=== PATIENT | female | born 1965 | race Caucasian/White ===

== ENCOUNTER → 2021-08-23 | Outpatient (CLI) | payer OTHER, SELFPAY ==
[2021-08-29 15:10] LABS: HPV APTIMA, High Risk Negative (Negative)
== END | disposition home or self-care (01) ==
PROVIDERS: PCP Family Medicine; Referring Provider Obstetrics & Gynecology; Visit Provider Obstetrics & Gynecology
DX: Z12.4 Encounter for screening for malignant neoplasm of cervix (principal)
CPT/HCPCS: 87624; 88175; G0145

== ENCOUNTER 2022-09-15 17:30 | Outpatient (RCR) | payer SELFPAY | END 2022-09-22 23:59 | LOC: NS 17:30 | PROVIDERS: PCP Nurse Practitioner Family | DX: Z71.3 Dietary counseling and surveillance (principal) ==

== ENCOUNTER 2023-09-28 12:08 | Outpatient (RCR) | payer SELFPAY | END 2023-10-24 23:59 | LOC: NS 12:08 | PROVIDERS: PCP Nurse Practitioner Family | DX: Z71.3 Dietary counseling and surveillance (principal) ==

== ENCOUNTER → 2024-09-08 | Outpatient (CLI) | payer SELFPAY ==
--- NOTE | 2024-09-08 | EMB_PTH ---
PATIENT: VANE LEMOS LOC: [facility] U#:[id number] AGE/SX: 59/F ROOM: RE09/08/[address]: Dr. Addis Foss DO : 1965 BED: DIS: 09/08/2024 SPEC #: [id number] RECD: 09/08/24 11:57 STATUS: [facility] JERONIMOSkye #: [id number] APRIL: 09/08/24 00:[address]: Addis Foss DEPT: SURGICAL PATHOLOGY RECD BY: Katie Freitas ENTERED: 09/08/24 13:38 SP TYPE: ENDOM BX/C TODD DR: Bertha Rivas, JOAQUIN Tissues: Endometrium, NOS Procedures: Surgery Specimen Level IV HEADER OPERATION: Endometrial Biopsy PRE-OP DIAGNOSIS: Postmenopausal Bleeding TISSUE SUBMITTED: Endometrial Tissue MICROSCOPIC DIAGNOSIS A. Endometrium, postmenopausal bleeding, biopsy: - Scant inactive endometrium - see note. Note: Scant tissue is present. Clinical correlation is necessary to assess the adequacy of this sampling. MICROSCOPIC DESCRIPTION Slides are reviewed. GROSS DESCRIPTION A. Received in formalin labeled with the patient's name and date of are minute flecks of possible tissue free-floating within the container which are spun down into a cell block and entirely submitted in 1 cassette. [place] 09/08/2024 CPT: [id number]
== END | disposition home or self-care (01) ==
LOC: LABSPEC 11:50
PROVIDERS: PCP Nurse Practitioner Family; Visit Provider Obstetrics & Gynecology
DX: N95.0 Postmenopausal bleeding (principal)
CPT/HCPCS: 88305

== ENCOUNTER 2024-09-30 05:57 | Day surgery (SDC) | payer OTHER, SELFPAY ==
[2024-09-26 10:35] LABS: Hematocrit 39.5 % (37-47); Hemoglobin 13.4 g/dL (12.0-15.0); Mean Corp Hgb Conc 33.9 g/dL (32-36); Mean Corpuscular Volume 90.0 fL (81-99); Mean Platelet Vol. 9.4 fl (6.2-12.0); Platelet Count 315 K/mm3 (150-450); RBC Distribution Width CV 12.5 % (11.6-14.6); RBC Distribution Width SD 41.3 fl (35.1-43.9); Red Blood Count 4.39 M/mm3 (4.2-5.4); White Blood Count 7.1 K/mm3 (4.4-11.0)
[2024-09-30] VITALS (9 sets, daily range): BP systolic 108–123; BP diastolic 57–78; PULSE 66–74; RESP 16–18; TEMP 36.1–36.4; O2SAT 94–99; BMI 33.2
--- OUTSIDE RECORDS SUMMARY | 2024-09-30 06:07 | XMS RPT_ITS | CCD ---
Author Organization 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 Name Role Phone ERICKSONCAROLINE LUE L Unavailable Unavailable SELF, SELF Unavailable Unavailable ALEX COVINGTON Unavailable Unavailable ERICKSON, LIBIA L Unavailable Unavailable SELF, SELF Unavailable Unavailable ALEX COVINGTON Unavailable Unavailable ERICKSON, LIBIA L Unavailable Unavailable SELF, SELF Unavailable Unavailable ALEX COVINGTON Unavailable Unavailable ERICKSON, LIBIA L Unavailable Unavailable SELF, SELF Unavailable Unavailable ALEX COVINGTON Unavailable Unavailable ERICKSON, LIBIA L Unavailable Unavailable SELF, SELF Unavailable Unavailable ALEX COVINGTON Unavailable Unavailable ERICKSON, LIBIA L Unavailable Unavailable SELF, SELF Unavailable Unavailable ALEX COVINGTON Unavailable Unavailable ALEX COVINGTON MD Primary Care Physician Aidan PT, Izabella Unavailable Unavailable Dr. Alex Covington Primary Care Provider Dr. Alex Covington Referring Provider Dr. Addis Foss Attending Provider Dr. Alex Covington Referring Provider [phone] Dr. Addis Foss Attending Provider Evelyn INTEGRATION SOLUTION ARCHITECT, INTEGRATION SOLUTION ARCHITECT-C Bertha Primary Care Provider DR BEV EARL DPM Attending UnavailALEX Ferguson MD Primary Care Unavailable EVELYN HEBERT, BERTHA Attending Unavail ALEX Loyd MD Primary Care Unavailable EVELYN HEBERT, BERTHA Attending Unavail ALEX Loyd MD Primary Care Unavailable BERTHA FAIRCHILD Attending Unavail ALEX Loyd MD Primary Care Unavailable EVELYN HBEERT, BERTHA Attending Unavail ALEX Loyd MD Primary Care Unavailable BERTHA FAIRCHILD Primary Care Physician [place] INTEGRATION SOLUTION ARCHITECT-C, [facility] Primary Care Provider [phone] Evelyn INTEGRATION SOLUTION ARCHITECT-C, [facility] Referring Provider Dr. Addis Foss DO Attending Provider Evelyn INTEGRATION SOLUTION ARCHITECT, [facility] Unavailable Vande Velfritz, Addis Attending Unavailabl e Vande Velde, Addis Referring Unavailabl e [place] INTEGRATION SOLUTION ARCHITECT, [facility] Unavailable Referred, Self Attending Unavailable [place] INTEGRATION SOLUTION ARCHITECT, [facility] Unavailable [place] INTEGRATION SOLUTION ARCHITECT, [facility] Referring Unavailable Vande Velfritz, Addis Attending Unavailabl e [place] INTEGRATION SOLUTION ARCHITECT, [facility] Unavailable [place] INTEGRATION SOLUTION ARCHITECT, [facility] Referring Unavailable Yumikoe Velfritz, Addis Attending Unavailabl e [place] INTEGRATION SOLUTION ARCHITECT, [facility] Referring Unavailable [place] INTEGRATION SOLUTION ARCHITECT, [facility] Unavailable Prince Claudio, Addis Attending Unavailabl e Vande Velfritz, Addis Attending Unavailabl e [place] INTEGRATION SOLUTION ARCHITECT, [facility] Unavailable LORSON FORENSIC INVESTIGATOR-PHARMACY ASSISTANT, [facility] Care Unavail able LORSON FORENSIC INVESTIGATOR-PHARMACY ASSISTANT, BERTHA Attending Unavail able LORSON FORENSIC INVESTIGATOR-PHARMACY ASSISTANT, [facility] Unavail able LORSON FORENSIC INVESTIGATOR-PHARMACY ASSISTANT, BERTHA Attending Unavail able LORSON FORENSIC INVESTIGATOR-PHARMACY ASSISTANT, [facility] Unavail able LORSON FORENSIC INVESTIGATOR-PHARMACY ASSISTANT, [place] Attending Unavail able LORSON FORENSIC INVESTIGATOR-PHARMACY ASSISTANT, [place] Attending Unavail able LORSON FORENSIC INVESTIGATOR-PHARMACY ASSISTANT, [facility] Unavail able LORSON FORENSIC INVESTIGATOR-PHARMACY ASSISTANT, [place] Primary Care Unavail able LORSON FORENSIC INVESTIGATOR-PHARMACY ASSISTANT, [place] Attending Unavail able LORSON FORENSIC INVESTIGATOR-PHARMACY ASSISTANT, [facility] Unavail able LORSON FORENSIC INVESTIGATOR-PHARMACY ASSISTANT, [place] Attending Unavail able LORSON FORENSIC INVESTIGATOR-PHARMACY ASSISTANT, [facility] Unavail able RYANN GONZALEZ DO Attending Unavailable Medications Current Medications Medication Drug Class(es) Dates Sig (Normalized) Sig (Original) 0.5 ML tirzepatide 15 MG/ML Auto-Injector [Mounjaro] (3 sources) Start: 03-14-2024 inject 1 dose by subcutaneous injection every week Mounjaro 7.5 mg/0.5 mL subcutaneous solution Dose : 7.5 mg =, Subcutaneous, qWeek, rotate injection sites, # 12 EA, 3 Refill(s), [id number], cm, 03/14/24 9:31:00 EST, Height, kg, 03/14/24 9:31:00 EST, Dosing Weight Start Date: 03/14/24 Status: Ordered Quantity: 12.0 Unit: EA Repeat number: 4 0.5 ML tirzepatide 5 MG/ML Auto-Injector [Mounjaro] (2 sources) Start: 06-08-2023 inject 1 dose by subcutaneous injection every week Mounjaro 2.5 mg/0.5 mL subcutaneous solution Dose : 2.5 mg =, Subcutaneous, qWeek, rotate injection sites, # 4 EA, 0 Refill(s), [id number] 161, cm, 06/08/23 13:37:00 EDT, Height, kg, 06/08/23 13:37:00 EDT, Dosing Weight Start Date: 06/08/23 Status: Ordered acetaminophen 500 mg oral tablet (7 sources) Start: 12-04-2021 acetaminophen 500 mg oral tablet Dose : 1,000 mg = 2 tab(s), Oral, TID, PRN pain or fever, 0 Refill(s) Start Date: 12/04/21 Status: Ordered amoxicillin 875 mg / clavulanate 125 mg oral tablet (1 source) Penicillin-class Antibacterial Start: 02-04-2022 End: 02-14-2022 take 1 tablet by mouth every twelve hours amoxicillin-clavul anate 875 mg-125 mg oral tablet 1 tab(s), Oral, q12h, X 10 day(s), # 20 tab(s), 0 Refill(s), 02/14/22 13:51:00 EST, [id number] 160, cm, 02/04/22 13:23:00 EST, Height, 98.2 Start Date: 02/04/22 Stop Date: 02/14/22 Status: Ordered atorvastatin 40 mg oral tablet (2 sources) HMG-CoA Reductase Inhibitor Start: 04-09-2022 atorvastatin 40 mg oral tablet Dose : 40 mg = 1 tab(s), Oral, qDay, # 90 tab(s), 3 Refill(s), Pharmacy: [facility], 160, cm, 03/26/22 7:00:00 EST, Height, kg, 03/26/22 7:00:00 EST, Dosing Weight Start Date: 04/09/22 Status: Ordered Start: 02-12-2022 atorvastatin 4 0 mg oral tablet Dose : 40 mg = 1 tab(s), Oral, qDay, # 30 tab(s), 3 Refill(s), [id number] 160, cm, 02/12/22 8:55:00 EST, Height Start Date: 02/12/22 Status: Ordered Blood Glucose Test Machine (12 sources) Start: 02-04-2022 Blood Glucose Test Machine See Instructions, Use as directed Brand type per insurance or patient preference, # 1 EA, 0 Refill(s), [id number] 160, cm, 02/04/22 13:23:00 EST, Height, 98.2 Start Date: 02/04/22 Status: Ordered Quantity: 1.0 Unit: EA Repeat number: 1 Start: 02-04-2022 Blood Glucose Test Machine See Instructions, Use as directed Brand type per insurance or patient preference, # 1 EA, 0 Refill(s), [id number], 160, cm, 02/04/22 13:23:00 EST, Height, 98.2 Start Date: 02/04/22 Status: Ordered calcium carbonate 1500 mg oral tablet (4 sources) Start: 08-31-2024 take 1 tablet by mouth once daily Calcium Carbonate 600 mg calcium (1,500 mg) tablet Active 600 mg PO daily August 31, 2024 12:00am calcium carbonate 600 MG / ergocalciferol 200 UNT Oral Capsule (14 sources) Provitamin D2 Compound Start: 05-16-2019 take 1 capsule by mouth twice daily calcium-vitamin D 600 mg-200 intl units (5 mcg) oral capsule cap(s), Oral, BID, 0 Refill(s) Start Date: 05/16/19 Status: Ordered Repeat number: 1 Start: 05-16-2019 take 1 capsule by mo [facility] twice daily calcium-vitamin D 600 mg-200 intl units (5 mcg) oral capsule cap(s), Oral, BID, 0 Refill(s) Start Date: 05/16/19 Status: Ordered cholecalciferol 0.025 mg oral capsule (16 sources) Vitamin D Start: 06-15-2023 End: 10-27-2024 cholecalciferol 25 mcg (1000 intl units) oral capsule Dose : 25 mcg = 1 cap(s), Oral, Daily, # 100 cap(s), 4 Refill(s), other reason (Rx) Start Date: 06/15/23 Stop Date: 10/27/24 Status: Ordered Quantity: 100.0 Unit: cap(s) Repeat number: 5 Start: 05-11-2023 cholecalcifero l 1250 mcg (50,000 intl units) oral capsule Dose : 1,250 mcg = 1 cap(s), Oral, qWeek, # 12 cap(s), 3 Refill(s), Pharmacy: [facility]/pharmacy #[id number], 160, cm, 03/23/23 7:33:00 EST, Height, kg, 03/23/23 7:33:00 EST, Dosing Weight Start Date: 05/11/23 Status: Ordered Start: 08-28-2022 take 1 capsule by [facility] once daily Cholecalciferol (Vitamin D3) 50 mcg (2,000 unit) capsule Active 50 ug PO DAILY August 28, 2022 12:00am Start: 06-05-2022 cholecalcifero l 1250 mcg (50,000 intl units) oral capsule Dose : 1,250 mcg = 1 cap(s), Oral, qWeek, # 12 cap(s), 3 Refill(s), Pharmacy: [facility]/pharmacy #[id number], 163, cm, 06/05/22 13:52:00 EDT, Height, kg, 06/05/22 13:52:00 EDT, Dosing Weight Start Date: 06/05/22 Status: Ordered Start: 02-12-2022 cholecalcifero l 1250 mcg (50,000 intl units) oral capsule Dose : 1,250 mcg = 1 cap(s), Oral, qWeek, # 12 cap(s), 3 Refill(s), Pharmacy: [facility]/pharmacy #[id number], 160, cm, 02/12/22 8:55:00 EST, Height Start Date: 02/12/22 Status: Ordered Co Q-10 100 mg oral capsule (3 sources) Start: 03-14-2024 End: 03-09-2025 Co Q-10 100 mg oral capsule Dose : 100 mg = 1 cap(s), Oral, Daily, # 90 cap(s), 3 Refill(s), other reason (Rx) Start Date: 03/14/24 Stop Date: 03/09/25 Status: Ordered Quantity: 90.0 Unit: cap(s) Repeat number: 4 ibuprofen 200 mg oral tablet (9 sources) Nonsteroidal Anti-inflammatory Drug Start: 12-04-2021 ibuprofen 200 mg oral tablet Dose : 400 mg = 2 tab(s), Oral, q6hr, PRN pain or fever, 0 Refill(s) Start Date: 12/04/21 Status: Ordered 3 ml insulin degludec 200 unt/ml pen injector (9 sources) Insulin Analog Start: 03-23-2023 End: 07-21-2023 inject 1 dose by subcutaneous injection once daily Tresiba FlexTouch 200 units/mL 3 mL subcutaneous solution Dose : 20 unit(s) =, Subcutaneous, qDay, rotate injection sites, # 9 mL, 3 Refill(s), Pharmacy: [facility], 160, cm, 03/23/23 7:33:00 EST, Height, kg, 03/23/23 7:33:00 EST, Dosing Weight Start Date: 03/23/23 Stop Date: 07/21/23 Status: Ordered Start: 09-05-2022 End: 01-03-2023 inject 1 dose by subcutaneous injection once daily Tresiba FlexTouch 200 units/mL 3 mL subcutaneous solution Dose : 16 unit(s) =, Subcutaneous, qDay, rotate injection sites, # 9 mL, 3 Refill(s), Pharmacy: [facility], 163, cm, 08/18/22 8:52:00 EDT, Height, kg, 08/18/22 8:52:00 EDT, Dosing Weight Start Date: 09/05/22 Stop Date: 01/03/23 Status: Ordered Start: 03-26-2022 End: 07-24-2022 inject 1 dose by subcutaneous injection once daily Tresiba FlexTouch 200 units/mL 3 mL subcutaneous solution Dose : 16 unit(s) =, Subcutaneous, qDay, rotate injection sites, # 9 mL, 3 Refill(s), other reason (Rx) Start Date: 03/26/22 Stop Date: 07/24/22 Status: Ordered Start: 02-04-2022 End: 06-04-2022 inject 1 dose by subcutaneous injection once daily Tresiba FlexTouch 200 units/mL 3 mL subcutaneous solution Dose : 10 unit(s) =, Subcutaneous, qDay, rotate injection sites, # 9 mL, 3 Refill(s), Pharmacy: [facility]/pharmacy #[id number], 160, cm, 02/04/22 13:23:00 EST, Height Start Date: 02/04/22 Stop Date: 06/04/22 Status: Ordered levothyroxine sodium 0.075 mg oral tablet (20 sources) l-Thyroxine Start: 06-13-2024 Synthroid 75 m cg (0.075 mg) oral tablet Dose : 75 mcg = 1 tab(s), Oral, qDay, no dose on Sundays, # 90 tab(s), 3 Refill(s), SUSANNA, Pharmacy: [facility], 161, cm, 06/13/24 9:33:00 EDT, Height, kg, 06/13/24 9:33:00 EDT, Dosing Weight Start Date: 06/13/24 Status: Ordered Quantity: 90.0 Unit: tab(s) Repeat number: 4 Start: 03-23-2023 Synthroid 75 m cg (0.075 mg) oral tablet Dose : 75 mcg = 1 tab(s), Oral, qDay, # 90 tab(s), 3 Refill(s), SUSANNA, Pharmacy: [facility], 160, cm, 03/23/23 7:33:00 EST, Height, kg, 03/23/23 7:33:00 EST, Dosing Weight Start Date: 03/23/23 Status: Ordered Start: 08-28-2022 Levothyroxine (Synthroid) 88 mcg tablet Active 75 ug PO DAILY August 28, 2022 1:13pm Start: 06-05-2022 Synthroid 75 m cg (0.075 mg) oral tablet Dose : 75 mcg = 1 tab(s), Oral, qDay, # 90 tab(s), 3 Refill(s), Pharmacy: [facility], 163, cm, 06/05/22 13:52:00 EDT, Height Start Date: 06/05/22 Status: Ordered Start: 03-26-2022 Synthroid 88 m cg (0.088 mg) oral tablet Dose : 88 mcg = 1 tab(s), Oral, qDay, # 90 tab(s), 3 Refill(s), Pharmacy: [facility], 160, cm, 03/26/22 7:00:00 EST, Height, kg, 03/26/22 7:00:00 EST, Dosing Weight Start Date: 03/26/22 Status: Ordered Start: 12-31-2021 Synthroid 88 m cg (0.088 mg) oral tablet Dose : 88 mcg = 1 tab(s), Oral, qDay, # 90 tab(s), 1 Refill(s), Pharmacy: [facility], 161, cm, 05/03/21 14:39:00 EST, Height, kg, 05/03/21 14:39:00 EST, Dosing Weight Start Date: 12/31/21 Status: Ordered Start: 08-23-2021 End: 08-28-2022 take 1 tablet by mouth once daily Levothyroxine (Synthroid) 88 mcg tablet Discontinued 88 ug PO DAILY August 23, 2021 12:00am August 28, 2022 1:16pm Start: 02-27-2021 Synthroid 88 m cg (0.088 mg) oral tablet Dose : 88 mcg = 1 tab(s), Oral, qDay, # 90 tab(s), 0 Refill(s), Pharmacy: [facility], 160.02, cm, 02/20/21 17:15:00 EST, Height, kg, 02/20/21 17:15:00 EST, Dosing Weight Start Date: 02/27/21 Status: Ordered lisinopril 5 mg oral tablet (20 sources) Angiotensin Converting Enzyme Inhibitor Start: 08-31-2024 take 2.5 mg by mouth once daily Lisinopril 5 mg tablet Active 2.5 mg PO DAILY August 31, 2024 11:10am Start: 06-13-2024 lisinopril 2.5 mg oral tablet Dose : 2.5 mg = 1 tab(s), Oral, Daily, # 100 tab(s), 3 Refill(s), [facility], 161, cm, 06/13/24 9:33:00 EDT, Height, kg, 06/13/24 9:33:00 EDT, Dosing Weight Start Date: 06/13/24 Status: Ordered Quantity: 100.0 Unit: tab(s) Repeat number: 4 Start: 04-09-2022 End: 08-31-2024 take 1 tablet by mouth once daily Lisinopril 5 mg tablet Discontinued 5 mg PO DAILY August 28, 2022 12:00am August 31, 2024 11:11am Start: 02-12-2022 lisinopril 5 m g oral tablet Dose : 5 mg = 1 tab(s), Oral, qDay, # 30 tab(s), 3 Refill(s), Pharmacy: [facility]/pharmacy #[id number], 160, cm, 02/12/22 8:55:00 EST, Height Start Date: 02/12/22 Status: Ordered magnesium oxide 250 mg oral tablet (10 sources) Start: 08-28-2022 take 1 tablet by mouth once daily Magnesium Oxide 250 mg magnesium tablet Active 250 mg PO DAILY August 28, 2022 12:00am Multivitamin preparation (16 sources) Start: 08-23-2021 take 1 tablet by mouth once daily Multivitamin Active 1 TABLET PO DAILY August 23, 2021 12:00am Start: 05-03-2021 take 1 tablet by jose a th once daily Multivitamin Dose = 1 tab(s), Oral, Daily, 0 Refill(s) Start Date: 05/03/21 Status: Ordered Repeat number: 1 Start: 05-03-2021 take 1 tablet by jose a th once daily Multivitamin Dose = 1 tab(s), Oral, Daily, 0 Refill(s) Start Date: 05/03/21 Status: Ordered Multivitamin tablet (4 sources) Start: 08-23-2021 Multivitamin tablet Active 1 {tbl} PO DAILY August 23, 2021 12:00am nystatin 145392 unt/ml oral suspension (1 source) Polyene Antifungal Start: 02-04-2022 End: 02-18-2022 take 1 dose by mouth four times daily nystatin 100,000 units/mL oral suspension Dose : 500,000 unit(s) = 5 mL, Oral, QID, X 7 day(s), # 140 mL, 1 Refill(s), 02/18/22 13:52:00 EST, (swish and swallow), [id number] 160, cm, 02/04/22 13:23:00 EST, Height Start Date: 02/04/22 Stop Date: 02/18/22 Status: Ordered PEG-3350 with Electrolytes (Eqv-GoLYTELY) oral powder for reconstitution (1 source) Start: 08-17-2024 PEG-3350 with Electrolytes (Eqv-GoLYTELY) oral powder for reconstitution See Instructions, Take as directed starting 1 day before colonoscopy. Follow instructions as provided by your GI provider at [place]., # 1 EA, 0 Refill(s), [id number] 161, cm, 08/17/24 13:53:00 EDT, Height, kg, 08/17/24 13:53:00 EDT, Dosing Weight Start Date: 08/17/24 Status: Ordered Quantity: 1.0 Unit: EA Repeat number: 1 Pen needles (9 sources) Start: 09-08-2022 Pen needles See Instructions, qs for 3 month supply. Use once daily. Dx e11.9., # 1 EA, 3 Refill(s), Pharmacy: [facility], 163, cm, 08/18/22 8:52:00 EDT, Height, 101.4, kg, 08/18/22 8:52:00 EDT, Dosing Weight Start Date: 09/08/22 Status: Ordered Start: 02-04-2022 Pen needles Se e Instructions, qs for 1 month supply. Use once daily. Dx e11.9, # 1 EA, 11 Refill(s), [id number] 160, cm, 02/04/22 13:23:00 EST, Height, 98.2 Start Date: 02/04/22 Status: Ordered rosuvastatin calcium 20 mg oral tablet (18 sources) HMG-CoA Reductase Inhibitor Start: 08-31-2024 take 10 mg by mouth once daily Rosuvastatin (Crestor) 20 mg tablet Active 10 mg PO DAILY August 31, 2024 11:10am Start: 03-14-2024 End: 03-09-2025 rosuvastatin 10 mg oral tabl et Dose : 10 mg = 1 tab(s), Oral, Daily, # 90 tab(s), 3 Refill(s), Pharmacy: [facility], 161, cm, 03/14/24 9:31:00 EST, Height, kg, 03/14/24 9:31:00 EST, Dosing Weight Start Date: 03/14/24 Stop Date: 03/09/25 Status: Ordered Quantity: 90.0 Unit: tab(s) Repeat number: 4 Start: 08-20-2022 End: 08-31-2024 take 1 tablet by mouth once daily Rosuvastatin (Crestor) 20 mg tablet Discontinued 20 mg PO DAILY August 28, 2022 12:00am August 31, 2024 11:11am Start: 06-05-2022 rosuvastatin 2 0 mg oral tablet Dose : 20 mg = 1 tab(s), Oral, Daily, # 90 tab(s), 3 Refill(s), Pharmacy: [facility] #[id number], Well adult exam Hypothyroidism, 163, cm, 06/05/22 13:52:00 EDT, Height Start Date: 06/05/22 Status: Ordered sertraline 25 mg oral tablet (20 sources) Serotonin Reuptake Inhibitor Start: 08-31-2024 take 2 tablets by mouth every other day Sertraline (Zoloft) 25 mg tablet Active 50 mg PO .every other day August 31, 2024 11:10am Start: 03-14-2024 sertraline 50 mg oral tablet Dose : 50 mg = 1 tab(s), Oral, qDay, # 90 tab(s), 3 Refill(s), Pharmacy: [facility], 161, cm, 03/14/24 9:31:00 EST, Height, kg, 03/14/24 9:31:00 EST, Dosing Weight Start Date: 03/14/24 Status: Ordered Quantity: 90.0 Unit: tab(s) Repeat number: 4 Start: 06-15-2023 sertraline 50 mg oral tablet Dose : 50 mg = 1 tab(s), Oral, qDay, # 90 tab(s), 3 Refill(s), Pharmacy: [facility], 161, cm, 06/15/23 7:36:00 EDT, Height, kg, 06/15/23 7:36:00 EDT, Dosing Weight Start Date: 06/15/23 Status: Ordered Start: 03-23-2023 sertraline 50 mg oral tablet Dose : 50 mg = 1 tab(s), Oral, qDay, # 90 tab(s), 3 Refill(s), Pharmacy: [facility], 160, cm, 03/23/23 7:33:00 EST, Height, kg, 03/23/23 7:33:00 EST, Dosing Weight Start Date: 03/23/23 Status: Ordered Start: 08-23-2021 End: 08-31-2024 take 1 tablet by mouth every other day Sertraline (Zoloft) 25 mg tablet Discontinued 25 mg PO .every other day August 23, 2021 12:00am August 31, 2024 11:11am Start: 03-26-2021 sertraline 25 mg oral tablet Dose : 25 mg = 1 tab(s), Oral, qDay, # 90 tab(s), 0 Refill(s), Pharmacy: [facility], 160.02, cm, 02/20/21 17:15:00 EST, Height, kg, 02/20/21 17:15:00 EST, Dosing Weight Start Date: 03/26/21 Status: Ordered Tirzepatide (Mounjaro) 7.5 m g/0.5 mL pen injector (4 sources) Start: 08-31-2024 Tirzepatide (M ounjaro) 7.5 mg/0.5 mL pen injector Active 7.5 mg SC EVERY WEEK August 31, 2024 12:00am ubidecarenone 10 mg oral cap blanca (4 sources) Start: 08-31-2024 Coenzyme Q10 ( Co Q-10) 10 mg capsule Active 10 mg PO ONCE August 31, 2024 12:00am Completed/Discontinued Medications Medication Drug Class(es) Dates Sig (Normalized) Sig (Original) 0.25 MG, 0.5 MG Dose 3 ML semaglutide 0.68 MG/ML Pen Injector (2 sources) Start: 08-18-2022 End: 11-10-2022 inject 0.5 mg by subcutaneous injection every week semaglutide 2 mg/3 mL (0.25 mg or 0.5 mg dose) subcutaneous solution Dose : 0.25 mg =, Subcutaneous, qWeek, rotate injection sites, # 4 EA, 2 Refill(s), generic [id number], Pharmacy: [facility]/pharmacy #[id number], 163, cm, 08/18/22 8:52:00 EDT, Height Start Date: 08/18/22 Stop Date: 11/10/22 Status: Ordered calcium ascorbate 500 mg oral tablet (6 sources) Start: 08-23-2021 End: 08-31-2024 take 1 tablet by mouth once daily Ascorbate Calcium (Vitamin C) 500 mg tablet Discontinued 500 mg PO DAILY August 23, 2021 12:00am August 31, 2024 11:09am Insulin Degludec (Tresiba Flextouch U-100) 100 unit/mL (3 mL) insulin pen (9 sources) Start: 08-31-2023 End: 08-31-2024 Insulin Degludec (Tresiba Flextouch U-100) 100 unit/mL (3 mL) insulin pen Discontinued 20 U SC AT BEDTIME August 31, 2023 2:52pm August 31, 2024 11:09am Start: 08-28-2022 End: 08-31-2023 Insulin Degludec (Tresiba Fl extouch U-100) 100 unit/mL (3 mL) insulin pen Discontinued 16 U SC AT BEDTIME August 28, 2022 12:00am August 31, 2023 2:52pm Start: 08-28-2022 Insulin Deglud ec (Tresiba Flextouch U-100) 100 unit/mL (3 mL) insulin pen Active 16 UNIT SC AT BEDTIME August 28, 2022 12:00am ketoconazole 20 mg/ml topical cream (5 sources) Azole Antifungal Start: 08-28-2022 End: 08-31-2024 Ketoconazole 2 % cream Discontinued 1 NMA TOPICAL TWICE A DAY 60 0 August 28, 2022 12:00am August 31, 2024 11:09am apply twice a day for 2 weeks Tirzepatide (Mounjaro) 5 mg/0.5 mL pen injector (4 sources) Start: 08-31-2023 End: 08-31-2024 Tirzepatide (Mounjaro) 5 mg/0.5 mL pen injector Discontinued 5 mg SC EVERY WEEK August 31, 2023 12:00am August 31, 2024 11:11am Problems Active Problems Problem Classification Problem Date Documented Date Episodic/Chronic Administrative/social admission (3 sources) MMR vaccination status 06-13-2024 Episodic Diabetes mellitus with complications (2 sources) Type 2 diabetes mellitus with other specified complication; Translations: [Type 2 diabetes mellitus with other specified complication] Onset: 09-26-2024 Chronic Diabetes mellitus without complication (20 sources) Type 2 diabetes mellitus; Translations: [Insulin treated type 2 diabetes mellitus] Onset: 11-10-2022 02-04-2022 Chronic Disorders of lipid metabolism (20 sources) Mixed hyperlipidemia; Translations: [Mixed hyperlipidemia] Onset: 08-04-2022 12-13-2018 Chronic Genitourinary symptoms and ill-defined conditions (4 sources) Increased frequency of urination 12-14-2023 Episodic Joint disorders and dislocations; trauma-related (15 sources) Derangement of left knee 12-13-2018 Chronic Malaise and fatigue (6 sources) Fatigue 06-08-2023 Episodic Menopausal disorders (12 sources) Postmenopausal bleeding; Translations: [Postmenopausal bleeding] Onset: 09-13-2024 06-13-2024 Chronic Comment on above: emb needed Mood disorders (14 sources) Depressive disorder; Translations: [Depression] Onset: 09-26-2024 08-23-2021 Chronic Nutritional deficiencies (18 sources) Vitamin D deficiency; Translations: [Vitamin D deficiency, unspecified] Onset: 11-10-2022 02-04-2022 Chronic Other connective tissue disease (11 sources) Muscle pain 03-26-2022 Episodic Other connective tissue disease (4 sources) Cramp in lower limb 12-14-2023 Episodic Other inflammatory condition of skin (5 sources) Pruritus of genital organs 02-04-2022 Episodic Other lower respiratory disease (6 sources) Snoring 06-08-2023 Episodic Other nutritional; endocrine; and metabolic disorders (2 sources) Body mass index 40+ - severely obese 06-08-2023 Chronic Other nutritional; endocrine; and metabolic disorders (8 sources) Body mass index 30+ - obesity 09-14-2023 Chronic Other nutritional; endocrine; and metabolic disorders (1 source) Obese class III 09-14-2023 Chronic Other nutritional; endocrine; and metabolic disorders (2 sources) Obesity, unspecified; Translations: [Obesity, unspecified] Onset: 03-14-2024 Chronic Other upper respiratory disease (15 sources) Polyp of nasal cavity 12-13-2018 Episodic Other upper respiratory infections (5 sources) Streptococcal sore throat 02-04-2022 Episodic Residual codes; unclassified (6 sources) Obstructive sleep apnea syndrome 06-08-2023 Chronic Thyroid disorders (20 sources) Hypothyroidism; Translations: [Hypothyroidism, unspecified] Onset: 11-10-2022 12-13-2018 Chronic Unclassified (1 source) Follow-up / 145() Onset: 08-14-2017 Unclassified (1 source) Keratoconus, stable, bilateral / H18.613(ICD-10) Onset: 04-09-2017 Unclassified (20 sources) Patient encounter status 05-14-2022 Past or Other Problems Problem Classification Problem Date Documented Da te Episodic/Chronic Other screening for suspected conditions (not mental disorders or infectious disease) (7 sources) Viral screening status; Translations: [Encounter for screening mammogram for malignant neoplasm of breast] Onset: 06-08-2023 06-08-2023 Episodic Unclassified (1 source) Follow-up; Translations: [Follow-up] Onset: 08-14-2017 Unclassified (1 source) Keratoconus, stable, bilateral; Translations: [Keratoconus, stable, bilateral] Onset: 04-09-2017 Results Test Name Value Interpretation Reference Range Facility CBC-Complete Blood Cnt No Di ffon 09-26-2024 Erythrocyte distribution width (RBC) [Ratio] 12.5 % Normal 11.6-14.6 [facility] Comment on above: Performed By: #### B TSPAT, L100.0500 #### [facility] [address] [place], [address] Hematocrit (Bld) [Volume fraction] 39.5 % Normal 37-47 [facility] Comment on above: Performed By: #### B TSPAT, L100.0500 #### [facility] [address] [place], [address] Hemoglobin (Bld) [Mass/Vol] 13.4 g/dL Normal 12.0-15.0 [facility] Comment on above: Performed By: #### Stacey TSPAT, L100.0500 #### [facility] [address] [place], [address] MCH (RBC) [Entitic mass] 30.5 pg Normal 27.0-32.0 [facility] Comment on above: Performed By: #### Stacey TSPAT, L100.0500 #### [facility] [address] [place], [address] MCHC (RBC) [Mass/Vol] 33.9 g/dL Normal 32-36 [facility] Comment on above: Performed By: #### Stacey TSPAT, L100.0500 #### [facility] [address] [place], [address] MCV (RBC) [Entitic vol] 90.0 fL Normal 81-99 [facility] Comment on above: Performed By: #### Stacey TSPAT, L100.0500 #### [facility] [address] [place], [address] Platelet mean volume (Bld) [Entitic vol] 9.4 fL Normal 6.2-12.0 [facility] Comment on above: Performed By: #### Stacey TSPAT, L100.0500 #### [facility] [address] [place], [address] Platelets (Bld) [#/Vol] 315 10*3/uL Normal 150-450 [facility] Comment on above: Performed By: #### Stacey TSPAT, L100.0500 #### [facility] [address] [place], [address] RBC (Bld) [#/Vol] 4.39 10*6/uL Normal 4.2-5.4 [facility] Comment on above: Performed By: #### Stacey TSPAT, L100.0500 #### [facility] [address] [place], [address] RDW SD 41.3 fl Normal 35.1-43.9 [facility] Comment on above: Performed By: #### B TSPAT, L100.0500 #### [facility] [address] [place], [address] WBC (Bld) [#/Vol] 7.1 10*3/uL Normal 4.4-11.0 [facility] Comment on above: Performed By: #### B TSPAT, L100.0500 #### [facility] [address] [place], [address] MALBRon 09-26-2024 U Creatinine 369.4 mg/dL Normal [facility] Comment on above: Performed By: #### T SHR, GFR, CMP, LIPID, MG #### [address] [address] #### HCV1 #### [address] [address] U Microalb 34.3 mg/L Normal [facility] Comment on above: Performed By: #### T SHR, GFR, CMP, LIPID, MG #### [address] [address] #### HCV1 #### [address] [address] U Ratio Alb/Cre 9 mg/G Normal 0-30 [facility] Comment on above: Performed By: #### T SHR, GFR, CMP, LIPID, MG #### [address] [address] #### HCV1 #### [address] [address] Type AND Screen - PAT ONLYon 09-26-2024 Ab SCREEN GEL Negative Normal [facility] Comment on above: Order Comment: Surge ry Date: 09/30/24 Reason for Laboratory Test PREOP [id number] No N N S HYSTEROSCOPY, D/C Performed By: #### B TSPAT, L100.0500 #### [facility] [address] [place], [address] [employer] Office Visit Reporton 09-14-2024 [employer] Office Visit Report [facility] [place] [address] [facility], [address] [place] [address] OFFICE VISIT Date of Service: 09/14/24 MR#: [id number] Acct: [id number] Name: VANE LEMOS Rep #: [id number] : 1965 Provider: Dr. 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 Is patient in pain?: No Allergies No Known Allergies Allergy (Verified 09/14/24 09:52) Medications ???Medication ???Instructions ???Recorded ???Confirmed ???Type multivitamin 1 tab PO DAILY 08/23/21 09/14/24 H istory cholecalciferol (vitamin D3) 50 50 mcg PO DAILY 08/28/22 09/14/24 History mcg (2,000 unit) capsule levothyroxine 88 mcg tablet 75 mcg PO DAILY 08/28/22 09/14/24 History (Synthroid) magnesium oxide 250 mg PO DAILY 08/28/22 09/14/24 History calcium carbonate 600 mg PO QDAY 08/31/24 09/14/24 H istory coenzyme Q10 10 mg capsule (Co 10 mg PO ONCE 08/31/24 09/14/24 Hi story Q-10) lisinopril 5 mg tablet 2.5 mg PO DAILY 08/31/24 09/14/24 History rosuvastatin 20 mg tablet (Crestor) 10 mg PO DAILY 08/31/24 5 History sertraline 25 mg tablet (Zoloft) 50 mg PO .every other day 08/31/24 09/14/24 History tirzepatide 7.5 mg/0.5 mL 7.5 mg subcut QWEEK 08/31/2409/14 History subcutaneous pen injector (Jono) Post menopausal: No Patient : No : No PFSH Medical History Aburto's cyst Abnormal Pap smear of cervix Surgical History S/P left knee surgery S/P correction of deviated nasal septum S/P adenoidectomy Family History Grandfather Diabetes x2 Father Diabetes Multiple myeloma Bone cancer Mother Elevated WBCs Hypertension Diabetes Brother Elevated WBCs Hypertension Diabetes Other Myocardial infarction Social History number of children: 0 current occupational status: retired Smoking Status: Current every day smoker alcohol intake: never substance use type: does not use caffeine: Yes what type of physical activity do you participate in: walking frequency: 3-4 times per week seatbelt use: always do you feel safe at home: Yes additional social history: Single HPI Discuss D C Details: VANE LEMOS is a 59 year old who presents for discussion about thickened endometrium and scant tissue that was returned with the EMB. THe pathologist reported benign tissue but due to scant amount of tissue we can not 100% rely on these results. The recommendation is for a dilation and curettage procedure. History 0 Elective abortions Hx Para Spontaneous abortions Hx # Term Pregnancies Ectopic pregnancies Hx # Pregnancies Multiple births # of living children ROS Const ROS Unobtainable: All systems reviewed are unremarkable except as noted in H Resp Resp: Reports system reviewed and no additional complaints, except as documented; Denies cough GI GI: Reports as per HPI Psych Psych: Reports system reviewed and no additional complaints, except as documented Exam Const General: cooperative, healthy appearing, comfortable and no acute distress Resp Effort Inspection: normal respiratory effort Skin General: no rashes or lesions noted Psych Appearance: grossly normal Speech and Movement: speech and movement normal Coding Level of Care Code Off vis,est,level 4 Diagnoses Postmenopausal bleeding N95.0 Endometrial thickening on ultrasound R93.89 Assessment and Plan Assessment and Plan (1) Postmenopausal bleeding: Status: Acute Comment: emb needed (2) Endometrial thickening on ultrasound: Status: Acute Plan After discussing the patient's diagnosis and treatment plan options, patient wishes to proceed with surgical management. I have discussed with the patient the risks, benefits, and alternatives of the procedure which include but are not limited to risks of anesthesia, bleeding, infection, possible damage to bowel, bladder, or surrounding vasculature which could lead to additional surgery to evaluate any complications. Patient agrees to procedure and wishes to proceed. ACOG/uptodate references given for additional information regarding procedure. plan for hysteroscopy dilation and curettage. 09/14/24 1421 Date [facility]: Date (more content not included)... Normal [facility] Surgical pathology reportOrd ered By: Michaela Boss on 09-09-2024 Surgical pathology study [facility] [employer] Office Visit Reporton 09-08-2024 [employer] Office Visit Report [facility] [address], [address] [place] [address] OFFICE VISIT Date of Service: 09/08/24 MR#: [id number] Acct: [id number] Name: VANE LEMOS Rep #: [id number] : 1965 Provider: Dr. 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 Is patient in pain?: No Allergies No Known Allergies Allergy (Verified 09/08/24 08:30) Medications ???Medication ???Instructions ???Recorded ???Confirmed ???Type multivitamin 1 tab PO DAILY 08/23/21 09/08/24 H istory cholecalciferol (vitamin D3) 50 50 mcg PO DAILY 08/28/22 09/08/24 History mcg (2,000 unit) capsule levothyroxine 88 mcg tablet 75 mcg PO DAILY 08/28/22 09/08/24 History (Synthroid) magnesium oxide 250 mg PO DAILY 08/28/22 09/08/24 History calcium carbonate 600 mg PO QDAY 08/31/24 09/08/24 H istory coenzyme Q10 10 mg capsule (Co 10 mg PO ONCE 08/31/24 09/08/24 Hi story Q-10) lisinopril 5 mg tablet 2.5 mg PO DAILY 08/31/24 09/08/24 History rosuvastatin 20 mg tablet (Crestor) 10 mg PO DAILY 08/31/24 5 History sertraline 25 mg tablet (Zoloft) 50 mg PO .every other day 08/31/24 09/08/24 History tirzepatide 7.5 mg/0.5 mL 7.5 mg subcut QWEEK 08/31/2409/08 History subcutaneous pen injector (Mounokro) Is last menstrual period known: No Post menopausal: No Patient : No : No PFSH PFSH Medical History Aburto's cyst Abnormal Pap smear of cervix Surgical History S/P left knee surgery S/P correction of deviated nasal septum S/P adenoidectomy Family History Grandfather Diabetes x2 Father Diabetes Multiple myeloma Bone cancer Mother Elevated WBCs Hypertension Diabetes Brother Elevated WBCs Hypertension Diabetes Other Myocardial infarction Social History number of children: 0 current occupational status: retired Smoking Status: Current every day smoker alcohol intake: never substance use type: does not use caffeine: Yes what type of physical activity do you participate in: walking frequency: 3-4 times per week seatbelt use: always do you feel safe at home: Yes additional social history: Single History 0 Elective abortions Hx Para Spontaneous abortions Hx # Term Pregnancies Ectopic pregnancies Hx # Pregnancies Multiple births # of living children HPI EMB *per JV Details: VANE LEMOS is a 59 year old who presents for endometrial biopsy due to postmenopausal bleeding. the endometrium measures 8.5 mm ROS Const ROS Unobtainable: All systems reviewed are unremarkable except as noted in H Resp Resp: Reports system reviewed and no additional complaints, except as documented; Denies cough GI GI: Reports as per HPI Psych Psych: Reports system reviewed and no additional complaints, except as documented Exam Const General: cooperative, healthy appearing, comfortable and no acute distress Resp Effort Inspection: normal respiratory effort General: bimanual renal exam normal bilaterally External Female Exam: normal appearance of the urethra Urethra: normal appearance of the urethra Speculum Exam - Vagina: normal appearance of the vagina Speculum Exam - Cervix: normal appearance of the cervix Bimanual Exam- Adnexa, other: normal adnexae and normal Pelvic Support: normal Skin General: no rashes or lesions noted Psych Appearance: grossly normal Speech and Movement: speech and movement normal Office Procedures Endometrial Biopsy Endometrial Biopsy Test: Yes declined Consent Signed: Yes Time out checklist: patient tenaculum used: No dilator used: No Details: Cervix prepped with betadine and pipelle inserted into uterus without complication. Specimen obtained and sent to lab for analysis. All instruments removed from vagina without complications. Excellent hemostasis noted. Coding Level of Care Code Off vis,est,level 3 Diagnoses Postmenopausal bleeding N95.0 CPT Codes Endometrial Biopsy (04129) Assessment and Plan Assessment and Plan (1) Postmenopausal bleeding: Status: Acute Comment: emb needed Orders: Orders Endometrial Biopsy Today N95.0 - Postmenopausal bleeding Plan EMB performed today. will call with results. 09/08/24 1218 Date (more content not included)... Normal [facility] Surgery Specimen Level Frandy 09-08-2024 Surgery Specimen Level IV Patient Age/Sex Location Account Attending Physician NEELVANE Hernandez 59/F LABSPEC [id number] Dr. Addis Foss, Teri Specimen: [id number] Received: 09/08/24 Status: GUILLERMINA Arvizu Num: [id number] Spec Type: ENDOM BX/C Raymond Dr: Dr. Addis Foss, DO HEADER OPERATION: Endometrial Biopsy PRE-OP DIAGNOSIS: Postmenopausal Bleeding TISSUE SUBMITTED: Endometrial Tissue MICROSCOPIC DIAGNOSIS A. Endometrium, postmenopausal bleeding, biopsy: - Scant inactive endometrium - see note. Note: Scant tissue is present. Clinical correlation is necessary to assess the adequacy of this sampling. MICROSCOPIC DESCRIPTION Slides are reviewed. GROSS DESCRIPTION A. Received in formalin labeled with the patient's name and date of are minute flecks of possible tissue free-floating within the container which are spun down into a cell block and entirely submitted in 1 cassette. [place] 09/08/2024 CPT: 60460 Patient Age/Sex Location Account Attending Physician VANE LEMOS 59/F [facility] [id number] Teri Huang Signed (signatur e on file) Dr. 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 Is patient in pain?: No Allergies No Known Allergies Allergy (Verified 08/31/24 11:09) Medications ???Medication ???Instructions ???Recorded ???Confirmed ???Type multivitamin 1 tab PO DAILY 08/23/21 08/31/24 H istory cholecalciferol (vitamin D3) 50 50 mcg PO DAILY 08/28/22 08/31/24 History mcg (2,000 unit) capsule levothyroxine 88 mcg tablet 75 mcg PO DAILY 08/28/22 08/31/24 History (Synthroid) magnesium oxide 250 mg PO DAILY 08/28/22 08/31/24 History calcium carbonate 600 mg PO QDAY 08/31/24 08/31/24 H istory coenzyme Q10 10 mg capsule (Co 10 mg PO ONCE 08/31/24 08/31/24 Hi story Q-10) lisinopril 5 mg tablet 2.5 mg PO DAILY 08/31/24 08/31/24 History rosuvastatin 20 mg tablet (Crestor) 10 mg PO DAILY 08/31/24 5 History sertraline 25 mg tablet (Zoloft) 50 mg PO .every other day 08/31/24 08/31/24 History tirzepatide 7.5 mg/0.5 mL 7.5 mg subcut QWEEK 08/31/2408/31 History subcutaneous pen injector (Mounjaro) Is last menstrual period known: No Post menopausal: Yes Patient : No : No PFSH Medical History Aburto's cyst Abnormal Pap smear of cervix Surgical History S/P left knee surgery S/P correction of deviated nasal septum S/P adenoidectomy Family History Grandfather Diabetes x2 Father Diabetes Multiple myeloma Bone cancer Mother Elevated WBCs Hypertension Diabetes Brother Elevated WBCs Hypertension Diabetes Other Myocardial infarction Social History (Updated 08/31/24 @ 11:13 by Claudia Turner) number of children: 0 current occupational status: retired Smoking Status: Current every day smoker alcohol intake: never substance use type: does not use caffeine: Yes what type of physical activity do you participate in: walking frequency: 3-4 times per week seatbelt use: always do you feel safe at home: Yes additional social history: Single History 0 Elective abortions Hx Para Spontaneous abortions Hx # Term Pregnancies Ectopic pregnancies Hx # Pregnancies Multiple births # of living children HPI Encounter for routine gynecological examination Details: VANE LEMOS is a 59 year old who presents for annual exam. patient had bleeding last month. ultrasound was performed showing an 8.5mm endometrium. biopsy is needed but not at this visit unfortunately. Last PAP: 08/23/2021 - normal History of abnormal PAP: Last mammogram: 05/2024 - normal History of abnormal mammogram: no Colon cancer screening: colonoscopy 2 weeks ago Other preventative health care screenings: PCP Kush Avalos, orders mammograms and colonoscopies. PCP also orders routine labs. Female Reproductive History Questions: metorrhagia: No, sexually active: Yes, dyspareunia: No and PCB: No Menopausal Symptoms: No hot flashes, No night sweats, No weight change, No mood changes, No difficulty concentrating, No sleep problems and No change in libido ROS Const Constitutional: Reports as per HPI; Denies fatigue, increased appetite, poor appetite, night sweats, weight gain or weight loss Cardio Card: Denies chest pain Resp Resp: Denies cough or dyspnea GI GI: Reports as per HPI; Denies abdominal pain, bloating, constipation, nausea or vomiting : Reports as per HPI and other; Denies difficulty voiding, dysuria, hematuria, hot flashes, nipple discharge, pelvic pain, prolapse symptoms, urinary frequency, urinary incontinence, urinary urgency, vaginal discharge, vaginal dryness, vaginal odor or vaginal pruritus Skin Skin/Breast: Denies changing lesions, breast mass, breast pain, breast skin changes or nipple discharge Psych Psych: Denies anxiety, change in libido, depression or difficulty concentrating Exam Const General: cooperative, healthy appearing, comfortable, no acute distress, well developed and well groomed [facility] Head: normal to inspection and normocephalic Ears: hearing grossly normal bilaterally and external ears normal Nose: external nose normal Face and sinus: normal facial exam Neck Neck: normal visual inspection, full ROM and no lymphadenopathy (more content not included)... Normal [facility] US PELVIS NON-OB LIMITEDon 0 08-02-2024 US PELVIS NON-OB LIMITED ORIGINAL EXAMINATION: Ultrasound pelvis, 08/01/2024 5:27 pm transabdominal and transvaginal COMPARISON: None TECHNIQUE: This report is based on interpretation of permanently recorded ultrasound images. HISTORY: ORDERING SYSTEM PROVIDED HISTORY: Reason for Exam: Postmenopausal bleeding, FINDINGS: The uterus is 6.2 x 2.9 x 4.7 cm. There is heterogeneity of the myometrium. There is an intramural left uterine body area solid lesion of 1.9 cm that is isoechoic. This may be a fibroid. A small cluster of echogenic foci in the lower uterine segment may be another small calcified fibroid of 1.7 cm are simply artifacts related to the endometrial/cervica l canal.. The endometrium is 8.5 mm double wall thickness transvaginally. No focal endometrial lesion is evident on this study. No endometrial fluid.. Right ovary: 2.4 x 1.9 x 2.6 cm. There is a 1.5 cm simple cyst in the ovary. Left ovary: 3.3 x 1.4 x 2.4 cm. No suspicious ovarian lesion. There is blood flow in both ovaries. No pelvic free fluid is seen. IMPRESSION: Abnormal thickening of the endometrium for a patient with postmenopausal bleeding. Small intramural uterine fibroid. 1.5 cm simple appearing cyst in the right ovary. No follow-up is indicated, see reference below. RECOMMENDATIONS: Right ovarian benign simple cyst measuring 1.5 cm. No follow-up imaging is recommended. Reference: Radiology 2019 Nov;293(2):359-371 Interpreted by: Sarbjit Thorpe MD Preliminary Report By: Sarbjit Thorpe MD Electronically signed By Sarbjit Thorpe MD Dictated Date: 08/02/2024 9:54:23 AM Prelim Date: 08/02/2024 9:57:08 AM Sign Date: 08/02/2024 9:57:08 AM Ordering Provider: BERTHA Ding [facility] LABORATORYOrdered By: SYSTEM SYSTEM on 07-22-2024 TSH Qn 0.65 m[IU]/L Normal 0.36 - 3.74 mcIU/mL AO ADM SS TSHRon 07-22-2024 TSH Qn 0.65 m[IU]/L Normal 0.36-3.74 [facility] Comment on above: Performed By: #### T SHR #### [place] [address] [place] MAMMOGRAM SCREENING BILAT ERAL W/TOMOon 06-13-2024 MA MAMMOGRAM SCREENING BILATERAL W/AJITH ORIGINAL FROM: [address] [address] PROCEDURE FOR: VANE LEMOS [address] [place] [id number] Home: PID#: [id number] Exam#: [id number] : 1965 Age: 59 TO: BERTHA LOBATO [facility] [address] [place] [address] Fax: NO FAX EXAMINATION: SCREENING DIGITAL BILATERAL MAMMOGRAM WITH TOMOSYNTHESIS, 06/09/2024 8:55 am TECHNIQUE: Screening mammography of the bilateral breasts was performed with tomosynthesis. 2D standard and 3D tomosynthesis combination imaging performed through both breasts in the MLO and CC projection. Computer aided detection was utilized in the interpretation of this exam. COMPARISON: June 08, 2023, June 05, 2022, May 03, 2021 HISTORY: Breast cancer screening. FINDINGS: BREAST DENSITY: There are scattered areas of fibroglandular density. There is a benign-type left upper outer quadrant intramammary lymph node, unchanged. There is no significant mass, architectural distortion or microcalcification. Fibroglandular pattern is stable. IMPRESSION: No mammographic evidence of malignancy. Continued screening with annual mammograms is recommended. Bhupinder Gonzalez risk calculations, generated with the history provided, report this patient's 10 year risk and lifetime risk for developing breast cancer at 3.9% and 11.3%, respectively. Based on this assessment tool, if the patient's calculated lifetime risk is below 20%, then the patient is considered at average risk for developing breast cancer. If the patient's calculated lifetime risk is at or above 20%, then the patient is considered high risk for developing breast cancer and may be a candidate for supplemental breast MRI screening in addition to annual mammographic screening per the [employer]. BIRADS: MAMMOGRAM BI-RADS: 2: Benign finding RECALL: 1 year screening RECALL TYPE: mammo LETTER SENT: Normal BI-RADS 1 and 2 Interpreted by: Claire Villanueva Preliminary Report By: Claire Villanueva Electronically signed By Claire Villanueva Dictated Date: 06/13/2024 2:05:40 PM Prelim Date: 06/13/2024 2:09:14 PM Sign Date: 06/13/2024 2:09:14 PM Ordering Provider: BERTHA LOBATO Clinical Research Monitor: ORAL PELAYO(David)(M)(CT) letter sent: Normal BI-RADS 1 and 2 Mammogram BI-RADS: 2 Benign Normal [facility] .GFRon 06-09-2024 Estimated Glomerular Filtration Rate 89 ml/min/1.73sqm Normal [facility] Comment on above: Result Comment: Stages of Chronic Kidney Disease (CKD) Stage Description eGFR(ml/min/1.73 sq.m.) CKD 1 Normal kidney function or >=90 normal kindney function with possible kidney damage (ex. Proteinuria) CKD 2 Kidney damage with mild loss 60-89 of kidney function CKD 3a Mild to moderate loss of kidney 45-59 function CKD 3b Moderate to severe loss of 30-44 of kindey function CKD 4 Severe loss of kidney function 15-29 CKD 5 Kidney failure <15 Note: (go live 2024) the eGFR calculation was updated to the 2020 CKD-EPI creatinine equation without a race factor to calculate the eGFR results. Performed By: #### T SHR, GFR, CMP, LIPID, MG #### [place] [address] #### HCV1 #### [place] [id number] A1Con 06-09-2024 Glucose [Mass/Vol] 114 mg/dL Normal [facility] Comment on above: Result Comment: Georgina mated Average Glucose calculated by equation ((28.7xA1C)-46.7) Estimated average glucose (eAG) is a calculated value from Hemoglobin A1C and is customer response representative of the average blood glucose level in the last 2-3 month period. Normal range: less than 114 mg/dL Performed By: #### T SHR, GFR, CMP, LIPID, MG #### [place] [address] #### HCV1 #### [place] [address] HbA1c (Bld) [Mass fraction] 5.6 % Normal 4.3-6.4 [facility] Comment on above: Performed By: #### T SHR, GFR, CMP, LIPID, MG #### [place] [address] #### HCV1 #### [place] [address] CMPon 06-09-2024 Albumin Level 3.9 G/dL Normal 3.5-5.0 [facility] Comment on above: Performed By: #### T SHR, GFR, CMP, LIPID, MG #### [place] [address] #### HCV1 #### [place] [address] Albumin/Globulin [Mass ratio] 1.0 {ratio} Low 1.1-2.5 [facility] Comment on above: Performed By: #### T SHR, GFR, CMP, LIPID, MG #### [place] [address] #### HCV1 #### [facility] [address] [place], [place] [address] ALP [Catalytic activity/Vol] 55 U/L Normal 40-135 [facility] Comment on above: Performed By: #### T SHR, GFR, CMP, LIPID, MG #### [place] [address] #### HCV1 #### [place] [address] ALT [Catalytic activity/Vol] 21 U/L Normal 14-59 [facility] Comment on above: Performed By: #### T SHR, GFR, CMP, LIPID, MG #### [place] [address] #### HCV1 #### [place] [address] AST [Catalytic activity/Vol] 17 U/L Normal 10-40 [facility] Comment on above: Performed By: #### T SHR, GFR, CMP, LIPID, MG #### [place] [address] #### HCV1 #### [place] [address] Bili Total 0.4 mg/dL Normal 0.2-1.0 [facility] Comment on above: Result Comment: Use of this assay is not recommended for patients undergoing treatment with eltrombopag due to the potential for falsely elevated results. Performed By: #### T SHR, GFR, CMP, LIPID, MG #### [place] [address] #### HCV1 #### [place] [address] BUN/Creatinine Ratio 28 ratio High 7-27 [facility] Comment on above: Performed By: #### T SHR, GFR, CMP, LIPID, MG #### [place] [address] #### HCV1 #### [place] [address] Calcium [Mass/Vol] 9.5 mg/dL Normal 8.4-10.2 [facility] Comment on above: Performed By: #### T SHR, GFR, CMP, LIPID, MG #### [place] [address] #### HCV1 #### [address] [address] Chloride [Moles/Vol] 104 mmol/L Normal 98-107 [facility] Comment on above: Performed By: #### T SHR, GFR, CMP, LIPID, MG #### [place] [address] #### HCV1 #### [address] [address] CO2 [Moles/Vol] 30 mmol/L High 22-29 [facility] Comment on above: Performed By: #### T SHR, GFR, CMP, LIPID, MG #### [place] [address] #### HCV1 #### [place] [address] Creatinine [Mass/Vol] 0.78 mg/dL Normal 0.55-1.02 [facility] Comment on above: Result Comment: Test ing performed on Siemens Dimension EXL analyzer using a modified kinetic Jennifer technique. Performed By: #### T SHR, GFR, CMP, LIPID, MG #### [place] [address] #### HCV1 #### [place] [address] Electrolyte Balance 5.0 mEq/L Normal 4.0-15.[address] [facility] Comment on above: Performed By: #### T SHR, GFR, CMP, LIPID, MG #### [place] [address] #### HCV1 #### [place] [address] Globulin 3.8 G/dL Normal 1.5-3.8 [facility] Comment on above: Performed By: #### T SHR, GFR, CMP, LIPID, MG #### [place] [id number] #### HCV1 #### [address] [address] Glucose [Mass/Vol] 101 mg/dL Normal 70-105 [facility] Comment on above: Performed By: #### T SHR, GFR, CMP, LIPID, MG #### [address] [address] #### HCV1 #### [address] [address] Potassium [Moles/Vol] 4.0 mmol/L Normal 3.5-5.1 [facility] Comment on above: Performed By: #### T SHR, GFR, CMP, LIPID, MG #### [address] [address] #### HCV1 #### [address] [address] Sodium [Moles/Vol] 139 mmol/L Normal 136-145 [facility] Comment on above: Performed By: #### T SHR, GFR, CMP, LIPID, MG #### [address] [address] #### HCV1 #### [address] [address] Total Protein 7.7 G/dL Normal 6.4-8.2 [facility] Comment on above: Performed By: #### T SHR, GFR, CMP, LIPID, MG #### [address] [address] #### HCV1 #### [address] [address] Urea nitrogen [Mass/Vol] 22 mg/dL High 7-18 [facility] Comment on above: Performed By: #### T SHR, GFR, CMP, LIPID, MG #### [address] [address] #### HCV1 #### [address] [address] FT4on 06-09-2024 Free T4 [Mass/Vol] 1.08 ng/dL Normal 0.76-1.46 [facility] Comment on above: Performed By: #### T SHR, GFR, CMP, LIPID, MG #### [address] [address] #### HCV1 #### [address] [address] LIPIDon 06-09-2024 Cholesterol [Mass/Vol] 163 mg/dL Normal 0-200 [facility] Comment on above: Result Comment: Chol esterol Reference Interval: Less than 200 Desirable 200-239 Borderline high risk 240 and above High risk Performed By: #### T SHR, GFR, CMP, LIPID, MG #### [address] [address] #### HCV1 #### [address] [address] Cholesterol in HDL [Mass/Vol] 63 mg/dL High 40-60 [facility] Comment on above: Performed By: #### T SHR, GFR, CMP, LIPID, MG #### [address] [address] #### HCV1 #### [address] [address] Cholesterol in LDL [Mass/Vol] 74 mg/dL Normal 0-130 [facility] Comment on above: Performed By: #### T SHR, GFR, CMP, LIPID, MG #### [address] [address] #### HCV1 #### [address] [address] Triglyceride [Mass/Vol] 130 mg/dL Normal 0-150 [facility] Comment on above: Result Comment: Trig lyceride Reference Interval: Less than 150 Normal 150-199 Borderline high risk 200-499 High risk 500 or higher Very high risk Performed By: #### T SHR, GFR, CMP, LIPID, MG #### [address] [address] #### HCV1 #### [address] [address] TSHon 06-09-2024 TSH Qn 0.18 m[IU]/L Low 0.36-3.74 [facility] Comment on above: Performed By: #### T SHR, GFR, CMP, LIPID, MG #### [address] [address] #### HCV1 #### [place] [address] VIDHon 06-09-2024 Vit. D 25-Hydroxy 34.4 ng/mL Normal [facility] Comment on above: Result Comment: Inte rpretive Values Based on Total 25(OH) Vitamin D: Deficient <20 ng/mL Insufficient 20 - <30 ng/mL Sufficient 30-100 ng/mL Performed By: #### T SHR, GFR, CMP, LIPID, MG #### [address] [address] #### HCV1 #### [place] [address] RPCURon 03-14-2024 U Creatinine 112.1 mg/dL Normal [facility] Comment on above: Performed By: #### R PCUR #### [address] [address] U Protein 14 mg/dL Normal [facility] Comment on above: Performed By: #### R PCUR #### [address] [address] U Ratio Prot/Creat 0.1 ratio Normal [facility] Comment on above: Performed By: #### R PCUR #### [address] [address] .GFRon 03-10-2024 GFR 79 ml/min/1.73sqm Normal [facility] Comment on above: Result Comment: GFR Population mean for , Non- Americans Ages 20-29 = 116 mL/min/1.73 sq.m. Ages 30-39 = 107 mL/min/1.73 sq.m. Ages 40-49 = 99 mL/min/1.73 sq.m. Ages 50-59 = 93 mL/min/1.73 sq.m. Ages 60-69 = 85 mL/min/1.73 sq.m. Ages 70+ = 75 mL/min/1.73 sq.m. Chronic Kidney Disease: Less than 60 mL/min/1.73 square meters End Stage Renal Disease: Less than 15 mL/min/1.73 square meters Performed By: #### T SHR, GFR, CMP, LIPID, MG #### [address] [address] #### HCV1 #### [address] [address] GFR Non- 65 ml/min/1.73sqm Normal [facility] Comment on above: Result Comment: GFR Population mean for , Non- Americans Ages 20-29 = 116 mL/min/1.73 sq.m. Ages 30-39 = 107 mL/min/1.73 sq.m. Ages 40-49 = 99 mL/min/1.73 sq.m. Ages 50-59 = 93 mL/min/1.73 sq.m. Ages 60-69 = 85 mL/min/1.73 sq.m. Ages 70+ = 75 mL/min/1.73 sq.m. Chronic Kidney Disease: Less than 60 mL/min/1.73 square meters End Stage Renal Disease: Less than 15 mL/min/1.73 square meters Performed By: #### T SHR, GFR, CMP, LIPID, MG #### [address] [address] #### HCV1 #### [address] [address] CMPon 03-10-2024 Albumin Level 3.7 G/dL Normal 3.5-5.0 [facility] Comment on above: Performed By: #### T SHR, GFR, CMP, LIPID, MG #### [address] [address] #### HCV1 #### [address] [address] Albumin/Globulin [Mass ratio] 0.9 {ratio} Low 1.1-2.5 [facility] Comment on above: Performed By: #### T SHR, GFR, CMP, LIPID, MG #### [place] [address] #### HCV1 #### [address] [address] ALP [Catalytic activity/Vol] 63 U/L Normal 40-135 [facility] Comment on above: Performed By: #### T SHR, GFR, CMP, LIPID, MG #### [place] [address] #### HCV1 #### [place] [address] ALT [Catalytic activity/Vol] 21 U/L Normal 14-59 [facility] Comment on above: Performed By: #### T SHR, GFR, CMP, LIPID, MG #### [place] [address] #### HCV1 #### [place] [address] AST [Catalytic activity/Vol] 13 U/L Normal 10-40 [facility] Comment on above: Performed By: #### T SHR, GFR, CMP, LIPID, MG #### [place] [address] #### HCV1 #### [place] [address] Bili Total 0.4 mg/dL Normal 0.2-1.0 [facility] Comment on above: Result Comment: Use of this assay is not recommended for patients undergoing treatment with eltrombopag due to the potential for falsely elevated results. Performed By: #### T SHR, GFR, CMP, LIPID, MG #### [place] [address] #### HCV1 #### [place] [address] BUN/Creatinine Ratio 20 ratio Normal 7-27 [facility] Comment on above: Performed By: #### T SHR, GFR, CMP, LIPID, MG #### [place] [address] #### HCV1 #### [address] [address] Calcium [Mass/Vol] 9.4 mg/dL Normal 8.4-10.2 [facility] Comment on above: Performed By: #### T SHR, GFR, CMP, LIPID, MG #### [place] [address] #### HCV1 #### [address] [address] Chloride [Moles/Vol] 103 mmol/L Normal 98-107 [facility] Comment on above: Performed By: #### T SHR, GFR, CMP, LIPID, MG #### [place] [address] #### HCV1 #### [address] [address] CO2 [Moles/Vol] 29 mmol/L Normal 22-29 [facility] Comment on above: Performed By: #### T SHR, GFR, CMP, LIPID, MG #### [place] [address] #### HCV1 #### [address] [address] Creatinine [Mass/Vol] 0.89 mg/dL Normal 0.55-1.02 [facility] Comment on above: Result Comment: Test ing performed on Siemens Dimension EXL analyzer using a modified kinetic Jennifer technique. Performed By: #### T SHR, GFR, CMP, LIPID, MG #### [place] [address] #### HCV1 #### [address] [address] Electrolyte Balance 9.0 mEq/L Normal 4.0-15.[address] [facility] Comment on above: Performed By: #### T SHR, GFR, CMP, LIPID, MG #### [place] [address] #### HCV1 #### [address] [address] Globulin 4.0 G/dL Normal [facility] Comment on above: Performed By: #### T SHR, GFR, CMP, LIPID, MG #### [address] [address] #### HCV1 #### [address] [address] Glucose [Mass/Vol] 94 mg/dL Normal 70-105 [facility] Comment on above: Performed By: #### T SHR, GFR, CMP, LIPID, MG #### [address] [address] #### HCV1 #### [address] [address] Potassium [Moles/Vol] 4.0 mmol/L Normal 3.5-5.1 [facility] Comment on above: Performed By: #### T SHR, GFR, CMP, LIPID, MG #### [address] [address] #### HCV1 #### [address] [address] Sodium [Moles/Vol] 141 mmol/L Normal 136-145 [facility] Comment on above: Performed By: #### T SHR, GFR, CMP, LIPID, MG #### [address] [address] #### HCV1 #### [address] [address] Total Protein 7.7 G/dL Normal 6.4-8.2 [facility] Comment on above: Performed By: #### T SHR, GFR, CMP, LIPID, MG #### [address] [address] #### HCV1 #### [address] [address] Urea nitrogen [Mass/Vol] 18 mg/dL Normal 7-18 [facility] Comment on above: Performed By: #### T SHR, GFR, CMP, LIPID, MG #### [address] [address] #### HCV1 #### [place] [address] HCVon 03-10-2024 Hep C Ab Non-Reactive Normal Non-Reactive [facility] Comment on above: Performed By: #### T SHR, GFR, CMP, LIPID, MG #### [address] [address] #### HCV1 #### [place] [address] Hep C Ab Int Normal [facility] Comment on above: Result Comment: Nonr eactive: Samples with a value < 0.80 are considered nonreactive (negative) for antibodies to HCV. A negative test result does not exclude the possibility of exposure to or infection with HCV. HCV antibodies may be undetectable in some stages of the infection and in some clinical conditions. See Interp Performed By: #### T SHR, GFR, CMP, LIPID, MG #### [address] [address] #### HCV1 #### [place] [address] LABORATORYOrdered By: SYSTEM SYSTEM on 03-10-2024 Albumin BCP dye [Mass/Vol] 3.7 G/dL Normal 3.5 - 5.0 G/dL AO ADM SS Albumin/Globulin [Mass ratio] 0.9 {ratio} Low 1.1 - 2.5 ratio AO ADM SS ALP [Catalytic activity/Vol] 63 U/L Normal 40 - 135 U/L AO ADM SS ALT With P-5'-P [Catalytic activity/Vol] 21 U/L Normal 14 - 59 U/L AO ADM SS AST With P-5'-P [Catalytic activity/Vol] 13 U/L Normal 10 - 40 U/L AO ADM SS Bilirubin [Mass/Vol] 0.4 mg/dL Normal 0.2 - 1 .0 mg/dL AO ADM SS Comment on above: Interpretive Data: U se of this assay is not recommended for patients undergoing treatment with eltrombopag due to the potential for falsely elevated results. Calcium [Mass/Vol] 9.4 mg/dL Normal 8.4 - 10. 2 mg/dL AO ADM SS Chloride [Moles/Vol] 103 mmol/L Normal 98 - 10 7 mmol/L AO ADM SS CO2 [Moles/Vol] 29 mmol/L Normal 22 - 29 mmol/L AO ADM SS Creatinine [Mass/Vol] 0.89 mg/dL Normal 0.55 - 1.02 mg/dL AO ADM SS Comment on above: Interpretive Data: T esting performed on Siemens Dimension EXL analyzer using a modified kinetic Jennifer technique. Electrolyte Balance 9.0 mEq/L Normal 4.0 - 15 .0 mEq/L AO ADM SS GFR/1.73 sq M.predicted among blacks MDRD (S/P/Bld) [Vol rate/Area] 79 ml/min/1.73sqm Invalid Interpretation Code AO Chemistry S Comment on above: Interpretive Data: GFR Population mean for , Non- Americans Ages 20-29 = 116 mL/min/1.73 sq.m. Ages 30-39 = 107 mL/min/1.73 sq.m. Ages 40-49 = 99 mL/min/1.73 sq.m. Ages 50-59 = 93 mL/min/1.73 sq.m. Ages 60-69 = 85 mL/min/1.73 sq.m. Ages 70+ = 75 mL/min/1.73 sq.m. Chronic Kidney Disease: Less than 60 mL/min/1.73 square meters End Stage Renal Disease: Less than 15 mL/min/1.73 square meters GFR/1.73 sq M.predicted among non-blacks MDRD (S/P/Bld) [Vol rate/Area] 65 ml/min/1.73sqm Invalid Interpretation Code AO Chemistry S Comment on above: Interpretive Data: GFR Population mean for , Non- Americans Ages 20-29 = 116 mL/min/1.73 sq.m. Ages 30-39 = 107 mL/min/1.73 sq.m. Ages 40-49 = 99 mL/min/1.73 sq.m. Ages 50-59 = 93 mL/min/1.73 sq.m. Ages 60-69 = 85 mL/min/1.73 sq.m. Ages 70+ = 75 mL/min/1.73 sq.m. Chronic Kidney Disease: Less than 60 mL/min/1.73 square meters End Stage Renal Disease: Less than 15 mL/min/1.73 square meters Globulin 4.0 G/dL Invalid Interpretation Code AO ADM SS Glucose [Mass/Vol] 94 mg/dL Normal 70 - 105 mg/dL AO ADM SS Magnesium [Mass/Vol] 2.0 mg/dL Normal 1.8 - 2 .4 mg/dL AO ADM SS Potassium [Moles/Vol] 4.0 mmol/L Normal 3.5 - 5.1 mmol/L AO ADM SS Protein [Mass/Vol] 7.7 G/dL Normal 6.4 - 8.2 G/dL AO ADM SS Sodium [Moles/Vol] 141 mmol/L Normal 136 - 145 mmol/L AO ADM SS TSH Qn 0.37 m[IU]/L Normal 0.36 - 3.74 mcIU/mL AO ADM SS Urea nitrogen [Mass/Vol] 18 mg/dL Normal 7 - 18 mg/dL AO ADM SS Urea nitrogen/Creatinine [Mass ratio] 20 ratio Normal 7 - 27 ratio AO ADM SS LABORATORYOrdered By: Coleen Mtz on 03-10-2024 Cholesterol [Mass/Vol] 263 mg/dL High 0 - 200 mg/dL AO ADM SS Comment on above: Interpretive Data: C holesterol Reference Interval: Less than 200 Desirable 200-239 Borderline high risk 240 and above High risk Cholesterol in HDL [Mass/Vol] 51 mg/dL Normal 40 - 60 mg/dL AO ADM SS Cholesterol in LDL [Mass/Vol] 191 mg/dL High 0 - 130 mg/dL AO ADM SS Triglyceride [Mass/Vol] 105 mg/dL Normal 0 - 150 mg/dL AO ADM SS Comment on above: Interpretive Data: T riglyceride Reference Interval: Less than 150 Normal 150-199 Borderline high risk 200-499 High risk 500 or higher Very high risk LABORATORYOrdered By: Marina Pérez on 03-10-2024 HCV Ab IA Ql Non-Reactive (03/10/24 12:52 PM) Normal Non-Reactive ADM SS HCV Ab IA Ql Nonreactive: Samples with a value < 0.80 are considered nonreactive (negative) for antibodies to HCV.A negative test result does not exclude the possibility of exposure to or infection with HCV. HCV antibodies may be undetectable in some stages of the infection and in some clinical conditions. Invalid Interpretation Code Chemistry S LIPIDon 03-10-2024 Cholesterol [Mass/Vol] 263 mg/dL High 0-200 [facility] Comment on above: Result Comment: Chol esterol Reference Interval: Less than 200 Desirable 200-239 Borderline high risk 240 and above High risk Performed By: #### T SHR, GFR, CMP, LIPID, MG #### [address] [address] #### HCV1 #### [address] [address] Cholesterol in HDL [Mass/Vol] 51 mg/dL Normal 40-60 [facility] Comment on above: Performed By: #### T SHR, GFR, CMP, LIPID, MG #### [address] [address] #### HCV1 #### [address] [address] Cholesterol in LDL [Mass/Vol] 191 mg/dL High 0-130 [facility] Comment on above: Performed By: #### T SHR, GFR, CMP, LIPID, MG #### [address] [address] #### HCV1 #### [address] [address] Triglyceride [Mass/Vol] 105 mg/dL Normal 0-150 [facility] Comment on above: Result Comment: Trig lyceride Reference Interval: Less than 150 Normal 150-199 Borderline high risk 200-499 High risk 500 or higher Very high risk Performed By: #### T SHR, GFR, CMP, LIPID, MG #### [place] [address] #### HCV1 #### [address] [address] MGon 03-10-2024 Magnesium [Mass/Vol] 2.0 mg/dL Normal 1.8-2.4 [facility] Comment on above: Performed By: #### T SHR, GFR, CMP, LIPID, MG #### [place] [address] #### HCV1 #### [address] [address] TSHRon 03-10-2024 TSH Qn 0.37 m[IU]/L Normal 0.36-3.74 [facility] Comment on above: Performed By: #### T SHR, GFR, CMP, LIPID, MG #### [address] [address] #### HCV1 #### [address] [address] LABORATORYOrdered By: Carlin Marques on 06-15-2023 Albumin DL <= 20 mg/L (U) [Mass/Vol] 555 mcg/dL Invalid Interpretation Code AO ADM SS Albumin/Creatinine DL <= 20 mg/L (U) [Mass ratio] 5 mcg/mg Normal 0 - 30 mcg/mg AO ADM SS Creatinine (U) [Mass/Vol] 106.1 mg/dL Normal 28.0 - 117.0 mg/dL AO ADM SS MALBRon 06-15-2023 U Creatinine 106.1 mg/dL Normal 28.0-117.0 [facility] ([place]) Comment on above: Performed By: #### M ALBR ####[place] [address] [place], [place] [address] U Microalb 555 mcg/dL Normal [facility] ([place]) Comment on above: Performed By: #### M ALBR ####[facility] [place], [place] [address] U Ratio Alb/Cre 5 mcg/mg Normal 0-30 [facility] ([place]) Comment on above: Performed By: #### M ALBR ####[facility] [place], [place] [address] MA MAMMOGRAM SCREENING BILAT ERAL W/TOMOon 06-12-2023 MA MAMMOGRAM SCREENING BILATERAL W/AJITH ORIGINAL FROM: [address] [address] PROCEDURE FOR: [place] [address] Home: PID#: [id number] Exam#: [id number] : 1965 Age: 58 TO: BERTHA 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 2D standard and 3D tomosynthesis combination imaging performed through both breasts in the MLO and CC projection. Computer aided detection was utilized in the interpretation of this exam. COMPARISON: June 05, 2022, May 03, 2021, November 25, 2018 HISTORY: Breast cancer screening. FINDINGS: BREAST DENSITY: Scattered fibroglandular tissue There is no significant mass, architectural distortion or microcalcification. Fibroglandular pattern is stable, including a left upper outer quadrant intramammary lymph. Node. IMPRESSION: No mammographic evidence of malignancy. Continued screening with annual mammograms is recommended. Bhupinder Camarenazick risk calculations, generated with the history provided, report this patient's 10 year risk and lifetime risk for developing breast cancer at 1.1% and 12.6%, respectively. Based on this assessment tool, if the patient's calculated lifetime risk is below 20%, then the patient is considered at average risk for developing breast cancer. If the patient's calculated lifetime risk is at or above 20%, then the patient is considered high risk for developing breast cancer and may be a candidate for supplemental breast MRI screening in addition to annual mammographic screening per the [employer]. BIRADS: MAMMOGRAM BI-RADS: 2: Benign finding RECALL: 1 year screening RECALL TYPE: mammo LETTER SENT: Normal BI-RADS 1 and 2 Interpreted by: Claire Villanueva Preliminary Report By: Claire Villanueva Electronically signed By Claire Villanueva Dictated Date: 06/12/2023 8:19:49 AM Prelim Date: 06/12/2023 8:24:03 AM Sign Date: 06/12/2023 8:24:03 AM Ordering Provider: BERTHA LOBATO Clinical Research Monitor: CHINA BEYER RT(R)(M)(CT) G[employer] LINE REPAIRER letter sent: Normal BI-RADS 1 and 2 Mammogram BI-RADS: 2 Benign Normal [facility] ([place]) .GFRon 06-08-2023 GFR 78 ml/min/1.73sqm Normal [facility] ([place]) Comment on above: Result Comment: GFR Population mean for , Non- Americans Ages 20-29 = 116 mL/min/1.73 sq.m. Ages 30-39 = 107 mL/min/1.73 sq.m. Ages 40-49 = 99 mL/min/1.73 sq.m. Ages 50-59 = 93 mL/min/1.73 sq.m. Ages 60-69 = 85 mL/min/1.73 sq.m. Ages 70+ = 75 mL/min/1.73 sq.m. Chronic Kidney Disease: Less than 60 mL/min/1.73 square meters End Stage Renal Disease: Less than 15 mL/min/1.73 square meters Performed By: #### V IDH, TSH, FT4, A1C, LIPID, CMP, GFR ####[facility] [place] [place], [place] [address] GFR Non- 64 ml/min/1.73sqm Normal [facility] ([place]) Comment on above: Result Comment: GFR Population mean for , Non- Americans Ages 20-29 = 116 mL/min/1.73 sq.m. Ages 30-39 = 107 mL/min/1.73 sq.m. Ages 40-49 = 99 mL/min/1.73 sq.m. Ages 50-59 = 93 mL/min/1.73 sq.m. Ages 60-69 = 85 mL/min/1.73 sq.m. Ages 70+ = 75 mL/min/1.73 sq.m. Chronic Kidney Disease: Less than 60 mL/min/1.73 square meters End Stage Renal Disease: Less than 15 mL/min/1.73 square meters Performed By: #### V IDH, TSH, FT4, A1C, LIPID, CMP, GFR ####[facility] [place] [place], [place] [address] A1Con 06-08-2023 HbA1c (Bld) [Mass fraction] 7.3 % High 4.3-6.4 [facility] ([place]) Comment on above: Performed By: #### V IDH, TSH, FT4, A1C, LIPID, CMP, GFR #### [facility] [place] [address] [place], [place] [address] CMPon 06-08-2023 Albumin Level 3.7 G/dL Normal 3.5-5.0 [facility] ([place]) Comment on above: Performed By: #### V IDH, TSH, FT4, A1C, LIPID, CMP, GFR ####[facility] [place] [place], [place] [address] Albumin/Globulin [Mass ratio] 1.1 {ratio} Normal 1.1-2.5 [facility] ([place] Comment on above: Performed By: #### V IDH, TSH, FT4, A1C, LIPID, CMP, GFR ####[address] [place], [place] [address] ALP [Catalytic activity/Vol] 63 U/L Normal 40-135 [facility] ([place] Comment on above: Performed By: #### V IDH, TSH, FT4, A1C, LIPID, CMP, GFR ####[address] [place], [place] [address] ALT [Catalytic activity/Vol] 31 U/L Normal 14-59 [facility] ([place] Comment on above: Performed By: #### V IDH, TSH, FT4, A1C, LIPID, CMP, GFR ####[address] [place], [place] [address] AST [Catalytic activity/Vol] 13 U/L Normal 10-40 [facility] ([place] Comment on above: Performed By: #### V IDH, TSH, FT4, A1C, LIPID, CMP, GFR ####[address] [place], [place] [address] Bili Total 0.3 mg/dL Normal 0.2-1.0 [facility] ([place] Comment on above: Result Comment: Use of this assay is not recommended for patients undergoing treatment with eltrombopag due to the potential for falsely elevated results. Performed By: #### V IDH, TSH, FT4, A1C, LIPID, CMP, GFR ####[address] [place], [place] [address] BUN/Creatinine Ratio 23 ratio Normal 7-27 [facility] [place] Comment on above: Performed By: #### V IDH, TSH, FT4, A1C, LIPID, CMP, GFR ####[address] [place], [place] [address] Calcium [Mass/Vol] 8.9 mg/dL Normal 8.4-10.2 [facility] ([place] Comment on above: Performed By: #### V IDH, TSH, FT4, A1C, LIPID, CMP, GFR ####[address] [place], [place] [address] Chloride [Moles/Vol] 101 mmol/L Normal 98-107 [facility] [place] Comment on above: Performed By: #### V IDH, TSH, FT4, A1C, LIPID, CMP, GFR ####[address] [place], [place] [address] CO2 [Moles/Vol] 30 mmol/L High 22-29 [facility] ([place]) Comment on above: Performed By: #### V IDH, TSH, FT4, A1C, LIPID, CMP, GFR ####[address] [place], [place] [address] Creatinine [Mass/Vol] 0.91 mg/dL Normal 0.55-1.02 [facility] ([place]) Comment on above: Performed By: #### V IDH, TSH, FT4, A1C, LIPID, CMP, GFR ####[address] [place], [place] [address] Electrolyte Balance 7.0 mEq/L Normal 4.0-15.0 [facility] ([place]) Comment on above: Performed By: #### V IDH, TSH, FT4, A1C, LIPID, CMP, GFR ####[address] [place], [place] [address] Globulin 3.5 G/dL Normal [facility] ([place] Comment on above: Performed By: #### V IDH, TSH, FT4, A1C, LIPID, CMP, GFR ####[address] [place], [place] [address] Glucose [Mass/Vol] 143 mg/dL High 70-105 [facility] ([place] Comment on above: Performed By: #### V IDH, TSH, FT4, A1C, LIPID, CMP, GFR ####[address] [place], [place] [address] Potassium [Moles/Vol] 4.4 mmol/L Normal 3.5-5.1 [facility] ([place]) Comment on above: Performed By: #### V IDH, TSH, FT4, A1C, LIPID, CMP, GFR ####[address] [place], [place] [address] Sodium [Moles/Vol] 138 mmol/L Normal 136-145 [facility] ([place] Comment on above: Performed By: #### V IDH, TSH, FT4, A1C, LIPID, CMP, GFR ####[address] [place], [place] [address] Total Protein 7.2 G/dL Normal 6.4-8.2 [facility] ([place]) Comment on above: Performed By: #### V IDH, TSH, FT4, A1C, LIPID, CMP, GFR ####[address] [place], [place] [address] Urea nitrogen [Mass/Vol] 21 mg/dL High 7-18 [facility] ([place] Comment on above: Performed By: #### V IDH, TSH, FT4, A1C, LIPID, CMP, GFR ####[address] [place], [place] [address] FT4on 06-08-2023 Free T4 [Mass/Vol] 1.10 ng/dL Normal 0.76-1.46 [facility] ([place] Comment on above: Performed By: #### V IDH, TSH, FT4, A1C, LIPID, CMP, GFR ####[address] [place], [place] [address] LABORATORYOrdered By: SYSTEM SYSTEM on 06-08-2023 25-hydroxyvitamin D3 [Mass/Vol] 41.8 ng/mL Invalid Interpretation Code AO ADM SS Comment on above: Interpretive Data: I nterpretive Values Based on Total 25(OH) Vitamin D: Deficient <20 ng/mL Insufficient 20 - <30 ng/mL Sufficient 30-100 ng/mL Albumin BCP dye [Mass/Vol] 3.7 G/dL Normal 3.5 - 5.0 G/dL AO ADM SS Albumin/Globulin [Mass ratio] 1.1 {ratio} Normal 1.1 - 2.5 ratio AO ADM SS ALP [Catalytic activity/Vol] 63 U/L Normal 40 - 135 U/L AO ADM SS ALT With P-5'-P [Catalytic activity/Vol] 31 U/L Normal 14 - 59 U/L AO ADM SS AST With P-5'-P [Catalytic activity/Vol] 13 U/L Normal 10 - 40 U/L AO ADM SS Bilirubin [Mass/Vol] 0.3 mg/dL Normal 0.2 - 1 .0 mg/dL AO ADM SS Comment on above: Interpretive Data: U se of this assay is not recommended for patients undergoing treatment with eltrombopag due to the potential for falsely elevated results. Calcium [Mass/Vol] 8.9 mg/dL Normal 8.4 - 10. 2 mg/dL AO ADM SS Chloride [Moles/Vol] 101 mmol/L Normal 98 - 10 7 mmol/L AO ADM SS CO2 [Moles/Vol] 30 mmol/L High 22 - 29 mmol/L AO ADM SS Creatinine [Mass/Vol] 0.91 mg/dL Normal 0.55 - 1.02 mg/dL AO ADM SS Electrolyte Balance 7.0 mEq/L Normal 4.0 - 15 .0 mEq/L AO ADM SS Free T4 [Mass/Vol] 1.10 ng/dL Normal 0.76 - 1. 46 ng/dL AO ADM SS GFR/1.73 sq M.predicted among blacks MDRD (S/P/Bld) [Vol rate/Area] 78 ml/min/1.73sqm Invalid Interpretation Code AO Chemistry S Comment on above: Interpretive Data: GFR Population mean for , Non- Americans Ages 20-29 = 116 mL/min/1.73 sq.m. Ages 30-39 = 107 mL/min/1.73 sq.m. Ages 40-49 = 99 mL/min/1.73 sq.m. Ages 50-59 = 93 mL/min/1.73 sq.m. Ages 60-69 = 85 mL/min/1.73 sq.m. Ages 70+ = 75 mL/min/1.73 sq.m. Chronic Kidney Disease: Less than 60 mL/min/1.73 square meters End Stage Renal Disease: Less than 15 mL/min/1.73 square meters GFR/1.73 sq M.predicted among non-blacks MDRD (S/P/Bld) [Vol rate/Area] 64 ml/min/1.73sqm Invalid Interpretation Code AO Chemistry S Comment on above: Interpretive Data: GFR Population mean for , Non- Americans Ages 20-29 = 116 mL/min/1.73 sq.m. Ages 30-39 = 107 mL/min/1.73 sq.m. Ages 40-49 = 99 mL/min/1.73 sq.m. Ages 50-59 = 93 mL/min/1.73 sq.m. Ages 60-69 = 85 mL/min/1.73 sq.m. Ages 70+ = 75 mL/min/1.73 sq.m. Chronic Kidney Disease: Less than 60 mL/min/1.73 square meters End Stage Renal Disease: Less than 15 mL/min/1.73 square meters Globulin 3.5 G/dL Invalid Interpretation Code AO ADM SS Glucose [Mass/Vol] 143 mg/dL High 70 - 105 mg/dL AO ADM SS HbA1c (Bld) [Mass fraction] 7.3 % High 4.3 - 6.4 % AO ADM SS Potassium [Moles/Vol] 4.4 mmol/L Normal 3.5 - 5.1 mmol/L AO ADM SS Protein [Mass/Vol] 7.2 G/dL Normal 6.4 - 8.2 G/dL AO ADM SS Sodium [Moles/Vol] 138 mmol/L Normal 136 - 145 mmol/L AO ADM SS TSH Qn 0.62 m[IU]/L Normal 0.36 - 3.74 mcIU/mL AO ADM SS Urea nitrogen [Mass/Vol] 21 mg/dL High 7 - 18 mg/dL AO ADM SS Urea nitrogen/Creatinine [Mass ratio] 23 ratio Normal 7 - 27 ratio AO ADM SS LABORATORYOrdered By: Cindy Sawyer on 06-08-2023 Cholesterol [Mass/Vol] 159 mg/dL Normal 0 - 200 mg/dL AO ADM SS Comment on above: Interpretive Data: C holesterol Reference Interval: Less than 200 Desirable 200-239 Borderline high risk 240 and above High risk Cholesterol in HDL [Mass/Vol] 52 mg/dL Normal 40 - 60 mg/dL AO ADM SS Cholesterol in LDL [Mass/Vol] 71 mg/dL Normal 0 - 130 mg/dL AO ADM SS Triglyceride [Mass/Vol] 180 mg/dL High 0 - 150 mg/dL AO ADM SS Comment on above: Interpretive Data: T riglyceride Reference Interval: Less than 150 Normal 150-199 Borderline high risk 200-499 High risk 500 or higher Very high risk LIPIDon 06-08-2023 Cholesterol [Mass/Vol] 159 mg/dL Normal 0-200 [facility] ([place]) Comment on above: Result Comment: Chol esterol Reference Interval: Less than 200 Desirable 200-239 Borderline high risk 240 and above High risk Performed By: #### V IDH, TSH, FT4, A1C, LIPID, CMP, GFR ####[address] [place], [place] [address] Cholesterol in HDL [Mass/Vol] 52 mg/dL Normal 40-60 [facility] ([place] Comment on above: Performed By: #### V IDH, TSH, FT4, A1C, LIPID, CMP, GFR ####[address] [place], [place] [address] Cholesterol in LDL [Mass/Vol] 71 mg/dL Normal 0-130 [facility] ([place] Comment on above: Performed By: #### V IDH, TSH, FT4, A1C, LIPID, CMP, GFR ####[address] [place], [place] [address] Triglyceride [Mass/Vol] 180 mg/dL High 0-150 [facility] ([place]) Comment on above: Result Comment: Trig lyceride Reference Interval: Less than 150 Normal 150-199 Borderline high risk 200-499 High risk 500 or higher Very high risk Performed By: #### V IDH, TSH, FT4, A1C, LIPID, CMP, GFR ####[address] [place], [place] [address] TSHon 06-08-2023 TSH Qn 0.62 m[IU]/L Normal 0.36-3.74 [facility] ([place]) Comment on above: Performed By: #### V IDH, TSH, FT4, A1C, LIPID, CMP, GFR #### [address] [place], [place] [address] VIDHon 06-08-2023 Vit. D 25-Hydroxy 41.8 ng/mL Normal [facility] ([place]) Comment on above: Result Comment: Inte rpretive Values Based on Total 25(OH) Vitamin D: Deficient <20 ng/mL Insufficient 20 - <30 ng/mL Sufficient 30-100 ng/mL Performed By: #### V IDH, TSH, FT4, A1C, LIPID, CMP, GFR ####[address] [place], [place] [address] .GFRon 11-10-2022 GFR 80 ml/min/1.73sqm Normal [facility] ([place] Comment on above: Result Comment: GFR Population mean for , Non- Americans Ages 20-29 = 116 mL/min/1.73 sq.m. Ages 30-39 = 107 mL/min/1.73 sq.m. Ages 40-49 = 99 mL/min/1.73 sq.m. Ages 50-59 = 93 mL/min/1.73 sq.m. Ages 60-69 = 85 mL/min/1.73 sq.m. Ages 70+ = 75 mL/min/1.73 sq.m. Chronic Kidney Disease: Less than 60 mL/min/1.73 square meters End Stage Renal Disease: Less than 15 mL/min/1.73 square meters Performed By: #### V IDH, A1C, CMP, LIPID, GFR, FT4, TSH ####[address] [place], [place] [address] GFR Non- 66 ml/min/1.73sqm Normal [facility] ([place] Comment on above: Result Comment: GFR Population mean for , Non- Americans Ages 20-29 = 116 mL/min/1.73 sq.m. Ages 30-39 = 107 mL/min/1.73 sq.m. Ages 40-49 = 99 mL/min/1.73 sq.m. Ages 50-59 = 93 mL/min/1.73 sq.m. Ages 60-69 = 85 mL/min/1.73 sq.m. Ages 70+ = 75 mL/min/1.73 sq.m. Chronic Kidney Disease: Less than 60 mL/min/1.73 square meters End Stage Renal Disease: Less than 15 mL/min/1.73 square meters Performed By: #### V IDH, A1C, CMP, LIPID, GFR, FT4, TSH ####[address] [place], [place] [address] A1Con 11-10-2022 HbA1c (Bld) [Mass fraction] 7.1 % High 4.3-6.4 [facility] ([place] Comment on above: Performed By: #### V IDH, A1C, CMP, LIPID, GFR, FT4, TSH ####[address] [place], [place] [address] CMPon 11-10-2022 Albumin Level 3.9 G/dL Normal 3.5-5.0 [facility] ([place]) Comment on above: Performed By: #### V IDH, A1C, CMP, LIPID, GFR, FT4, TSH ####[address] [place], [place] [address] Albumin/Globulin [Mass ratio] 1.0 {ratio} Low 1.1-2.5 [facility] ([place] Comment on above: Performed By: #### V IDH, A1C, CMP, LIPID, GFR, FT4, TSH ####[address] [place], [place] [address] ALP [Catalytic activity/Vol] 66 U/L Normal 40-135 [facility] ([place] Comment on above: Performed By: #### V IDH, A1C, CMP, LIPID, GFR, FT4, TSH ####[address] [place], [place] [address] ALT [Catalytic activity/Vol] 29 U/L Normal 14-59 [facility] ([place] Comment on above: Performed By: #### V IDH, A1C, CMP, LIPID, GFR, FT4, TSH ####[address] [place], [place] [address] AST [Catalytic activity/Vol] 15 U/L Normal 10-40 [facility] ([place] Comment on above: Performed By: #### V IDH, A1C, CMP, LIPID, GFR, FT4, TSH ####[address] [place], [place] [address] Bili Total 0.4 mg/dL Normal 0.2-1.0 [facility] ([place] Comment on above: Result Comment: Use of this assay is not recommended for patients undergoing treatment with eltrombopag due to the potential for falsely elevated results. Performed By: #### V IDH, A1C, CMP, LIPID, GFR, FT4, TSH ####[address] [place], [place] [address] BUN/Creatinine Ratio 19 ratio Normal 7-27 [facility] [place] Comment on above: Performed By: #### V IDH, A1C, CMP, LIPID, GFR, FT4, TSH ####[address] [place], [place] [address] Calcium [Mass/Vol] 9.3 mg/dL Normal 8.4-10.2 [facility] ([place] Comment on above: Performed By: #### V IDH, A1C, CMP, LIPID, GFR, FT4, TSH ####[address] [place], [place] [address] Chloride [Moles/Vol] 100 mmol/L Normal 98-107 [facility] [place] Comment on above: Performed By: #### V IDH, A1C, CMP, LIPID, GFR, FT4, TSH ####[address] [place], [place] [address] CO2 [Moles/Vol] 30 mmol/L High 22-29 [facility] ([place]) Comment on above: Performed By: #### V IDH, A1C, CMP, LIPID, GFR, FT4, TSH ####[address] [place], [place] [address] Creatinine [Mass/Vol] 0.89 mg/dL Normal 0.55-1.02 [facility] ([place]) Comment on above: Performed By: #### V IDH, A1C, CMP, LIPID, GFR, FT4, TSH ####[address] [place], [place] [address] Electrolyte Balance 9.0 mEq/L Normal 4.0-15.0 [facility] ([place]) Comment on above: Performed By: #### V IDH, A1C, CMP, LIPID, GFR, FT4, TSH ####[address] [place], [place] [address] Globulin 3.8 G/dL Normal [facility] ([place]) Comment on above: Performed By: #### V IDH, A1C, CMP, LIPID, GFR, FT4, TSH ####[address] [place], [place] [address] Glucose [Mass/Vol] 150 mg/dL High 70-105 [facility] ([place] Comment on above: Performed By: #### V IDH, A1C, CMP, LIPID, GFR, FT4, TSH ####[address] [place], [place] [address] Potassium [Moles/Vol] 4.3 mmol/L Normal 3.5-5.1 [facility] ([place]) Comment on above: Performed By: #### V IDH, A1C, CMP, LIPID, GFR, FT4, TSH ####[address] [place], [place] [address] Sodium [Moles/Vol] 139 mmol/L Normal 136-145 [facility] ([place] Comment on above: Performed By: #### V IDH, A1C, CMP, LIPID, GFR, FT4, TSH ####[address] [place], [place] [address] Total Protein 7.7 G/dL Normal 6.4-8.2 [facility] ([place] Comment on above: Performed By: #### V IDH, A1C, CMP, LIPID, GFR, FT4, TSH ####[address] [place], [place] [address] Urea nitrogen [Mass/Vol] 17 mg/dL Normal 7-18 [facility] ([place] Comment on above: Performed By: #### V IDH, A1C, CMP, LIPID, GFR, FT4, TSH ####[address] [place], [place] [address] FT4on 11-10-2022 Free T4 [Mass/Vol] 1.10 ng/dL Normal 0.76-1.46 [facility] ([place] Comment on above: Performed By: #### V IDH, A1C, CMP, LIPID, GFR, FT4, TSH ####[address] [place], [place] [address] LABORATORYOrdered By: SYSTEM SYSTEM on 11-10-2022 25-hydroxyvitamin D3 [Mass/Vol] 39.4 ng/mL Invalid Interpretation Code AO ADM SS Comment on above: Interpretive Data: I nterpretive Values Based on Total 25(OH) Vitamin D: Deficient <20 ng/mL Insufficient 20 - <30 ng/mL Sufficient 30-100 ng/mL Albumin BCP dye [Mass/Vol] 3.9 G/dL Invalid Interpretation Code 3.5 - 5.0 G/dL AO ADM SS Albumin/Globulin [Mass ratio] 1.0 {ratio} Invalid Interpretation Code 1.1 - 2.5 ratio AO ADM SS ALP [Catalytic activity/Vol] 66 U/L Invalid Interpretation Code 40 - 135 U/L AO ADM SS ALT With P-5'-P [Catalytic activity/Vol] 29 U/L Invalid Interpretation Code 14 - 59 U/L AO ADM SS AST With P-5'-P [Catalytic activity/Vol] 15 U/L Invalid Interpretation Code 10 - 40 U/L AO ADM SS Bilirubin [Mass/Vol] 0.4 mg/dL Invalid Interpretation Code 0.2 - 1.0 mg/dL AO ADM SS Comment on above: Interpretive Data: U se of this assay is not recommended for patients undergoing treatment with eltrombopag due to the potential for falsely elevated results. Calcium [Mass/Vol] 9.3 mg/dL Invalid Interpretation Code 8.4 - 10.2 mg/dL AO ADM SS Chloride [Moles/Vol] 100 mmol/L Invalid Interpretation Code 98 - 107 mmol/L AO ADM SS CO2 [Moles/Vol] 30 mmol/L Invalid Interpretation Code 22 - 29 mmol/L AO ADM SS Creatinine [Mass/Vol] 0.89 mg/dL Invalid Interpretation Code 0.55 - 1.02 mg/dL AO ADM SS Electrolyte Balance 9.0 mEq/L Invalid Interpretation Code 4.0 - 15.0 mEq/L AO ADM SS Free T4 [Mass/Vol] 1.10 ng/dL Invalid Interpretation Code 0.76 - 1.46 ng/dL AO ADM SS GFR/1.73 sq M.predicted among blacks MDRD (S/P/Bld) [Vol rate/Area] 80 ml/min/1.73sqm Invalid Interpretation Code AO Chemistry S Comment on above: Interpretive Data: GFR Population mean for , Non- Americans Ages 20-29 = 116 mL/min/1.73 sq.m. Ages 30-39 = 107 mL/min/1.73 sq.m. Ages 40-49 = 99 mL/min/1.73 sq.m. Ages 50-59 = 93 mL/min/1.73 sq.m. Ages 60-69 = 85 mL/min/1.73 sq.m. Ages 70+ = 75 mL/min/1.73 sq.m. Chronic Kidney Disease: Less than 60 mL/min/1.73 square meters End Stage Renal Disease: Less than 15 mL/min/1.73 square meters GFR/1.73 sq M.predicted among non-blacks MDRD (S/P/Bld) [Vol rate/Area] 66 ml/min/1.73sqm Invalid Interpretation Code AO Chemistry S Comment on above: Interpretive Data: GFR Population mean for , Non- Americans Ages 20-29 = 116 mL/min/1.73 sq.m. Ages 30-39 = 107 mL/min/1.73 sq.m. Ages 40-49 = 99 mL/min/1.73 sq.m. Ages 50-59 = 93 mL/min/1.73 sq.m. Ages 60-69 = 85 mL/min/1.73 sq.m. Ages 70+ = 75 mL/min/1.73 sq.m. Chronic Kidney Disease: Less than 60 mL/min/1.73 square meters End Stage Renal Disease: Less than 15 mL/min/1.73 square meters Globulin 3.8 G/dL Invalid Interpretation Code AO ADM SS Glucose [Mass/Vol] 150 mg/dL Invalid Interpretation Code 70 - 105 mg/dL AO ADM SS HbA1c (Bld) [Mass fraction] 7.1 % Invalid Interpretation Code 4.3 - 6.4 % AO ADM SS Potassium [Moles/Vol] 4.3 mmol/L Invalid Interpretation Code 3.5 - 5.1 mmol/L AO ADM SS Protein [Mass/Vol] 7.7 G/dL Invalid Interpretation Code 6.4 - 8.2 G/dL AO ADM SS Sodium [Moles/Vol] 139 mmol/L Invalid Interpretation Code 136 - 145 mmol/L AO ADM SS TSH Qn 0.71 m[IU]/L Invalid Interpretation Code 0.36 - 3.74 mcIU/mL AO ADM SS Urea nitrogen [Mass/Vol] 17 mg/dL Invalid Interpretation Code 7 - 18 mg/dL AO ADM SS Urea nitrogen/Creatinine [Mass ratio] 19 ratio Invalid Interpretation Code 7 - 27 ratio AO ADM SS LABORATORYOrdered By: Cindy Sawyer on 11-10-2022 Cholesterol [Mass/Vol] 163 mg/dL Invalid Interpretation Code 0 - 200 mg/dL AO ADM SS Comment on above: Interpretive Data: C holesterol Reference Interval: Less than 200 Desirable 200-239 Borderline high risk 240 and above High risk Cholesterol in HDL [Mass/Vol] 57 mg/dL Invalid Interpretation Code 40 - 60 mg/dL AO ADM SS Cholesterol in LDL [Mass/Vol] 71 mg/dL Invalid Interpretation Code 0 - 130 mg/dL AO ADM SS Triglyceride [Mass/Vol] 177 mg/dL Invalid Interpretation Code 0 - 150 mg/dL AO ADM SS Comment on above: Interpretive Data: T riglyceride Reference Interval: Less than 150 Normal 150-199 Borderline high risk 200-499 High risk 500 or higher Very high risk LIPIDon 11-10-2022 Cholesterol [Mass/Vol] 163 mg/dL Normal 0-200 [facility] ([place] Comment on above: Result Comment: Chol esterol Reference Interval: Less than 200 Desirable 200-239 Borderline high risk 240 and above High risk Performed By: #### V IDH, A1C, CMP, LIPID, GFR, FT4, TSH ####[address] [place], [place] [address] Cholesterol in HDL [Mass/Vol] 57 mg/dL Normal 40-60 [facility] ([place] Comment on above: Performed By: #### V IDH, A1C, CMP, LIPID, GFR, FT4, TSH ####[address] [place], [place] [address] Cholesterol in LDL [Mass/Vol] 71 mg/dL Normal 0-130 [facility] ([place] Comment on above: Performed By: #### V IDH, A1C, CMP, LIPID, GFR, FT4, TSH ####[address] [place], [place] [address] Triglyceride [Mass/Vol] 177 mg/dL High 0-150 [facility] ([place] Comment on above: Result Comment: Trig lyceride Reference Interval: Less than 150 Normal 150-199 Borderline high risk 200-499 High risk 500 or higher Very high risk Performed By: #### V IDH, A1C, CMP, LIPID, GFR, FT4, TSH ####[address] [place], [place] [address] TSHon 11-10-2022 TSH Qn 0.71 m[IU]/L Normal 0.36-3.74 [facility] ([place]) Comment on above: Performed By: #### V IDH, A1C, CMP, LIPID, GFR, FT4, TSH ####[address] [place], [place] [address] VIDHon 11-10-2022 Vit. D 25-Hydroxy 39.4 ng/mL Normal [facility] ([place] Comment on above: Result Comment: Inte rpretive Values Based on Total 25(OH) Vitamin D: Deficient <20 ng/mL Insufficient 20 - <30 ng/mL Sufficient 30-100 ng/mL Performed By: #### V IDH, A1C, CMP, LIPID, GFR, FT4, TSH ####[facility] [place], [place] [address] XR FOOT MINIMUM 3 VIEWS LEFT on 11-06-2022 XR FOOT MINIMUM 3 VIEWS LEFT ORIGINAL EXAMINATION: THREE XRAY VIEWS OF THE LEFT FOOT11/03/2022 3:37 pm COMPARISON: None HISTORY: ORDERING SYSTEM PROVIDED HISTORY: Reason for Exam: Metatarsalgia B/L, no known injury, FINDINGS: No acute fracture, dislocation, bony lytic process or periosteal reaction is seen in the visualized bones and joints. No significant degenerative or erosive type of arthritis or soft tissue calcification. Two small well corticated osseous structures seen adjacent to medial end of navicular bone consistent with accessory ossicles. Plantar calcaneal and Achilles tendon insertional calcaneal enthesopathy. Small lateral spurs of the 5th metatarsal and proximal phalangeal heads. Visualized soft tissues show no acute abnormality. IMPRESSION: No acute fracture or dislocation seen. No significant degenerative changes. I have personally reviewed the images of this examination and agree with the resident's findings and interpretation. Interpreted by: Han Burrell DO Preliminary Report By: Esau Davidson Electronically signed By Han Burrell DO Dictated Date: 11/06/2022 8:48:07 AM Prelim Date: 11/06/2022 1:35:33 PM Sign Date: 11/06/2022 1:35:33 PM Ordering Provider: [facility] ([place]) XR FOOT MINIMUM 3 VIEWS KIMANI Castro 11-06-2022 XR FOOT MINIMUM 3 VIEWS RIGHT ORIGINAL EXAMINATION: THREE XRAY VIEWS OF THE RIGHT FOOT11/03/2022 3:39 pm COMPARISON: None HISTORY: ORDERING SYSTEM PROVIDED HISTORY: Reason for Exam: Metatarsalgia B/L ; plantar fasciitis right foot, FINDINGS: No acute fracture, dislocation, bony lytic process or periosteal reaction is seen in the visualized bones and joints. No significant degenerative or erosive type of arthritis or soft tissue calcification. Accessory ossicle seen medial to navicular bone. Plantar calcaneal and Achilles tendon insertional enthesophyte seen. Small osteophytes of the lateral 5th metatarsal and proximal phalangeal heads. Visualized soft tissues show no acute abnormality. IMPRESSION: No acute fracture or dislocation seen. No significant degenerative changes. I have personally reviewed the images of this examination and agree with the resident's findings and interpretation. Interpreted by: Han Burrell DO Preliminary Report By: Esau Davidson Electronically signed By Han Burrell DO Dictated Date: 11/06/2022 9:11:26 AM Prelim Date: 11/06/2022 1:36:42 PM Sign Date: 11/06/2022 1:36:42 PM Ordering Provider: [facility] ([place]) .GFRon 08-04-2022 GFR Non- 69 ml/min/1.73sqm [facility] ([place]) Comment on above: Result Comment: GFR Population mean for , Non- Americans Ages 20-29 = 116 mL/min/1.73 sq.m. Ages 30-39 = 107 mL/min/1.73 sq.m. Ages 40-49 = 99 mL/min/1.73 sq.m. Ages 50-59 = 93 mL/min/1.73 sq.m. Ages 60-69 = 85 mL/min/1.73 sq.m. Ages 70+ = 75 mL/min/1.73 sq.m. Chronic Kidney Disease: Less than 60 mL/min/1.73 square meters End Stage Renal Disease: Less than 15 mL/min/1.73 square meters Performed By: #### A 1C, LIPID, VIDH, CMP, GFR #### [address] [address] GFR 84 ml/min/1.73sqm Normal [facility] ([place] Comment on above: Result Comment: GFR Population mean for , Non- Americans Ages 20-29 = 116 mL/min/1.73 sq.m. Ages 30-39 = 107 mL/min/1.73 sq.m. Ages 40-49 = 99 mL/min/1.73 sq.m. Ages 50-59 = 93 mL/min/1.73 sq.m. Ages 60-69 = 85 mL/min/1.73 sq.m. Ages 70+ = 75 mL/min/1.73 sq.m. Chronic Kidney Disease: Less than 60 mL/min/1.73 square meters End Stage Renal Disease: Less than 15 mL/min/1.73 square meters Performed By: #### A 1C, LIPID, VIDH, CMP, GFR #### [address] [address] A1Con 08-04-2022 HbA1c (Bld) [Mass fraction] 6.8 % High 4.3-6.4 [facility] ([place] Comment on above: Performed By: #### A 1C, LIPID, VIDH, CMP, GFR #### [address] [address] CMPon 08-04-2022 Albumin Level 3.9 G/dL Normal 3.5-5.0 [place] [facility] Comment on above: Performed By: #### A 1C, LIPID, VIDH, CMP, GFR #### [address] [address] Albumin/Globulin [Mass ratio] 1.1 {ratio} Normal 1.1-2.5 [facility] ([place]) Comment on above: Performed By: #### A 1C, LIPID, VIDH, CMP, GFR #### [address] [address] ALP [Catalytic activity/Vol] 62 U/L Normal 40-135 [facility] ([place] Comment on above: Performed By: #### A 1C, LIPID, VIDH, CMP, GFR #### [address] [address] ALT [Catalytic activity/Vol] 24 U/L Normal 14-59 [facility] ([place] Comment on above: Performed By: #### A 1C, LIPID, VIDH, CMP, GFR #### [address] [address] AST [Catalytic activity/Vol] 14 U/L Normal 10-40 [facility] ([place] Comment on above: Performed By: #### A 1C, LIPID, VIDH, CMP, GFR #### [address] [address] Bili Total 0.4 mg/dL Normal 0.2-1.0 [facility] ([place]) Comment on above: Result Comment: Use of this assay is not recommended for patients undergoing treatment with eltrombopag due to the potential for falsely elevated results. Performed By: #### A 1C, LIPID, VIDH, CMP, GFR #### [address] [address] BUN/Creatinine Ratio 22 ratio Normal 7-27 [facility] [place] Comment on above: Performed By: #### A 1C, LIPID, VIDH, CMP, GFR #### [address] [address] Calcium [Mass/Vol] 9.0 mg/dL Normal 8.4-10.2 [facility] ([place] Comment on above: Performed By: #### A 1C, LIPID, VIDH, CMP, GFR #### [address] [address] Chloride [Moles/Vol] 103 mmol/L Normal 98-107 [facility] [place] Comment on above: Performed By: #### A 1C, LIPID, VIDH, CMP, GFR #### [place] [address] CO2 [Moles/Vol] 29 mmol/L Normal 22-29 [facility] ([place]) Comment on above: Performed By: #### A 1C, LIPID, VIDH, CMP, GFR #### [place] [address] Creatinine [Mass/Vol] 0.85 mg/dL Normal 0.55-1.02 [facility] ([place]) Comment on above: Performed By: #### A 1C, LIPID, VIDH, CMP, GFR #### [address] [address] Electrolyte Balance 6.0 mEq/L Normal 4.0-15.0 [facility] ([place]) Comment on above: Performed By: #### A 1C, LIPID, VIDH, CMP, GFR #### [address] [address] Globulin 3.4 G/dL Normal [facility] ([place] Comment on above: Performed By: #### A 1C, LIPID, VIDH, CMP, GFR #### [address] [address] Glucose [Mass/Vol] 148 mg/dL High 70-105 [facility] ([place] Comment on above: Performed By: #### A 1C, LIPID, VIDH, CMP, GFR #### [place] [address] Potassium [Moles/Vol] 4.2 mmol/L Normal 3.5-5.1 [facility] ([place]) Comment on above: Performed By: #### A 1C, LIPID, VIDH, CMP, GFR #### [place] [address] [place], [place] [address] Sodium [Moles/Vol] 138 mmol/L Normal 136-145 [facility] ([place] Comment on above: Performed By: #### A 1C, LIPID, VIDH, CMP, GFR #### [address] [address] Total Protein 7.3 G/dL Normal 6.4-8.2 [facility] ([place]) Comment on above: Performed By: #### A 1C, LIPID, VIDH, CMP, GFR #### [place] [address] [place], [place] [address] Urea nitrogen [Mass/Vol] 19 mg/dL High 7-18 [facility] ([place] Comment on above: Performed By: #### A 1C, LIPID, VIDH, CMP, GFR #### [address] [address] LABORATORYOrdered By: SYSTEM SYSTEM on 08-04-2022 25-hydroxyvitamin D3 [Mass/Vol] 37.8 ng/mL Invalid Interpretation Code AO ADM SS Albumin BCP dye [Mass/Vol] 3.9 G/dL Invalid Interpretation Code 3.5 - 5.0 G/dL AO ADM SS Albumin/Globulin [Mass ratio] 1.1 {ratio} Invalid Interpretation Code 1.1 - 2.5 ratio AO ADM SS ALP [Catalytic activity/Vol] 62 U/L Invalid Interpretation Code 40 - 135 U/L AO ADM SS ALT With P-5'-P [Catalytic activity/Vol] 24 U/L Invalid Interpretation Code 14 - 59 U/L AO ADM SS AST With P-5'-P [Catalytic activity/Vol] 14 U/L Invalid Interpretation Code 10 - 40 U/L AO ADM SS Bilirubin [Mass/Vol] 0.4 mg/dL Invalid Interpretation Code 0.2 - 1.0 mg/dL AO ADM SS Calcium [Mass/Vol] 9.0 mg/dL Invalid Interpretation Code 8.4 - 10.2 mg/dL AO ADM SS Chloride [Moles/Vol] 103 mmol/L Invalid Interpretation Code 98 - 107 mmol/L AO ADM SS CO2 [Moles/Vol] 29 mmol/L Invalid Interpretation Code 22 - 29 mmol/L AO ADM SS Creatinine [Mass/Vol] 0.85 mg/dL Invalid Interpretation Code 0.55 - 1.02 mg/dL AO ADM SS Electrolyte Balance 6.0 mEq/L Invalid Interpretation Code 4.0 - 15.0 mEq/L AO ADM SS GFR/1.73 sq M.predicted among blacks MDRD (S/P/Bld) [Vol rate/Area] 84 ml/min/1.73sqm Invalid Interpretation Code AO Chemistry S GFR/1.73 sq M.predicted among non-blacks MDRD (S/P/Bld) [Vol rate/Area] 69 ml/min/1.73sqm Invalid Interpretation Code AO Chemistry S Globulin 3.4 G/dL Invalid Interpretation Code AO ADM SS Glucose [Mass/Vol] 148 mg/dL Invalid Interpretation Code 70 - 105 mg/dL AO ADM SS HbA1c (Bld) [Mass fraction] 6.8 % Invalid Interpretation Code 4.3 - 6.4 % AO ADM SS Potassium [Moles/Vol] 4.2 mmol/L Invalid Interpretation Code 3.5 - 5.1 mmol/L AO ADM SS Protein [Mass/Vol] 7.3 G/dL Invalid Interpretation Code 6.4 - 8.2 G/dL AO ADM SS Sodium [Moles/Vol] 138 mmol/L Invalid Interpretation Code 136 - 145 mmol/L AO ADM SS Urea nitrogen [Mass/Vol] 19 mg/dL Invalid Interpretation Code 7 - 18 mg/dL AO ADM SS Urea nitrogen/Creatinine [Mass ratio] 22 ratio Invalid Interpretation Code 7 - 27 ratio AO ADM SS LABORATORYOrdered By: Mike Mei on 08-04-2022 Albumin DL <= 20 mg/L (U) [Mass/Vol] 1255 mcg/dL Invalid Interpretation Code AO ADM SS Albumin/Creatinine DL <= 20 mg/L (U) [Mass ratio] 9 mcg/mg Invalid Interpretation Code 0 - 30 mcg/mg AO ADM SS Cholesterol [Mass/Vol] 149 mg/dL Invalid Interpretation Code 0 - 200 mg/dL AO ADM SS Cholesterol in HDL [Mass/Vol] 59 mg/dL Invalid Interpretation Code 40 - 60 mg/dL AO ADM SS Cholesterol in LDL [Mass/Vol] 64 mg/dL Invalid Interpretation Code 0 - 130 mg/dL AO ADM SS Creatinine (U) [Mass/Vol] 146.5 mg/dL Invalid Interpretation Code 28.0 - 117.0 mg/dL AO ADM SS Triglyceride [Mass/Vol] 131 mg/dL Invalid Interpretation Code 0 - 150 mg/dL AO ADM SS LIPIDon 08-04-2022 Cholesterol [Mass/Vol] 149 mg/dL Normal 0-200 [facility] ([place] Comment on above: Result Comment: Chol esterol Reference Interval: Less than 200 Desirable 200-239 Borderline high risk 240 and above High risk Performed By: #### A 1C, LIPID, VIDH, CMP, GFR #### [address] [address] Cholesterol in HDL [Mass/Vol] 59 mg/dL Normal 40-60 [facility] ([place] Comment on above: Performed By: #### A 1C, LIPID, VIDH, CMP, GFR #### [address] [address] Cholesterol in LDL [Mass/Vol] 64 mg/dL Normal 0-130 [facility] ([place] Comment on above: Performed By: #### A 1C, LIPID, VIDH, CMP, GFR #### [address] [address] Triglyceride [Mass/Vol] 131 mg/dL Normal 0-150 [facility] ([place] Comment on above: Result Comment: Trig lyceride Reference Interval: Less than 150 Normal 150-199 Borderline high risk 200-499 High risk 500 or higher Very high risk Performed By: #### A 1C, LIPID, VIDH, CMP, GFR #### [address] [address] MALBRon 08-04-2022 U Creatinine 146.5 mg/dL High 28.0-117.0 [facility] ([place]) Comment on above: Performed By: #### M ALBR ####[address] [place], [place] [address] U Microalb 1255 mcg/dL Normal [facility] ([place]) Comment on above: Performed By: #### M ALBR ####[address] [place], [place] [address] U Ratio Alb/Cre 9 mcg/mg Normal 0-30 [facility] ([place]) Comment on above: Performed By: #### M ALBR ####[address] [place], [place] [address] VIDHon 08-04-2022 Vit. D 25-Hydroxy 37.8 ng/mL Normal [facility] ([place]) Comment on above: Result Comment: Inte rpretive Values Based on Total 25(OH) Vitamin D: Deficient <20 ng/mL Insufficient 20 - <30 ng/mL Sufficient 30-100 ng/mL Performed By: #### A 1C, LIPID, VIDH, CMP, GFR #### [address] [place] [address] [place], [place] [address] LABORATORYOrdered By: SYSTEM SYSTEM on 05-09-2022 Albumin BCP dye [Mass/Vol] 3.4 G/dL Invalid Interpretation Code 3.5 - 5.0 G/dL AO ADM SS Albumin/Globulin [Mass ratio] 0.8 {ratio} Invalid Interpretation Code 1.1 - 2.5 ratio AO ADM SS ALP [Catalytic activity/Vol] 71 U/L Invalid Interpretation Code 40 - 135 U/L AO ADM SS ALT With P-5'-P [Catalytic activity/Vol] 25 U/L Invalid Interpretation Code 14 - 59 U/L AO ADM SS AST With P-5'-P [Catalytic activity/Vol] 15 U/L Invalid Interpretation Code 10 - 40 U/L AO ADM SS Bilirubin [Mass/Vol] 0.3 mg/dL Invalid Interpretation Code 0.2 - 1.0 mg/dL AO ADM SS Calcium [Mass/Vol] 9.2 mg/dL Invalid Interpretation Code 8.4 - 10.2 mg/dL AO ADM SS Chloride [Moles/Vol] 101 mmol/L Invalid Interpretation Code 98 - 107 mmol/L AO ADM SS CO2 [Moles/Vol] 29 mmol/L Invalid Interpretation Code 22 - 29 mmol/L AO ADM SS Creatinine [Mass/Vol] 0.81 mg/dL Invalid Interpretation Code 0.55 - 1.02 mg/dL AO ADM SS Electrolyte Balance 11.0 mEq/L Invalid Interpretation Code 4.0 - 15.0 mEq/L AO ADM SS GFR 89 ml/min/1.73sqm Invalid Interpretation Code AO Chemistry S GFR Non- 73 ml/min/1.73sqm Invalid Interpretation Code AO Chemistry S Globulin 4.1 G/dL Invalid Interpretation Code AO ADM SS Glucose [Mass/Vol] 128 mg/dL Invalid Interpretation Code 70 - 105 mg/dL AO ADM SS HbA1c (Bld) [Mass fraction] 6.9 % Invalid Interpretation Code 4.3 - 6.4 % AO ADM SS Potassium [Moles/Vol] 4.6 mmol/L Invalid Interpretation Code 3.5 - 5.1 mmol/L AO ADM SS Protein [Mass/Vol] 7.5 G/dL Invalid Interpretation Code 6.4 - 8.2 G/dL AO ADM SS Sodium [Moles/Vol] 141 mmol/L Invalid Interpretation Code 136 - 145 mmol/L AO ADM SS Urea nitrogen [Mass/Vol] 22 mg/dL Invalid Interpretation Code 7 - 18 mg/dL AO ADM SS Urea nitrogen/Creatinine [Mass ratio] 27 ratio Invalid Interpretation Code 7 - 27 ratio AO ADM SS Vit. D 25-Hydroxy 34.5 ng/mL Invalid Interpretation Code AO ADM SS LABORATORYOrdered By: Fatimah Pfeiffer on 05-09-2022 Cholesterol [Mass/Vol] 144 mg/dL Invalid Interpretation Code 0 - 200 mg/dL AO ADM SS Cholesterol in HDL [Mass/Vol] 57 mg/dL Invalid Interpretation Code 40 - 60 mg/dL AO ADM SS Cholesterol in LDL [Mass/Vol] 68 mg/dL Invalid Interpretation Code 0 - 130 mg/dL AO ADM SS Triglyceride [Mass/Vol] 94 mg/dL Invalid Interpretation Code 0 - 150 mg/dL AO ADM SS LABORATORYOrdered By: Sesar Carmona on 02-05-2022 Basophil, Absolute 0.0 103/mcL Invalid Interpretation Code 0.0 - 0.2 10^3/mcL AO Workflow SS Basophils/100 WBC (Bld) 0.4 % Invalid Interpretation Code 0.0 - 2.5 % AO Workflow SS Eosinophil, Absolute 0.2 103/mcL Invalid Interpretation Code 0.0 - 0.4 10^3/mcL AO Workflow SS Eosinophils/100 WBC (Bld) 3.0 % Invalid Interpretation Code 0.0 - 7.0 % AO Workflow SS Erythrocyte distribution width (RBC) [Ratio] 12.6 % Invalid Interpretation Code 11.5 - 14.5 % AO Workflow SS Hematocrit (Bld) [Volume fraction] 41.4 % Invalid Interpretation Code 37.0 - 47.0 % AO Workflow SS Hemoglobin (Bld) [Mass/Vol] 14.2 G/dL Invalid Interpretation Code 12.0 - 16.0 G/dL AO Workflow SS Lymphocyte, Absolute 1.7 103/mcL Invalid Interpretation Code 0.8 - 3.9 10^3/mcL AO Workflow SS Lymphocytes/100 WBC (Bld) 22.2 % Invalid Interpretation Code 10.0 - 50.0 % AO Workflow SS MCH (RBC) [Entitic mass] 30.9 pg Invalid Interpretation Code 27.0 - 31.2 pg AO Workflow SS MCHC 34.3 G/dL Invalid Interpretation Code 33.0 - 37.0 G/dL AO Workflow SS MCV (RBC) [Entitic vol] 90.0 fL Invalid Interpretation Code 80.0 - 94.0 fL AO Workflow SS Monocyte, Absolute 0.8 103/mcL Invalid Interpretation Code 0.2 - 1.0 10^3/mcL AO Workflow SS Monocytes/100 WBC (Bld) 10.5 % Invalid Interpretation Code 1.7 - 13.0 % AO Workflow SS Neutrophil, Absolute 4.8 103/mcL Invalid Interpretation Code 2.9 - 6.2 10^3/mcL AO Workflow SS Neutrophils/100 WBC (Bld) 63.9 % Invalid Interpretation Code 37.0 - 80.0 % AO Workflow SS Platelet mean volume (Bld) [Entitic vol] 8.5 fL Invalid Interpretation Code 7.4 - 10.4 fL AO Workflow SS Platelets (Bld) [#/Vol] 333 103/mcL Invalid Interpretation Code 130 - 400 10^3/mcL AO Workflow SS RBC (Bld) [#/Vol] 4.59 106/mcL Invalid Interpretation Code 4.20 - 5.40 10^6/mcL AO Workflow SS WBC (Bld) [#/Vol] 7.5 103/mcL Invalid Interpretation Code 4.6 - 10.8 10^3/mcL AO Workflow SS LABORATORYOrdered By: SYSTEM SYSTEM on 02-05-2022 Iron [Mass/Vol] 76 ug/dL Invalid Interpretation Code 50 - 170 mcg/dL AO ADM SS Albumin BCP dye [Mass/Vol] 3.6 G/dL Invalid Interpretation Code 3.5 - 5.0 G/dL AO ADM SS Albumin/Globulin [Mass ratio] 0.9 {ratio} Invalid Interpretation Code 1.1 - 2.5 ratio AO ADM SS ALP [Catalytic activity/Vol] 84 U/L Invalid Interpretation Code 40 - 135 U/L AO ADM SS ALT With P-5'-P [Catalytic activity/Vol] 43 U/L Invalid Interpretation Code 14 - 59 U/L AO ADM SS AST With P-5'-P [Catalytic activity/Vol] 23 U/L Invalid Interpretation Code 10 - 40 U/L AO ADM SS Bilirubin [Mass/Vol] 0.4 mg/dL Invalid Interpretation Code 0.2 - 1.0 mg/dL AO ADM SS Calcium [Mass/Vol] 9.5 mg/dL Invalid Interpretation Code 8.4 - 10.2 mg/dL AO ADM SS Chloride [Moles/Vol] 96 mmol/L Invalid Interpretation Code 98 - 107 mmol/L AO ADM SS CO2 [Moles/Vol] 30 mmol/L Invalid Interpretation Code 22 - 29 mmol/L AO ADM SS Creatinine [Mass/Vol] 0.93 mg/dL Invalid Interpretation Code 0.55 - 1.02 mg/dL AO ADM SS Electrolyte Balance 9.0 mEq/L Invalid Interpretation Code 4.0 - 15.0 mEq/L AO ADM SS Free T4 [Mass/Vol] 1.41 ng/dL Invalid Interpretation Code 0.76 - 1.46 ng/dL AO ADM SS GFR 76 ml/min/1.73sqm Invalid Interpretation Code AO Chemistry S GFR Non- 63 ml/min/1.73sqm Invalid Interpretation Code AO Chemistry S Globulin 4.2 G/dL Invalid Interpretation Code AO ADM SS Glucose [Mass/Vol] 358 mg/dL Invalid Interpretation Code 70 - 105 mg/dL AO ADM SS Potassium [Moles/Vol] 4.5 mmol/L Invalid Interpretation Code 3.5 - 5.1 mmol/L AO ADM SS Protein [Mass/Vol] 7.8 G/dL Invalid Interpretation Code 6.4 - 8.2 G/dL AO ADM SS Sodium [Moles/Vol] 135 mmol/L Invalid Interpretation Code 136 - 145 mmol/L AO ADM SS TSH Qn 0.53 m[IU]/L Invalid Interpretation Code 0.36 - 3.74 mcIU/mL AO ADM SS Urea nitrogen [Mass/Vol] 17 mg/dL Invalid Interpretation Code 7 - 18 mg/dL AO ADM SS Urea nitrogen/Creatinine [Mass ratio] 18 ratio Invalid Interpretation Code 7 - 27 ratio AO ADM SS Vit. D 25-Hydroxy 18.2 ng/mL Invalid Interpretation Code AO ADM SS LABORATORYOrdered By: Cindy Sawyer on 02-05-2022 Cholesterol [Mass/Vol] 222 mg/dL Invalid Interpretation Code 0 - 200 mg/dL AO ADM SS Cholesterol in HDL [Mass/Vol] 51 mg/dL Invalid Interpretation Code 40 - 60 mg/dL AO ADM SS Cholesterol in LDL [Mass/Vol] 137 mg/dL Invalid Interpretation Code 0 - 130 mg/dL AO ADM SS Triglyceride [Mass/Vol] 170 mg/dL Invalid Interpretation Code 0 - 150 mg/dL AO ADM SS LABORATORYOrdered By: Sesar Carmona on 05-16-2021 Albumin BCP dye [Mass/Vol] 3.7 G/dL Invalid Interpretation Code 3.5 - 5.0 G/dL AO ADM SS Albumin/Globulin [Mass ratio] 1.1 {ratio} Invalid Interpretation Code 1.1 - 2.5 ratio AO ADM SS ALP [Catalytic activity/Vol] 71 U/L Invalid Interpretation Code 40 - 135 U/L AO ADM SS ALT With P-5'-P [Catalytic activity/Vol] 68 U/L Invalid Interpretation Code 14 - 59 U/L AO ADM SS AST With P-5'-P [Catalytic activity/Vol] 31 U/L Invalid Interpretation Code 10 - 40 U/L AO ADM SS Bilirubin [Mass/Vol] 0.4 mg/dL Invalid Interpretation Code 0.2 - 1.0 mg/dL AO ADM SS Calcium [Mass/Vol] 9.3 mg/dL Invalid Interpretation Code 8.4 - 10.2 mg/dL AO ADM SS Chloride [Moles/Vol] 100 mmol/L Invalid Interpretation Code 98 - 107 mmol/L AO ADM SS Cholesterol [Mass/Vol] 237 mg/dL Invalid Interpretation Code 0 - 200 mg/dL AO ADM SS Cholesterol in HDL [Mass/Vol] 51 mg/dL Invalid Interpretation Code 40 - 60 mg/dL AO ADM SS Cholesterol in LDL [Mass/Vol] 142 mg/dL Invalid Interpretation Code 0 - 130 mg/dL AO ADM SS CO2 [Moles/Vol] 28 mmol/L Invalid Interpretation Code 22 - 29 mmol/L AO ADM SS Creatinine [Mass/Vol] 0.92 mg/dL Invalid Interpretation Code 0.55 - 1.02 mg/dL AO ADM SS Electrolyte Balance 10.0 mEq/L Invalid Interpretation Code 4.0 - 15.0 mEq/L AO ADM SS Free T4 [Mass/Vol] 1.25 ng/dL Invalid Interpretation Code 0.76 - 1.46 ng/dL AO ADM SS Globulin 3.5 G/dL Invalid Interpretation Code AO ADM SS Glucose [Mass/Vol] 196 mg/dL Invalid Interpretation Code 70 - 105 mg/dL AO ADM SS Potassium [Moles/Vol] 3.9 mmol/L Invalid Interpretation Code 3.5 - 5.1 mmol/L AO ADM SS Protein [Mass/Vol] 7.2 G/dL Invalid Interpretation Code 6.4 - 8.2 G/dL AO ADM SS Sodium [Moles/Vol] 138 mmol/L Invalid Interpretation Code 136 - 145 mmol/L AO ADM SS Triglyceride [Mass/Vol] 219 mg/dL Invalid Interpretation Code 0 - 150 mg/dL AO ADM SS TSH Qn 0.50 m[IU]/L Invalid Interpretation Code 0.36 - 3.74 mcIU/mL AO ADM SS Urea nitrogen [Mass/Vol] 18 mg/dL Invalid Interpretation Code 7 - 18 mg/dL AO ADM SS Urea nitrogen/Creatinine [Mass ratio] 20 ratio Invalid Interpretation Code 7 - 27 ratio AO ADM SS Vit. D 25-Hydroxy 18.3 ng/mL Invalid Interpretation Code AO ADM SS LABORATORYOrdered By: Chacha Fleming on 05-16-2021 Basophil, Absolute 0.00 103/mcL Invalid Interpretation Code 0.00 - 0.19 10^3/mcL AO Auto Heme SS Basophils/100 WBC (Bld) 0.4 % Invalid Interpretation Code 0.0 - 2.5 % AO Auto Heme SS Eosinophil, Absolute 0.30 103/mcL Invalid Interpretation Code 0.00 - 0.40 10^3/mcL AO Auto Heme SS Eosinophils/100 WBC (Bld) 4.5 % Invalid Interpretation Code 0.0 - 7.0 % AO Auto Heme SS Erythrocyte distribution width (RBC) [Ratio] 12.5 % Invalid Interpretation Code 11.5 - 14.5 % AO Auto Heme SS Hematocrit (Bld) [Volume fraction] 42.8 % Invalid Interpretation Code 37.0 - 47.0 % AO Auto Heme SS Hemoglobin (Bld) [Mass/Vol] 14.7 G/dL Invalid Interpretation Code 12.0 - 16.0 G/dL AO Auto Heme SS Lymphocyte, Absolute 2.50 103/mcL Invalid Interpretation Code 0.77 - 3.85 10^3/mcL AO Auto Heme SS Lymphocytes/100 WBC (Bld) 33.0 % Invalid Interpretation Code 10.0 - 50.0 % AO Auto Heme SS MCH (RBC) [Entitic mass] 30.8 pg Invalid Interpretation Code 27.0 - 31.2 pg AO Auto Heme SS MCHC (RBC) [Mass/Vol] 34.4 G/dL Invalid Interpretation Code 33.0 - 37.0 G/dL AO Auto Heme SS MCV (RBC) [Entitic vol] 89.5 fL Invalid Interpretation Code 80.0 - 94.0 fL AO Auto Heme SS Monocyte, Absolute 0.80 103/mcL Invalid Interpretation Code 0.15 - 1.00 10^3/mcL AO Auto Heme SS Monocytes/100 WBC (Bld) 10.4 % Invalid Interpretation Code 1.7 - 13.0 % AO Auto Heme SS Neutrophil, Absolute 4.00 103/mcL Invalid Interpretation Code 2.85 - 6.16 10^3/mcL AO Auto Heme SS Neutrophils/100 WBC (Bld) 51.7 % Invalid Interpretation Code 37.0 - 80.0 % AO Auto Heme SS Platelet mean volume (Bld) [Entitic vol] 8.6 fL Invalid Interpretation Code 7.4 - 10.4 fL AO Auto Heme SS Platelets (Bld) [#/Vol] 274 103/mcL Invalid Interpretation Code 130 - 400 10^3/mcL AO Auto Heme SS RBC (Bld) [#/Vol] 4.78 106/mcL Invalid Interpretation Code 4.20 - 5.40 10^6/mcL AO Auto Heme SS WBC (Bld) [#/Vol] 7.70 103/mcL Invalid Interpretation Code 4.60 - 10.80 10^3/mcL AO Auto Heme SS LABORATORYOrdered By: SYSTEM SYSTEM on 05-16-2021 GFR 77 ml/min/1.73sqm Invalid Interpretation Code AO Chemistry S GFR Non- 64 ml/min/1.73sqm Invalid Interpretation Code AO Chemistry S Vital Signs Date Time Vital Sign Value Performing Clinician Katherine aguilar 09-14-2024 09:54-0400 Body height 160.02 cm Bertha NUÑEZ Work Phone: [facility] 09-14-2024 09:52-0400 Body mass index (BMI) [Ratio] 33.3 kg/m2 Bertha NUÑEZ Work Phone: [facility] 09-14-2024 09:52-0400 Body weight 85.33 kg Bertha Lobato INTEGRATION SOLUTION ARCHITECT-C Work Phone: [facility] 09-14-2024 09:52-0400 Diastolic blood pressure 66 mm[Hg] Bertha Lobato INTEGRATION SOLUTION ARCHITECT-C Work Phone: [facility] 09-14-2024 09:52-0400 Systolic blood pressure 99 mm[Hg] Bertha Lobato INTEGRATION SOLUTION ARCHITECT-C Work Phone: [facility] 09-08-2024 08:31-0400 Body height 160.02 cm Bertha Lobato INTEGRATION SOLUTION ARCHITECT-C Work Phone: [facility] 09-08-2024 08:31-0400 Body mass index (BMI) [Ratio] 32.8 kg/m2 Bertha Lobato INTEGRATION SOLUTION ARCHITECT-C Work Phone: [facility] 09-08-2024 08:31-0400 Body weight 84.08 kg Bertha Lobato INTEGRATION SOLUTION ARCHITECT-C Work Phone: [facility] 09-08-2024 08:31-0400 Diastolic blood pressure 76 mm[Hg] Bertha Lobato INTEGRATION SOLUTION ARCHITECT-C Work Phone: [facility] 09-08-2024 08:31-0400 Systolic blood pressure 126 mm[Hg] Bertha Lobato INTEGRATION SOLUTION ARCHITECT-C Work Phone: [facility] 08-31-2024 11:07-0400 Body height 160.02 cm Bertha Lobato INTEGRATION SOLUTION ARCHITECT-C Work Phone: [facility] 08-31-2024 11:07-0400 Body mass index (BMI) [Ratio] 32.9 kg/m2 Bertha Lobato INTEGRATION SOLUTION ARCHITECT-C Work Phone: [facility] 08-31-2024 11:07-0400 Body weight 84.42 kg Bertha Lobato INTEGRATION SOLUTION ARCHITECT-C Work Phone: [facility] 08-31-2024 11:07-0400 Diastolic blood pressure 66 mm[Hg] Bertha Lobato INTEGRATION SOLUTION ARCHITECT-C Work Phone: [facility] 08-31-2024 11:07-0400 Systolic blood pressure 99 mm[Hg] Bertha Lobato INTEGRATION SOLUTION ARCHITECT-C Work Phone: [facility] 08-28-2022 13:09-0400 Body height 160.[address] Alex Covington Work Phone: [facility] 08-28-2022 13:09-0400 Body mass index (BMI) [Ratio] 39.9 kg/m2 Dr. Alex Covington Work Phone: [facility] 08-28-2022 13:09-0400 Body weight 102.[address] Alex Covington Work Phone: [facility] 08-28-2022 13:09-0400 Diastolic blood pressure 80 mm[Hg] Dr. Alex Covington Work Phone: [facility] 08-28-2022 13:09-0400 Systolic blood pressure 136 mm[Hg] Dr. Alex Covington Work Phone: [facility] 03-10-2022 14:05-0500 Body height 160.02 cm BERTHA LOBATO FORENSIC INVESTIGATOR-PHARMACY ASSISTANT [facility] 03-10-2022 14:05-0500 Body weight 97.72 kg BERTHA LOBATO FORENSIC INVESTIGATOR-PHARMACY ASSISTANT [facility] 03-10-2022 14:05-0500 Body weight 38.16 kg/m2 BERTHA LOBATO FORENSIC INVESTIGATOR-PHARMACY ASSISTANT [facility] 08-23-2021 10:41-0400 Body height 160.[address] Alex Covington Work Phone: [facility] Work Phone: 08-23-2021 10:41-0400 Body mass index (BMI) [Ratio] 41.8 kg/m2 Dr. Alex Covington Work Phone: [facility] Work Phone: 08-23-2021 10:41-0400 Body weight 107.[address] Alex Covington Work Phone: [facility] Work Phone: 08-23-2021 10:41-0400 Diastolic blood pressure 102 mm[Hg] Dr. Alex Covington Work Phone: [facility] Work Phone: 08-23-2021 10:41-0400 Systolic blood pressure 142 mm[Hg] Dr. Alex Covington Work Phone: [facility] Work Phone: Encounters Encounter Date Encounter Type Care Provider Facility Start: 09-30-2024 ambulatory Bertha Lobato INTEGRATION SOLUTION ARCHITECT Facil ity:[facility] Start: 09-26-2024 ambulatory BERTHA LOBATO FORENSIC INVESTIGATOR-PHARMACY ASSISTANT Facility:[facility] Start: 09-26-2024 Encounter for other preprocedural examination Addis Foss [facility] Start: 09-14-2024 End: 09-14-[address] Addis Foss DO -[facility] Work Phone: Start: 09-14-2024 End: 09-14-2024 ambulatory Bertha Lobato INTEGRATION SOLUTION ARCHITECT-C Work Phone: -[facility] Start: 09-08-2024 End: 09-08-2024 ambulatory Bertha Lobato INTEGRATION SOLUTION ARCHITECT-C Work Phone: -[facility] Start: 09-08-2024 End: 09-08-[address] Addis [facility] Work Phone: Start: 09-08-2024 End: 09-08-[address] Addis Foss DO -[facility] Work Phone: Start: 09-08-2024 End: 09-08-2024 ambulatory Bertha Lobato INTEGRATION SOLUTION ARCHITECT-C Work Phone: -[facility] Start: 09-08-2024 End: 09-08-2024 ambulatory Addis Foss [facility] [place] Start: 08-31-2024 End: 08-31-[address] Addis Foss DO [facility] Work Phone: Start: 08-31-2024 End: 08-31-[address] Addis Foss DO [facility] Start: 08-31-2024 End: 08-31-2024 ambulatory Bertha Lobato INTEGRATION SOLUTION ARCHITECT-C Work Phone: [facility] Start: 08-22-2024 End: 08-22-2024 ambulatory BERTHA LOBATO FORENSIC INVESTIGATOR-PHARMACY ASSISTANT Facility:[facility] Start: 08-22-2024 End: 08-22-2024 Minor Procedure RYANN GONZALEZ DO [facility] Start: 08-01-2024 End: 08-01-2024 ambulatory BERTHA LOBATO FORENSIC INVESTIGATOR-PHARMACY ASSISTANT Facility:[facility] Start: 08-01-2024 End: 08-01-2024 Patient encounter procedure BERTHA LOBATO FORENSIC INVESTIGATOR-PHARMACY ASSISTANT [facility] Start: 07-22-2024 End: 07-22-2024 ambulatory BERTHA LOBATO FORENSIC INVESTIGATOR-PHARMACY ASSISTANT Facility:[facility] Start: 07-22-2024 End: 07-22-2024 Patient encounter procedure BERTHA LOBATO FORENSIC INVESTIGATOR-PHARMACY ASSISTANT [facility] Start: 06-09-2024 End: 06-09-2024 ambulatory BERTHA LOBATO FORENSIC INVESTIGATOR-PHARMACY ASSISTANT Facility:[facility] Start: 03-14-2024 End: 03-18-2024 ambulatory BERTHA LOBATO FORENSIC INVESTIGATOR-PHARMACY ASSISTANT Facility:[facility] Start: 03-10-2024 End: 03-10-2024 ambulatory BERTHA LOBATO FORENSIC INVESTIGATOR-PHARMACY ASSISTANT Facility:[facility] Start: 03-10-2024 End: 03-10-2024 Patient encounter procedure BERTHA LOBATO FORENSIC INVESTIGATOR-PHARMACY ASSISTANT [facility] Start: 11-04-2023 ambulatory Bertha Ronany INTEGRATION SOLUTION ARCHITECT Facil ity:[facility] Start: 06-15-2023 End: 06-20-2023 ambulatory BERTHA LOBATO FORENSIC INVESTIGATOR-PHARMACY ASSISTANT Facility:[facility] Start: 06-15-2023 End: 06-19-2023 Outreach Lab BERTHA LOBATO FORENSIC INVESTIGATOR-PHARMACY ASSISTANT [facility] Start: 06-08-2023 End: 06-09-2023 ambulatory BERTHA LOBATO FORENSIC INVESTIGATOR-PHARMACY ASSISTANT Facility:[facility] Start: 06-08-2023 End: 06-08-2023 Patient encounter procedure BERTHA LOBATO FORENSIC INVESTIGATOR-PHARMACY ASSISTANT [facility] Start: 11-10-2022 End: 11-15-2022 ambulatory BERTHAHEDY LOBATO FORENSIC INVESTIGATOR-PHARMACY ASSISTANT Facility:[facility] Start: 11-10-2022 End: 11-14-2022 Outreach Lab BERTHA LOBATO FORENSIC INVESTIGATOR-PHARMACY ASSISTANT [facility] Start: 11-03-2022 End: 11-04-[address] EBV EARL DPM Facility:[facility] Start: 11-03-2022 End: 11-03-[address] BEV EARL DPM [facility] Start: 09-22-2022 End: 09-22-[address] Alex Covington Work Phone: [facility] Work Phone: Start: 09-22-2022 End: 09-22-[address] Alex Covington Work Phone: [facility]Nutritional Services Work Phone: Start: 08-28-2022 End: 08-28-[address] Alex Covington Work Phone: [facility] Work Phone: Start: 08-04-2022 End: 08-09-2022 ambulatory BERTHA LOBATO FORENSIC INVESTIGATOR-PHARMACY ASSISTANT Facility:[facility] Start: 08-04-2022 End: 08-08-2022 Outreach Lab BERTHA LOBATO FORENSIC INVESTIGATOR-PHARMACY ASSISTANT [facility] Start: 06-05-2022 End: 06-05-2022 Patient encounter procedure BERTHA LOBATO FORENSIC INVESTIGATOR-PHARMACY ASSISTANT [facility] Start: 05-09-2022 End: 05-09-2022 Patient encounter procedure BERTHA LOBATO FORENSIC INVESTIGATOR-PHARMACY ASSISTANT [facility] Start: 03-10-2022 End: 03-10-2022 Patient encounter procedure BERTHA LOBATO FORENSIC INVESTIGATOR-PHARMACY ASSISTANT [facility] Start: 02-05-2022 End: 02-09-2022 Outreach Lab BERTHA LOBATO FORENSIC INVESTIGATOR-PHARMACY ASSISTANT [facility] Start: 08-23-2021 End: 08-23-[address] Alex Covington Work Phone: [facility]-Laboratory, Specimen Start: 08-23-2021 End: 08-23-[address] Alex Covington Work Phone: [facility] Start: 05-16-2021 End: 05-16-2021 Patient encounter procedure ALEX COVINGTON MD [facility] Start: 05-03-2021 End: 05-03-2021 Patient encounter procedure ALEX COVINGTON MD [facility] Start: 08-14-2017 Ambulatory LIBIA Umana [facility] Start: 07-24-2017 Ambulatory LIBIA Umana [facility] Start: 06-30-2017 Ambulatory LIBIA Umana [facility] Start: 06-17-2017 Ambulatory LIBIA Umana [facility] Start: 05-28-2017 Ambulatory LIBIA Umana [facility] Start: 04-09-2017 Ambulatory LIBIA Umana [facility] Procedures Date Procedure Procedure Detail Performing Clinician Start: 12-07-2018 Arthroscopy of knee DUSTIN COVINGTON MD Comment on above: LEFT Adenoid excision ALEX HUBBARD MD Excision of Aburto's cyst of knee ALEX COVINGTON MD Comment on above: Left, x2 Extraction of wisdom tooth S CHUNG COVINGTON MD Nasal septoplasty ALEX JENKINS MD Plan of Treatment Date Care Activity Detail Author Start: 08-23-2021 Liquid based cervica l cytology screening [facility] Work Phone: Path report.final Dx Spec [facility] Work Phone: [facility] Immunizations Immunization Date Immunization Notes Care Provider Fa laura 05-17-2024 pneumococcal 20-rafia nt conjugate vaccine BERTHA LOBATO FORENSIC INVESTIGATOR-PHARMACY ASSISTANT [facility] 12-11-2023 influenza virus vaccine, unspecified formulation BERTHA LOBATO FORENSIC INVESTIGATOR-PHARMACY ASSISTANT [facility] 12-11-2023 SARS-CoV-2 (COVID-19 ) [id number] BERTHA LOBATO FORENSIC INVESTIGATOR-PHARMACY ASSISTANT [facility] 12-06-2022 [id number](tozinam era n 5y-11y)bi vac 1 BERTHA LOBATO FORENSIC INVESTIGATOR-PHARMACY ASSISTANT [facility] Comment on above: Result Comment: COVI D - 19, mRNA, LNP-S. PF 11-21-2022 influenza virus vaccine, unspecified formulation BERTHA EVELYN FORENSIC INVESTIGATOR-PHARMACY ASSISTANT [facility] 02-28-2022 influenza virus vaccine, unspecified formulation BERTHA EVELYN FORENSIC INVESTIGATOR-PHARMACY ASSISTANT [facility] 11-29-2021 SARS-CoV-2 (CV19)mRNA-1273 bivalent vac BERTHA RONANY FORENSIC INVESTIGATOR-PHARMACY ASSISTANT [facility] 07-23-2021 zoster vaccine recombinant BERTHA LOBATO FORENSIC INVESTIGATOR-PHARMACY ASSISTANT [facility] 05-18-2021 zoster vaccine recombinant BERTHA LOBATO FORENSIC INVESTIGATOR-PHARMACY ASSISTANT [facility] Comment on above: Result Comment: [facility] 01-03-2021 SARS-CoV-2 (COVID-19 ) mRNA-1273 vaccine ALEX COVINGTON MD [facility] Comment on above: Result Comment: 2021: [id number] 12-12-2020 influenza virus vaccine, unspecified formulation ALEX COVINGTON MD [facility] 05-11-2020 COVID-19, mRNA, LNP- S, PF, 100 mcg or 50 mcg dose; Translations: [Moderna COVID-19 Vaccine] ALEX COVINGTON MD [facility] 04-13-2020 COVID-19, mRNA, LNP- S, PF, 100 mcg or 50 mcg dose; Translations: [Moderna COVID-19 Vaccine] ALEX COVINGTON MD [facility] 11-08-2019 influenza virus vaccine, unspecified formulation ALEX COVINGTON MD [facility] 10-27-2018 influenza virus vaccine, unspecified formulation ALEX COVINGTON MD [facility] 01-18-2018 tetanus toxoid, redu олег diphtheria toxoid, and acellular pertussis vaccine, adsorbed ALEX COVINGTON MD [facility] 12-12-2017 influenza virus vaccine, unspecified formulation ALEX COVINGTON MD [facility] 05-28-2009 yellow fever vaccine ALEX COVINGTON MD [facility] 08-20-1998 diphtheria and tetan us toxoids, adsorbed for pediatric use ALEX COVINGTON MD [facility] Payers Date Payer Category Payer Private Health Insurance [id number] 2024 Unknown [id number] 2023 Self-pay [id number] 2023 Self-pay [id number] 2017 Unknown [id number] 2005 Unknown [id number] 1967 Unknown [id number] 2.16.8 40.1.219070.3.579.2.62 1967 Unknown [id number] 2.16.8 40.1.610731.3.579.2.627 1967 Unknown [id number] 2.16.8 40.1.945513.3.579.2.62 1967 Unknown [id number] 2.16.8 40.1.430106.3.579.2.627 1967 Unknown [id number] 2.16.8 40.1.036123.3.579.2. 1967 Unknown [id number] 2.16. 840.1.027591.3.579.2. 1967 Unknown [id number] 2. 840.1.052871.3.579.2. 1967 Unknown [id number] 2.. 840.1.169319.3.579.2.62 1967 Unknown [id number] 2.16.8 40.1.649684.3.579.2.62 1967 Unknown [id number] .16.8 40.1.418506.3.579.2.627 1967 Unknown [id number] 2.16.8 40.1.867647.3.579.2.62 1967 Unknown [id number] 2.16.8 40.1.607420.3.579.2.627 Unknown [id number] 2.16.8 40.1.469728.3.579.2.462 Unknown [id number] 2.16.8 40.1.764901.3.579.2.462 Unknown [id number] 2.16.8 40.1.358653.3.579.2.462 Unknown [id number] 2.16.8 40.1.981327.3.579.2.462 Unknown [id number] 2.16.8 40.1.193530.3.579.2.462 Unknown [id number] 2.16.8 40.1.197579.3.579.2.462 Social History Date Type Detail Facility Start: 12-13-2018 Never smoked t obacco (finding) [facility] Start: 1965 Sex Assigned At Female A [facility] Start: 08-23-2021 End: 08-28-2022 Tobacco smoking status COIS Unknown if ever smoked [facility] Sexual Orientation [facility] Start: 08-18-2018 Sex Female (finding) [facility] Start: 08-31-2024 Tobacco smoking stat us NHIS Smokes tobacco daily (finding) [facility] Medical Equipment Procedure Code Equipment Code Equipment Origin al Text Equipment Identifier Dates See Instructions , 1 bottle of 100. Test once daily. Dx E11.9, # 1 EA, 11 Refill(s), Pharmacy: [facility]/pharmacy #[id number], 160, cm, 02/04/22 13:23:00 EST, Height, 98.2 Start: 02-04-2022 See Instructions , qs 1 month supply. Test once daily. Dx e11.9, # 1 EA, 11 Refill(s), Pharmacy: [facility]/pharmacy #[id number], 160, cm, 02/04/22 13:23:00 EST, Height, 98.2 Start: 02-04-2022 See Instructions , 1 bottle of 100. Test once daily. Dx E11.9, # 1 EA, 11 Refill(s), Pharmacy: [facility]/pharmacy #[id number], 160, cm, 02/04/22 13:23:00 EST, Height, 98.2 Start: 02-04-2022 See Instructions , qs 1 month supply. Test once daily. Dx e11.9, # 1 EA, 11 Refill(s), Pharmacy: [facility]/pharmacy #[id number], 160, cm, 02/04/22 13:23:00 EST, Height, 98.2 Start: 02-04-2022 See Instructions , 1 bottle of 100. Test once daily. Dx E11.9, # 1 EA, 3 Refill(s), Pharmacy: [facility], 160, cm, 03/26/22 7:00:00 EST, Height, 97.3, kg, 03/26/22 7:00:00 EST, Dosing Weight Start: 04-09-2022 See Instructions , qs 1 month supply. Test once daily. Dx e11.9, # 1 EA, 11 Refill(s), [id number], cm, 02/04/22 13:23:00 EST, Height, 98.2 Start: 02-04-2022 See Instructions , 1 bottle of 100. Test once daily. Dx E11.9, # 1 EA, 3 Refill(s), Pharmacy: [facility], 160, cm, 03/26/22 7:00:00 EST, Height, 97.3, kg, 03/26/22 7:00:00 EST, Dosing Weight Start: 04-09-2022 See Instructions , qs 1 month supply. Test once daily. Dx e11.9, # 1 EA, 11 Refill(s), [id number] 160, cm, 02/04/22 13:23:00 EST, Height, 98.2 Start: 02-04-2022 See Instructions , 1 bottle of 100. Test once daily. Dx E11.9, # 1 EA, 3 Refill(s), Pharmacy: [facility], 160, cm, 03/26/22 7:00:00 EST, Height, 97.3, kg, 03/26/22 7:00:00 EST, Dosing Weight Start: 04-09-2022 See Instructions , qs 1 month supply. Test once daily. Dx e11.9, # 1 EA, 11 Refill(s), [id number], 160, cm, 02/04/22 13:23:00 EST, Height, 98.2 Start: 02-04-2022 See Instructions , 1 bottle of 100. Test once daily. Dx E11.9, # 1 EA, 3 Refill(s), Pharmacy: [facility], 160, cm, 03/26/22 7:00:00 EST, Height, 97.3, kg, 03/26/22 7:00:00 EST, Dosing Weight Start: 04-09-2022 See Instructions , qs 1 month supply. Test once daily. Dx e11.9, # 1 EA, 11 Refill(s), [id number] 160, cm, 02/04/22 13:23:00 EST, Height, 98.2 Start: 02-04-2022 See Instructions , 1 bottle of 100. Test once daily. Dx E11.9, # 1 EA, 3 Refill(s), Pharmacy: [facility], 160, cm, 03/26/22 7:00:00 EST, Height, 97.3, kg, 03/26/22 7:00:00 EST, Dosing Weight Start: 04-09-2022 See Instructions , qs 1 month supply. Test once daily. Dx e11.9, # 1 EA, 11 Refill(s), [id number] 160, cm, 02/04/22 13:23:00 EST, Height, 98.2 Start: 02-04-2022 See Instructions , 1 bottle of 100. Test once daily. Dx E11.9, # 1 EA, 3 Refill(s), [id number] 160, cm, 03/23/23 7:33:00 EST, Height, 103.7, kg, 03/23/23 7:33:00 EST, Dosing Weight Start: 03-23-2023 See Instructions , qs 1 month supply. Test once daily. Dx e11.9, # 1 EA, 11 Refill(s), [id number] 160, cm, 02/04/22 13:23:00 EST, Height, 98.2 Start: 02-04-2022 ONETOUCH ULTRA T EST STRIP, TEST ONCE DAILY. DX E11.9 Start: 05-18-2023 See Instructions , 1 bottle of 100. Test once daily. Dx E11.9, # 1 EA, 3 Refill(s), [id number], 160, cm, 03/23/23 7:33:00 EST, Height, 103.7, kg, 03/23/23 7:33:00 EST, Dosing Weight Start: 03-23-2023 See Instructions , qs 1 month supply. Test once daily. Dx e11.9, # 1 EA, 11 Refill(s), [id number], 160, cm, 02/04/22 13:23:00 EST, Height, 98.2 Start: 02-04-2022 ONETOUCH ULTRA T EST STRIP, TEST ONCE DAILY. DX E11.9 Start: 05-18-2023 See Instructions , 1 bottle of 100, # 1 EA, 11 Refill(s), [id number], 161, cm, 06/13/24 9:33:00 EDT, Height, 83.9, kg, 06/13/24 9:33:00 EDT, Dosing Weight Start: 06-13-2024 See Instructions , 1 bottle of 100. Test once daily. Dx E11.9, # 1 EA, 0 Refill(s), Pharmacy: [facility]/pharmacy #[id number], 161, cm, 03/14/24 9:31:00 EST, Height, 86, kg, 03/14/24 9:31:00 EST, Dosing Weight Start: 03-14-2024 See Instructions , qs 1 month supply. Test once daily. Dx e11.9, # 1 EA, 11 Refill(s), Pharmacy: [facility]/pharmacy #[id number], 160, cm, 02/04/22 13:23:00 EST, Height, 98.2 Start: 02-04-2022 See Instructions , 1 bottle of 100, # 1 EA, 11 Refill(s), [id number], 161, cm, 06/13/24 9:33:00 EDT, Height, 83.9, kg, 06/13/24 9:33:00 EDT, Dosing Weight Start: 06-13-2024 See Instructions , 1 bottle of 100. Test once daily. Dx E11.9, # 1 EA, 0 Refill(s), Pharmacy: [facility]/pharmacy #[id number], 161, cm, 03/14/24 9:31:00 EST, Height, 86, kg, 03/14/24 9:31:00 EST, Dosing Weight Start: 03-14-2024 See Instructions , qs 1 month supply. Test once daily. Dx e11.9, # 1 EA, 11 Refill(s), Pharmacy: [facility]/pharmacy #4605, 160, cm, 02/04/22 13:23:00 EST, Height, 98.2 Start: 02-04-2022 See Instructions , 1 bottle of 100, # 1 EA, 11 Refill(s), Pharmacy: [facility]/pharmacy #4605, 161, cm, 06/13/24 9:33:00 EDT, Height, 83.9, kg, 06/13/24 9:33:00 EDT, Dosing Weight Start: 06-13-2024 See Instructions , 1 bottle of 100. Test once daily. Dx E11.9, # 1 EA, 0 Refill(s), Pharmacy: [facility]/pharmacy #4605, 161, cm, 03/14/24 9:31:00 EST, Height, 86, kg, 03/14/24 9:31:00 EST, Dosing Weight Start: 03-14-2024 See Instructions , qs 1 month supply. Test once daily. Dx e11.9, # 1 EA, 11 Refill(s), [id number] 160, cm, 02/04/22 13:23:00 EST, Height, 98.2 Start: 02-04-2022 Clinical Notes 05-03-2021 to 08-31-2024 Note Date & Type Note Facility 08-31-2024 Evaluation note Diagnosis Onset Date Resolution Postmenopausal bleeding acute J joan 2024 10:57am Encounter for routine gynecological examination noneactive August 31, 2024 10:57am [facility] Work Phone: 1(714) 922-304207-09-2025 Evaluation note* Diagnosis Onset Date Resolution Status Admit Date Postmenopausal bleeding acute J joan 2024 10:57am Encounter for routine gynecological examination noneactive August 312024 10:57am Postmenopausal bleeding acute J joan 2024 8:29am [facility] Work Phone: 1(348) 181-533806-30-2025 Hospital Discharge instructions Patient Education 08/22/2024 13:17:12 Monitored Anesthesia Care, Care After Monitored Anesthesia Care, Care After These instructions provide you with information about caring for yourself after your procedure. Your health care provider may also give you more specific instructions. Your treatment has been plannedaccording to current medical practices, but problems sometimes occur. Call your health care provider if you have any problems or questions after your procedure. What can I expect after the procedure? After your procedure, you may: Feel sleepy for several hours. Feel clumsy and have poor balance for several hours. Feel forgetful about what happened after the procedure. Have poor judgment for several hours. Feel nauseous or vomit. Have a sore throat if you had a breathing tube during the procedure. Follow these instructions at home: For at least 24 hours after the procedure: Have a responsible adult stay with you. It is important to have someone help care for you until youare awake and alert. Rest as needed. Do not: ?Participate in activities in which you could fall or become injured. ?Drive. ?Use heavy machinery. ?Drink alcohol. ?Take sleeping pills or medicines that cause drowsiness. ?Make important decisions or sign legal documents. ?Take care of children on your own. Eating and drinking Follow the diet that is recommended by your health care provider. If you vomit, drink water, juice, or soup when you can drink without vomiting. Make sure you have little or no nausea before eating solid foods. General instructions Take udcd-cuy-cffzbyz and prescription medicines only as told by your health care provider. If you have sleep apnea, surgery and certain medicines can increase your risk for breathing problems. Follow instructions from your health care provider about wearing your sleep device: ?Anytime you are sleeping, including during daytime naps. ?While taking prescription pain medicines, sleeping medicines, or medicines that make you drowsy. If you smoke, do not smoke without supervision. Keep all follow-up visits as told by your health care provider. This is important. Contact a health care provider if: You keep feeling nauseous or you keep vomiting. You feel light-headed. You develop a rash. You have a fever. Get help right away if: You have trouble breathing. Summary For several hours after your procedure, you may feel sleepy and have poor judgment. Have a responsible adult stay with you for at least 24 hours or until you are awake and alert. This information is not intended to replace advice given to you by your health care provider. Make sure you discuss any questions you have with your health care provider. Document Released: 06/01/2016 Document Revised: 05/10/2018 Document Reviewed: 06/01/2016 [employer] Patient Education 2020 [employer]. 08/22/2024 13:17:09 Colonoscopy, Adult, Care After, Zylm-pz-Srmr Colonoscopy, Adult, Care After This sheet gives you information about how to care for yourself after your procedure. Your doctor may also give you more specific instructions. If you have problems or questions, call your doctor. What can I expect after the procedure? After the procedure, it is common to have: A small amount of blood in your poop for 24 hours. Some gas. Mild cramping or bloating in your belly. Follow these instructions at home: General instructions For the first 24 hours after the procedure: ?Do not drive or use machinery. ?Do not sign important documents. ?Do not drink alcohol. ?Do your daily activities more slowly than normal. ?Eat foods that are soft and easy to digest. Take hcsu-brv-xsbdnxz or prescription medicines only as told by your doctor. To help cramping and bloating: Try walking around. Put heat on your belly (abdomen) as told by your doctor. Use a heat source that your doctor recommends, such as a moist heat pack or a heating pad. ?Put a towel between your skin and the heat source. ?Leave the heat on for 20 30 minutes. ?Remove the heat if your skin turns bright red. This is especially important if you cannot feel pain, heat, or cold. You can get burned. Eating and drinking Drink enough fluid to keep your pee (urine) clear or pale yellow. Return to your normal diet as told by your doctor. Avoid heavy or fried foods that are hard to digest. Avoid drinking alcohol for as long as told by your doctor. Contact a doctor if: You have blood in your poop (stool) 2 3 days after the procedure. Get help right away if: You have more than a small amount of blood in your poop. You see large clumps of tissue (blood clots) in your poop. Your belly is swollen. You feel sick to your stomach (nauseous). You throw up (vomit). You have a fever. You have belly pain that gets worse, and medicine does not help your pain. Summary After the procedure, it is common to have a small amount of blood in your poop. You may also have mild cramping and bloating in your belly. For the first 24 hours after the procedure, do not drive or use machinery, do not sign important documents, and do not drink alcohol. Get help right away if you have a lot of blood in your poop, feel sick to your stomach, have a fever, or have more belly pain. This information is not intended to replace advice given to you by your health care provider. Make sure you discuss any questions you have with your health care provider. Document Released: 03/14/2011 Document Revised: 12/10/2017 Document Reviewed: 11/03/2016 [employer] Patient Education 2020 [employer]. Follow Up Care 08/18/2024 10:52:26 With:RYANN GONZALEZ DO Clinical Gastroenterology Address: [address] [place] [address] [place], [place] [phone] When:Within 8 Year(s) With:BERTHA LOBATO Address: [address] [place] [address]- [phone] When: Unknown [facility] 06-30-2025 Note Discharge Instructions Thank you for allowing [facility] to assist you with your healthcare needs. The following is importantdischarge information regarding your hospital visit. Your Care Team BERTHA LOBATO Dr. What to do next Instructions From Your Doctor Screening colonoscopy 8 to 10 years Scheduled Follow-Up Appointments Appointment Type When With Where Contact Information StatusPC Nurse Lab 09/12/2024 08:15 AM EDT [facility] Confirmed PC OV 09/19/2024 09:30 AM EDT BERTHA LOBATO [facility] Confirmed Follow Up Appointments Follow Up with RYANN GONZALEZ DO Clinical Gastroenterology When:In 8 years Where:[address] [place] [phone] Follow Up with BERTHA LOBATO Where:[address] [place] [address]- [phone] The Following Activity and Diet Have Been Ordered for You Discharge Activity - Ordered -- Driving Restricted, No driving until tomorrow, 08/22/24 13:14:00 EDT Discharge Return to Work, School, or Sports (Discharge Return to status) - Ordered -- May return to: work, 08/22/24 13:14:00 EDT Discharge Diet - Ordered -- Type of Diet: Regular Diet, 08/22/24 13:14:00 EDT Allergies NKA Medications Please ask your primary doctor or pharmacist before taking any other medication not listed, including over the counter drugs, herbal medications, vitamins and or supplements as they may interact withyour home medications. What How Much When Instructions Last Dose Unchanged calcium-vitamin D (calcium- vitamin D 600 mg-200intl units (5 mcg) oral capsule) by mouth Two (2) times a day Unchanged cholecalciferol (cholecalciferol 25 mcg (1000 intl units) oral capsule) 1 cap by mouth Every day Duration: 100 Days Unchanged DME (Blood Glucose Test Machine) See instructions Use as directed Brand type per insurance or patient preference Unchanged DME (Blood Glucose Test Strips) See instructions 1 bottle of 100. Test once daily. Dx E11.9 Unchanged DME (Blood Glucose Test Strips) See instructions 1 bottle of 100 Unchanged DME (Lancets) See instructions qs 1 month supply. Test once daily. Dx e11.9 Unchanged levothyroxine (Synthroid 75 mcg (0.075 mg) oral tablet) 1 tab(s) by mouth Once a day no dose on Sundays Unchanged lisinopril (lisinopril 2.5 mg oral tablet) 1 tab(s) by mouth Every day Unchanged magnesium oxide (Magnesium 250 mg tablet) by mouth Once a day Unchanged multivitamin (Multivitamin) 1 tab(s) by mouth Every day Unchanged polyethylene glycol 3350 with electrolytes (PEG-3350 with Electrolytes (Eqv-GoLYTELY) oral powder for reconstitution) See instructions Take as directed starting 1 day before colonoscopy. Follow instructions as provided by your GI provider at [place]. Unchanged rosuvastatin (rosuvastatin 10 mg oral tablet) 1 tab(s) by mouth Every day Duration: 90 Days Unchanged sertraline (sertraline 50 mg oral tablet) 1 tab(s) by mouth Once a day Unchanged tirzepatide (Mounjaro 7.5 mg/ 0.5 mL subcutaneous solution) 7.5 Milligram Subcutaneous Every week rotate injection sites Unchanged ubiquinone (Co Q-10 100 mg oral capsule) 1 cap by mouth Every day Duration: 90 Days Please take this list to your next doctor s visit. Bring all medications you take, including over the counter medications, herbals and other supplements with you to your doctor s visit. Patients and families are reminded to discard old lists and to update any records with all medication providers or retail pharmacies. Education Materials Monitored Anesthesia Care, Care After These instructions provide you with information about caring for yourself after your procedure. Your health care provider may also give you more specific instructions. Your treatment has been plannedaccording to current medical practices, but problems sometimes occur. Call your health care provider if you have any problems or questions after your procedure. What can I expect after the procedure? After your procedure, you may: Feel sleepy for several hours. Feel clumsy and have poor balance for several hours. Feel forgetful about what happened after the procedure. Have poor judgment for several hours. Feel nauseous or vomit. Have a sore throat if you had a breathing tube during the procedure. Follow these instructions at home: For at least 24 hours after the procedure: Have a responsible adult stay with you. It is important to have someone help care for you until youare awake and alert. Rest as needed. Do not: ? Participate in activities in which you could fall or become injured. ? Drive. ? Use heavy machinery. ? Drink alcohol. ? Take sleeping pills or medicines that cause drowsiness. ? Make important decisions or sign legal documents. ? Take care of children on your own. Eating and drinking Follow the diet that is recommended by your health care provider. If you vomit, drink water, juice, or soup when you can drink without vomiting. Make sure you have little or no nausea before eating solid foods. General instructions Take zaae-fxo-yjicldz and prescription medicines only as told by your health care provider. If you have sleep apnea, surgery and certain medicines can increase your risk for breathing problems. Follow instructions from your health care provider about wearing your sleep device: ? Anytime you are sleeping, including during daytime naps. ? While taking prescription pain medicines, sleeping medicines, or medicines that make you drowsy. If you smoke, do not smoke without supervision. Keep all follow-up visits as told by your health care provider. This is important. Contact a health care provider if: You keep feeling nauseous or you keep vomiting. You feel light-headed. You develop a rash. You have a fever. Get help right away if: You have trouble breathing. Summary For several hours after your procedure, you may feel sleepy and have poor judgment. Have a responsible adult stay with you for at least 24 hours or until you are awake and alert. This information is not intended to replace advice given to you by your health care provider. Make sure you discuss any questions you have with your health care provider. Document Released: 06/01/2016 Document Revised: 05/10/2018 Document Reviewed: 06/01/2016 [employer] Patient Education 2020 [employer]. Colonoscopy, Adult, Care After This sheet gives you information about how to care for yourself after your procedure. Your doctor may also give you more specific instructions. If you have problems or questions, call your doctor. What can I expect after the procedure? After the procedure, it is common to have: A small amount of blood in your poop for 24 hours. Some gas. Mild cramping or bloating in your belly. Follow these instructions at home: General instructions For the first 24 hours after the procedure: ? Do not drive or use machinery. ? Do not sign important documents. ? Do not drink alcohol. ? Do your daily activities more slowly than normal. ? Eat foods that are soft and easy to digest. Take uldr-day-lnrfuxy or prescription medicines only as told by your doctor. To help cramping and bloating: Try walking around. Put heat on your belly (abdomen) as told by your doctor. Use a heat source that your doctor recommends, such as a moist heat pack or a heating pad. ? Put a towel between your skin and the heat source. ? Leave the heat on for 20 30 minutes. ? Remove the heat if your skin turns bright red. This is especially important if you cannot feel pain, heat, or cold. You can get burned. Eating and drinking Drink enough fluid to keep your pee (urine) clear or pale yellow. Return to your normal diet as told by your doctor. Avoid heavy or fried foods that are hard to digest. Avoid drinking alcohol for as long as told by your doctor. Contact a doctor if: You have blood in your poop (stool) 2 3 days after the procedure. Get help right away if: You have more than a small amount of blood in your poop. You see large clumps of tissue (blood clots) in your poop. Your belly is swollen. You feel sick to your stomach (nauseous). You throw up (vomit). You have a fever. You have belly pain that gets worse, and medicine does not help your pain. Summary After the procedure, it is common to have a small amount of blood in your poop. You may also have mild cramping and bloating in your belly. For the first 24 hours after the procedure, do not drive or use machinery, do not sign important documents, and do not drink alcohol. Get help right away if you have a lot of blood in your poop, feel sick to your stomach, have a fever, or have more belly pain. This information is not intended to replace advice given to you by your health care provider. Make sure you discuss any questions you have with your health care provider. Document Released: 03/14/2011 Document Revised: 12/10/2017 Document Reviewed: 11/03/2016 [employer] Patient Education 2020 [employer]. Additional Information VACCINATE! IT SAVES LIVES! Members of the community who have not yet received the COVID-19 vaccine and would like to receive it can visit one of [facility] vaccine clinics. There are many vaccine clinic locations within the [facility]. For locations and available times, please visit https://gettheshot.coronavirus.[place].gov/. It is important to note that some COVID mobile vaccine clinics are held outdoors and may be canceled in rainy or stormy conditions. To learn more about pediatric vaccinations (ages 5-11), we invite you to visit the [facility] webpage. https://www.[facility].org/pages/5340-Wsugj-Ogfhjbxgkmi-Quplpufvuf-Cgazj-Rfg stions.htmlTo learn more about the COVID-19 vaccine, we invite you to visit the CDC website for a list of frequently asked questions.https://www.cdc.gov/coronavirus/2019-ncov/vaccines/faq.html [facility] Patient Portal Access Instructions: Stay connected with your healthcare team and access your personal medical information anytime with the [facility] Patient Portal. Please follow the directions below to create your [facility] account: 1.Access the email account you provided upon registration to the hospital/physician office.2.Look for an invitation email from [facility].3.Open the email and access the invitation link: AcceptInvitation to [facility].4.Fill in the required gould to create your account. To access your account, visit [email or web address]. Click the blue button labeled Access Patient Portal and then log in with the username and password that you created in the steps above. You will be able to view your test results, lab results, a summary of your visits, upcoming appointments and more. There is also a convenient messaging option where you can send secure messages to your p [employer]. In addition, you will have the ability to download any documents or summaries to your computer and/or send the information securely to a physician. Remember that your healthcare information is confidential, so carefully consider who you will allowto register on the [facility] Patient Portal for access to your information. You can also access the [facility] Patient Portal on the [facility] kady. Simply click on Patient Portal and then log into your account. If you would like to receive a full copy of your medical records, please contact the [facility] Medical Records Department by calling [phone], Thursday through Thursday between 8 a.m. and 4:30 p.m. HOW TO SAFELY DISPOSE OF PRESCRIPTION MEDICATIONS Please use one of the following methods to safely dispose of your unused medications. 1.Use a drug disposal kit: the drug disposal pouch allows you to safely discard your old and unuseddrugs. Ask your nurse to give you one when you are discharged.2.Visit a local take-back location: Many local pharmacies and police departments have programs that collect old and unwanted prescriptiondrugs. Call your local pharmacy or go to http://bit.ly/4V5Dl8d to find one close to you.3.Make use of household items: Use cat litter or old coffee grounds to dispose medications if other options arenot available. Mix your drugs with these household products, seal them in an airtight container andthrow it into the garbage. Call [facility]: [phone] to be sure your drugs can be disposed of in this way. Some medicines may require a different approach.4.Never flush your medications down the toilet. IF YOU HAVE BEEN PRESCRIBED AN OPIOID FOR PAIN If you have been prescribed an opioid (such as hydrocodone, oxycodone or morphine), it is critical to understand the possible side effects and risks of opioid pain medications. Even when taken as directed, opioids can have several side effects including: Tolerance, meaning you might need to take more of a medication for the same pain relief. Nausea, vomiting and/or constipation. Sleepiness, dizziness, dry mouth, confusion, depression or itching. Physical dependence, meaning you have withdrawal symptoms when a medication is stopped, can develop within a few days. KNOW YOUR RESPONSIBILITIES It is important to know exactly how much and how often to take the opioid pain medications you are prescribed. Never take opioids in higher amounts or more often than prescribed. Do not combine opioids with alcohol or other drugs that cause drowsiness, such as benzodiazepines, also known as benzos, including diazepam and alprazolam, muscle relaxants or sleep aids. Never sell or share prescription opioids. This is illegal. Store opioids in a secure place and out of reach of others (including children, family, friends and visitors). The last page of this document has been signed and retained as a CHART COPY. Signatures Patient Education Materials Monitored Anesthesia Care, Care After Colonoscopy, Adult, Care After, Jxlb-ly-Qczf Medication Leaflets My discharge plan and instructions have been reviewed and explained to me and ICANELO RACHEL L understand my current condition and have read and understand these discharge instructions. I have received a written copy of the plan/instructions. If I have questions, I am aware that I should contact my doctor. Patient/Pharmacy Grad Intern Signature: Date/Time: Relationship to Patient: Witness Name[facility]Signature: [facility] Indication for Surgery Colorectal cancer screening Preoperative Diagnosis Colorectal cancer screening Postoperative Diagnosis Left colonic diverticulosis Operation Colonoscopy Surgeon(s) Ryann Gonzalez D.O. Anesthesia MAC Estimated Blood Loss None Specimen(s) None Complications None Technique The patient was evaluated in the preoperative area and surgical consent was obtained. She was then brought to endoscopy and monitored on pulse oximetry, cardiac monitoring and placed on supplemental oxygen. She was placed in left lateral decubitus position and a surgical timeout was obtained. Sedation was provided by anesthesia. A digital exam was unremarkable. The colonoscope inserted into the rectum advanced towards the cecum. Left colonic diverticulosis was noted. Cecum was identified and found to be normal. Photographs were obtained. The scope then carefully checked under 6-minute withdrawal to good prep. Retroflexed view of the rectum was normal. The scope was removed. Patient was thentransferred to the recovery area in stable condition vital signs. Discharge summary: 1. Final Diagnosis: Left colonic diverticulosis 2. Outcome: Patient tolerated procedure well without complication 3. Disposition: Patient was discharged home to follow previous diet and medications 4. Follow-up care: Follow-up with primary care physician as scheduled. Repeat exam in 8 to 10 years Digitally Signed by RYANN GONZALEZ DO on 08/22/2024 02:12 PM [facility]06-30-2025 Anesthesiology Consult note Patient: VANE LEMOS Age: 59 years Sex: Female : 1965 Associated Diagnoses: None Author: JAYLA MCGEE APRN-CHIP TUNER Assessment Postanesthesia assessment Vitals: Vital signs from flowsheet : Vital Signs 08/22/2024 14:10 EDT Heart Rate Monitored 79 bpm bpm Respiratory Rate - Anes 14 br/min br/min 08/22/2024 14:05 EDT Heart Rate Monitored 76 bpm bpm Respiratory Rate - Anes 13 br/min br/min Systolic Blood Pressure Non-Invasive 110 mmHg mmHg Diastolic Blood Pressure Non-Invasive 78 mmHg mmHg 08/22/2024 14:00 EDT Heart Rate Monitored 81 bpm bpm Respiratory Rate - Anes 17 br/min br/min Systolic Blood Pressure Non-Invasive 108 mmHg mmHg Diastolic Blood Pressure Non-Invasive 69 mmHg mmHg 08/22/2024 13:56 EDT Systolic Blood Pressure Non-Invasive 105 mmHg mmHg Diastolic Blood Pressure Non-Invasive 77 mmHg mmHg 08/22/2024 13:55 EDT Heart Rate Monitored 73 bpm bpm Respiratory Rate - Anes 17 br/min br/min 08/22/2024 13:02 EDT Temperature Temporal Artery 36.6 DegC Apical Heart Rate 83 bpm Respiratory Rate 16 br/min Systolic Blood Pressure Non-Invasive 122 mmHg Diastolic Blood Pressure Non-Invasive 74 mmHg 08/22/2024 12:56 EDT Temperature Tympanic 36.6 DegC Apical Heart Rate 83 bpm Respiratory Rate 16 br/min Systolic Blood Pressure Non-Invasive 122 mmHg Diastolic Blood Pressure Non-Invasive 74 mmHg , Measurements from flowsheet . Mental status: alert & oriented x 4. Respiratory function: respirations are non-labored. Respiratory support: none. CV function: Normal rate. Cardiovascular support: none. Pain. Nausea status: see nursing documentation of medications. Postoperative hydration status: within normal limits. Digitally Signed by JAYLA MCGEE on 08/22/2024 02:11 PM [facility]06-30-2025 Anesthesiology Consult note Patient: VANE LEMOS Age: 59 years Sex: Female : 1965 Associated Diagnoses: None Author: JAYLA MCGEE Preoperative Information Time of last solid food intake: 08/22/2024 00:00:00 Time of last clear liquid intake: 08/22/2024 09:00:00 Anesthesia history Patient's history: negative. Family's history: negative. Health Status Allergies: Allergic Reactions (Selected) NKA, Allergies (1) ActiveSeverityReaction NKANone Documented Current medications: (Selected) Inpatient Medications Ordered Lactated Ringers Infusion 1000 mL: 20 mL/hr, Intravenous NS 1,000 mL: 20 mL/hr, Intravenous Prescriptions Prescribed Blood Glucose Test Machine: See Instructions, Use as directed Brand type per insurance or patient preference, 1 EA, 0 Refill(s) Blood Glucose Test Strips: See Instructions, 1 bottle of 100, 1 EA, 11 Refill(s) Blood Glucose Test Strips: See Instructions, 1 bottle of 100. Test once daily. Dx E11.9, 1 EA, 0 Refill(s) Co Q-10 100 mg oral capsule: 100 mg, 1 cap(s), Oral, Daily, for 90 day(s), 90 cap(s), 3 Refill(s) Lancets: See Instructions, qs 1 month supply. Test once daily. Dx e11.9, 1 EA, 11 Refill(s) Mounjaro 7.5 mg/0.5 mL subcutaneous solution: 7.5 mg, Subcutaneous, qWeek, rotate injection sites, 12 EA, 3 Refill(s) PEG-3350 with Electrolytes (Eqv-GoLYTELY) oral powder for reconstitution: See Instructions, Take asdirected starting 1 day before colonoscopy. Follow instructions as provided by your GI provider at [place]., 1 EA, 0 Refill(s) Synthroid 75 mcg (0.075 mg) oral tablet: 75 mcg, 1 tab(s), Oral, qDay, no dose on Sundays, 90 tab(s), 3 Refill(s) cholecalciferol 25 mcg (1000 intl units) oral capsule: 25 mcg, 1 cap(s), Oral, Daily, for 100 day(s), 100 cap(s), 4 Refill(s) lisinopril 2.5 mg oral tablet: 2.5 mg, 1 tab(s), Oral, Daily, 100 tab(s), 3 Refill(s) rosuvastatin 10 mg oral tablet: 10 mg, 1 tab(s), Oral, Daily, for 90 day(s), 90 tab(s), 3 Refill(s) sertraline 50 mg oral tablet: 50 mg, 1 tab(s), Oral, qDay, 90 tab(s), 3 Refill(s) Documented Medications Documented Magnesium 250 mg tablet: mg, tab(s), Oral, qDay, 0 Refill(s) Multivitamin: 1 tab(s), Oral, Daily, 0 Refill(s) calcium-vitamin D 600 mg-200 intl units (5 mcg) oral capsule: cap(s), Oral, BID, 0 Refill(s), Medications (2) Active Scheduled: (0) Continuous: (2) Lactated Ringers Infusion 1000 mL 1,000 mL, Intravenous, 20 mL/hr NS (0.9% nacl) 1,000 mL 1,000 mL, Intravenous, 20 mL/hr PRN: (0) Problem list: Medical Obesity (BMI 30-39.9) / SNOMED CT 223371069 / Confirmed BMI 37.0-37.9, adult / SNOMED CT 110298155 / Confirmed Leg cramps / SNOMED CT 0700842997 / Confirmed Internal derangement of left knee / SNOMED CT 0500883119 / Confirmed Fatigue / SNOMED CT 453969448 / Confirmed Hypothyroidism / SNOMED CT 60418894 / Confirmed Urine frequency / SNOMED CT 893152815 / Confirmed Type 2 diabetes mellitus, with long-term current use of insulin / SNOMED CT 1798750626 / Confirmed Major depressive disorder / SNOMED CT 6032841936 / Confirmed Mixed hyperlipidemia / SNOMED CT 784401934 / Confirmed Measles, mumps, rubella (MMR) vaccination status unknown / SNOMED CT 388425397 / Confirmed Myalgia / SNOMED CT 458678129 / Confirmed Obstructive sleep apnea / SNOMED CT 824623882 / Confirmed Screening for breast cancer / SNOMED CT 736186655 / Confirmed Well adult exam / SNOMED CT 806070292 / Confirmed Screen for colon cancer / SNOMED CT 674465591 / Confirmed Nasal cavity polyp / SNOMED CT 3895589782 / Confirmed Postmenopausal bleeding / SNOMED CT 505896937 / Confirmed Snoring / SNOMED CT 537657914 / Confirmed Type 2 diabetes mellitus, without long-term current use of insulin / SNOMED CT 409350976 / Confirmed Vitamin D deficiency / SNOMED CT 07283346 / Confirmed, Active Problems (23) Arthritis of knee, left BMI 37.0-37.9, adult Depression Fatigue Hypothyroidism Internal derangement of left knee Leg cramps Major depressive disorder Measles, mumps, rubella (MMR) vaccination status unknown Mixed hyperlipidemia Myalgia Nasal cavity polyp Obesity (BMI 30-39.9) Obstructive sleep apnea Postmenopausal bleeding Screen for colon cancer Screening for breast cancer Snoring Type 2 diabetes mellitus, with long-term current use of insulin Type 2 diabetes mellitus, without long-term current use of insulin Urine frequency Vitamin D deficiency Well adult exam Histories Past Medical History: Resolved Type 2 diabetes mellitus (413697239): Resolved. Strep pharyngitis (25529155): Resolved. Vulvovaginal itching (427409788): Resolved. Need for hepatitis C screening test (231691527): Resolved. Morbid obesity with BMI of 40.0-44.9, adult (5709248892): Resolved. Family History: Diabetes mellitus Father Brother Mother Grandparent Multiple myeloma Father Myocardial infarction Grandparent Glaucoma Grandparent HTN - Hypertension Mother Brother Procedure history: Arthroscopy of knee ([id number]) on 12/07/2018 at 53 Years. Comments: 12/07/2018 15:34 EDT - Laverne Yoo RN LEFT Excision of Aburto's cyst of knee ([id number]). Comments: 11/25/2018 15:38 EDT - Yadira Kwong RN Left, x2 Adenoidectomy ([id number]). Nasal septoplasty (76135743). Extraction of wisdom tooth (975073608). Social History: Social & Psychosocial Habits Alcohol 08/22/2024 Use: Current Frequency: 1-2 times per year Substance Abuse 08/22/2024 Use: Never Tobacco 08/22/2024 Tobacco Use: Never (less than 100 in l, no tobacco/smoke exposure Home/Environment 08/22/2024 Primary Library Sales Consultant: Self Nutrition/Health 08/22/2024 Caffeine intake amount: 3 servings/week Physical Examination Vital Signs 08/22/2024 13:02 EDT Temperature Temporal Artery 36.6 DegC Apical Heart Rate 83 bpm Respiratory Rate 16 br/min Systolic Blood Pressure Non-Invasive 122 mmHg Diastolic Blood Pressure Non-Invasive 74 mmHg 08/22/2024 12:56 EDT Temperature Tympanic 36.6 DegC Apical Heart Rate 83 bpm Respiratory Rate 16 br/min Systolic Blood Pressure Non-Invasive 122 mmHg Diastolic Blood Pressure Non-Invasive 74 mmHg Vital Signs (last 24 hrs) Last Charted Temp Hyznaekw35.6 DegC (AUG 22 13:02) Heart Rate Gycwzq26 bpm (AUG 22 13:02) UZP208 mmHg (AUG 22 13:02) DBP74 mmHg (AUG 22 13:02) Measurements from flowsheet : Measurements 08/22/2024 13:02 EDT Height 160.02 cm Admission Weight 84.09 kg [place] Body Weight 52.40 kg Admission Body Mass Index 32.84 m2 08/22/2024 12:56 EDT Height 161 cm [place] Body Weight 53.29 kg Pain assessment: Pain Assessment 08/22/2024 13:02 EDT Primary Pain Intensity 0 Pain Scale Type 0-10 Pain scale . General: Alert and oriented. Airway: Normal temporomandibular joint mobility, Normal mouth, Normal neck range of motion. Mallampati classification: III (soft palate, base of uvula visible). Dentition Evaluation: Denies loose/chipped teeth. Respiratory: Respirations are non-labored. Cardiovascular: Normal rate. Neurologic: Alert, Oriented. Review / Management Results review: No qualifying data available , Lab results 08/22/2024 13:52 EDT SN - Proc - Anesthesia Type MAC SN - Proc - EBL 0 mL SN - Proc - Actual Procedure COLONOSCOPY 08/22/2024 13:52 EDT SN - PP - Body Position Lateral Right Side-up Standard Intra-op 08/22/2024 13:51 EDT SN - GCD - Post-operative Diagnosis SCREENING SN - GCD - Case Level OPD Level 3 08/22/2024 13:51 EDT SN - CAt - Case Attendee SN - CAt - Case Attendee SN - CAt - Case Attendee SN - CAt - Case Attendee SN - CAt - Case Attendee SN - CAt - Case Attendee SN - CAt - Case Attendee SN - CAt - Case Attendee SN - CAt - Role Performed Primary Surgeon SN - CAt - Role Performed Practical Nursing Instructor 1 SN - CAt - Role Performed Mat Cutter SN - CAt - Role Performed CHIP TUNER 08/22/2024 13:15 EDT Lactated Ringers Injection Begin Bag 1,000 mL mL 08/22/2024 13:13 EDT Antecubital Right 08/22/2024 22 gauge Peripheral IV Activity: Insert new site Peripheral IV Dressing Condition: Clean, Dry, Intact Peripheral IV Dressing Activity: Applied, Transparent dressing Peripheral IV Line Status/Patency: Flushes easily, Continuous infusion Peripheral IV Site Condition: No complications Peripheral IV Site Care: Direct pressure applied Peripheral IV Number of Attempts: 2 08/22/2024 13:02 EDT Height 160.02 cm Admission Weight 84.09 kg [place] Body Weight 52.40 kg Admission Body Mass Index 32.84 m2 Temperature Temporal Artery 36.6 DegC Apical Heart Rate 83 bpm Respiratory Rate 16 br/min Systolic Blood Pressure Non-Invasive 122 mmHg Diastolic Blood Pressure Non-Invasive 74 mmHg Primary Pain Intensity 0 Pain Scale Type 0-10 Pain scale Heart Rhythm Regular Respirations Unlabored Respiratory Pattern Regular Oxygen Therapy Room air Oxygen Saturation 96 % Abdomen Description Non-distended, Symmetric, Soft Bowel Sounds All Quadrants Present Skin Description Tebbetts, Normal for ethnicity, Dry Skin Temperature Warm Extremity Movement Equal Characteristics of Speech Clear Level of Consciousness Alert Affect/Behavior Appropriate, Calm, Cooperative Orientation Oriented x 4 Amelia Motor (2) Moves 4 extremities voluntarily or on command Amelia Respirations (2) Spontaneous respiration without support, RR > 10 Amelia Blood Pressure (2) BP 20% above or below preanesthetic level Amelia Pulse (2) Pulse 20% above or below preanesthetic level Amelia Oxygen Saturation (2) 94% or more Amelia Level of Consciousness (2) Fully awake Amelia III Score 12 Positioning Repositions self Activity Status ADL Awake Standard Safety ID band on, Call device within reach, Bed in low position, Wheels locked, Safety level maintained 08/22/2024 12:56 EDT Designated Person #1 We May Share PHI J Augspurger Designated Person #1 Relationship Father Privacy Restrictions Requested None Height 161 cm [place] Body Weight 53.29 kg Temperature Tympanic 36.6 DegC Apical Heart Rate 83 bpm Respiratory Rate 16 br/min Systolic Blood Pressure Non-Invasive 122 mmHg Diastolic Blood Pressure Non-Invasive 74 mmHg Oxygen Saturation 96 % Status No, per patient Sensory Deficits None Infectious Disease Symptoms Patient states no symptoms Infectious Disease Recent Exposure No Alcohol and Drug Use No Employee of Institutional Living No Health Care Employee No History of Exposure to TB No History of Positive Chest X-Ray for TB No History of Positive TB Skin Test No Homeless No Known Immunosuppression No Recent Immigrant No Resident of Institutional Living No Bloody Sputum No Fatigue No Fever No Loss of Appetite No Night Sweats No Persistent Cough > 3 Weeks No Weight Loss No Barriers to Learning None evident Teaching Method Explanation Preferred Spoken Language Angolan Preferred Written Language Angolan Patient's Current Physicians Patient's Current Physicians Discharge To, Anticipated Home independently Prev Test Positive/Diagnosis w/COVID-19 No Current Quarantine/Isolated any Illness No Any Contact with Sick Animals/Birds No Traveled Anywhere in Last 30 Days No No Personal Devices, Patient Valuables None Admission Note-Nursing Procedure/Therapy Intake 08/22/2024 12:52 EDT IV Present Present Allergies Yes Anesthesia Extension Set Applied Yes Partnership Development Manager On Yes Colon Prep Results Good Consent Form Signed Yes Patient Dressed In Hospital gown, No undergarments Pre-op Preparation Glasses removed, Undergarments removed History & Physical Update On Chart Yes History & Physical On Chart Yes Bowel Prep Completed Yes Belongings At Bedside Cell phone, Pants, Shirt, Shoes, Socks, Undergarments NPO Status Maintained Patient ID Band on and Verified Yes Implants Verified Yes Pacemaker/AICD Verified Yes Site Verified by Patient/Family Yes Anesthesia Consent Signed Yes Last Fluid Intake 08/22/2024 8:00 Last Food Intake 08/20/2024 2:00 08/22/2024 12:01 [facility] History and Physical . Assessment and Plan [place] [employer] (ASA) physical status classification: Class II. Anesthetic Preoperative Plan Informed consent: signed by patient. Digitally Signed by JAYLA MCGEE on 08/22/2024 02:00 PM [facility]06-30-2025 Evaluation + Plan noteExtracted from: Title:Clinical Document Author:RYANN GONZALEZ ate:08/22/24 [place] ADMISSION HISTORY AN D PHYSICIAL CHIEF COMPLAINT: Colorectal cancer screening HISTORY OF PRESENT ILLNESS: Colorectal cancer screening REVIEW OF SYSTEMS: Constitutional: denies weight loss Cardiovascular:denies chest pain, palpitations Respiratory:denies shortness of breath Gastrointestinal:no abd pain Musculoskeletal: no arthralgias Skin: no rashes ACTIVE PROBLEMS: (23) Arthritis of knee, left (0403570985) BMI 37.0-37.9, adult (982341113) Depression (91702931) Fatigue (351744156) Hypothyroidism (06533791) Internal derangement of left knee (0244996421) Leg cramps (6352676953) Major depressive disorder (4290478531) Measles, mumps, rubella (MMR) vaccination status unknown (365088847) Mixed hyperlipidemia (250912037) Myalgia (744262264) Nasal cavity polyp (8527917584) Obesity (BMI 30-39.9) (577952294) Obstructive sleep apnea (402278361) Postmenopausal bleeding (720694457) Screen for colon cancer (514780295) Screening for breast cancer (979667219) Snoring (466666244) Type 2 diabetes mellitus, with long-term current use of insulin (7247689534) Type 2 diabetes mellitus, without long-term current use of insulin (249818185) Urine frequency (962788225) Vitamin D deficiency (43886544) Well adult exam (998087789) MEDICATIONS: Active Inpt Meds: None Active PRN Meds: None One Time Meds: None Active IV Meds: None ALLERGIES: (1) NKA FAMILY HISTORY: SOCIAL HISTORY: PHYSICAL EXAM: VITALS: No Data Available 24 Hr Tmax: No Data Available 36 Hr Tmax: No Data Available Vital Signs are the last 5 in the past 48 hours. Weights display the last 5 within 7 days. Initial Wt: No Data Available Current Wt: No Data Available physical exam alert and oriented cardio; regular without murmur pulm; clear abd; soft, nontender LABS: No 36hr Lab Data DIAGNOSTICS: IMPRESSION: Colorectal cancer screening PLAN: Colonoscopy as discussed in the office Future Appointments Appointment Date:09/12/2024 08:15:00 AM Scheduled Provider: Location:[facility] Appointment Type:PC Nurse Lab Appointment Date:09/19/2024 09:30:00 AM Scheduled Provider:BERTHA LOBATO Location:[facility] Appointment Type:PC OV Future Scheduled Tests Laboratory* Urinalysis w/ C&S if Indicated 12/14/23 [facility] 06-30-2025 Note [place] ADMISSION HISTORY AND PHYSICIAL CHIEF COMPLAINT: Colorectal cancer screening HISTORY OF PRESENT ILLNESS: Colorectal cancer screening REVIEW OF SYSTEMS: Constitutional: denies weight loss Cardiovascular:denies chest pain, palpitations Respiratory:denies shortness of breath Gastrointestinal:no abd pain Musculoskeletal: no arthralgias Skin: no rashes ACTIVE PROBLEMS: (23) Arthritis of knee, left (7118398869) BMI 37.0-37.9, adult (946655460) Depression (73700184) Fatigue (338761430) Hypothyroidism (48265163) Internal derangement of left knee (3040079527) Leg cramps (4992962325) Major depressive disorder (0025338886) Measles, mumps, rubella (MMR) vaccination status unknown (317951007) Mixed hyperlipidemia (265729649) Myalgia (622912802) Nasal cavity polyp (4768005114) Obesity (BMI 30-39.9) (111111173) Obstructive sleep apnea (725920543) Postmenopausal bleeding (791732600) Screen for colon cancer (816365857) Screening for breast cancer (974163054) Snoring (249761827) Type 2 diabetes mellitus, with long-term current use of insulin (6253106493) Type 2 diabetes mellitus, without long-term current use of insulin (813451011) Urine frequency (423382520) Vitamin D deficiency (01147266) Well adult exam (308619346) MEDICATIONS: Active Inpt Meds: None Active PRN Meds: None One Time Meds: None Active IV Meds: None ALLERGIES: (1) NKA FAMILY HISTORY: SOCIAL HISTORY: PHYSICAL EXAM: VITALS: No Data Available 24 Hr Tmax: No Data Available 36 Hr Tmax: No Data Available Vital Signs are the last 5 in the past 48 hours. Weights display the last 5 within 7 days. Initial Wt: No Data Available Current Wt: No Data Available physical exam alert and oriented cardio; regular without murmur pulm; clear abd; soft, nontender LABS: No 36hr Lab Data DIAGNOSTICS: IMPRESSION: Colorectal cancer screening PLAN: Colonoscopy as discussed in the office Digitally Signed by RYANN GONZALEZ DO on 08/22/2024 12:01 PM [facility]03-11-2022 Evaluation + Plan note Future Scheduled Tests Laboratory* Thyroid Stimulating Hormone 05/03/21 * Free T4 05/03/21 * Complete Blood Count 05/03/21 * Lipid Profile 05/03/21 * Vitamin D Level 05/03/21 * Complete Metabolic Panel 05/03/21 [facility] Evaluation + Plan note Future Appointments Appointment Date:02/12/2022 09:00:00 AM Scheduled Provider:BERTHA LOBATO Location:[facility] Appointment Type: OV [facility] Evaluation + Plan note Future Appointments Appointment Date:03/26/2022 07:00:00 AM Scheduled Provider:BERTHA LOBATO Location:[facility] Appointment Type: OV Appointment Date:05/14/2022 07:00:00 AM Scheduled Provider:BERTHA LOBATO Location:[facility] Appointment Type:PC OV Appointment Date:06/05/2022 08:30:00 AM Scheduled Provider:ALEX COVINGTON MD Location:[facility] Appointment Type: Wellness Annual Future Scheduled Tests Laboratory* A1C Hemoglobin 05/13/22 * Lipid Profile 05/13/22 * Vitamin D Level 05/13/22 * Complete Metabolic Panel 05/13/22 [facility] Evaluation + Plan note Future Appointments Appointment Date:05/14/2022 07:00:00 AM Scheduled Provider:BERTHA LOBATO Location:[facility] Appointment Type:PC OV Appointment Date:06/05/2022 08:30:00 AM Scheduled Provider:ALEX COVINGTON MD Location:[facility] Appointment Type: Wellness Annual Future Scheduled Tests Laboratory* A1C Hemoglobin 05/24/22 * Lipid Profile 05/24/22 * Vitamin D Level 05/24/22 * Complete Metabolic Panel 05/24/22 [facility] Evaluation + Plan note Future Appointments Appointment Date:08/18/2022 09:00:00 AM Scheduled Provider:BERTHA LOBATO Location:[facility] Appointment Type: OV Future Scheduled Tests Laboratory* Thyroid Stimulating Hormone 05/14/22 * Free T4 05/14/22 * A1C Hemoglobin 08/14/22 * A1C Hemoglobin 05/24/22 * Lipid Profile 08/14/22 * Lipid Profile 05/24/22 * Albumin/Creatinine Ratio, Random Urine 08/14/22 * Vitamin D Level 08/14/22 * Vitamin D Level 05/24/22 * Complete Metabolic Panel 08/14/22 * Complete Metabolic Panel 05/24/22 [facility] Evaluation + Plan note Future Appointments Appointment Date:08/18/2022 09:00:00 AM Scheduled Provider:BERTHA LOBATO Location:[facility] Appointment Type: OV Future Scheduled Tests Laboratory* Thyroid Stimulating Hormone 05/14/22 * Free T4 05/14/22 * A1C Hemoglobin 05/24/22 * Lipid Profile 05/24/22 * Vitamin D Level 05/24/22 * Complete Metabolic Panel 05/24/22 [facility] evaluation + Plan note Future Appointments Appointment Date:11/10/2022 08:00:00 AM Scheduled Provider: Location:[facility] Appointment Type:PC Nurse Lab Appointment Date:11/17/2022 07:00:00 AM Scheduled Provider:BERTHA LOBATO Location:[facility] Appointment Type:PC OV Future Scheduled Tests Laboratory* Thyroid Stimulating Hormone 11/18/22 * Thyroid Stimulating Hormone 05/14/22 * Free T4 11/18/22 * Free T4 05/14/22 * A1C Hemoglobin 11/18/22 * A1C Hemoglobin 05/24/22 * Lipid Profile 11/18/22 * Lipid Profile 05/24/22 * Vitamin D Level 11/18/22 * Vitamin D Level 05/24/22 * Complete Metabolic Panel 11/18/22 * Complete Metabolic Panel 05/24/22 [facility] Evaluation + Plan note Future Appointments Appointment Date:11/17/2022 07:00:00 AM Scheduled Provider:BERTHA LOBATO Location:[facility] Appointment Type:PC OV [facility] Olocodealuation + Plan note Future Appointments Appointment Date:06/15/2023 07:30:00 AM Scheduled Provider:BERTHA LOBATO Location:[facility] Appointment Type:PC OV Future Scheduled Tests Laboratory* Hepatitis C Antibody IgG 06/08/23 * Albumin/Creatinine Ratio, Random Urine 06/22/23 [facility] Evaluation + Plan note Future Appointments Appointment Date:09/14/2023 11:00:00 AM Scheduled Provider:BERTHA LOBATO Location:[facility] Appointment Type:PC OV Lab Check Future Scheduled Tests Laboratory* Hepatitis C Antibody IgG 06/08/23 [facility] Evaluation + Plan note Future Appointments Appointment Date:03/14/2024 09:30:00 AM Scheduled Provider:BERTHA LOBATO Location:[facility] Appointment Type:PC OV Future Scheduled Tests Laboratory* Urinalysis w/ C&S if Indicated 12/14/23 [facility] Evaluation + Plan note Future Appointments Appointment Date:08/01/2024 04:30:00 PM Scheduled Provider: Location:[facility] Appointment Type:US Pelvis Non-OB Limited Appointment Date:08/03/2024 09:00:00 AM Scheduled Provider: Location:[facility] Appointment Type:Telehealth Appointment Date:09/12/2024 08:15:00 AM Scheduled Provider: Location:[facility] Appointment Type:PC Nurse Lab Appointment Date:09/19/2024 09:30:00 AM Scheduled Provider:BERTHA LOBATO Location:[facility] Appointment Type:PC OV Future Scheduled Tests Laboratory* Urinalysis w/ C&S if Indicated 12/14/23 Radiology* US Pelvis Non-OB Limited 08/01/24 [facility] Evaluation + Plan note Future Appointments Appointment Date:08/03/2024 09:00:00 AM Scheduled Provider: Location:[facility] Appointment Type:Telehealth Appointment Date:09/12/2024 08:15:00 AM Scheduled Provider: Location:[facility] Appointment Type:PC Nurse Lab Appointment Date:09/19/2024 09:30:00 AM Scheduled Provider:BERTHA LOBATO Location:[facility] Appointment Type:PC OV Future Scheduled Tests Laboratory* Urinalysis w/ C&S if Indicated 12/14/23 [facility] Evaluation note* Diagnosis Onset Date Resolution Status Encounter for routine gynecological examination noneactive [facility] Work Phone: Evaluation note* Diagnosis Onset Date Resolution Status Admit Date Encounter for routine gynecological examination noneactive August 312024 10:57am [facility] Work Phone: Hospital course Narrative No data available for this section [facility] Hospital Discharge instructions No data available for this section [facility] Progress note No data available for this section [facility] Reason for referral (narrative)No reason for referral information [facility] Summary Purpose Family History No Family History Records Found Relationship Condition Age at Onset Recorded Date/T alysa grandfather Diabetes mellitus Unknown father Diabetes mellitus Unknown Multiple myeloma Unknown Malignant neoplasm of bone Unknown mother Leukocytosis Unknown Hypertension Unknown brother Leukocytosis Unknown Relationship Condition Age at Onset Recorded Date/T alysa Not Specified Myocardial infarction Unknown grandfather Diabetes mellitus Unknown father Diabetes mellitus Unknown Multiple myeloma Unknown Malignant neoplasm of bone Unknown mother Leukocytosis Unknown Hypertension Unknown Diabetes mellitus Unknown brother Leukocytosis Unknown Advance Directives No Advanced Directives Records FoundNo Advanced Directives Records FoundNo Advanced Directives Records FoundNo Advanced Directives Records Found Chief Complaint and Reason for Visit 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 Encounter for routin e gynecological examination Chief 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) DINING WITH DIABETES Reason for Visit Encounter for routin e gynecological examination Chief Complaint Admit Date 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) August 31, 2024 10:57 am Reason for Visit Admit Date Encounter for routine gynecological exam ination August 31, 2024 10:57am Chief Complaint Admit Date 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) August 31, 2024 10:57 am EMB *per JV September 08, 2024 8:29 am Reason for Visit Admit Date Postmenopausal bleeding August 31, 2024 1 0:57am Encounter for routine gynecological exam ination August 31, 2024 10:57am Reason for Visit Admit Date Postmenopausal bleeding August 31, 2024 1 0:57am Encounter for routine gynecological exam ination August 31, 2024 10:57am Postmenopausal bleeding September 08, 2024 8:29am Chief Complaint Admit Date 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) August 31, 2024 10:57 am EMB *per JV September 08, 2024 8:29 am Discuss D&C September 14, 2024 9:39 am Additional Source Comments INFORMATION SOURCE (unrecogn ized section and content) DATE CREATED AUTHOR 08/14/2017 [facility] DATE CREATED AUTHOR AUTHOR'S ORGANIZ ATION 06/22/2023 [facility] ([place] DATE CREATED AUTHOR AUTHOR'S ORGANIZ ATION 09/27/2024 [facility] DATE CREATED AUTHOR AUTHOR'S ORGANIZ ATION 09/29/2024 [facility] Goals (unrecognized section and content) Goals may be documented in a n alternate section Care Team (unrecognized sect ion and content) Care Team Personnel Name: Amarjit Bermudez Cleranival Parekh PT Position: P3 Scheduling - Shank [facility] Advanced Member Role: Other Name: ALEX COVINGTON MD Position: P4 Physician - Primary Care Member Role: Primary Care Physician Address: Address: [address] [place] [address] Care Team Related Persons Name: Migel LEMOS Care Team Personnel Name: Amarjit Bermudez Cleranival Parekh PT Position: P3 Scheduling - Shank Carrier Advanced Member Role: Other Name: ALEX COVINGTON MD Position: P4 Physician - Primary Care Member Role: Primary Care Physician Address: Address: [address] [place] [address] Care Team Related Persons Name: Migel LEMOS Patient Care team informatio n (unrecognized section and content) Team Status: Active Member Role Status Dates Bertha Lobato NP, INTEGRATION SOLUTION ARCHITECT-C Primary Care Provider Active Team Status: Inactive Member Role Status Dates Dr. Alex Covington MD Referring Provider Active Dr. Addis Foss DO Attending Provider Activ e Bertha Lob[facility] NP, INTEGRATION SOLUTION ARCHITECT-C Primary Care Provider Active Team Status: Inactive Member Role Status Dates Self Referred Attending Provider Active Bertha L[facility] NP, INTEGRATION SOLUTION ARCHITECT-C Primary Care Provider Active Team Status: Active Member Role/Relationship Status Dates Bertha Lobato NP, INTEGRATION SOLUTION ARCHITECT-C Primary Care Provider Active Team Status: Inactive Member Role/Relationship Status Dates Bertha Lobato NP, INTEGRATION SOLUTION ARCHITECT-C Primary Care Provider Active Start: August 31, 2024 End: August 31, 2024 Bertha Lobato NP, INTEGRATION SOLUTION ARCHITECT-C Referring Provider Active Start: August 31, 2024 End: August 31, 2024 Dr. Addis Foss DO Attending Provider Activ e Start: August 31, 2024 End: August 31, 2024 Team Status: Inactive Member Role/Relationship Status Dates Bertha Lobato INTEGRATION SOLUTION ARCHITECT, INTEGRATION SOLUTION ARCHITECT-C Primary Care Provider Active Start: September 08, 2024 End: September 08, 2024 Bertha Lobato INTEGRATION SOLUTION ARCHITECT, INTEGRATION SOLUTION ARCHITECT-C Referring Provider Active Start: September 08, 2024 End: September 08, 2024 Dr. Addis Foss , Attending Provider Activ e Start: September 08, 2024 End: September 08, 2024 Team Status: Inactive Member Role/Relationship Status Dates Bertha Lobato INTEGRATION SOLUTION ARCHITECT, INTEGRATION SOLUTION ARCHITECT-C Primary Care Provider Active Start: September 08, 2024 End: September 08, 2024 Dr. Addis Foss , Attending Provider Activ e Start: September 08, 2024 End: September 08, 2024 Team Status: Inactive Member Role/Relationship Status Dates Bertha Lobato INTEGRATION SOLUTION ARCHITECT, INTEGRATION SOLUTION ARCHITECT-C Primary Care Provider Active Start: September 14, 2024 End: September 14, 2024 Bertha Lobato NP, INTEGRATION SOLUTION ARCHITECT-C Referring Provider Active Start: September 14, 2024 End: September 14, 2024 Dr. Addis Foss , Attending Provider Activ e Start: September 14, 2024 End: September 14, 2024 FOR RECORDS PERTAINING TO PATIENTS WHO ARE OR HAVE BEEN ENROLLED IN A CHEMICAL DEPENDENCY/SUBSTANCEABUSE PROGRAM, SOME INFORMATION MAY BE OMITTED. This clinical summary was aggregated from multiple sources. Caution should be exercised in using it in the provision of clinical care. This summary normalizes information from multiple sources, and as a consequence, information in this document may materially change the coding, format and clinical context of patient data. In addition, data may be omitted in some cases. CLINICAL DECISIONS SHOULD BE BASED ON THE PRIMARY CLINICAL RECORDS. [facility] [employer], [facility]. provides no warranty or guarantee of the accuracy or completeness of information in this document.
[2024-09-30 06:42] LABS: Internal QC Validated? YES +Cl - CLEAR BKGD; Pregnancy, Urine Negative Negative; Record Kit Lot#,Urine Preg 0000962302
[2024-09-30] MEDS: Lactated Ringers 1,000 ML 15 ML IV (06:42)
--- NOTE | 2024-09-30 07:04 | PCM.PRE.AN2 ---
ASA Classification* ASA Classification ASA Classification: 2 Assessment & Plan Anesthesia* Anesthesia Assessment Anesthesia Assessment: Discussed sedation and/or anesthesia options, risks, benefits, and alternatives with patient/parents/legal guardian/POA. Questions invited. The patient/parents/legal guardian/POA seems to understand and agrees to proceed with anesthesia plan. Reviewed the physical assessment, medical history, allergy history and patient home medications list prior to surgery/procedure/anesthetic and documented any changes. Performed airway and anesthesia risk assessments. Anesthesia Type Anesthesia Type: MAC History Source History Obtained from:: Patient and Chart Anesthesia Focused Assessment* Temperature: 97.6 F Pulse Rate: 66 Blood Pressure: 117/67 Respiratory Rate: 18 Pulse Ox: 97 Oxygen Delivery Method: Room Air Airway Assessment Mouth opens: >3 cm Mallampati Score: IV Teeth Condition: Missing (Missing tooth #11. Rest are tight.) Neck Range of motion (ROM): Full ROM Labs Anesthesia Preop lab: CBC WBC 7.1 K/mm3 (4.4-11.0) 09/26/24 10:12 09/26/24 RBC 4.39 M/mm3 (4.2-5.4) 09/26/24 10:12 09/26/24 Hgb 13.4 g/dL (12.0-15.0) 09/26/24 10:12 09/26/24 Hct 39.5 % (37-47) 09/26/24 10:12 09/26/24 Plt Count 315 K/mm3 (150-450) 09/26/24 10:12 09/26/24 CHEMISTRY COAG Urine Test Negative Negative 09/30/24 06:10 09/30/24 Pre-Assessment Diagnosis/Proposed Procedure Planned Operative Procedure(s): Hysteroscopy,Dilation and Curettage Anesthesia History Anesthesia History - hedis analyst: Anesthesia History - hedis analyst Hx Hospitalization No 09/26/24 08:28 Any Problems With Anesthesia No 09/26/24 08:28 Cholinesterase deficiency No 09/26/24 08:28 You/Your Family Experience No 09/26/24 08:28 fever (hyperthermia) with Relationship Recent Exposure to Contagious No 09/30/24 06:29 Disease Does patient have nerve No 09/26/24 08:28 stimulator Patient instructed to have device shut off --Does patient have Pacemaker No 09/30/24 06:29 or ICD? When Was Last Pacemaker Check QUESTION #4 FULL TEXT: You/Your Family Experience fever (hyperthermia) with Anesthesia Last Oral Intake Last Oral intake: Last Oral Intake NPO since 21:30 09/30/24 06:29 Meds taken in AM with sips of No 09/30/24 06:29 water? Meds patient instructed to take am of surgery PONV PONV - hedis analyst: PONV - hedis analyst Female Yes 09/26/24 08:28 HX of Motion Sickness No 09/26/24 08:28 HX of N/V After Surgery No 09/26/24 08:28 Non-Smoker Yes 09/26/24 08:28 Duration of Surgery greater No 09/26/24 08:28 than 60 minutes Number of Risk Factors 2 09/26/24 08:28 PONV Score Moderate Risk 09/26/24 08:28 Height & Weight Height & Weight: Anesthesia: Height & Weight Height 5 ft 3 in 09/30/24 06:29 Weight: 85 kg 09/30/24 06:29 Body Mass Index (BMI) 33.2 09/30/24 06:29 Respiratory Assessment Respiratory Assessment - hedis analyst: Respiratory Tract Infection Hx - hedis analyst Hx Respiratory Tract Infection No 09/26/24 08:28 STOP Sleep Apnea STOP Sleep Apnea - hedis analyst: STOP Sleep Apnea - hedis analyst Hx Hypertension Yes: PER PT, CONTROLLED ON 09/26/24 08:28 MEDS Hx Sleep Apnea Yes 09/26/24 08:28 CPAP No 09/26/24 08:28 BIPAP No 09/26/24 08:28 Do you snore loudly (louder than talking or can be heard Do you often feel tired/ fatigued/ sleepy during daytime? Has anyone observed you stop breathing during sleep? STOP Results Positive 09/26/24 08:28 QUESTION #5 FULL TEXT : Do you snore loudly (louder than talking or can be heard through closed doors)? Tobacco Use History Tobacco Use History - hedis analyst: Tobacco Use History - hedis analyst Tobacco Use Smoking Status Never smoker 09/26/24 08:28 Hx Tobacco Use No 09/26/24 08:28 Years Smoking Packs Smoked per Day Smoking Cessation Date was within the last 15 years Hx Smoking Cessation Date Hx Smoking Cessation Counseling Hematologic Medial History Hematologic Hx - hedis analyst: Hematologic Medical Hx - operations processor Hx of Blood Transfusion No 09/26/24 08:28 Hx of Transfusion in last 3 No 09/26/24 08:28 Months Date of Last Transfusion (if within last 3 months) Ever experience any problems No 09/26/24 08:28 with transfusion(s)? Specify any problems Hx of Preganancy in last 3 No 09/26/24 08:28 Months Nurse Filling Out Transfusion MGRIFFITH 09/26/24 08:28 & Questions: Date: 09/26/24 09/26/24 08:28 Time: 08:31 09/26/24 08:28 Patient unable to answer at this time (ie. confused, unrespo /Reproduction History /Reproductive History - hedis analyst: /Reproductive Hx- hedis analyst Hx Now No 09/26/24 08:28 Gestational Age (in weeks): EDC: Hx Hx Para Hx Section SAB No 09/26/24 08:28 Active Medications Active Medications: Current Medications Generic Name Dose Route Start Last Admin Trade Name Freq PRN Reason Stop Dose Admin Lactated Ringer's 1,000 mls @ 15 mls/hr 09/30/24 06:15 09/30/24 06:42 IV 15 mls/hr .Q48H ADELFO Administration PFSH Medical History Wears glasses Depression Diabetes Thyroid disease High cholesterol Sleep apnea Non-smoker Leg cramps Hypertension Aburto's cyst Abnormal Pap smear of cervix Home Medications ?Medication ?Instructions ?Recorded ?Last Taken ?Type multivitamin 1 tab PO DAILY 08/23/21 09/29/24 History cholecalciferol (vitamin D3) 50 50 mcg PO DAILY 08/28/22 09/28/24 History mcg (2,000 unit) capsule levothyroxine 88 mcg tablet 75 mcg PO DAILY 08/28/22 09/29/24 History (Synthroid) magnesium oxide 250 mg PO DAILY 08/28/22 09/28/24 History calcium carbonate 600 mg PO QDAY 08/31/24 09/28/24 History coenzyme Q10 10 mg capsule (Co 10 mg PO DAILY 08/31/24 09/29/24 History Q-10) lisinopril 5 mg tablet 2.5 mg PO DAILY 08/31/24 09/28/24 History rosuvastatin 20 mg tablet (Crestor) 10 mg PO DAILY 08/31/24 09/28/24 History sertraline 25 mg tablet (Zoloft) 50 mg PO DAILY 08/31/24 09/29/24 History tirzepatide 7.5 mg/0.5 mL 7.5 mg subcut REEDER 08/31/24 09/22/24 History subcutaneous pen injector (Mounjaro) Allergy/AdvReac Type Severity Reaction Status Date / Time No Known Allergies Allergy Verified 09/30/24 06:26 Family History Grandfather Diabetes x2 Father Diabetes Multiple myeloma Bone cancer Mother Elevated WBCs Hypertension Diabetes Brother Elevated WBCs Hypertension Diabetes Other Myocardial infarction Surgical History History of colonoscopy S/P left knee surgery S/P correction of deviated nasal septum S/P adenoidectomy Social History number of children: 0 current occupational status: retired Smoking Status: Current every day smoker alcohol intake: never substance use type: does not use caffeine: Yes what type of physical activity do you participate in: walking frequency: 3-4 times per week seatbelt use: always do you feel safe at home: Yes additional social history: Single Review of Systems (Anesthesia) ROS Narrative System reviewed and no additional complaints, except as documented.
--- NOTE | 2024-09-30 07:23 | PCM.HP.BLA ---
History and Physical Date of Admission: 09/30/24 H&P Intake Vital Signs 09/09/2507:31 09/14/2508:52 09/14/2508:54 Height 5 ft 3 in 5 ft 3 in 5 ft 3 in Weight: 188 lb 2 oz BMI 33.3 BP 99/66 Intake Visit Reasons: Discuss D&C Transcription Typist Required: No Is patient in pain?: No Allergies No Known Allergies Allergy (Verified 09/14/24 09:52) Medications ?Medication ?Instructions ?Recorded ?Confirmed ?Type multivitamin 1 tab PO DAILY 08/23/21 09/14/24 History cholecalciferol (vitamin D3) 50 50 mcg PO DAILY 08/28/22 09/14/24 History mcg (2,000 unit) capsule levothyroxine 88 mcg tablet 75 mcg PO DAILY 08/28/22 09/14/24 History (Synthroid) magnesium oxide 250 mg PO DAILY 08/28/22 09/14/24 History calcium carbonate 600 mg PO QDAY 08/31/24 09/14/24 History coenzyme Q10 10 mg capsule (Co 10 mg PO ONCE 08/31/24 09/14/24 History Q-10) lisinopril 5 mg tablet 2.5 mg PO DAILY 08/31/24 09/14/24 History rosuvastatin 20 mg tablet (Crestor) 10 mg PO DAILY 08/31/24 09/14/24 History sertraline 25 mg tablet (Zoloft) 50 mg PO .every other day 08/31/24 09/14/24 History tirzepatide 7.5 mg/0.5 mL 7.5 mg subcut QWEEK 08/31/24 09/14/24 History subcutaneous pen injector (Mounjaro) Post menopausal: No Patient : No : No PFSH Medical History Aburto's cyst Abnormal Pap smear of cervix Surgical History S/P left knee surgery S/P correction of deviated nasal septum S/P adenoidectomy Family History Grandfather Diabetes e0Owmnav Diabetes Multiple myeloma Bone cancerMother Elevated WBCs Hypertension DiabetesBrother Elevated WBCs Hypertension DiabetesOther Myocardial infarction Social History number of children: 0 current occupational status: retired Smoking Status: Current every day smoker alcohol intake: never substance use type: does not use caffeine: Yes what type of physical activity do you participate in: walking frequency: 3-4 times per week seatbelt use: always do you feel safe at home: Yes additional social history: Single HPI Discuss D&C Details: VANE RAMONURGEDavid is a 59 year old who presents for discussion about thickened endometrium and scant tissue that was returned with the EMB. THe pathologist reported benign tissue but due to scant amount of tissue we can not 100% rely on these results. The recommendation is for a dilation and curettage procedure. History 0 Elective abortions Hx Para Spontaneous abortions Hx # Term Pregnancies Ectopic pregnancies Hx # Pregnancies Multiple births # of living children ROS Const ROS Unobtainable: All systems reviewed & are unremarkable except as noted in H Resp Resp: Reports system reviewed and no additional complaints, except as documented; Denies cough GI GI: Reports as per HPI Psych Psych: Reports system reviewed and no additional complaints, except as documented Exam Const General: cooperative, healthy appearing, comfortable and no acute distress Resp Effort & Inspection: normal respiratory effort Skin General: no rashes or lesions noted Psych Appearance: grossly normal Speech and Movement: speech and movement normal Coding Level of Care Code Off vis,est,level 4 Diagnoses Postmenopausal bleeding N95.0 Endometrial thickening on ultrasound R93.89 Assessment and Plan Assessment and Plan (1) Postmenopausal bleeding: Status: Acute Comment: emb needed (2) Endometrial thickening on ultrasound: Status: Acute Plan After discussing the patient's diagnosis and treatment plan options, patient wishes to proceed with surgical management. I have discussed with the patient the risks, benefits, and alternatives of the procedure which include but are not limited to risks of anesthesia, bleeding, infection, possible damage to bowel, bladder, or surrounding vasculature which could lead to additional surgery to evaluate any complications. Patient agrees to procedure and wishes to proceed. ACOG/uptodate references given for additional information regarding procedure. plan for hysteroscopy dilation and curettage.
--- NOTE | 2024-09-30 07:24 | DCINST_ITS ---
Discharge Instructions DC O2, CPAP, BIPAP needs Home O2 Discharge instructions: No Dressing / Incision Discharge Activity: Return to Normal Activity, May Shower and May Take a Tub Bath (after 1 week) May resume sexual activity in: 1-2 weeks Weight Bearing Status: Weight bearing as tolerated Lifting Restrictions: none Dressing / Incision Call your doctor if you observe: Fever of 101 or Higher, Using more than 1 pad per hour, Shortness of breath, Uncontrolled pain and - (take 800mg of over the counter ibuprofen every 8 hours with food as needed for pain) Follow Up Care Please Follow Up With: Addis Foss DO When: Call [phone] to schedule appointment. Test Results: Test results from this visit will be discussed in further detail at your follow- up appointment, if applicable. Discharge Plan Admission Primary Reason for Your Visit: dilation and curettage Attending Provider: Addis Foss Primary Care Provider: Bertha Rivas NP Instructions Print Language: Romanian Discharge Orders/Prescriptions Prescriptions: No Action multivitamin Tablet 1 tab PO DAILY levothyroxine [Synthroid] 88 mcg tablet 75 mcg PO DAILY sertraline [Zoloft] 25 mg tablet 50 mg PO DAILY magnesium oxide 250 mg magnesium tablet 250 mg PO DAILY cholecalciferol (vitamin D3) 50 mcg (2,000 unit) capsule 50 mcg PO DAILY lisinopril 5 mg tablet 2.5 mg PO DAILY rosuvastatin [Crestor] 20 mg tablet 10 mg PO DAILY Mounjaro 7.5 mg/0.5 mL pen injector 7.5 mg subcut REEDER Patient Comments: LAST DOSE 09/18/24 FOR SURGERY ON 09/30/24 coenzyme Q10 [Co Q-10] 10 mg capsule 10 mg PO DAILY calcium carbonate 600 mg calcium (1,500 mg) tablet 600 mg PO QDAY Referrals / Follow Up: Bertha Rivas NP, MEDICAL RECORD LIBR[employer] TEACHER-C [Primary Care Provider] - Disposition Disposition (needs filled in before D/C Order can be placed): Home, Self Care
[2024-09-30] MEDS: Midazolam 2 MG/2 ML Syringe IV (07:29)
--- NOTE | 2024-09-30 07:30 | EMB_PTH ---
PATIENT: VANE LEMOS LOC: [facility] [place] U[place][id number] AGE/SX: 59/F ROOM: RE09/30/[address]: Dr. Addis Foss DO : 1965 BED: DIS: 09/30/2024 SPEC #: [id number] RECD: 09/30/24 10:05 STATUS: GUILLERMINA ALY #: [id number] APRIL: 09/30/24 07:[address]: Addis Foss DEPT: SURGICAL PATHOLOGY RECD BY: Stephen Pino ENTERED: 09/30/24 11:17 SP TYPE: ENDOM BX/C TODD DR: Bertha Rivas, RECTIFIER OPERATOR-Benjamín Tissues: A - Endometrium, NOS Procedures: Surgery Specimen Level IV HEADER OPERATION: Hysteroscopy, D&C PRE-OP DIAGNOSIS: Post menopausal bleeding, endometrial thickening on ultrasound TISSUE SUBMITTED: A- Endometrial curettings MICROSCOPIC DIAGNOSIS A. Endometrium, curettage: * Proliferative endometrium suggestive of polyp. MICROSCOPIC DESCRIPTION Slides are reviewed. GROSS DESCRIPTION A. Received in formalin labeled with the patient's name and date of . Designated as endometrial curettings is a 2.4 x 1.3 x 0.3 cm aggregate of pink-red, soft to rubbery tissue fragments. Entirely submitted in 1 cassette. AL 09/30/2024 CPT:43111
[2024-09-30] MEDS: Lidocaine 1% (5 ml sdv) 5 ML Vial IV (07:35)
[2024-09-30] MEDS: fentaNYL 100 MCG/2 ML Ampul IV (07:46)
[2024-09-30] MEDS: Lidocaine 1% (20 ml mdv) 20 ML Vial (07:50)
--- NOTE | 2024-09-30 08:02 | PCM.OPRPT ---
Problems Associated Problem List Diagnoses (1) Endometrial thickening on ultrasound: (2) Postmenopausal bleeding: Multi Select Codes Urinary/Genital Urinary/Genital CPT Codes: 66242 Hysteroscopy,EMC, Polypectomy Operative Report (Standard) Operative Information Date of Procedure: 09/30/24 Pre-Operative Diagnosis: thickened endometrium, postmenopausal bleeding Post-Operative Diagnosis: thickened endometrium, postmenopausal bleeding, anterior uterine wall polyp Surgery/Procedure Performed: hysteroscopy dilation and curettage flooring helper: No Type of Anesthesia: MAC and Topical Anesth RN Documented Start/Stop Times: Operation Date: 09/30/24 07:30 Case Time Into Pre-Op 09/30/24 06:08 Out of Pre-Op 09/30/24 07:27 Anesthesia Start 09/30/24 07:29 Into Room 09/30/24 07:29 Procedure Start 09/30/24 07:47 Procedure End 09/30/24 08:00 Procedure Start Time: 07:47 Procedure Stop Time: 08:00 Select all DRAINS/GRAFTS/IMPLANTS that apply: None Estimated Blood Loss: 5cc Specimen collected: Yes Description of specimen(s) removed: endometrial curetting's Description of surgery: Patient was prepped and draped in a normal sterile fashion under MAC anesthesia. A weighted speculum was placed in the vagina and the anterior lip of the cervix was grasped with a single-tooth tenaculum. A paracervical block was placed with 1% lidocaine. Cervix was progressively dilated to allow passage of a 5 mm hysteroscope. The lining was fully visualized and noted to have polyp like structures present . Uterine sounded to 8 cm. Curettage was performed and the specimen was sent to pathology. A second look with the scope showed that the polyp was still present. A hysteroscopic forceps device was then inserted and the polyp was removed without difficulty. All instruments were removed from the vagina and excellent hemostasis was noted. Patient was awoken and taken to recovery in stable condition. Surgical Findings: thickened polypoid appearing endometrium Complications Complications: No Admit VTE Documentation VTE Present on Admission: No VTE Mechan Device Prophylaxis: SCD's VTE Pharm Prophylaxis ordered?: No
--- NOTE | 2024-09-30 08:13 | PCM.POST.ANE ---
Anesthesia: Postop Eval I Current Vital Signs Temperature: 97.5 F Pulse Rate: 74 Blood Pressure: 108/57 Respiratory Rate: 16 Pulse Ox: 97 Oxygen Delivery Method: Room Air Assessment Airway patent: Yes Spontaneous unlabored respirations: Yes Mental status: Awake and Calm nausea: No Vomiting: No Anesthesia Complication: No Fluid Hydration Crystalloid volume administer (ml): 800 Total IV fluid infused: 800 Progress Note Anesthesia document: Postop Eval 1 completed: Yes
--- NOTE | 2024-09-30 10:31 | POSTOPAN2_ITS ---
Anesthesia Postop Eval I Sum Postop Eval Completion status Anesthesia document: Postop Eval 1 completed: Yes Anesthesia Postop Eval I Summary Anesthesia Postop Eval I Summary: Anesthesia Postop Eval I: Assessment Summary Airway patent Yes 09/30/24 08:14 SENIOR TECHNICAL SUPPORT ENGINEER.JDEF Spontaneous unlabored Yes 09/30/24 08:14 SENIOR TECHNICAL SUPPORT ENGINEER.JDEF respirations Mental status Awake,Calm 09/30/24 08:14 SENIOR TECHNICAL SUPPORT ENGINEER.JDEF nausea No 09/30/24 08:14 SENIOR TECHNICAL SUPPORT ENGINEER.JDEF Vomiting No 09/30/24 08:14 SENIOR TECHNICAL SUPPORT ENGINEER.JDEF Anesthesia Postop Eval I: Fluid Summary Crystalloid volume administer 800 09/30/24 08:14 SENIOR TECHNICAL SUPPORT ENGINEER.JDEF (ml) Colloids volume administered ( ml) Blood Product volume administered (ml) Total IV fluid infused 800 09/30/24 08:14 SENIOR TECHNICAL SUPPORT ENGINEER.JDEF Anesthesia Postop Eval I: Summary Notes Anesthesia Complication No 09/30/24 08:14 SENIOR TECHNICAL SUPPORT ENGINEER.JDEF Anesthesia Complication Comment: Post-operative progress note Anesthesia: Postop Eval II Evaluation Mental status: Awake Pain Level: 1 nausea: No Vomiting: No
--- NOTE | 2024-09-30 10:31 | PCM.POSTANE2 ---
Anesthesia Postop Eval I Sum Postop Eval Completion status Anesthesia document: Postop Eval 1 completed: Yes Anesthesia Postop Eval I Summary Anesthesia Postop Eval I Summary: Anesthesia Postop Eval I: Assessment Summary Airway patent Yes 09/30/24 08:14 UNIT SECRETARY.[email or web address] Spontaneous unlabored Yes 09/30/24 08:14 UNIT SECRETARY.JDEF respirations Mental status Awake,Calm 09/30/24 08:14 UNIT SECRETARY.JDEF nausea No 09/30/24 08:14 UNIT SECRETARY.JDEF Vomiting No 09/30/24 08:14 UNIT SECRETARY.JDEF Anesthesia Postop Eval I: Fluid Summary Crystalloid volume administer 800 09/30/24 08:14 UNIT SECRETARY.JDEF (ml) Colloids volume administered ( ml) Blood Product volume administered (ml) Total IV fluid infused 800 09/30/24 08:14 UNIT SECRETARY.JDEF Anesthesia Postop Eval I: Summary Notes Anesthesia Complication No 09/30/24 08:14 UNIT SECRETARY.JDEF Anesthesia Complication Comment: Post-operative progress note Anesthesia: Postop Eval II Evaluation Mental status: Awake Pain Level: 1 nausea: No Vomiting: No
== END 2024-09-30 08:59 | disposition home or self-care (01) ==
LOC: SDC 06:03 → AC 06:03
PROVIDERS: PCP Nurse Practitioner Family; Referring Provider Obstetrics & Gynecology; Visit Provider Obstetrics & Gynecology
PROC: 0UDB8ZZ Extraction of Endometrium, Via Natural or Artificial Opening Endoscopic (ICD-10-PCS; CPT 58558; principal; 2024-09-30 07:20)
DX: N84.0 Polyp of corpus uteri (principal); E11.9 Type 2 diabetes mellitus without complications; N95.0 Postmenopausal bleeding; E07.9 Disorder of thyroid, unspecified; E78.00 Pure hypercholesterolemia, unspecified; I10 Essential (primary) hypertension; F17.200 Nicotine dependence, unspecified, uncomplicated; Z79.85 Long-term (current) use of injectable non-insulin antidiabetic drugs; Z79.890 Hormone replacement therapy; Z79.899 Other long term (current) drug therapy
CPT/HCPCS: 58558; 00952; 36415; 81025; 85027; 86850; 86900; 86901; 88305; J2405

== ENCOUNTER → 2024-10-17 | Outpatient (CLI) | payer OTHER, SELFPAY ==
[2024-10-17 13:12] LABS: Follicle Stimulating Hormone 52.6 mIU/mL
[2024-10-19 23:07] LABS: Anti-Mullerian Hormone,Serum < 0.015 ng/mL (.)
== END | disposition home or self-care (01) ==
LOC: BWCLAB 11:20
PROVIDERS: PCP Nurse Practitioner Family; Referring Provider Obstetrics & Gynecology; Visit Provider Obstetrics & Gynecology
DX: N95.0 Postmenopausal bleeding (principal)
CPT/HCPCS: 36415; 82670; 83001; 83002; 83516

== ENCOUNTER → 2025-02-02 | Outpatient (CLI) | payer OTHER, SELFPAY ==
--- NOTE | 2025-02-02 10:27 | BD_ITS ---
PROCEDURE: DEXA BONE DENSITY STUDY 02/02/2025 REASON FOR EXAM: F, age 60 y/o . Postmenopausal. TECHNIQUE: Procedure Code: BDDBD Modality: DX Procedure: DEXA BONE DENSITY STUDY COMPARISON: None FINDINGS: BMD and T-SCORES Lumbar spine: 1.164 g/cm2, T-score 1.1 Levels: L1 through L4 Left femoral neck: 0.703 g/cm2, T-score -1.3 Femoral neck comparison data not recommended for monitoring change. Left total hip: 0.942 g/cm2, T-score 0.0 Right femoral neck: 0.694 g/cm2, T-score -1.4 Femoral neck comparison data not recommended for monitoring change. Right total hip: 0.929 g/cm2, T-score -0.1 The World Health Organization has defined the following categories based on bone density: Normal bone density: T-score equal to or greater than -1.0 Osteopenia: T-score between -1.0 and -2.5 Osteoporosis: T-score equal to or less than -2.5 FRAX (or Comparable) Fracture Risk Assessment: 10 Year Probability of Fracture: Major Osteoporotic Fracture: 6.9% Hip Fracture: 0.5% (Note: FRAX is not to be reported in setting of normal range bone density, osteoporosis on DEXA, known history of osteoporosis, prior osteoporotic hip or vertebral fracture, or for any patient undergoing pharmacological treatment for bone loss.) The National Osteoporosis Foundation (NOF) recommends pharmacological treatment for patients with a FRAX 10-year risk of 3% or higher for a hip fracture, or 20% or higher for a major osteoporotic fracture, to prevent osteoporosis and reduce fracture risk. The patient does meet the pharmacological treatment recommendations for prevention of osteoporosis. BD/Dexa Bone Density Study IMPRESSION: OSTEOPENIA. Recommend follow-up as clinically warranted. Reading Location: [place] [id number]
--- OUTSIDE RECORDS SUMMARY | 2025-02-02 12:49 | XMS RPT_ITS | CCD ---
Author Organization [facility] [place] [facility] Care Team Providers Care Speech Pathologist Assistant Name Role Phone LIBIA ALMENDAREZ L Unavailable Unavailable SELF, SELF Unavailable Unavailable ALEX BULL Unavailable Unavailable ERICKSON, LIBIA L Unavailable Unavailable SELF, SELF Unavailable Unavailable ALEX BULL Unavailable Unavailable ERICKSON, LIBIA L Unavailable Unavailable SELF, SELF Unavailable Unavailable ALEX BULL Unavailable Unavailable ERICKSON, LIBIA L Unavailable Unavailable SELF, SELF Unavailable Unavailable ALEX BULL Unavailable Unavailable ERICKSON, LIBIA L Unavailable Unavailable SELF, SELF Unavailable Unavailable ALEX BULL Unavailable Unavailable ERICKSON, LIBIA L Unavailable Unavailable SELF, SELF Unavailable Unavailable ALEX BULL Unavailable Unavailable ALEX BULL MD Primary Care Physician Aidan PT, Izabella Unavailable Unavailable Dr. Alex Bull Primary Care Provider Dr. Alex Bull Referring Provider Dr. Addis Foss Attending Provider Dr. Alex Bull Referring Provider Dr. Addis Foss Attending Provider Evelyn DIAMOND DIE MAKER, DI[employer] D[employer]KER-C Bertha Primary Care Provider DR BEV EARL DPM Attending UnavailALEX Ferguson MD Primary Care Unavailable BERTHA FAIRCHILD Attending Unavail ALEX Loyd MD Primary Care Unavailable BERTHA FAIRCHILD Attending Unavail ALEX Loyd MD Primary Care Unavailable BERTHA FAIRCHILD Attending Unavail ALEX Loyd MD Primary Care Unavailable EVELYN HEBERT, BERTHA Attending Unavail ALEX Loyd MD Primary Care Unavailable BERTHA FAIRCHILD Primary Care Physician Lorson DIAMOND DIE MAKER-C, [place] Primary Care Provider [phone] Lorson [employer]-C, [place] Referring Provider [phone] Addis Foss DO Attending Provider Dr. Addis Foss DO Referring Provider Prince Claudio DO, Dr. Mancini Other Provider [phone] LORSON, BEE BRANCH Primary Care Unavailable LORSON, BERTHA Attending Unavailable LORSON, BEE BRANCH Primary Care Unavailable LORSON, BEE BRANCH Attending Unavailable LORSON, BEE BRANCH Primary Care Unavailable LORSON, BEE BRANCH Attending Unavailable LORSON, BEE BRANCH Attending Unavailable LORSON, BEE BRANCH Primary Care Unavailable LORSON, BEE BRANCH Primary Care Unavailable LORSON, BEE BRANCH Attending Unavailable LORSON, BEE BRANCH Primary Care Unavailable LORSON, BEE BRANCH Attending Unavailable LORSON, BEE BRANCH Primary Care Unavailable RYANN TRAN DO Attending Unavailable Referred, Self Attending Unavailable Lorson DIAMOND DIE MAKER, [facility] Care Unavailable Lorson DIAMOND DIE MAKER, [place] Primary Care Unavailable Lorson DIAMOND DIE MAKER, [place] Referring Unavailable [place] Addis Claudio Attending Unavailabl e [place]orson DIAMOND DIE MAKER, [facility] Care Unavailable Lorson DIAMOND DIE MAKER, [place] Referring Unavailable Addis Foss Attending Unavailabl e [place] VeldeAddis Referring Unavailabl e Vande VelAddis hu Consulting Unavailabl e Lorson DIAMOND DIE MAKER, [facility] Care Unavailable [place] Addis Claudio Attending Unavailabl e Lorson DIAMOND DIE MAKER, [facility] Care Unavailable Addis Foss Attending Unavailabl e Lorson DIAMOND DIE MAKER, [place] Referring Unavailable Lorson DIAMOND DIE MAKER, [place] Primary Care Unavailable Lorson DIAMOND DIE MAKER, [place] Referring Unavailable Addis Foss Attending Unavailabl e Vande VeldeAddis Referring Unavailabl e Lorson DIAMOND DIE MAKER, [facility] Care Unavailable Addis Foss Attending Unavailabl e Lorson DIAMOND DIE MAKER, [facility] Care Unavailable Addis Foss Attending Unavailabl e Vande VeldeAddis Attending Unavailabl e Lorson DIAM[employer] DIE MAKER, [facility] Care Unavailable [place] Addis Claudio Referring Unavailabl e Medications Current Medications Medication Drug Class(es) Dates Sig (Normalized) Sig (Original) 0.5 ML tirzepatide 15 MG/ML Auto-Injector [Mounjaro] (4 sources) Start: 03-14-2024 inject 1 dose by subcutaneous injection every week Mounjaro 7.5 mg/0.5 mL subcutaneous solution Dose : 7.5 mg =, Subcutaneous, qWeek, rotate injection sites, # 12 EA, 3 Refill(s), [id number] 161, cm, 03/14/24 9:31:00 EST, Height, kg, 03/14/24 9:31:00 EST, Dosing Weight Start Date: 03/14/24 Status: Ordered Medication Dispense Status: Completed Quantity: 12.0 Unit: EA Total Allowed Fills: 4 Fills Dispensed: 0 Start: 03-14-2024 inject 1 dose by sub cutaneous injection every week Mounjaro 7.5 mg/0.5 mL subcutaneous solution Dose : 7.5 mg =, Subcutaneous, qWeek, rotate injection sites, # 12 EA, 3 Refill(s), [id number] 161, cm, 03/14/24 9:31:00 EST, Height, [...] sites, # 4 EA, 0 Refill(s), [id number], 161, cm, 06/08/23 13:37:00 EDT, Height, [...] 1 tablet by mouth every twelve hours amoxicillin-clavu lanate 875 mg-125 mg oral tablet 1 tab(s), Oral, q12h, X 10 day(s), # 20 tab(s), 0 Refill(s), 02/14/22 13:51:00 EST, [id number], 160, cm, 02/04/22 13:23:00 EST, Height, 98.2 Start Date: 02/04/22 Stop Date: 02/14/22 Status: Ordered atorvastatin 40 mg oral tablet (2 sources) HMG-CoA Reductase Inhibitor Start: 04-09-2022 atorvastatin 40 mg oral tablet Dose : 40 mg = 1 tab(s), Oral, qDay, # 90 tab(s), 3 Refill(s), Pharmacy: [facility], 160, cm, 03/26/22 7:00:00 EST, Height, kg, 03/26/22 7:00:00 EST, Dosing Weight Start Date: 04/09/22 Status: Ordered Start: 02-12-2022 atorvastatin 4 0 mg oral tablet Dose : 40 mg = 1 tab(s), Oral, qDay, # 30 tab(s), 3 Refill(s), Pharmacy: [id number], 160, cm, 02/12/22 8:55:00 EST, Height Start Date: 02/12/22 Status: Ordered Blood Glucose Test Machine (13 sources) Start: 02-04-2022 Blood Glucose Test Machine See Instructions, Use as directed Brand type per insurance or patient preference, # 1 EA, 0 Refill(s), [id number], 160, cm, 02/04/22 13:23:00 EST, Height, 98.2 Start Date: 02/04/22 Status: Ordered Medication Dispense Status: Completed Quantity: 1.0 Unit: EA Total Allowed Fills: 1 Fills Dispensed: 0 Start: 02-04-2022 Blood Glucose Test Machine See Instructions, Use as directed Brand type per insurance or patient preference, # 1 EA, 0 Refill(s), Pharmacy: [id number], 160, cm, 02/04/22 13:23:00 EST, Height, 98.2 Start Date: 02/04/22 Status: Ordered Quantity: 1.0 Unit: EA Repeat number: 1 Start: 02-04-2022 Blood Glucose Test Machine See Instructions, Use as directed Brand type per insurance or patient preference, # 1 EA, 0 Refill(s), [id number], 160, cm, 02/04/22 13:23:00 EST, Height, 98.2 Start Date: 02/04/22 Status: Ordered calcium carbonate 1500 mg oral tablet (7 sources) Start: 08-31-2024 take 1 tablet by mouth once daily Calcium Carbonate 600 mg calcium (1,500 mg) tablet Active 600 mg PO daily August 31, 2024 12:00am calcium carbonate 600 MG / ergocalciferol 200 UNT Oral Capsule (15 sources) Provitamin D2 Compound Start: 05-16-2019 take 1 capsule by mouth twice daily calcium-vitamin D 600 mg-200 intl units (5 mcg) oral capsule cap(s), Oral, BID, 0 Refill(s) Start Date: 05/16/19 Status: Ordered Medication Dispense Status: Completed Total Allowed Fills: 1 Fills Dispensed: 0 Start: 05-16-2019 take 1 capsule by mo [facility] twice daily calcium-vitamin D 600 mg-200 intl units (5 mcg) oral capsule cap(s), Oral, BID, 0 Refill(s) Start Date: 05/16/19 Status: Ordered Repeat number: 1 Start: 05-16-2019 take 1 capsule by mo [facility] twice daily calcium-vitamin D 600 mg-200 intl units (5 mcg) oral capsule cap(s), Oral, BID, 0 Refill(s) Start Date: 05/16/19 Status: Ordered cholecalciferol 0.025 mg oral capsule (20 sources) Vitamin D Start: 06-15-2023 End: 10-27-2024 cholecalciferol 25 mcg (1000 intl units) oral capsule Dose : 25 mcg = 1 cap(s), Oral, Daily, # 100 cap(s), 4 Refill(s), other reason (Rx) Start Date: 06/15/23 Stop Date: 10/27/24 Status: Ordered Medication Dispense Status: Completed Quantity: 100.0 Unit: cap(s) Total Allowed Fills: 5 Fills Dispensed: 0 Start: 05-11-2023 cholecalcifero l 1250 mcg (50,000 intl units) oral capsule Dose : 1,250 mcg = 1 cap(s), Oral, qWeek, # 12 cap(s), 3 Refill(s), [id number], 160, cm, 03/23/23 7:33:00 EST, Height, kg, 03/23/23 7:33:00 EST, Dosing Weight Start Date: 05/11/23 Status: Ordered Start: 08-28-2022 take 1 capsule by [facility] once daily Cholecalciferol (Vitamin D3) 50 mcg (2,000 unit) capsule Active 50 ug PO DAILY August 28, 2022 12:00am Start: 06-05-2022 cholecalcifero l 1250 mcg (50,000 intl units) oral capsule Dose : 1,250 mcg = 1 cap(s), Oral, qWeek, # 12 cap(s), 3 Refill(s), [id number], 163, cm, 06/05/22 13:52:00 EDT, Height, kg, 06/05/22 13:52:00 EDT, Dosing Weight Start Date: 06/05/22 Status: Ordered Start: 02-12-2022 cholecalcifero l 1250 mcg (50,000 intl units) oral capsule Dose : 1,250 mcg = 1 cap(s), Oral, qWeek, # 12 cap(s), 3 Refill(s), [id number], 160, cm, 02/12/22 8:55:00 EST, Height Start Date: 02/12/22 Status: Ordered Co Q-10 100 mg oral capsule (4 sources) Start: 03-14-2024 End: 03-09-2025 Co Q-10 100 mg oral capsule Dose : 100 mg = 1 cap(s), Oral, Daily, # 90 cap(s), 3 Refill(s), other reason (Rx) Start Date: 03/14/24 Stop Date: 03/09/25 Status: Ordered Medication Dispense Status: Completed Quantity: 90.0 Unit: cap(s) Total Allowed Fills: 4 Fills Dispensed: 0 Start: 03-14-2024 End: 03-09-2025 Co Q-10 100 [...] sites, # 9 mL, 3 Refill(s), Pharmacy: [facility], 160, cm, 03/23/23 7:33:00 EST, Height, kg, 03/23/23 7:33:00 EST, Dosing Weight Start Date: 03/23/23 Stop Date: 07/21/23 Status: Ordered Start: 09-05-2022 End: 01-03-2023 inject 1 dose by subcutaneous injection once daily Tresiba FlexTouch 200 units/mL 3 mL subcutaneous solution Dose : 16 unit(s) =, Subcutaneous, qDay, rotate injection sites, # 9 mL, 3 Refill(s), Pharmacy: [facility], 163, cm, 08/18/22 8:52:00 [...] sites, # 9 mL, 3 Refill(s), [facility]: [id number], 160, cm, 02/04/22 13:23:00 EST, Height Start Date: 02/04/22 Stop Date: 06/04/22 Status: Ordered levothyroxine sodium 0.075 mg oral tablet (20 sources) l-Thyroxine Start: 06-13-2024 Synthroid 75 m cg (0.075 mg) oral tablet Dose : 75 mcg = 1 tab(s), Oral, qDay, no dose on Sundays, # 90 tab(s), 3 Refill(s), SUSANNA, Pharmacy: [facility], 161, cm, 06/13/24 9:33:00 EDT, Height, kg, 06/13/24 9:33:00 EDT, Dosing Weight Start Date: 06/13/24 Status: Ordered Medication Dispense Status: Completed Quantity: 90.0 Unit: tab(s) Total Allowed Fills: 4 Fills Dispensed: 0 Start: 03-23-2023 Synthroid 75 m cg (0.075 mg) oral tablet Dose : 75 mcg = 1 tab(s), Oral, qDay, # 90 tab(s), 3 Refill(s), SUSANNA, Pharmacy: [facility], 160, cm, 03/23/23 7:33:00 EST, Height, kg, 03/23/23 7:33:00 EST, Dosing Weight Start Date: 03/23/23 Status: Ordered Start: 08-28-2022 Levothyroxine (Synthroid) 88 mcg tablet Active 75 ug PO DAILY August 28, 2022 1:13pm Start: 06-05-2022 Synthroid 75 m cg (0.075 mg) oral tablet Dose : 75 mcg = 1 tab(s), Oral, qDay, # 90 tab(s), 3 Refill(s), Pharmacy: [facility], 163, cm, 06/05/22 13:52:00 EDT, Height Start Date: 06/05/22 Status: Ordered Start: 03-26-2022 Synthroid 88 m cg (0.088 mg) oral tablet Dose : 88 mcg = 1 tab(s), Oral, qDay, # 90 tab(s), 3 Refill(s), Pharmacy: [facility], 160, cm, 03/26/22 7:00:00 EST, Height, kg, 03/26/22 7:00:00 EST, Dosing Weight Start Date: 03/26/22 Status: Ordered Start: 12-31-2021 Synthroid 88 m cg (0.088 mg) oral tablet Dose : 88 mcg = 1 tab(s), Oral, qDay, # 90 tab(s), 1 Refill(s), Pharmacy: [facility], 161, cm, 05/03/21 14:39:00 [...] qDay, # 90 tab(s), 0 Refill(s), Pharmacy: [facility], 160.02, cm, 02/20/21 17:15:00 [...] Daily, # 100 tab(s), 3 Refill(s), Pharmacy: [facility], 161, cm, 06/13/24 9:33:00 EDT, Height, kg, 06/13/24 9:33:00 EDT, Dosing Weight Start Date: 06/13/24 Status: Ordered Medication Dispense Status: Completed Quantity: 100.0 Unit: tab(s) Total Allowed Fills: 4 Fills Dispensed: 0 Start: 04-09-2022 End: 08-31-2024 take 1 tablet by mouth once daily Lisinopril 5 mg tablet Discontinued 5 mg PO DAILY August 28, 2022 12:00am August 31, 2024 11:11am Start: 02-12-2022 lisinopril 5 m g oral tablet Dose : 5 mg = 1 tab(s), Oral, qDay, # 30 tab(s), 3 Refill(s), [facility]: [id number], 160, cm, 02/12/22 8:55:00 EST, Height Start Date: 02/12/22 Status: Ordered magnesium oxide 250 mg oral tablet (14 sources) Start: 08-28-2022 take 1 tablet by mouth once daily Magnesium Oxide 250 mg magnesium tablet Active 250 mg PO DAILY August 28, 2022 12:00am Multivitamin preparation (17 sources) Start: 08-23-2021 take 1 tablet by mouth once daily Multivitamin Active 1 TABLET PO DAILY August 23, 2021 12:00am Start: 05-03-2021 take 1 tablet by jose a th once daily Multivitamin Dose = 1 tab(s), Oral, Daily, 0 Refill(s) Start Date: 05/03/21 Status: Ordered Medication Dispense Status: Completed Total Allowed Fills: 1 Fills Dispensed: 0 Start: 05-03-2021 take 1 tablet by jose a th once daily Multivitamin Dose = 1 tab(s), Oral, Daily, 0 Refill(s) Start Date: 05/03/21 Status: Ordered Repeat number: 1 Start: 05-03-2021 take 1 tablet by jose a th once daily Multivitamin Dose = 1 tab(s), Oral, Daily, 0 Refill(s) Start Date: 05/03/21 Status: Ordered Multivitamin tablet (7 sources) Start: 08-23-2021 Multivitamin tablet Active 1 {tbl} PO DAILY August 23, 2021 12:00am nystatin [id number] unt/ml oral suspension (1 source) Polyene Antifungal Start: 02-04-2022 End: 02-18-2022 take 1 dose by mouth four times daily nystatin 100,000 units/mL oral suspension Dose : 500,000 unit(s) = 5 mL, Oral, QID, X 7 day(s), # 140 mL, 1 Refill(s), 02/18/22 13:52:00 EST, (swish and swallow), [id number], 160, cm, 02/04/22 13:23:00 EST, Height Start Date: 02/04/22 Stop Date: 02/18/22 Status: Ordered PEG-3350 with Electrolytes (Eqv-GoLYTELY) oral powder for reconstitution (2 sources) Start: 08-17-2024 PEG-3350 with Electrolytes (Eqv-GoLYTELY) oral powder for reconstitution See Instructions, Take as directed starting 1 day before colonoscopy. Follow instructions as provided by your GI provider at [place]., # 1 EA, 0 Refill(s), [id number], 161, cm, 08/17/24 13:53:00 EDT, Height, kg, 08/17/24 13:53:00 EDT, Dosing Weight Start Date: 08/17/24 Status: Ordered Medication Dispense Status: Completed Quantity: 1.0 Unit: EA Total Allowed Fills: 1 Fills Dispensed: 0 Start: 08-17-2024 PEG-3350 with Electrolytes (Eqv-GoLYTELY) oral powder for reconstitution See Instructions, Take as directed starting 1 day before colonoscopy. Follow instructions as provided by your GI provider at [place]., # 1 EA, 0 Refill(s), Pharmacy: [id number], 161, cm, 08/17/24 13:53:00 EDT, Height, kg, 08/17/24 13:53:00 EDT, Dosing Weight Start Date: 08/17/24 Status: Ordered Quantity: 1.0 Unit: EA Repeat number: 1 Pen needles (9 sources) Start: 09-08-2022 Pen needles Se e Instructions, qs for 3 month supply. Use once daily. Dx e11.9., # 1 EA, 3 Refill(s), Pharmacy: [facility], 163, cm, 08/18/22 8:52:00 EDT, Height, 101.4, kg, 08/18/22 8:52:00 EDT, Dosing Weight Start Date: 09/08/22 Status: Ordered Start: 02-04-2022 Pen needles Se e Instructions, qs for 1 month supply. Use once daily. Dx e11.9, # 1 EA, 11 Refill(s), [id number], 160, cm, 02/04/22 13:23:00 EST, Height, 98.2 Start Date: 02/04/22 Status: Ordered rosuvastatin calcium 20 mg oral tablet (20 sources) HMG-CoA Reductase Inhibitor Start: 08-31-2024 take 10 mg by mouth once daily Rosuvastatin (Crestor) 20 mg tablet Active 10 mg PO DAILY August 31, 2024 11:10am Start: 03-14-2024 End: 03-09-2025 rosuvastatin 10 mg oral tabl et Dose : 10 mg = 1 tab(s), Oral, Daily, # 90 tab(s), 3 Refill(s), Pharmacy: [facility], 161, cm, 03/14/24 9:31:00 EST, Height, kg, 03/14/24 9:31:00 EST, Dosing Weight Start Date: 03/14/24 Stop Date: 03/09/25 Status: Ordered Medication Dispense Status: Completed Quantity: 90.0 Unit: tab(s) Total Allowed Fills: 4 Fills Dispensed: 0 Start: 08-20-2022 End: 08-31-2024 take 1 tablet by mouth once daily Rosuvastatin (Crestor) 20 mg tablet Discontinued 20 mg PO DAILY August 28, 2022 12:00am August 31, 2024 11:11am Start: 06-05-2022 rosuvastatin 2 0 mg oral tablet Dose : 20 mg = 1 tab(s), Oral, Daily, # 90 tab(s), 3 Refill(s), [id number], Well adult exam Hypothyroidism, 163, cm, 06/05/22 13:52:00 EDT, Height Start Date: 06/05/22 Status: Ordered sertraline 25 mg oral tablet (20 sources) Serotonin Reuptake Inhibitor Start: 08-31-2024 take 2 tablets by mouth once daily Sertraline (Zoloft) 25 mg tablet Active 50 mg PO DAILY August 31, 2024 11:10am Start: 08-31-2024 take 2 tablets by mo uth every other day Sertraline (Zoloft) 25 mg tablet Active 50 mg PO .every other day August 31, 2024 11:10am Start: 03-14-2024 sertraline 50 mg oral tablet Dose : 50 mg = 1 tab(s), Oral, qDay, # 90 tab(s), 3 Refill(s), Pharmacy: [facility], 161, cm, 03/14/24 9:31:00 EST, Height, kg, 03/14/24 9:31:00 EST, Dosing Weight Start Date: 03/14/24 Status: Ordered Medication Dispense Status: Completed Quantity: 90.0 Unit: tab(s) Total Allowed Fills: 4 Fills Dispensed: 0 Start: 06-15-2023 sertraline 50 mg oral tablet Dose : 50 mg = 1 tab(s), Oral, qDay, # 90 tab(s), 3 Refill(s), Pharmacy: [facility], 161, cm, 06/15/23 7:36:00 EDT, Height, kg, 06/15/23 7:36:00 EDT, Dosing Weight Start Date: 06/15/23 Status: Ordered Start: 03-23-2023 sertraline 50 mg oral tablet Dose : 50 mg = 1 tab(s), Oral, qDay, # 90 tab(s), 3 Refill(s), Pharmacy: [facility], 160, cm, 03/23/23 7:33:00 [...] qDay, # 90 tab(s), 0 Refill(s), Pharmacy: [facility], 160.02, cm, 02/20/21 17:15:00 EST, Height, kg, 02/20/21 17:15:00 EST, Dosing Weight Start Date: 03/26/21 Status: Ordered Tirzepatide (Mounjaro) 7.5 mg/0.5 mL pen injector (7 sources) Start: 08-31-2024 Tirzepatide (M ounjaro) 7.5 mg/0.5 mL pen injector Active 7.5 mg SC REEDER August 31, 2024 12:00am Start: 08-31-2024 Tirzepatide (M ounjaro) 7.5 mg/0.5 mL pen injector Active 7.5 mg SC EVERY WEEK August 31, 2024 12:00am ubidecarenone 10 mg oral cap blanca (7 sources) Start: 08-31-2024 Coenzyme Q10 ( Co Q-10) 10 mg capsule Active 10 mg PO DAILY August 31, 2024 12:00am Completed/Discontinued Medications Medication [...] 4 EA, 2 Refill(s), generic OZEMPIC, Pharmacy: [id number], 163, cm, 08/18/22 8:52:00 EDT, Height Start Date: 08/18/22 Stop Date: 11/10/22 Status: Ordered calcium ascorbate 500 mg oral tablet (9 sources) Start: 08-23-2021 End: 08-31-2024 take 1 tablet by mouth once daily Ascorbate Calcium (Vitamin C) 500 mg tablet Discontinued 500 mg PO DAILY August 23, 2021 12:00am August 31, 2024 11:09am Insulin Degludec (Tresiba Flextouch U-100) 100 unit/mL (3 mL) insulin pen (15 sources) Start: 08-31-2023 End: 08-31-2024 Insulin Degludec [...] 2022 12:00am ketoconazole 20 mg/ml topical cream (8 sources) Azole Antifungal Start: 08-28-2022 End: 08-31-2024 Ketoconazole 2 % cream Discontinued 1 NMA TOPICAL TWICE A DAY 60 0 August 28, 2022 12:00am August 31, 2024 11:09am apply twice a day for 2 weeks Tirzepatide (Mounjaro) 5 mg/0.5 mL pen injector (7 sources) Start: 08-31-2023 End: 08-31-2024 Tirzepatide (Mounjaro) [...] 12-13-2018 Chronic Genitourinary symptoms and ill-defined conditions (5 sources) Increased frequency of urination 12-14-2023 Episodic Joint disorders and dislocations; trauma-related (16 sources) Derangement of left knee 12-13-2018 Chronic Malaise and fatigue (7 sources) Fatigue 06-08-2023 Episodic Menopausal disorders (20 sources) Postmenopausal bleeding; Translations: [Postmenopausal bleeding] Onset: 10-31-2024 06-13-2024 Chronic Comment on above: emb needed Mood disorders (18 sources) Depressive disorder; Translations: [Depression] Onset: 09-26-2024 08-23-2021 Chronic Nutritional deficiencies (19 sources) Vitamin D deficiency; Translations: [Vitamin D deficiency, unspecified] Onset: 11-10-2022 02-04-2022 Chronic Other connective tissue disease (12 sources) Muscle pain 03-26-2022 Episodic Other connective tissue disease (5 sources) Cramp in lower limb 12-14-2023 Episodic Other inflammatory condition of skin (5 sources) Pruritus of genital organs 02-04-2022 Episodic Other lower respiratory disease (7 sources) Snoring 06-08-2023 Episodic Other nutritional; endocrine; and metabolic disorders (2 sources) Body mass index 40+ - severely obese 06-08-2023 Chronic Other nutritional; endocrine; and metabolic disorders (10 sources) Body mass index 30+ - obesity 09-14-2023 Chronic Other nutritional; endocrine; and metabolic disorders (1 source) Obese class III 09-14-2023 Chronic Other nutritional; endocrine; and metabolic disorders (2 sources) Obesity, unspecified; Translations: [Obesity, unspecified] Onset: 03-14-2024 Chronic Other screening for suspected conditions (not mental disorders or infectious disease) (12 sources) Endometrium thickened; Translations: [Abnormal findings on diagnostic imaging of other specified body structures] Onset: 10-17-2024 09-14-2024 Chronic Other upper respiratory disease (16 sources) Polyp of nasal cavity 12-13-2018 Episodic Other upper respiratory infections (5 sources) Streptococcal sore throat 02-04-2022 Episodic Residual codes; unclassified (7 sources) Obstructive sleep apnea syndrome 06-08-2023 Chronic [...] Test Name Value Interpretation Reference Range Facility Antimullerian Hormone, Serum on 10-19-2024 AMH, SERUM < 0.015 Normal . [facility] Comment on above: Result Comment: For assays employing antibodies, the possibility exists for interference by heterophile antibodies in the samples.1 1.Eliza Hammer Interferences in Immunoassays - still a threat. Clin. Chem. 2000; 46: 9352-3582. This test was developed and its performance characteristics determined by [employer]. It has not been cleared or approved by the Food and Drug Administration. Reference Range: Females 55 - 97y: <= 0.18 Median <0.03 Females at risk of ovarian hyperstimulation syndrome or polycystic ovarian syndrome (PCOS) may exhibit elevated serum AMH concentrations. AMH levels from PCOS patients may be 2 to 5 fold higher than age-appropriate reference interval values. Granulosa cell tumors of the ovary may secrete AMH along with other tumor markers. Elevated AMH is not specific for malignancy, and the assay should not be used exclusively to diagnose or exclude an AMH-secreting ovarian tumor. Performed at: [facility] [address] [place] [address] [id number] [employer] Repairer: Joshua Alfaro MD, Phone: [phone] Performed By: #### L 3300.1750, L3100.5055, L803.3000 #### [facility] [address] [place], [place], [id number] Estradiolon 10-17-2024 ESTRADIOL 6.7 pg/mL Normal [facility] Comment on above: Result Comment: FEMA LES ADULT FEMALE: Premenopausal: 15-350 pg/mL(E2 levels vary widely through the menstrual cycle) Postmenopausal: <10 pg/mL WILL STAGES MEAN AGE REFERENCE RANGES Stage I(>14 days and prepubertal) 7.1 years Undetectable-20 pg/mLL Stage II 10.5 years Undetectable-24 pg/mL Stage III 11.6 years Undetectable-60 pg/mL Stage IV 12.3 years 15-85 pg/mL Stage V 14.5 years 15-350 pg/mL Puberty onset (transition from Will stage I to Will stage II) occurs for girls at a median age of 10.5 (/- 2) years. There is evidence that it may occur up to 1 year earlier in obese girls and in girls. Progression through Will stages is variable. Will stage V (adult) should be reached by age 18. Performed By: #### L 3300.1750, L3100.5055, L803.3000 #### [facility] [address] [place], [place], [id number] FSH and LHon 10-17-2024 FSH 52.6 mIU/mL Normal [facility] Comment on above: Result Comment: FEMA LE: Follicular: 1.4 - 18.1 mIU/mL Midcycle: 3.4 - 33.4 mIU/mL Luteal: 1.5 - 9.1 mIU/mL Post Menopause: 23.0 - 116.3 mIU/mL MALE: 1.4 - 18.1 mIU/mL Performed By: #### L 3300.1750, L3100.5055, L803.3000 #### [facility] [address] [place], [place], [id number] LH 30.9 mIU/mL Normal [facility] Comment on above: Result Comment: FEMA LE: Follicular: 1.9-12.5 mIU/mL Midcycle: 8.7-76.3 mIU/mL Luteal: 0.5-16.9 mIU/mL Post Menopause: 15.9-54.0 mIU/mL MALE: 20-70 Years: 1.5-9.3 mIU/mL >70 Years: 3.1-34.6 mIU/mL Performed By: #### L 3300.1750, L3100.5055, L803.3000 #### [facility] [address] [place], [place], [address] LH ser/plasOrdered By: Gerri Claudio on 10-17-2024 Lutropin Qn 30.9 m[IU]/mL [facility] Comment on above: FEMALE:Follicular: 1 .9-12.5 mIU/mLMidcycle: 8.7-76.3 mIU/mLLuteal: 0.5-16.9 mIU/mLPost Menopause: 15.9-54.0 mIU/mLMALE:20-70 Years: 1.5-9.3 mIU/mL>70 Years: 3.1-34.6 mIU/mL Campaign Management Specialist Office Visit Reporton 10-17-2024 Campaign Management Specialist Office Visit Report [facility]'s [address], [address] [place] [address] OFFICE VISIT Date of Service: 10/17/24 MR#: [id number] Acct: [id number] Name: VANE LEMOS Rep #: [id number] : 1965 Provider: Dr. Addis Ruiz DO Age/Sex: 59/F Location: [facility] Status: Signed Intake Vital Signs 09/14/24 09:54 09/30/24 06:29 10/17/24 11:00 10/17/24 11:02 Height 5 ft 3 in 5 ft 3 in 5 ft 3 in 5 ft 3 in Weight: 184 lb 7 oz BMI 32.6 BP 118/76 Intake Visit Reasons: 2 wk D C Doubler Operator Required: No Is patient in pain?: No Allergies No Known Allergies Allergy (Verified 10/17/24 10:59) Medications ???Medication ???Instructions ???Recorded ???Confirmed ???Type multivitamin 1 tab PO DAILY 08/23/21 10/17/24 H istory cholecalciferol (vitamin D3) 50 50 mcg PO DAILY 08/28/22 10/17/24 History mcg (2,000 unit) capsule levothyroxine 88 mcg tablet 75 mcg PO DAILY 08/28/22 10/17/24 History (Synthroid) magnesium oxide 250 mg PO DAILY 08/28/22 10/17/24 History calcium carbonate 600 mg PO QDAY 08/31/24 10/17/24 H istory coenzyme Q10 10 mg capsule (Co 10 mg PO DAILY 08/31/24 10/17/24 H istory Q-10) lisinopril 5 mg tablet 2.5 mg PO DAILY 08/31/24 10/17/24 History rosuvastatin 20 mg tablet (Crestor) 10 mg PO DAILY 08/31/24 5 History sertraline 25 mg tablet (Zoloft) 50 mg PO DAILY 08/31/24 10/17/24 H istory tirzepatide 7.5 mg/0.5 mL 7.5 mg subcut REEDER 08/31/24 10/17/24 History subcutaneous pen injector (Mounjaro) Post menopausal: No Patient : No : No PFSH Medical History Wears glasses Depression Diabetes Thyroid disease High cholesterol Sleep apnea Non-smoker Leg cramps Hypertension Aburto's cyst Abnormal Pap smear of cervix Surgical History S/P dilatation and curettage History of colonoscopy S/P left knee surgery S/P correction of [...] home: Yes additional social history: Single HPI 2 wk D C Details: VANE LEMOS is a 59 year old who presents for 2 weeks post op D C. The pathology showed endometrial poly. She had gone almost 2 years without a period until she bled this episode. History 0 Elective abortions Hx Para Spontaneous abortions Hx # Term Pregnancies Ectopic pregnancies Hx # Pregnancies Multiple births # of living children ROS ENT ENT: Reports system reviewed and no additional complaints, except as documented Cardio Card: Reports system reviewed and no additional complaints, except as documented Resp Resp: Denies cough, dyspnea or dyspnea on exertion GI GI: Denies abdominal pain, bloating or change in bowel habits : Denies vaginal odor or vaginal pruritus Musc Musc: Reports system reviewed and no additional complaints, except as documented Exam Const General: cooperative, healthy appearing and comfortable Resp Effort Inspection: normal respiratory effort GI Palpation: soft and nontender Rectal Exam: other Extrem General: no edema Coding Level of Care Code Off vis,est,level 3 Diagnoses Endometrial thickening on ultrasound R93.89 Postmenopausal bleeding N95.0 Assessment and Plan Assessment and Plan (1) Endometrial thickening on ultrasound: Status: Acute (2) Postmenopausal bleeding: Status: Acute Comment: emb needed Orders: Orders Estradiol Today N95.0 - Postmenopausal bleeding FSH and LH Today N95.0 - Postmenopausal bleeding Antimullerian Hormone, Serum Today N95.0 - Postmenopausal bleeding Plan plan to check hormone levels. if consistent with menopause, due to the proliferative tissue on D C, will recommend 2.5 mg medroxyprogesterone daily for suppression of endometrium due to risk of hyperplasia and ca in the future based on newer research. 10/17/24 1118 Date Addis Dimas Signature: Date (more content not included)... Normal [facility] Serum or plasma estradiol me asurement after follitropin dose (mass/volume)Ordered By: Addis Claudio on 10-17-2024 E2 post dose follitropin [Mass/Vol] 6.7 pg/mL [facility] Comment on above: FEMALES ADULT FEMALE : Premenopausal: 15-350 pg/mL(E2 levels vary widely through the menstrual cycle) Postmenopausal: <10 pg/mL WILL STAGES MEAN AGE REFERENCE RANGES Stage I(>14 days and prepubertal) 7.1 years Undetectable-20 pg/mLL Stage II 10.5 years Undetectable-24 pg/mL Stage III 11.6 years Undetectable-60 pg/mL Stage IV 12.3 years 15-85 pg/mL Stage V 14.5 years 15-350 pg/mL Puberty onset (transition from Will stage I to Will stage II) occurs for girls at a median age of 10.5 (/- 2) years. There is evidence that it may occur up to 1 year earlier in obese girls and in girls.Progression through Will stages is variable. Will stage V (adult) should be reached by age 18. Serum or plasma flecainide m easurement (mass/volume)Ordered By: Addis Claudio on 10-17-2024 Flecainide [Mass/Vol] < 0.015 ng/mL . [facility] Comment on above: For assays employing antibodies, the possibility exists forinterference by heterophile antibodies in the samples.11.Eliza Hammer Interferences in Immunoassays - still a threat. Clin. Chem. 2000; 46: 9605-3437.This test was developed and its performance characteristicsdetermined by [employer]. It has not been cleared or approvedby the Food and Drug Administration.Reference Range:Females 55 - 97y: <= 0.18Median <0.03Females at risk of ovarian hyperstimulation syndrome orpolycystic ovarian syndrome (PCOS) may exhibit elevatedserum AMH concentrations. AMH levels from PCOS patientsmay be 2 to 5 fold higher than age-appropriate referenceinterval values.Granulosa cell tumors of the ovary may secrete AMH alongwith other tumor markers. Elevated AMH is not specific formalignancy, and the assay should not be used exclusively todiagnose or exclude an AMH-secreting ovarian tumor.Performed at: [facility] [id number] [place], [place] [id number] Director: Joshua Alfaro MD, Phone: [phone] Discharge Instructionon Discharge Instruction [facility] Medical Records Department [address] [place] [address] Instructions for Home/Discharge Instructions 09/30/24 0724 MR#: [id number] Acct: [id number] Name: VANE LEMOS Rep #: [id number] : 1965 59 From: Addis Foss DO PCP: ALLI SolorzanoC Status:REG SDC Discharge Instructions DC O2, CPAP, BIPAP needs Home O2 Discharge instructions: No Dressing / Incision Discharge Activity: Return to Normal Activity, May Shower and May Take a Tub Bath (after 1 week) May resume sexual activity in: 1-2 weeks Weight Bearing Status: Weight bearing as tolerated Lifting Restrictions: none Dressing / Incision Call your doctor if you observe: Fever of 101 or Higher, Using more than 1 pad per hour, Shortness of breath, Uncontrolled pain and - (take 800mg of over the counter ibuprofen every 8 hours with food as needed for pain) Follow Up Care Please Follow Up With: Addis Foss DO When: Call [phone] to schedule appointment. Test Results: Test results from this visit will be discussed in further detail at your follow-up appointment, if applicable. Discharge Plan Admission Primary Reason for Your Visit: dilation and curettage Attending Provider: Addis Foss Primary Care Provider: Bertha Rivas NP Instructions Print Language: Korean Discharge Orders/Prescriptions Prescriptions: No Action multivitamin Tablet 1 tab PO DAILY levothyroxine [Synthroid] 88 mcg tablet 75 mcg PO DAILY sertraline [Zoloft] 25 mg tablet 50 mg PO DAILY magnesium oxide 250 mg magnesium tablet 250 mg PO DAILY cholecalciferol (vitamin D3) 50 mcg (2,000 unit) capsule 50 mcg PO DAILY lisinopril 5 mg tablet 2.5 mg PO DAILY rosuvastatin [Crestor] 20 mg tablet 10 mg PO DAILY Mounjaro 7.5 mg/0.5 mL pen injector 7.5 mg subcut REEDER Patient Comments: LAST DOSE 09/18/24 FOR SURGERY ON 09/30/24 coenzyme Q10 [Co Q-10] 10 mg capsule 10 mg PO DAILY calcium carbonate 600 mg calcium (1,500 mg) tablet 600 mg PO QDAY Referrals / Follow Up: Bertha Rivas NP, [employer] [Primary Care Provider] - Disposition Disposition (needs filled in before D/C Order can be placed): Home, Self Care 09/30/24724 Addis Foss DO CC: [employer] Bertha Rivas Signed [facility] MR/POSTOP.ANEon 09-30-2024 MR/POSTOP.[facility] Medical Records Department [address] [place] [address] Anesthesia Postop Eval I 09/30/24812 MR#: [id number] Acct: [id number] Name: VANE LEMOS Rep #: [id number] : 1965 59 From: Naty Rabago CRNA PCP: Bertha Rivas NP-C Status:REG [facility] Y Race: C Location: [place] [address] Anesthesia: Postop Eval I Current Vital Signs Temperature: 97.5 F Pulse Rate: 74 Blood Pressure: 108/57 Respiratory Rate: 16 Pulse Ox: 97 Oxygen Delivery Method: Room Air Assessment Airway patent: Yes Spontaneous unlabored respirations: Yes Mental status: Awake and Calm nausea: No Vomiting: No Anesthesia Complication: No Fluid Hydration Crystalloid volume administer (ml): 800 Total IV fluid infused: 800 Progress Note Anesthesia document: Postop Eval 1 completed: Yes 09/30/24813 Date Naty Bhandariignlashae Signature: Date CC: Signed [facility] MR/[id number] 09-30-2024 MR/POSTOPAN2 [facility] Medical Records Department [address] [place] [address] Anesthesia Postop Eval II 09/30/24 1031 MR#: [id number] Acct: [id number] Name: VANE LEMOS Rep #: [id number] : 1965 59 From: Jonna Pozo CRNA PCP: Bertha Rivas [employer] Status:DEP [facility] Y Race: C Location: [facility] Anesthesia Postop Eval I Sum Postop Eval Completion status Anesthesia document: Postop Eval 1 completed: Yes Anesthesia Postop Eval I Summary Anesthesia Postop Eval I Summary: Anesthesia Postop Eval I: Assessment Summary Airway patent Yes 09/30/24 08:14 TAR [email or web address].JDEF Spontaneous unlabored Yes 09/30/24 08:14 TAR HEATER.JDEF respirations Mental status Awake,Calm 09/30/24 08:14 TAR HEATER.JDEF nausea No 09/30/24 08:14 TAR HEATER.JDEF Vomiting No 09/30/24 08:14 TAR HEATER.JDEF Anesthesia Postop Eval I: Fluid Summary Crystalloid volume administer 800 09/30/24 08:14 TAR HEATER.JDEF (ml) Colloids volume administered ( ml) Blood Product volume administered (ml) Total IV fluid infused 800 09/30/24 08:14 TAR HEATER.JDEF Anesthesia Postop Eval I: Summary Notes Anesthesia Complication No 09/30/24 08:14 TAR HEATER.JDEF Anesthesia Complication Comment: Post-operative progress note Anesthesia: Postop Eval II Evaluation Mental status: Awake Pain Level: 1 nausea: No Vomiting: No 09/30/24 1031 Date Jonna Pozo TAR HEATER Cosigner Signature: Date CC: Signed Normal [facility] Operative Reporton Operative Report [facility] Medical Records Department [address] [address] Operative Report 09/30/24 0802 MR#: [id number] Acct: [id number] Name: VANE LEMOS Rep #: [id number] : 1965 59 From: Addis Prince Claudio DO PCP: JOAQUIN Solorzano Status:[facility] Location: [place] [address] Problems Associated Problem List Diagnoses (1) Endometrial thickening on ultrasound: (2) Postmenopausal bleeding: Multi Select Codes Urinary/Genital Urinary/Genital CPT Codes: 92106 Hysteroscopy,EMC, Polypectomy Operative Report (Standard) Operative Information Date of Procedure: 09/30/24 Pre-Operative Diagnosis: thickened endometrium, postmenopausal bleeding Post-Operative Diagnosis: thickened endometrium, postmenopausal bleeding, anterior uterine wall polyp Surgery/Procedure Performed: hysteroscopy dilation and curettage automation engineer: No Type of Anesthesia: MAC and Topical Anesth RN Documented Start/Stop Times: Operation Date: 09/30/24 07:30 Case Time Into Pre-Op 09/30/24 06:08 Out of Pre-Op 09/30/24 07:27 Anesthesia Start 09/30/24 07:29 Into Room 09/30/24 07:29 Procedure Start 09/30/24 07:47 Procedure End 09/30/24 08:00 Procedure Start Time: 07:47 Procedure Stop Time: 08:00 Select all DRAINS/GRAFTS/IMPLANTS that apply: None Estimated Blood Loss: 5cc Specimen collected: Yes Description of specimen(s) removed: endometrial curetting's Description of surgery: Patient was prepped and draped in a normal sterile fashion under MAC anesthesia. A weighted speculum was placed in the vagina and the anterior lip of the cervix was grasped with a single-tooth tenaculum. A paracervical block was placed with 1% lidocaine. Cervix was progressively dilated to allow passage of a 5 mm hysteroscope. The lining was fully visualized and noted to have polyp like structures present . Uterine sounded to 8 cm. Curettage was performed and the specimen was sent to pathology. A second look with the scope showed that the polyp was still present. A hysteroscopic forceps device was then inserted and the polyp was removed without difficulty. All instruments were removed from the vagina and excellent hemostasis was noted. Patient was awoken and taken to recovery in stable condition. Surgical Findings: thickened polypoid appearing endometrium Complications Complications: No Admit VTE Documentation VTE Present on Admission: No VTE Mechan Device Prophylaxis: SCD's VTE Pharm Prophylaxis ordered?: No 09/30/24803 Cosigner Signature (if applicable): CC: JOAQUIN Rivas; Dr. Addis Foss, Signed Normal [facility] ,Urineon 09-30-2024 Beta HCG ( test) Ql (U) Negative Normal [facility] Comment on above: Result Comment: Very dilute urine specimens, as indicated by a low specific gravity, may not contain account retention representative levels of hCG. If is still suspected, a first morning urine specimen should be collected 48 hours later and tested. Performed By: #### L 400.7600 #### [facility] [address] [place], [address] Surgery Specimen Level Frandy 09-30-2024 Surgery Specimen Level IV Patient Age/Sex Location Account Attending Physician VANE LEMOS 59/F [facility] [id number] Teri Huang Specimen: [id number] Received: 09/30/24 Status: GUILLERMINA Arvizu Num: [id number] Spec Type: ENDOM BX/C Subm Dr: Dr. Addis Foss HEADER OPERATION: Hysteroscopy, D C PRE-OP DIAGNOSIS: Post menopausal bleeding, endometrial thickening on ultrasound TISSUE SUBMITTED: A- Endometrial curettings MICROSCOPIC DIAGNOSIS A. Endometrium, curettage: * Proliferative endometrium suggestive of polyp. MICROSCOPIC DESCRIPTION Slides are reviewed. GROSS DESCRIPTION A. Received in formalin labeled with the patient's name and date of . Designated as endometrial curettings is a 2.4 x 1.3 x 0.3 cm aggregate of pink-red, soft to rubbery tissue fragments. Entirely submitted in 1 cassette. RI 09/30/2024 CPT:95685 Patient Age/Sex Location Account Attending Physician VANE LEMOS 59/F [facility] [id number] Teri Huang Signed (signature on file) Dr. Michaela Boss MD 10/04/24 1450 Normal [facility] Comment on above: Performed By: #### P SUIV #### [facility] [address] [place], [address] Urine testOrdered By: Addis Claudio on 09-30-2024 HCG ( test) Ql (U) Negative [facility] Comment on above: Very dilute urine sp ecimens, as indicated by a low specificgravity, may not contain account retention representative levels of hCG. If is still suspected, a first morning urinespecimen should be collected 48 hours later and tested. CBC-Complete Blood Cnt No Di ffon 09-26-2024 Erythrocyte distribution width (RBC) [Ratio] 12.5 % Normal 11.6-14.6 [facility] Comment on above: Performed By: #### L 100.0500, BTSPAT #### [facility] [address] [place], [address] Hematocrit (Bld) [Volume fraction] 39.5 % Normal 37-47 [facility] Comment on above: Performed By: #### L 100.0500, BTSPAT #### [facility] [address] [place], [address] Hemoglobin (Bld) [Mass/Vol] 13.4 g/dL Normal 12.0-15.0 [facility] Comment on above: Performed By: #### L 100.0500, BTSPAT #### [facility] [address] [place], [address] MCH (RBC) [Entitic mass] 30.5 pg Normal 27.0-32.0 [facility] Comment on above: Performed By: #### L 100.0500, BTSPAT #### [facility] [address] [place], [address] MCHC (RBC) [Mass/Vol] 33.9 g/dL Normal 32-36 [facility] Comment on above: Performed By: #### L 100.0500, BTSPAT #### [facility] [address] [place], [address] MCV (RBC) [Entitic vol] 90.0 fL Normal 81-99 [facility] Comment on above: Performed By: #### L 100.0500, BTSPAT #### [facility] [address] [place], [address] Platelet mean volume (Bld) [Entitic vol] 9.4 fL Normal 6.2-12.0 [facility] Comment on above: Performed By: #### L 100.0500, BTSPAT #### [facility] [address] [place], [address] Platelets (Bld) [#/Vol] 315 10*3/uL Normal 150-450 [facility] Comment on above: Performed By: #### L 100.0500, BTSPAT #### [facility] [address] [place], [address] RBC (Bld) [#/Vol] 4.39 10*6/uL Normal 4.2-5.4 [facility] Comment on above: Performed By: #### L 100.0500, BTSPAT #### [facility] [address] [place], [address] RDW SD 41.3 fl Normal 35.1-43.9 [facility] Comment on above: Performed By: #### L 100.0500, BTSPAT #### [facility] [address] [place], [address] WBC (Bld) [#/Vol] 7.1 10*3/uL Normal 4.4-11.0 [facility] Comment on above: Performed By: #### L 100.0500, BTSPAT #### [facility] [address] [place], [address] Erythrocyte distribution wid th ratioOrdered By: Addis Claudio on 09-26-2024 Erythrocyte distribution width (RBC) [Ratio] 12.5 % 11.6-14.6 [facility] Erythrocyte distribution wid th standard deviationOrdered By: Addis Claudio on 09-26-2024 Erythrocyte distribution width (RBC) [Ratio] 41.3 fl 35.1-43.9 [facility] Hematocrit Auto (Bld) [Volum e fraction]Ordered By: Addis Claudio on 09-26-2024 Hematocrit (Bld) [Volume fraction] 39.5 % 37-47 [facility] Hemoglobin measurementOrdere d By: Addis Claudio on 09-26-2024 Hemoglobin (Bld) [Mass/Vol] 13.4 g/dL 12.0-15.0 [facility] LABORATORYOrdered By: Marina Childress on 09-26-2024 Albumin DL <= 20 mg/L (U) [Mass/Vol] 34.3 mg/L Invalid Interpretation Code AO ADM SS Albumin/Creatinine DL <= 20 mg/L (U) [Mass ratio] 9 mg/G Normal 0 - 30 mg/G AO Chemistry S Creatinine (U) [Mass/Vol] 369.4 mg/dL Invalid Interpretation Code AO ADM SS Willam 09-26-2024 U Creatinine 369.4 mg/dL Normal [facility] Comment on above: Performed By: #### T SHR, GFR, CMP, LIPID, MG #### [place] [address] [place], [place] [address] #### HCV1 #### [facility] [address] [place] [address] U Microalb 34.3 mg/L Normal [facility] Comment on above: Performed By: #### T SHR, GFR, CMP, LIPID, MG #### [address] [address] #### HCV1 #### [facility] [address] [place] [address] U Ratio Alb/Cre 9 mg/G Normal 0-30 [facility] Comment on above: Performed By: #### T SHR, GFR, CMP, LIPID, MG #### [address] [address] #### HCV1 #### [facility] [address] [place] [address] MCV (mean corpuscular volume ) determinationOrdered By: Addis Claudio on 09-26-2024 MCV (RBC) [Entitic vol] 90.0 fL 81-99 [facility] Mean corpuscular hemoglobin (MCH) determinationOrdered By: Addis Claudio on 09-26-2024 MCH (RBC) [Entitic mass] 30.5 pg 27.0-32.0 [facility] Mean corpuscular hemoglobin concentration (MCHC) determinationOrdered By: Addis Claudio on 09-26-2024 MCHC (RBC) [Mass/Vol] 33.9 g/dL 32-36 [facility] Mean platelet volume determi nationOrdered By: Addis Claudio on 09-26-2024 Platelet mean volume (Bld) [Entitic vol] 9.4 fL 6.2-12.0 [facility] Platelet countOrdered By: Daniel Claudio on 09-26-2024 Platelets (Bld) [#/Vol] 315 10*3/uL 150-450 [facility] RBC Auto (Bld) [#/Vol]Ordere d By: Addis Claudio on 09-26-2024 RBC (Bld) [#/Vol] 4.39 10*6/uL 4.2-5.4 [facility] Type AND Screen - PAT ONLYon 09-26-2024 Ab SCREEN GEL Negative Normal [facility] Comment on above: Order Comment: Surge ry Date: 09/30/24 Reason for Laboratory Test PREOP [id number] No N N S HYSTEROSCOPY, D/C Performed By: #### L 100.0500, BTSPAT #### [facility] [address] [place], [place], [id number] White blood cell (WBC) count Ordered By: Addis Claudio on 09-26-2024 WBC (Bld) [#/Vol] 7.1 10*3/uL 4.4-11.0 [facility] Campaign Management Specialist Office Visit Reporton 09-14-2024 Campaign Management Specialist Office Visit Report [facility]'s [address], [address] [place] [address] OFFICE VISIT Date of Service: 09/14/24 MR#: [id number] Acct: [id number] Name: VANE LEMOS Rep #: [id number] : 1965 Provider: Dr. Addis Ruiz DO Age/Sex: 59/F Location: [facility] Status: Signed Intake Vital Signs 09/08/24 08:31 09/14/24 09:52 09/14/24 09:54 Height 5 ft 3 in 5 ft 3 in 5 ft 3 in Weight: 188 lb 2 oz BMI 33.3 BP 99/66 Intake Visit Reasons: Discuss D C Doubler Operator Required: No Is patient in pain?: No [...] subcut QWEEK 08/31/2409/14 History subcutaneous pen injector (Mounjaro) Post menopausal: No Patient : No : [...] dilation and curettage. 09/14/24 1421 Date Addis Dimas Signature: Date (more content not included)... Normal [facility] Surgical pathology reportOrd ered By: Michaela Boss on 09-09-2024 [facility] study [facility] [facility] Campaign Management Specialist Office Visit Reporton 09-08-2024 Campaign Management Specialist Office Visit Report [address], [address] [place] [address] OFFICE VISIT Date of Service: 09/08/24 MR#: [id number] Acct: [id number] Name: VANE LEMOS Rep #: [id number] : 1965 Provider: Dr. Addis Ruiz DO Age/Sex: 59/F Location: [facility] Status: Signed Intake Vital Signs 08/31/24 11:07 09/08/24 08:31 09/08/24 08:31 Height 5 ft 3 in 5 ft 3 in 5 ft 3 in Weight: 186 lb 2 oz 185 lb 6 oz BMI 32.9 32.8 BP 99/66 126/76 H Intake Visit Reasons: EMB *per JV Chief Complaint: EMB Doubler Operator Required: No Is patient in pain?: No [...] subcut QWEEK 08/31/2409/08 History subcutaneous pen injector (Mounjaro) Is last [...] Postmenopausal bleeding N95.0 CPT Codes Endometrial Biopsy (63403) Assessment and Plan Assessment and Plan (1) Postmenopausal bleeding: Status: Acute Comment: emb needed Orders: Orders Endometrial Biopsy Today N95.0 - Postmenopausal bleeding Plan EMB performed today. will call with results. 09/08/24 1218 Date (more content not included)... Normal [facility] Surgery Specimen Level Frandy 09-08-2024 Surgery Specimen Level IV Patient Age/Sex Location Account Attending Physician VANE LEMOS 59/F [facility] [id number] Teri Huang Specimen: [id number] Received: 09/08/24115 Status: GUILLERMINA Arvizu Num: [id number] Spec Type: SVETLANA BX/C Raymond Dr: Dr. Addis Foss DO HEADER OPERATION: Endometrial Biopsy PRE-OP DIAGNOSIS: [...] block and entirely submitted in 1 cassette. RI 09/08/2024 CPT: 13233 Patient Age/Sex Location Account Attending Physician [facility]EMOS 59[facility] [id number] Teri Huang Signed (signature on file) Dr. Michaela Boss MD 09/09/24 1612 Normal [facility] Comment on above: Performed By: #### P SUIV #### [facility] [address] [place], [place], [id number] Campaign Management Specialist Office Visit Reporton 08-31-2024 Campaign Management Specialist Office Visit Report [facility]'s [address], [address] [place] [address] OFFICE VISIT Date of Service: 08/31/24 MR#: [id number] Acct: [id number] Name: VANE LEMOS Rep #: [id number] : 1965 Provider: Dr. 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 Normal [facility] US PELVIS NON-OB LIMITEDon 0 08-02-2024 US [...] cm are simply artifacts related to the endometrial/cervical canal.. The endometrium is 8.5 mm double [...] 08/02/2024 9:57:08 AM Ordering Provider: BERTHA Ding [facility] LABORATORYOrdered By: SYSTEM SYSTEM on 07-22-2024 TSH Qn 0.65 m[IU]/L Normal 0.36 - 3.74 mcIU/mL AO ADM SS TSHRon 07-22-2024 TSH Qn 0.65 m[IU]/L Normal 0.36-3.74 [facility] Comment on above: Performed By: #### T SHR, GFR, CMP, LIPID, MG #### [address] [address] #### HCV1 #### [facility] [address] [place] [address] MA MAMMOGRAM SCREENING BILAT ERAL W/TOMOon 06-13-2024 MA MAMMOGRAM SCREENING BILATERAL W/AJITH ORIGINAL FROM: [address] [address] PROCEDURE FOR: [place] [address] Home: PID#: [id number] Exam#: [id number] : 1965 Age: 59 TO: BERTHA RIVAS [employer] [address] [place] [address] Fax: NO FAX EXAMINATION: SCREENING DIGITAL BILATERAL [...] Continued screening with annual mammograms is recommended. Tyrlashae Cuzick risk calculations, generated with the history provided, [...] addition to annual mammographic screening per the [employer]. BIRADS: MAMMOGRAM BI-RADS: 2: Benign finding RECALL: 1 year screening RECALL TYPE: mammo LETTER SENT: Normal BI-RADS 1 and 2 Interpreted by: Claire Villanueva Preliminary Report By: Claire Villanueva Electronically signed By Claire Villanueva Dictated Date: 06/13/2024 2:05:40 PM Prelim Date: 06/13/2024 2:09:14 PM Sign Date: 06/13/2024 2:09:14 PM Ordering Provider: BERTHA RIVAS Court Registry Officer: ORAL RHODES RT(R)(M)(CT) letter sent: Normal BI-RADS 1 and 2 Mammogram BI-RADS: 2 Benign Normal [facility] .GFRon 06-09-2024 Estimated Glomerular Filtration Rate 89 ml/min/1.73sqm Normal [facility] Comment on above: Result Comment: Stages of [...] T SHR, GFR, CMP, LIPID, MG #### [address] [address] #### HCV1 #### [address] [address] A1Con 06-09-2024 Glucose [Mass/Vol] 114 mg/dL Normal [facility] Comment on above: Result Comment: Georgina mated Average Glucose calculated by equation ((28.7xA1C)-46.7) Estimated average glucose (eAG) is a calculated value from Hemoglobin A1C and is account retention representative of the average blood glucose level in the last 2-3 month period. Normal range: less than 114 mg/dL Performed By: #### T SHR, GFR, CMP, LIPID, MG #### [address] [address] #### HCV1 #### [address] [address] HbA1c (Bld) [Mass fraction] 5.6 % Normal 4.3-6.4 [facility] Comment on above: Performed By: #### T SHR, GFR, CMP, LIPID, MG #### [address] [address] #### HCV1 #### [address] [address] CMPon 06-09-2024 Albumin Level 3.9 G/dL Normal 3.5-5.0 [facility] Comment on above: Performed By: #### L IPID, FT4, CMP, VIDH, A1C, GFR, TSH #### [address] [address] Albumin/Globulin [Mass ratio] 1.0 {ratio} Low 1.1-2.5 [facility] Comment on above: Performed By: #### L IPID, FT4, CMP, VIDH, A1C, GFR, TSH #### [address] [address] ALP [Catalytic activity/Vol] 55 U/L Normal 40-135 [facility] Comment on above: Performed By: #### L IPID, FT4, CMP, VIDH, A1C, GFR, TSH #### [address] [address] ALT [Catalytic activity/Vol] 21 U/L Normal 14-59 [facility] Comment on above: Performed By: #### L IPID, FT4, CMP, VIDH, A1C, GFR, TSH #### [address] [address] AST [Catalytic activity/Vol] 17 U/L Normal 10-40 [facility] Comment on above: Performed By: #### L IPID, FT4, CMP, VIDH, A1C, GFR, TSH #### [address] [address] Bili Total 0.4 mg/dL Normal 0.2-1.0 [facility] Comment on above: Result Comment: Use of this assay is not recommended for patients undergoing treatment with eltrombopag due to the potential for falsely elevated results. Performed By: #### L IPID, FT4, CMP, VIDH, A1C, GFR, TSH #### [address] [address] BUN/Creatinine Ratio 28 ratio High 7-27 [facility] Comment on above: Performed By: #### L IPID, FT4, CMP, VIDH, A1C, GFR, TSH #### [address] [address] Calcium [Mass/Vol] 9.5 mg/dL Normal 8.4-10.2 [facility] Comment on above: Performed By: #### L IPID, FT4, CMP, VIDH, A1C, GFR, TSH #### [place] [address] Chloride [Moles/Vol] 104 mmol/L Normal 98-107 [facility] Comment on above: Performed By: #### L IPID, FT4, CMP, VIDH, A1C, GFR, TSH #### [place] [address] CO2 [Moles/Vol] 30 mmol/L High 22-29 [facility] Comment on above: Performed By: #### L IPID, FT4, CMP, VIDH, A1C, GFR, TSH #### [place] [address] Creatinine [Mass/Vol] 0.78 mg/dL Normal 0.55-1.02 [facility] Comment on above: Result Comment: Test ing performed on Siemens Dimension EXL analyzer using a modified kinetic Jennifer technique. Performed By: #### L IPID, FT4, CMP, VIDH, A1C, GFR, TSH #### [place] [address] Electrolyte Balance 5.0 mEq/L Normal 4.0-15.0 [facility] Comment on above: Performed By: #### L IPID, FT4, CMP, VIDH, A1C, GFR, TSH #### [place] [id number] Globulin 3.8 G/dL Normal 1.5-3.8 [facility] Comment on above: Performed By: #### L IPID, FT4, CMP, VIDH, A1C, GFR, TSH #### [place] [address] Glucose [Mass/Vol] 101 mg/dL Normal 70-105 [facility] Comment on above: Performed By: #### L IPID, FT4, CMP, VIDH, A1C, GFR, TSH #### [address] [address] Potassium [Moles/Vol] 4.0 mmol/L Normal 3.5-5.1 [facility] Comment on above: Performed By: #### L IPID, FT4, CMP, VIDH, A1C, GFR, TSH #### [address] [address] Sodium [Moles/Vol] 139 mmol/L Normal 136-145 [facility] Comment on above: Performed By: #### L IPID, FT4, CMP, VIDH, A1C, GFR, TSH #### [address] [address] Total Protein 7.7 G/dL Normal 6.4-8.2 [facility] Comment on above: Performed By: #### L IPID, FT4, CMP, VIDH, A1C, GFR, TSH #### [address] [address] Urea nitrogen [Mass/Vol] 22 mg/dL High 7-18 [facility] Comment on above: Performed By: #### L IPID, FT4, CMP, VIDH, A1C, GFR, TSH #### [address] [address] FT4on 06-09-2024 Free T4 [Mass/Vol] 1.08 ng/dL Normal 0.76-1.46 [facility] Comment on above: Performed By: #### L IPID, FT4, CMP, VIDH, A1C, GFR, TSH #### [address] [address] LIPIDon 06-09-2024 Cholesterol [Mass/Vol] 163 mg/dL Normal 0-200 [facility] Comment on above: Result Comment: Chol esterol Reference Interval: Less than 200 Desirable 200-239 Borderline high risk 240 and above High risk Performed By: #### T SHR, GFR, CMP, LIPID, MG #### [address] [address] #### HCV1 #### [address] [address] Cholesterol in HDL [Mass/Vol] 63 mg/dL High 40-60 [facility] Comment on above: Performed By: #### T SHR, GFR, CMP, LIPID, MG #### [place] [address] #### HCV1 #### [address] [address] Cholesterol in LDL [Mass/Vol] 74 mg/dL Normal 0-130 [facility] Comment on above: Performed By: #### T SHR, GFR, CMP, LIPID, MG #### [place] [address] #### HCV1 #### [address] [address] Triglyceride [Mass/Vol] 130 mg/dL Normal 0-150 [facility] Comment on above: Result Comment: Trig lyceride Reference Interval: Less than 150 Normal 150-199 Borderline high risk 200-499 High risk 500 or higher Very high risk Performed By: #### T SHR, GFR, CMP, LIPID, MG #### [place] [address] #### HCV1 #### [address] [address] TSHon 06-09-2024 TSH Qn 0.18 m[IU]/L Low 0.36-3.74 [facility] Comment on above: Performed By: #### L IPID, FT4, CMP, VIDH, A1C, GFR, TSH #### [place] [address] VIDHon 06-09-2024 Vit. D 25-Hydroxy 34.4 ng/mL Normal [facility] Comment on above: Result Comment: Inte rpretive Values Based on Total 25(OH) Vitamin D: Deficient <20 ng/mL Insufficient 20 - <30 ng/mL Sufficient 30-100 ng/mL Performed By: #### T SHR, GFR, CMP, LIPID, MG #### [address] [address] #### HCV1 #### [address] [address] RPCURon 03-14-2024 U Creatinine 112.1 mg/dL Normal [facility] Comment on above: Performed By: #### R PCUR #### [address] [address] U Protein 14 mg/dL Normal [facility] Comment on above: Performed By: #### R PCUR #### [address] [address] U Ratio Prot/Creat 0.1 ratio [facility] Comment on above: Performed By: #### R PCUR #### [address] [address] .GFRon 03-10-2024 GFR 79 ml/min/1.73sqm [facility] Comment on above: Result Comment: GFR Population [...] T SHR, GFR, CMP, LIPID, MG #### [address] [address] #### HCV1 #### [address] [address] GFR Non- 65 ml/min/1.73sqm [facility] Comment on above: Result Comment: GFR Population [...] T SHR, GFR, CMP, LIPID, MG #### [place] [address] #### HCV1 #### [address] [address] CMPon 03-10-2024 Albumin Level 3.7 G/dL Normal 3.5-5.0 [facility] Comment on above: Performed By: #### T SHR, GFR, CMP, LIPID, MG #### [place] [address] #### HCV1 #### [address] [address] Albumin/Globulin [Mass ratio] 0.9 {ratio} Low 1.1-2.5 [facility] Comment on above: Performed By: #### T SHR, GFR, CMP, LIPID, MG #### [place] [address] #### HCV1 #### [address] [address] ALP [Catalytic activity/Vol] 63 U/L Normal 40-135 [facility] Comment on above: Performed By: #### T SHR, GFR, CMP, LIPID, MG #### [place] [address] #### HCV1 #### [address] [address] ALT [Catalytic activity/Vol] 21 U/L Normal 14-59 [facility] Comment on above: Performed By: #### T SHR, GFR, CMP, LIPID, MG #### [place] [address] #### HCV1 #### [address] [address] AST [Catalytic activity/Vol] 13 U/L Normal 10-40 [facility] Comment on above: Performed By: #### T SHR, GFR, CMP, LIPID, MG #### [place] [address] #### HCV1 #### [place] [address] Bili Total 0.4 mg/dL Normal 0.2-1.0 [facility] Comment on above: Result Comment: Use of this assay is not recommended for patients undergoing treatment with eltrombopag due to the potential for falsely elevated results. Performed By: #### T SHR, GFR, CMP, LIPID, MG #### [place] [address] #### HCV1 #### [place] [address] BUN/Creatinine Ratio 20 ratio Normal 7-27 [facility] Comment on above: Performed By: #### T SHR, GFR, CMP, LIPID, MG #### [place] [address] #### HCV1 #### [address] [address] Calcium [Mass/Vol] 9.4 mg/dL Normal 8.4-10.2 [facility] Comment on above: Performed By: #### T SHR, GFR, CMP, LIPID, MG #### [place] [address] #### HCV1 #### [address] [address] Chloride [Moles/Vol] 103 mmol/L Normal 98-107 [facility] Comment on above: Performed By: #### T SHR, GFR, CMP, LIPID, MG #### [address] [address] #### HCV1 #### [address] [address] CO2 [Moles/Vol] 29 mmol/L Normal 22-29 [facility] Comment on above: Performed By: #### T SHR, GFR, CMP, LIPID, MG #### [address] [address] #### HCV1 #### [address] [address] Creatinine [Mass/Vol] 0.89 mg/dL Normal 0.55-1.02 [facility] Comment on above: Result Comment: Test ing performed on Kriyari Dimension EXL analyzer using a modified kinetic Jennifer technique. Performed By: #### T SHR, GFR, CMP, LIPID, MG #### [address] [address] #### HCV1 #### [address] [address] Electrolyte Balance 9.0 mEq/L Normal 4.0-15.0 [facility] Comment on above: Performed By: #### T SHR, GFR, CMP, LIPID, MG #### [address] [address] #### HCV1 #### [address] [address] Globulin 4.0 G/dL Normal [facility] Comment on above: Performed By: #### T SHR, GFR, CMP, LIPID, MG #### [address] [address] #### HCV1 #### [address] [address] Glucose [Mass/Vol] 94 mg/dL Normal 70-105 [facility] Comment on above: Performed By: #### T SHR, GFR, CMP, LIPID, MG #### [address] [address] #### HCV1 #### [address] [address] Potassium [Moles/Vol] 4.0 mmol/L Normal 3.5-5.1 [facility] Comment on above: Performed By: #### T SHR, GFR, CMP, LIPID, MG #### [address] [address] #### HCV1 #### [place] [id number] Sodium [Moles/Vol] 141 mmol/L Normal 136-145 [facility] Comment on above: Performed By: #### T SHR, GFR, CMP, LIPID, MG #### [place] [address] #### HCV1 #### [place] [address] Total Protein 7.7 G/dL Normal 6.4-8.2 [facility] Comment on above: Performed By: #### T SHR, GFR, CMP, LIPID, MG #### [place] [address] #### HCV1 #### [place] [address] Urea nitrogen [Mass/Vol] 18 mg/dL Normal 7-18 [facility] Comment on above: Performed By: #### T SHR, GFR, CMP, LIPID, MG #### [address] [address] #### HCV1 #### [place] [address] HCVon 03-10-2024 Hep C Ab Non-Reactive Normal Non-Reacti ve [facility] Comment on above: Performed By: #### T SHR, GFR, CMP, LIPID, MG #### [place] [address] #### HCV1 #### [place] [address] Hep C Ab Int Normal [facility] Comment on above: Result Comment: Nonr eactive: [...] T SHR, GFR, CMP, LIPID, MG #### [address] [place] [address] [place], [place] [address] #### HCV1 #### [address] [address] LABORATORYOrdered By: SYSTEM SYSTEM on 03-10-2024 Albumin [...] Cholesterol [Mass/Vol] 263 mg/dL High 0 - 2 00 mg/dL AO ADM SS Comment on above: [...] IA Ql Non-Reactive (03/10/24 12:52 PM) Normal Non-Reacti ve AH ADM SS HCV Ab IA Ql Nonreactive: [...] 03-10-2024 Cholesterol [Mass/Vol] 263 mg/dL High 0-200 [facility] Comment on above: Result Comment: Chol esterol Reference Interval: Less than 200 Desirable 200-239 Borderline high risk 240 and above High risk Performed By: #### T SHR, GFR, CMP, LIPID, MG #### [address] [address] #### HCV1 #### [facility] [address] [place] [address] Cholesterol in HDL [Mass/Vol] 51 mg/dL Normal 40-60 [facility] Comment on above: Performed By: #### T SHR, GFR, CMP, LIPID, MG #### [address] [address] #### HCV1 #### [place] [address] Cholesterol in LDL [Mass/Vol] 191 mg/dL High 0-130 [facility] Comment on above: Performed By: #### T SHR, GFR, CMP, LIPID, MG #### [address] [address] #### HCV1 #### [place] [address] Triglyceride [Mass/Vol] 105 mg/dL Normal 0-150 [facility] Comment on above: Result Comment: Trig lyceride Reference Interval: Less than 150 Normal 150-199 Borderline high risk 200-499 High risk 500 or higher Very high risk Performed By: #### T SHR, GFR, CMP, LIPID, MG #### [place] [address] #### HCV1 #### [place] [address] MGon 03-10-2024 Magnesium [Mass/Vol] 2.0 mg/dL Normal 1.8-2.4 [facility] Comment on above: Performed By: #### T SHR, GFR, CMP, LIPID, MG #### [address] [address] #### HCV1 #### [place] [address] TSHRon 03-10-2024 TSH Qn 0.37 m[IU]/L Normal 0.36-3.74 [facility] Comment on above: Performed By: #### T SHR, GFR, CMP, LIPID, MG #### [place] [address] #### HCV1 #### [place] [address] LABORATORYOrdered By: Carlin Marques on 06-15-2023 Albumin DL <= 20 mg/L (U) [Mass/Vol] 555 mcg/dL Invalid Interpretation Code AO ADM SS Albumin/Creatinine DL <= 20 mg/L (U) [Mass ratio] 5 mcg/mg Normal 0 - 30 mcg/mg AO ADM SS Creatinine (U) [Mass/Vol] 106.1 mg/dL Normal 28.0 - 117.0 mg/dL AO ADM SS MALBRon 06-15-2023 U Creatinine 106.1 mg/dL Normal 28.0-117.0 [facility] ([place]) Comment on above: Performed By: #### M ALBR ####[facility] [place], [place] [address] U Microalb 555 mcg/dL Normal [facility] ([place]) Comment on above: Performed By: #### M ALBR ####[facility] [place], [place] [address] U Ratio Alb/Cre 5 mcg/mg Normal 0-30 [facility] ([place]) Comment on above: Performed By: #### M ALBR ####[place] [address] [place], [place] [address] MA MAMMOGRAM SCREENING BILAT ERAL W/TOMOon 06-12-2023 MA MAMMOGRAM SCREENING BILATERAL W/AJITH ORIGINAL FROM: [address] [address] PROCEDURE FOR: VANE LEMOS [address] [place] [phone] Home: PID#: [id number] Exam#: [id number] : 1965 Age: 58 TO: BERTHA RIVAS [facility] [address] [place] [address] Fax: NO FAX EXAMINATION: SCREENING DIGITAL BILATERAL [...] addition to annual mammographic screening per the [employer]. BIRADS: MAMMOGRAM BI-RADS: 2: Benign finding RECALL: 1 year screening RECALL TYPE: mammo LETTER SENT: Normal BI-RADS 1 and 2 Interpreted by: Claire Villanueva Preliminary Report By: Claire Villanueva Electronically signed By Claire Villanueva Dictated Date: 06/12/2023 8:19:49 AM Prelim Date: 06/12/2023 8:24:03 AM Sign Date: 06/12/2023 8:24:03 AM Ordering Provider: BERTHA RIVAS Court Registry Officer: CHINA BEYER RT(R)(M)(CT) DATA ANALYSIS INTERN letter sent: Normal BI-RADS 1 and 2 Mammogram BI-RADS: 2 Benign Normal [facility] ([place]) .GFRon 06-08-2023 GFR 78 ml/min/1.73sqm Normal [facility] ([place]) Comment on above: Result Comment: GFR Population [...] FT4, A1C, LIPID, CMP, GFR ####[address] [place] [place], [place] [address] GFR Non- 64 ml/min/1.73sqm Normal [facility] ([place]) Comment on above: Result Comment: GFR Population [...] FT4, A1C, LIPID, CMP, GFR ####[address] [place], [place] [address] A1Con 06-08-2023 HbA1c (Bld) [Mass fraction] 7.3 % High 4.3-6.4 [facility] ([place]) Comment on above: Performed By: #### V IDH, TSH, FT4, A1C, LIPID, CMP, GFR #### [address] [place], [place] [address] CMPon 06-08-2023 Albumin Level 3.7 G/dL Normal 3.5-5.0 [facility] ([place]) Comment on above: Performed By: #### V IDH, TSH, FT4, A1C, LIPID, CMP, GFR ####[address] [place], [place] [address] Albumin/Globulin [Mass ratio] 1.1 {ratio} Normal 1.1-2.5 [facility] ([place]) Comment on above: Performed By: #### V IDH, TSH, FT4, A1C, LIPID, CMP, GFR ####[address] [place], [place] [address] ALP [Catalytic activity/Vol] 63 U/L Normal 40-135 [facility] ([place]) Comment on above: Performed By: #### V IDH, TSH, FT4, A1C, LIPID, CMP, GFR ####[address] [place], [place] [address] ALT [Catalytic activity/Vol] 31 U/L Normal 14-59 [facility] ([place]) Comment on above: Performed By: #### V IDH, TSH, FT4, A1C, LIPID, CMP, GFR ####[address] [place], [place] [address] AST [Catalytic activity/Vol] 13 U/L Normal 10-40 [facility] ([place]) Comment on above: Performed By: #### V IDH, TSH, FT4, A1C, LIPID, CMP, GFR ####[address] [place], [place] [address] Bili Total 0.3 mg/dL Normal 0.2-1.0 [facility] ([place]) Comment on above: Result Comment: Use of this assay is not recommended for patients undergoing treatment with eltrombopag due to the potential for falsely elevated results. Performed By: #### V IDH, TSH, FT4, A1C, LIPID, CMP, GFR ####[address] [place], [place] [address] BUN/Creatinine Ratio 23 ratio Normal 7-27 [facility] ([place]) Comment on above: Performed By: #### V IDH, TSH, FT4, A1C, LIPID, CMP, GFR ####[address] [place], [place] [address] Calcium [Mass/Vol] 8.9 mg/dL Normal 8.4-10.2 [facility] ([place]) Comment on above: Performed By: #### V IDH, TSH, FT4, A1C, LIPID, CMP, GFR ####[address] [place], [place] [address] Chloride [Moles/Vol] 101 mmol/L Normal 98-107 [facility] ([place]) Comment on above: Performed By: #### V IDH, TSH, FT4, A1C, LIPID, CMP, GFR ####[address] [place], [place] [address] CO2 [Moles/Vol] 30 mmol/L High 22-29 [facility] ([place]) Comment on above: Performed By: #### V IDH, TSH, FT4, A1C, LIPID, CMP, GFR ####[address] [place], [place] [address] Creatinine [Mass/Vol] 0.91 mg/dL Normal 0.55-1.02 [facility] ([place]) Comment on above: Performed By: #### V IDH, TSH, FT4, A1C, LIPID, CMP, GFR ####[address] [place], [place] [address] Electrolyte Balance 7.0 mEq/L Normal 4.0-15.0 [facility] ([place]) Comment on above: Performed By: #### V IDH, TSH, FT4, A1C, LIPID, CMP, GFR ####[address] [place], [place] [address] Globulin 3.5 G/dL Normal [facility] ([place]) Comment on above: Performed By: #### V IDH, TSH, FT4, A1C, LIPID, CMP, GFR ####[address] [place], [place] [address] Glucose [Mass/Vol] 143 mg/dL High 70-105 [facility] [facility] ([place]) Comment on above: Performed By: #### V IDH, TSH, FT4, A1C, LIPID, CMP, GFR ####[address] [place], [place] [address] Potassium [Moles/Vol] 4.4 mmol/L Normal 3.5-5.1 [facility] ([place]) Comment on above: Performed By: #### V IDH, TSH, FT4, A1C, LIPID, CMP, GFR ####[address] [place], [place] [address] Sodium [Moles/Vol] 138 mmol/L Normal 136-145 [facility] ([place]) Comment on above: Performed By: #### V IDH, TSH, FT4, A1C, LIPID, CMP, GFR ####Elvie [address] [place], [place] [address] Total Protein 7.2 G/dL Normal 6.4-8.2 [facility] ([place]) Comment on above: Performed By: #### V IDH, TSH, FT4, A1C, LIPID, CMP, GFR ####[address] [place], [place] [address] Urea nitrogen [Mass/Vol] 21 mg/dL High 7-18 [facility] ([place]) Comment on above: Performed By: #### V IDH, TSH, FT4, A1C, LIPID, CMP, GFR ####[address] [place], [place] [address] FT4on 06-08-2023 Free T4 [Mass/Vol] 1.10 ng/dL Normal 0.76-1.46 [facility] ([place] Comment on above: Performed By: #### V IDH, TSH, FT4, A1C, LIPID, CMP, GFR ####Elvie [address] [place], [place] [address] LABORATORYOrdered By: SYSTEM SYSTEM on 06-08-2023 25-hydroxyvitamin [...] T4 [Mass/Vol] 1.10 ng/dL Normal 0.76 - 1.46 ng/dL AO ADM SS [...] Cholesterol [Mass/Vol] 159 mg/dL Normal 0 - 2 00 mg/dL AO ADM SS Comment on above: [...] 06-08-2023 Cholesterol [Mass/Vol] 159 mg/dL Normal 0-200 [facility] ([place]) Comment on above: Result Comment: Chol esterol Reference Interval: Less than 200 Desirable 200-239 Borderline high risk 240 and above High risk Performed By: #### V IDH, TSH, FT4, A1C, LIPID, CMP, GFR ####[address]vie [address] [place], [place] [address] Cholesterol in HDL [Mass/Vol] 52 mg/dL Normal 40-60 [facility] ([place]) Comment on above: Performed By: #### V IDH, TSH, FT4, A1C, LIPID, CMP, GFR ####[address] [place], [place] [address] Cholesterol in LDL [Mass/Vol] 71 mg/dL Normal 0-130 [facility] ([place]) Comment on above: Performed By: #### V IDH, TSH, FT4, A1C, LIPID, CMP, GFR ####Elvie [address] [place], [place] [address] Triglyceride [Mass/Vol] 180 mg/dL High 0-150 [facility] ([place]) Comment on above: Result Comment: Trig lyceride Reference Interval: Less than 150 Normal 150-199 Borderline high risk 200-499 High risk 500 or higher Very high risk Performed By: #### V IDH, TSH, FT4, A1C, LIPID, CMP, GFR ####[address] [place], [place] [address] TSHon 06-08-2023 TSH Qn 0.62 m[IU]/L Normal 0.36-3.74 [facility] ([place]) Comment on above: Performed By: #### V IDH, TSH, FT4, A1C, LIPID, CMP, GFR #### Elvie [address] [place], [place] [address] VIDHon 06-08-2023 Vit. D 25-Hydroxy 41.8 ng/mL Normal [facility] ([place]) Comment on above: Result Comment: Inte rpretive Values Based on Total 25(OH) Vitamin D: Deficient <20 ng/mL Insufficient 20 - <30 ng/mL Sufficient 30-100 ng/mL Performed By: #### V IDH, TSH, FT4, A1C, LIPID, CMP, GFR ####[address] [place], [place] [address] .GFRon 11-10-2022 GFR 80 ml/min/1.73sqm Normal [facility] ([place]) Comment on above: Result Comment: GFR Population [...] CMP, LIPID, GFR, FT4, TSH ####[address] [place], [place] [address] GFR Non- 66 ml/min/1.73sqm Normal [facility] ([place]) Comment on above: Result Comment: GFR Population [...] IDH, A1C, CMP, LIPID, GFR, FT4, TSH ###Armen [address] [place], [place] [address] A1Con 11-10-2022 HbA1c (Bld) [Mass fraction] 7.1 % High 4.3-6.4 [facility] ([place]) Comment on above: Performed By: #### V IDH, A1C, CMP, LIPID, GFR, FT4, TSH ###DavidElvie [address] [place], [place] [address] CMPon 11-10-2022 Albumin Level 3.9 G/dL Normal 3.5-5.0 [facility] ([place]) Comment on above: Performed By: #### V IDH, A1C, CMP, LIPID, GFR, FT4, TSH ####[address] [place], [place] [address] Albumin/Globulin [Mass ratio] 1.0 {ratio} Low 1.1-2.5 [facility] ([place]) Comment on above: Performed By: #### V IDH, A1C, CMP, LIPID, GFR, FT4, TSH ####[address] [place], [place] [address] ALP [Catalytic activity/Vol] 66 U/L Normal 40-135 [facility] ([place]) Comment on above: Performed By: #### V IDH, A1C, CMP, LIPID, GFR, FT4, TSH ####[address] [place], [place] [address] ALT [Catalytic activity/Vol] 29 U/L Normal 14-59 [facility] ([place]) Comment on above: Performed By: #### V IDH, A1C, CMP, LIPID, GFR, FT4, TSH ####[address] [place], [place] [address] AST [Catalytic activity/Vol] 15 U/L Normal 10-40 [facility] ([place]) Comment on above: Performed By: #### V IDH, A1C, CMP, LIPID, GFR, FT4, TSH ####Elvie [address] [place], [place] [address] Bili Total 0.4 mg/dL Normal 0.2-1.0 [facility] ([place]) Comment on above: Result Comment: Use of this assay is not recommended for patients undergoing treatment with eltrombopag due to the potential for falsely elevated results. Performed By: #### V IDH, A1C, CMP, LIPID, GFR, FT4, TSH ####[address] [place], [place] [address] BUN/Creatinine Ratio 19 ratio Normal 7-27 [facility] ([place] Comment on above: Performed By: #### V IDH, A1C, CMP, LIPID, GFR, FT4, TSH ####Elvie [address] [place], [place] [address] Calcium [Mass/Vol] 9.3 mg/dL Normal 8.4-10.2 [facility] ([place] Comment on above: Performed By: #### V IDH, A1C, CMP, LIPID, GFR, FT4, TSH ####Elvie [address] [place], [place] [address] Chloride [Moles/Vol] 100 mmol/L Normal 98-107 [facility] ([place] Comment on above: Performed By: #### V IDH, A1C, CMP, LIPID, GFR, FT4, TSH ####[address] [place], [place] [address] CO2 [Moles/Vol] 30 mmol/L High 22-29 [facility] ([place]) Comment on above: Performed By: #### V IDH, A1C, CMP, LIPID, GFR, FT4, TSH ####Elvie [address] [place], [place] [address] Creatinine [Mass/Vol] 0.89 mg/dL Normal 0.55-1.02 [facility] ([place]) Comment on above: Performed By: #### V IDH, A1C, CMP, LIPID, GFR, FT4, TSH ####[address] [place], [place] [address] Electrolyte Balance 9.0 mEq/L Normal 4.0-15.0 [facility] ([place] Comment on above: Performed By: #### V IDH, A1C, CMP, LIPID, GFR, FT4, TSH ####[address] [place], [place] [address] Globulin 3.8 G/dL Normal [facility] ([place]) Comment on above: Performed By: #### V IDH, A1C, CMP, LIPID, GFR, FT4, TSH ####[address] [place], [place] [address] Glucose [Mass/Vol] 150 mg/dL High 70-105 [facility] ([place]) Comment on above: Performed By: #### V IDH, A1C, CMP, LIPID, GFR, FT4, TSH ####[address] [place], [place] [address] Potassium [Moles/Vol] 4.3 mmol/L Normal 3.5-5.1 [facility] ([place]) Comment on above: Performed By: #### V IDH, A1C, CMP, LIPID, GFR, FT4, TSH ####[address] [place], [place] [address] Sodium [Moles/Vol] 139 mmol/L Normal 136-145 [facility] ([place] Comment on above: Performed By: #### V IDH, A1C, CMP, LIPID, GFR, FT4, TSH ####[address] [place], [place] [address] Total Protein 7.7 G/dL Normal 6.4-8.2 [facility] ([place]) Comment on above: Performed By: #### V IDH, A1C, CMP, LIPID, GFR, FT4, TSH ####[address] [place], [place] [address] Urea nitrogen [Mass/Vol] 17 mg/dL Normal 7-18 [facility] ([place]) Comment on above: Performed By: #### V IDH, A1C, CMP, LIPID, GFR, FT4, TSH ####[address] [place], [place] [address] FT4on 11-10-2022 Free T4 [Mass/Vol] 1.10 ng/dL Normal 0.76-1.46 [facility] ([place]) Comment on above: Performed By: #### V IDH, A1C, CMP, LIPID, GFR, FT4, TSH ####[address] [place], [place] [address] LABORATORYOrdered By: SYSTEM SYSTEM on 11-10-2022 25-hydroxyvitamin [...] 11-10-2022 Cholesterol [Mass/Vol] 163 mg/dL Normal 0-200 [facility] ([place]) Comment on above: Result Comment: Chol esterol Reference Interval: Less than 200 Desirable 200-239 Borderline high risk 240 and above High risk Performed By: #### V IDH, A1C, CMP, LIPID, GFR, FT4, TSH ####Elvie [address] [place], [place] [address] Cholesterol in HDL [Mass/Vol] 57 mg/dL Normal 40-60 [facility] ([place]) Comment on above: Performed By: #### V IDH, A1C, CMP, LIPID, GFR, FT4, TSH ####[address] [place], [place] [address] Cholesterol in LDL [Mass/Vol] 71 mg/dL Normal 0-130 [facility] ([place]) Comment on above: Performed By: #### V IDH, A1C, CMP, LIPID, GFR, FT4, TSH ####[address] [place], [place] [address] Triglyceride [Mass/Vol] 177 mg/dL High 0-150 [facility] ([place]) Comment on above: Result Comment: Trig lyceride Reference Interval: Less than 150 Normal 150-199 Borderline high risk 200-499 High risk 500 or higher Very high risk Performed By: #### V IDH, A1C, CMP, LIPID, GFR, FT4, TSH ####[address] [place], [place] [address] TSHon 11-10-2022 TSH Qn 0.71 m[IU]/L Normal 0.36-3.74 [facility] ([place]) Comment on above: Performed By: #### V IDH, A1C, CMP, LIPID, GFR, FT4, TSH ####Elvie [address] [place], [place] [address] VIDHon 11-10-2022 Vit. D 25-Hydroxy 39.4 ng/mL Normal [facility] ([place]) Comment on above: Result Comment: Inte rpretive Values Based on Total 25(OH) Vitamin D: Deficient <20 ng/mL Insufficient 20 - <30 ng/mL Sufficient 30-100 ng/mL Performed By: #### V IDH, A1C, CMP, LIPID, GFR, FT4, TSH ####Elvie [address] [place], [place] [address] XR FOOT MINIMUM 3 VIEWS LEFT on [...] resident's findings and interpretation. Interpreted by: Han uBrrell DO Preliminary Report By: Esau Davidson Electronically signed By Han Burrell DO Dictated Date: 11/06/2022 8:48:07 AM Prelim Date: 11/06/2022 1:35:33 PM Sign Date: 11/06/2022 1:35:33 PM Ordering Provider: BEV EARL Normal [facility] ([place]) XR FOOT MINIMUM 3 VIEWS KIMANI Castro [...] Sign Date: 11/06/2022 1:36:42 PM Ordering Provider: BEV EARL [facility] ([place]) .GFRon 08-04-2022 GFR Non- 69 ml/min/1.73sqm Normal [facility] ([place]) Comment on above: Result Comment: GFR Population [...] A 1C, LIPID, VIDH, CMP, GFR #### [address] [address] GFR 84 ml/min/1.73sqm Normal [facility] ([place]) Comment on above: Result Comment: GFR Population [...] A 1C, LIPID, VIDH, CMP, GFR #### [address] [address] A1Con 08-04-2022 HbA1c (Bld) [Mass fraction] 6.8 % High 4.3-6.4 [facility] ([place]) Comment on above: Performed By: #### A 1C, LIPID, VIDH, CMP, GFR #### [address] [address] CMPon 08-04-2022 Albumin Level 3.9 G/dL Normal 3.5-5.0 [facility] ([place]) Comment on above: Performed By: #### A 1C, LIPID, VIDH, CMP, GFR #### [address] [address] Albumin/Globulin [Mass ratio] 1.1 {ratio} Normal 1.1-2.5 [facility] ([place]) Comment on above: Performed By: #### A 1C, LIPID, VIDH, CMP, GFR #### [address] [address] ALP [Catalytic activity/Vol] 62 U/L Normal 40-135 [facility] ([place]) Comment on above: Performed By: #### A 1C, LIPID, VIDH, CMP, GFR #### [address] [address] ALT [Catalytic activity/Vol] 24 U/L Normal 14-59 [facility] ([place]) Comment on above: Performed By: #### A 1C, LIPID, VIDH, CMP, GFR #### [address] [address] AST [Catalytic activity/Vol] 14 U/L Normal 10-40 [facility] ([place]) Comment on above: Performed By: #### A 1C, LIPID, VIDH, CMP, GFR #### [address] [address] Bili Total 0.4 mg/dL Normal 0.2-1.0 [facility] ([place]) Comment on above: Result Comment: Use of this assay is not recommended for patients undergoing treatment with eltrombopag due to the potential for falsely elevated results. Performed By: #### A 1C, LIPID, VIDH, CMP, GFR #### [address] [address] BUN/Creatinine Ratio 22 ratio Normal 7-27 [facility] ([place] Comment on above: Performed By: #### A 1C, LIPID, VIDH, CMP, GFR #### [address] [address] Calcium [Mass/Vol] 9.0 mg/dL Normal 8.4-10.2 [facility] ([place] Comment on above: Performed By: #### A 1C, LIPID, VIDH, CMP, GFR #### [address] [address] Chloride [Moles/Vol] 103 mmol/L Normal 98-107 [facility] ([place] Comment on above: Performed By: #### A 1C, LIPID, VIDH, CMP, GFR #### [address] [address] CO2 [Moles/Vol] 29 mmol/L Normal 22-29 [facility] ([place]) Comment on above: Performed By: #### A 1C, LIPID, VIDH, CMP, GFR #### [address] [address] Creatinine [Mass/Vol] 0.85 mg/dL Normal 0.55-1.02 [facility] ([place]) Comment on above: Performed By: #### A 1C, LIPID, VIDH, CMP, GFR #### [address] [address] Electrolyte Balance 6.0 mEq/L Normal 4.0-15.0 [facility] ([place] Comment on above: Performed By: #### A 1C, LIPID, VIDH, CMP, GFR #### [address] [address] Globulin 3.4 G/dL Normal [facility] ([place] Comment on above: Performed By: #### A 1C, LIPID, VIDH, CMP, GFR #### [address] [address] Glucose [Mass/Vol] 148 mg/dL High 70-105 [facility] ([place] Comment on above: Performed By: #### A 1C, LIPID, VIDH, CMP, GFR #### [address] [address] Potassium [Moles/Vol] 4.2 mmol/L Normal 3.5-5.1 [facility] ([place] Comment on above: Performed By: #### A 1C, LIPID, VIDH, CMP, GFR #### [address] [address] Sodium [Moles/Vol] 138 mmol/L Normal 136-145 [facility] ([place] Comment on above: Performed By: #### A 1C, LIPID, VIDH, CMP, GFR #### [address] [address] Total Protein 7.3 G/dL Normal 6.4-8.2 [facility] ([place] Comment on above: Performed By: #### A 1C, LIPID, VIDH, CMP, GFR #### [address] [address] Urea nitrogen [Mass/Vol] 19 mg/dL High 7-18 [facility] ([place] Comment on above: Performed By: #### A 1C, LIPID, VIDH, CMP, GFR #### [address] [place], [place] [address] LABORATORYOrdered By: SYSTEM SYSTEM on 08-04-2022 25-hydroxyvitamin [...] 08-04-2022 Cholesterol [Mass/Vol] 149 mg/dL Normal 0-200 [facility] ([place] Comment on above: Result Comment: Chol esterol Reference Interval: Less than 200 Desirable 200-239 Borderline high risk 240 and above High risk Performed By: #### A 1C, LIPID, VIDH, CMP, GFR #### [address] [address] Cholesterol in HDL [Mass/Vol] 59 mg/dL Normal 40-60 [facility] ([place] Comment on above: Performed By: #### A 1C, LIPID, VIDH, CMP, GFR #### [address] [place], [place] [address] Cholesterol in LDL [Mass/Vol] 64 mg/dL Normal 0-130 [facility] ([place]) Comment on above: Performed By: #### A 1C, LIPID, VIDH, CMP, GFR #### [address] [place], [place] [address] Triglyceride [Mass/Vol] 131 mg/dL Normal 0-150 [facility] ([place]) Comment on above: Result Comment: Trig lyceride Reference Interval: Less than 150 Normal 150-199 Borderline high risk 200-499 High risk 500 or higher Very high risk Performed By: #### A 1C, LIPID, VIDH, CMP, GFR #### Elvie [address] [place], [place] [address] MALBRon 08-04-2022 U Creatinine 146.5 mg/dL High 28.0-117.0 [facility] ([place]) Comment on above: Performed By: #### M ALBR ####[address] [place], [place] [address] U Microalb 1255 mcg/dL Normal [facility] ([place]) Comment on above: Performed By: #### M ALBR ####[address] [place], [place] [address] U Ratio Alb/Cre 9 mcg/mg Normal 0-30 [facility] ([place] Comment on above: Performed By: #### M ALBR ####[address] [place], [place] [address] VIDHon 08-04-2022 Vit. D 25-Hydroxy 37.8 ng/mL Normal [facility] ([place] Comment on above: Result Comment: Inte rpretive Values Based on Total 25(OH) Vitamin D: Deficient <20 ng/mL Insufficient 20 - <30 ng/mL Sufficient 30-100 ng/mL Performed By: #### A 1C, LIPID, VIDH, CMP, GFR #### Elvie [address] [address] LABORATORYOrdered By: SYSTEM SYSTEM on 05-09-2022 Albumin [...] Date Time Vital Sign Value Performing Clinician Faci nataliy 10-17-2024 11:02-0400 Body height 160.02 cm Bertha Rivas NP-C Work Phone: [facility] 10-17-2024 11:00-0400 Body mass index (BMI) [Ratio] 32.6 kg/m2 Bertha Rivas NP-C Work Phone: [facility] 10-17-2024 11:00-0400 Body weight 83.65 kg Bertha Rivas NP-C Work Phone: [facility] 10-17-2024 11:00-0400 Diastolic blood pressure 76 mm[Hg] Bertha Rivas NP-C Work Phone: [facility] 10-17-2024 11:00-0400 Systolic blood pressure 118 mm[Hg] Bertha Rivas NP-C Work Phone: [facility] 09-30-2024 08:33-0400 Body temperature 97 [degF] Bertha Rivas DI[employer]OND D[employer] MAKER-C Work Phone: [facility] 09-30-2024 08:33-0400 Diastolic blood pressure 78 mm[Hg] Bertha Rivas [employer]-C Work Phone: [facility] 09-30-2024 08:33-0400 Heart rate 69 /min Bertha Rivas [employer]-C Work Phone: [facility] 09-30-2024 08:33-0400 Respiratory rate 16 /min Bertha Rivas [employer]-C Work Phone: [facility] 09-30-2024 08:33-0400 SaO2% (BldA) [Mass fraction] 99 % Bertha Rivas [employer]-C Work Phone: [facility] 09-30-2024 08:33-0400 Systolic blood pressure 119 mm[Hg] Bertha Rivas [employer] D[employer] MAKER-C Work Phone: [facility] 09-30-2024 06:29-0400 Body height 160.02 cm Bertha Rivas [employer]KER-C Work Phone: [facility] 09-30-2024 06:29-0400 Body mass index (BMI) [Ratio] 33.2 kg/m2 Bertha Rivas [employer]KER-C Work Phone: [facility] 09-30-2024 06:29-0400 Body weight 85 kg Bertha Rivas [employer]KER-C Work Phone: [facility] 09-14-2024 09:54-0400 Body height 160.02 cm Bertha Rivas [employer] MAKER-C Work Phone: [facility] 09-14-2024 09:52-0400 Body mass index (BMI) [Ratio] 33.3 kg/m2 Bertha Rivas [employer]KER-C Work Phone: [facility] 09-14-2024 09:52-0400 Body weight 85.33 kg Bertha Rivas [employer]KER-C Work Phone: [facility] 09-14-2024 09:52-0400 Diastolic blood pressure 66 mm[Hg] Bertha Rivas [employer]KER-C Work Phone: [facility] 09-14-2024 09:52-0400 Systolic blood pressure 99 mm[Hg] Bertha Rivas [employer]KER-C Work Phone: [facility] 09-08-2024 08:31-0400 Body height 160.02 cm Bertha Rivas [employer]KER-C Work Phone: [facility] 09-08-2024 08:31-0400 Body mass index (BMI) [Ratio] 32.8 kg/m2 Bertha Rivas [employer]-C Work Phone: [facility] 09-08-2024 08:31-0400 Body weight 84.08 kg Bertha Rivas [employer]KER-C Work Phone: [facility] 09-08-2024 08:31-0400 Diastolic blood pressure 76 mm[Hg] Bertha Rivas [employer] MAKER-C Work Phone: [facility] 09-08-2024 08:31-0400 Systolic blood pressure 126 mm[Hg] Bertha Rivas [employer] MAKER-C Work Phone: [facility] 08-31-2024 11:07-0400 Body height 160.02 cm Bertha Rivas [employer]KER-C Work Phone: [facility] 08-31-2024 11:07-0400 Body mass index (BMI) [Ratio] 32.9 kg/m2 Bertha Rivas [employer]KER-C Work Phone: [facility] 08-31-2024 11:07-0400 Body weight 84.42 kg Bertha iRvas [employer]ER-C Work Phone: [facility] 08-31-2024 11:07-0400 Diastolic blood pressure 66 mm[Hg] Bertha Rivas [employer]KER-C Work Phone: [facility] 08-31-2024 11:07-0400 Systolic blood pressure 99 mm[Hg] Bertha Rivas [employer]KER-C Work Phone: [facility] 08-28-2022 13:09-0400 Body height 160.[address] Alex Bull Work Phone: [facility] 08-28-2022 13:09-0400 Body mass index (BMI) [Ratio] 39.9 kg/m2 Dr. Alex Bull Work Phone: [facility] 08-28-2022 13:09-0400 Body weight 102.[address] Alex Bull Work Phone: [facility] 08-28-2022 13:09-0400 Diastolic blood pressure 80 mm[Hg] Dr. Alex Bull Work Phone: [facility] 08-28-2022 13:09-0400 Systolic blood pressure 136 mm[Hg] Dr. Alex Bull Work Phone: [facility] 03-10-2022 14:05-0500 Body height 160.02 cm BERTHA RIVAS TAPE FASTENER MACHINE OPERATOR-IT CONSULTANT [facility] 03-10-2022 14:05-0500 Body weight 97.72 kg BERTHA RIVAS TAPE FASTENER MACHINE OPERATOR-IT CONSULTANT [facility] 03-10-2022 14:05-0500 Body weight 38.16 kg/m2 BERTHA RIVAS TAPE FASTENER MACHINE OPERATOR-IT CONSULTANT [facility] 08-23-2021 10:41-0400 Body height 160.[address] Alex Bull Work Phone: [facility] Work Phone: 08-23-2021 10:41-0400 Body mass index (BMI) [Ratio] 41.8 kg/m2 Dr. Alex Bull Work Phone: [facility] Work Phone: 08-23-2021 10:41-0400 Body weight 107.[address] Alex Bull Work Phone: [facility] Work Phone: 08-23-2021 10:41-0400 Diastolic blood pressure 102 mm[Hg] Dr. Alex Bull Work Phone: [facility] Work Phone: 08-23-2021 10:41-0400 Systolic blood pressure 142 mm[Hg] Dr. Alex Bull Work Phone: [facility] Work Phone: Encounters Encounter Date Encounter Type Care Provider Facility Start: 10-31-2024 Encounter for other preprocedural examination Addis Foss [facility] Start: 10-17-2024 End: 10-17-[address] Addis Foss DO [facility] Work Phone: Start: 10-17-2024 End: 10-17-2024 ambulatory Bertha Rivas [employer]-C Work Phone: [facility] Start: 10-17-2024 End: 10-17-2024 ambulatory Addis Foss Facility:[facility] Start: 09-30-2024 ambulatory Addis Foss Fa cility:[facility] Start: 09-30-2024 Non-patient / Non-visit Dr. Daniel Foss DO [facility] Start: 09-30-2024 End: 09-30-2024 Admission to same day surgery center Dr. Addis Foss DO [facility] Start: 09-30-2024 End: 09-30-2024 ambulatory Bertha Rivas [employer]-C Work Phone: [facility] Start: 09-26-2024 End: 09-30-2024 ambulatory BERTHA RIVAS Facility:[facility] Start: 09-26-2024 End: 09-30-2024 Outreach Lab BERTHA RIVAS TAPE FASTENER MACHINE OPERATOR-IT CONSULTANT [facility] Start: 09-14-2024 End: 09-14-[address] Addis Foss DO [facility] Work Phone: Start: 09-14-2024 End: 09-14-2024 ambulatory Bertha Rivas [employer]-C Work Phone: [facility] Start: 09-08-2024 End: 09-08-2024 ambulatory Bertha Rivas [employer]-C Work Phone: -Laboratory Specimen Start: 09-08-2024 End: 09-08-[address] Addis Foss DO -Laboratory Specimen Work Phone: Start: 09-08-2024 End: 09-08-[address] Addis Foss DO -[facility] Work Phone: Start: 09-08-2024 End: 09-08-2024 ambulatory Bertha Rivas [employer]-C Work Phone: -[facility] Start: 09-08-2024 End: 09-08-2024 ambulatory Bertha Rivas DIAMOND DIE MAKER Facility:[facility] Start: 08-31-2024 End: 08-31-[address] Addis Foss DO -[facility] Work Phone: Start: 08-31-2024 End: 08-31-[address] Addis Foss DO [facility] Start: 08-31-2024 End: 08-31-2024 ambulatory Bertha Rivas [employer]-C Work Phone: -[facility] Start: 08-22-2024 End: 08-22-2024 ambulatory BERTHA RIVAS [facility] Start: 08-22-2024 End: 08-22-2024 Minor Procedure RYANN TRAN DO [facility] Start: 08-01-2024 End: 08-01-2024 ambulatory BERTHA RIVAS [facility] Start: 08-01-2024 End: 08-01-2024 Patient encounter procedure BERTHA RIVAS TAPE FASTENER MACHINE OPERATOR-IT CONSULTANT [facility] Start: 07-22-2024 End: 07-22-2024 ambulatory BERTHA RIVAS Facility:[facility] [place] Start: 07-22-2024 End: 07-22-2024 Patient encounter procedure BERTHA RIVAS TAPE FASTENER MACHINE OPERATOR-IT CONSULTANT [facility] Start: 06-09-2024 End: 06-09-2024 ambulatory BERTHA JAYJAYNANY Facility:[facility] [place] Start: 03-14-2024 End: 03-18-2024 ambulatory BERTHA EVELYN Facility:[facility] [place] Start: 03-10-2024 End: 03-10-2024 ambulatory BERTHA RIVAS Facility:[facility] [place] Start: 03-10-2024 End: 03-10-2024 Patient encounter procedure BERTHA RIVAS TAPE FASTENER MACHINE OPERATOR-IT CONSULTANT [facility] Start: 11-04-2023 ambulatory Self Referred Facility: [facility] Start: 06-15-2023 End: 06-20-2023 ambulatory BERTHA RIVAS TAPE FASTENER MACHINE OPERATOR-IT CONSULTANT Facility:B Start: 06-15-2023 End: 06-19-2023 Outreach Lab BERTHA RIVAS TAPE FASTENER MACHINE OPERATOR-IT CONSULTANT [facility] Start: 06-08-2023 End: 06-09-2023 ambulatory BERTHA RIVAS TAPE FASTENER MACHINE OPERATOR-IT CONSULTANT Facility:B Start: 06-08-2023 End: 06-08-2023 Patient encounter procedure BERTHA RIVAS TAPE FASTENER MACHINE OPERATOR-IT CONSULTANT [facility] Start: 11-10-2022 End: 11-15-2022 ambulatory BERTHA RIVAS TAPE FASTENER MACHINE OPERATOR-IT CONSULTANT Facility:B Start: 11-10-2022 End: 11-14-2022 Outreach Lab BERTHA RIVAS TAPE FASTENER MACHINE OPERATOR-IT CONSULTANT [facility] Start: 11-03-2022 End: 11-04-[address] BEV EARL DPM Facility:B Start: 11-03-2022 End: 11-03-[address] BEV EARL DPM [facility] Start: 09-22-2022 End: 09-22-[address] Alex Bull Work Phone: [facility] Work Phone: Start: 09-22-2022 End: 09-22-[address] Alex Bull Work Phone: [facility]-Nutritional Services Work Phone: Start: 08-28-2022 End: 08-28-[address] Alex Bull Work Phone: [facility] Work Phone: Start: 08-04-2022 End: 08-09-2022 ambulatory BERTHA RIVAS TAPE FASTENER MACHINE OPERATOR-IT CONSULTANT Facility:B Start: 08-04-2022 End: 08-08-2022 Outreach Lab BERTHA RIVAS TAPE FASTENER MACHINE OPERATOR-IT CONSULTANT [facility] Start: 06-05-2022 End: 06-05-2022 Patient encounter procedure BERTHA RIVAS TAPE FASTENER MACHINE OPERATOR-IT CONSULTANT [facility] Start: 05-09-2022 End: 05-09-2022 Patient encounter procedure BERTHA RIVAS TAPE FASTENER MACHINE OPERATOR-IT CONSULTANT [facility] Start: 03-10-2022 End: 03-10-2022 Patient encounter procedure BERTHA RIVAS TAPE FASTENER MACHINE OPERATOR-IT CONSULTANT [facility] Start: 02-05-2022 End: 02-09-2022 Outreach Lab BERTHA RIVAS TAPE FASTENER MACHINE OPERATOR-IT CONSULTANT [facility] Start: 08-23-2021 End: 08-23-[address] Alex Bull Work Phone: [facility]-Laboratory, Specimen Start: 08-23-2021 End: 08-23-[address] Alex Bull Work Phone: [facility] Start: 05-16-2021 End: 05-16-2021 Patient encounter procedure ALEX BULL MD [facility] Start: 05-03-2021 End: 05-03-2021 Patient encounter procedure ALEX BULL MD [facility] Start: 08-14-2017 Ambulatory LIBIA L [facility] Start: 07-24-2017 Ambulatory [facility] Start: 06-30-2017 Ambulatory [facility] Start: 06-17-2017 Ambulatory [facility] Start: 05-28-2017 Ambulatory LIBIA L [facility] Start: 04-09-2017 Ambulatory [facility] Procedures Date Procedure Procedure Detail Performing Clinician Start: 10-17-2024 Follicle stimulating hormone measurement Bertha Rivas NP-C Work Phone: Comment on above: FEMALE:Follicular: 1 .4 - 18.1 mIU/mLMidcycle: 3.4 - 33.4 mIU/mLLuteal: 1.5 - 9.1 mIU/mLPost Menopause: 23.0 - 116.3 mIU/mLMALE: 1.4 - 18.1 mIU/mL Start: 09-30-2024 Hysteroscopy Bertha mills [employer]-C Work Phone: Start: 12-07-2018 Arthroscopy of knee DUSTIN BULL MD Comment on above: LEFT Adenoid excision ALEX HUBBARD MD Excision of Aburto's cyst of knee ALEX BULL MD Comment on above: Left, x2 Extraction of wisdom tooth S CHUNG BULL MD Nasal septoplasty ALEX JENKINS MD Plan of Treatment Date Care Activity Detail Author Start: 10-17-2024 Estradiol (E2) [Mass/volume] in Serum or Plasma [facility] Start: 10-17-2024 Follitropin and Lutropin panel [Units/volume] - Serum or Plasma [facility] Start: 10-17-2024 [facility] Start: 09-30-2024 Anes hysteroscopy&/hysterosal pingography w/bx ANESTH HYSTEROSCOPE/GRAPH [facility] Start: 09-30-2024 Hysteroscopy bx endometrium&/polypc w/wo d&c HYSTEROSCOPY BIOPSY [facility] Start: 09-30-2024 Patient discharge [facility] Start: 09-30-2024 Procedure discontinued [facility] Start: 09-30-2024 Ambulation without limitation [facility] Start: 09-30-2024 Medical regimen orders management [facility] Start: 09-30-2024 Medication education [facility] Start: 09-30-2024 Taking patient vital signs [facility] Start: 09-30-2024 Vital signs measurements [facility] Start: 09-30-2024 [facility] Start: 08-23-2021 Liquid based cervical cytology screening [facility] Work Phone: Follicle stimulating hormone measurement [facility] Lutropin [Units/volu me] in Serum or Plasma [facility] Mullerian inhibiting substance [Mass/volume] in Serum or Plasma [facility] Path report.final Dx Spec [facility] Work Phone: [facility] Immunizations Immunization Date Immunization Notes Care Provider Efraín sanchez 05-17-2024 pneumococcal 20-rafia nt conjugate vaccine BERTHA RIVAS TAPE FASTENER MACHINE OPERATOR-IT CONSULTANT [facility] Carlo 12-11-2023 influenza virus vaccine, unspecified formulation BERTHA RIVAS TAPE FASTENER MACHINE OPERATOR-IT CONSULTANT [facility] Carlo 12-11-2023 SARS-CoV-2 (COVID-19 ) [id number] BERTHA RONANY TAPE FASTENER MACHINE OPERATOR-IT CONSULTANT [facility] 12-06-2022 [id number](tozishannan era n 5y-11y)bi vac 1 BERTHA RONANY TAPE FASTENER MACHINE OPERATOR-IT CONSULTANT [facility] Comment on above: Result Comment: COVI D - 19, mRNA, LNP-S. PF 11-21-2022 influenza virus vaccine, unspecified formulation BERTHA EVELYN TAPE FASTENER MACHINE OPERATOR-IT CONSULTANT [facility] 02-28-2022 influenza virus vaccine, unspecified formulation BERTHA EVELYN TAPE FASTENER MACHINE OPERATOR-IT CONSULTANT [facility] 11-29-2021 SARS-CoV-2 (CV19)mRNA-1273 bivalent vac BERTHA RONANY TAPE FASTENER MACHINE OPERATOR-IT CONSULTANT [facility] 07-23-2021 zoster vaccine recombinant BERTHA RIVAS TAPE FASTENER MACHINE OPERATOR-IT CONSULTANT [facility] 05-18-2021 zoster vaccine recombinant BERTHA ROANNY TAPE FASTENER MACHINE OPERATOR-IT CONSULTANT [facility] Comment on above: Result Comment: [facility] 01-03-2021 SARS-CoV-2 (COVID-19 ) mRNA-1273 vaccine ALEX BULL MD [facility] Comment on above: Result Comment: 2021: [id number] 12-12-2020 influenza virus vaccine, unspecified formulation ALEX BULL MD [facility] 05-11-2020 COVID-19, mRNA, LNP- S, PF, 100 mcg or 50 mcg dose; Translations: [Moderna COVID-19 Vaccine] ALEX BULL MD [facility] 04-13-2020 COVID-19, mRNA, LNP- S, PF, 100 mcg or 50 mcg dose; Translations: [Moderna COVID-19 Vaccine] ALEX BULL MD [facility] 11-08-2019 influenza virus vaccine, unspecified formulation ALEX BULL MD [facility] 10-27-2018 influenza virus vaccine, unspecified formulation ALEX BULL MD [facility] 01-18-2018 tetanus toxoid, redu олег diphtheria toxoid, and acellular pertussis vaccine, adsorbed ALEX BULL MD [facility] 12-12-2017 influenza virus vaccine, unspecified formulation ALEX BULL MD [facility] 05-28-2009 yellow fever vaccine ALEX BULL MD [facility] 08-20-1998 diphtheria and tetan us toxoids, adsorbed for pediatric use ALEX BULL MD [facility] Payers Date Payer Category Payer Private Health Insurance [id number] 2024 Unknown [id number] 2023 Self-pay [id number] 2023 Self-pay [id number] 2017 Unknown [id number] 2005 Unknown [id number] 1967 Unknown [id number] 2.16.8 40.1.334734.3.579.2.627 1967 Unknown [id number] 2.16.8 40.1.631061.3.579.2.627 1967 Unknown [id number] 2.16.8 40.1.533926.3.579.2.627 1967 Unknown [id number] 2.16.8 40.1.075517.3.579.2.627 1967 Unknown [id number] 2.16.8 40.1.965074.3.579.2.627 1967 Unknown [id number] 2.16. 840.1.984157.3.579.2.627 1967 Unknown [id number] 2.16. 840.1.592164.3.579.2.627 1967 Unknown [id number] 2.16. 840.1.637270.3.579.2.627 1967 Unknown [id number] 2.16.8 40.1.976484.3.579.2.627 1967 Unknown [id number] 2.16.8 40.1.925290.3.579.2.627 1967 Unknown [id number] 2.16.8 40.1.061834.3.579.2.627 1967 Unknown [id number] 2.16.8 40.1.933238.3.579.2.627 Unknown [id number] 2.16.8 40.1.786508.3.579.2.462 Unknown [id number] 2.16.8 40.1.278956.3.579.2.462 Unknown [id number] 2.16.8 40.1.091580.3.579.2.462 Unknown [id number] 2.16.8 40.1.456800.3.579.2.462 Unknown [id number] 2.16.8 40.1.628427.3.579.2.462 Unknown [id number] 2.16.8 40.1.067699.3.579.2.462 Unknown [id number] 2.16.8 40.1.787132.3.579.2.462 Unknown [id number] 2.16.8 40.1.488044.3.579.2.462 Unknown [id number] 2.16.8 40.1.273908.3.579.2.462 Social History Date Type Detail Facility Start: 12-13-2018 End: 09-26-2024 Never smoked tobacco (finding) [facility] Start: 1965 Sex Assigned At Female A [facility] Start: 08-23-2021 End: 08-28-2022 Tobacco smoking status TNIS Unknown if ever smoked [facility] Sexual Orientation [facility] Start: 08-18-2018 Sex Female (finding) [facility] Start: 08-31-2024 Tobacco smoking stat us NHIS Smokes tobacco daily (finding) [facility] Not [facility] Medical Equipment Procedure Code Equipment Code Equipment Origin al Text Equipment Identifier Dates See Instructions , 1 bottle of 100. Test once daily. Dx E11.9, # 1 EA, 11 Refill(s), Pharmacy: [facility]/pharmacy #[id number], 160, cm, 02/04/22 13:23:00 EST, Height, 98.2 Start: 02-04-2022 See Instructions , qs 1 month supply. Test once daily. Dx e11.9, # 1 EA, 11 Refill(s), Pharmacy: [id number], 160, cm, 02/04/22 13:23:00 EST, Height, 98.2 Start: 02-04-2022 See Instructions , 1 bottle of 100. Test once daily. Dx E11.9, # 1 EA, 11 Refill(s), [id number], cm, 02/04/22 13:23:00 EST, Height, 98.2 Start: 02-04-2022 See Instructions , qs 1 month supply. Test once daily. Dx e11.9, # 1 EA, 11 Refill(s), [id number] 160, cm, 02/04/22 13:23:00 EST, Height, 98.2 Start: 02-04-2022 See Instructions , 1 bottle of 100. Test once daily. Dx E11.9, # 1 EA, 3 Refill(s), Pharmacy: [facility], 160, cm, 03/26/22 7:00:00 EST, Height, 97.3, kg, 03/26/22 7:00:00 EST, Dosing Weight Start: 04-09-2022 See Instructions , qs 1 month supply. Test once daily. Dx e11.9, # 1 EA, 11 Refill(s), [id number] 160, cm, 02/04/22 13:23:00 EST, Height, 98.2 Start: 02-04-2022 See Instructions , 1 bottle of 100. Test once daily. Dx E11.9, # 1 EA, 3 Refill(s), Pharmacy: [facility], 160, cm, 03/26/22 7:00:00 EST, Height, 97.3, kg, 03/26/22 7:00:00 EST, Dosing Weight Start: 04-09-2022 See Instructions , qs 1 month supply. Test once daily. Dx e11.9, # 1 EA, 11 Refill(s), [id number] 160, cm, 02/04/22 13:23:00 EST, Height, 98.2 Start: 02-04-2022 See Instructions , 1 bottle of 100. Test once daily. Dx E11.9, # 1 EA, 3 Refill(s), Pharmacy: [facility], 160, cm, 03/26/22 7:00:00 EST, Height, 97.3, kg, 03/26/22 7:00:00 EST, Dosing Weight Start: 04-09-2022 See Instructions , qs 1 month supply. Test once daily. Dx e11.9, # 1 EA, 11 Refill(s), [id number] 160, cm, 02/04/22 13:23:00 EST, Height, 98.2 Start: 02-04-2022 See Instructions , 1 bottle of 100. Test once daily. Dx E11.9, # 1 EA, 3 Refill(s), Pharmacy: [facility], 160, cm, 03/26/22 7:00:00 EST, Height, 97.3, kg, 03/26/22 7:00:00 EST, Dosing Weight Start: 04-09-2022 See Instructions , qs 1 month supply. Test once daily. Dx e11.9, # 1 EA, 11 Refill(s), [id number] 160, cm, 02/04/22 13:23:00 EST, Height, 98.2 Start: 02-04-2022 See Instructions , 1 bottle of 100. Test once daily. Dx E11.9, # 1 EA, 3 Refill(s), Pharmacy: [facility], 160, cm, 03/26/22 7:00:00 EST, Height, 97.3, kg, 03/26/22 7:00:00 EST, Dosing Weight Start: 04-09-2022 See Instructions , qs 1 month supply. Test once daily. Dx e11.9, # 1 EA, 11 Refill(s), [id number] 160, cm, 02/04/22 13:23:00 EST, Height, 98.2 Start: 02-04-2022 See Instructions , 1 bottle of 100. Test once daily. Dx E11.9, # 1 EA, 3 Refill(s), [id number] 160, cm, 03/23/23 7:33:00 EST, Height, 103.7, kg, 03/23/23 7:33:00 EST, Dosing Weight Start: 03-23-2023 See Instructions , qs 1 month supply. Test once daily. Dx e11.9, # 1 EA, 11 Refill(s), Pharmacy: [facility]/pharmacy #[id number], 160, cm, 02/04/22 13:23:00 EST, Height, 98.2 Start: 02-04-2022 ONETOUCH ULTRA T EST STRIP, TEST ONCE DAILY. DX E11.9 Start: 05-18-2023 See Instructions , 1 bottle of 100. Test once daily. Dx E11.9, # 1 EA, 3 Refill(s), Pharmacy: [facility]/pharmacy #[id number], 160, cm, 03/23/23 7:33:00 EST, Height, 103.7, kg, 03/23/23 7:33:00 EST, Dosing Weight Start: 03-23-2023 See Instructions , qs 1 month supply. Test once daily. Dx e11.9, # 1 EA, 11 Refill(s), Pharmacy: [facility]/pharmacy #[id number], 160, cm, 02/04/22 13:23:00 EST, Height, 98.2 Start: 02-04-2022 ONETOUCH ULTRA T EST STRIP, TEST ONCE DAILY. DX E11.9 Start: 05-18-2023 See Instructions , 1 bottle of 100, # 1 EA, 11 Refill(s), Pharmacy: [facility]/pharmacy #[id number], 161, cm, 06/13/24 9:33:00 EDT, Height, 83.9, kg, 06/13/24 9:33:00 EDT, Dosing Weight Start: 06-13-2024 See Instructions , 1 bottle of 100. Test once daily. Dx E11.9, # 1 EA, 0 Refill(s), Pharmacy: [facility]/pharmacy #[id number], 161, cm, 03/14/24 9:31:00 EST, Height, 86, kg, 03/14/24 9:31:00 EST, Dosing Weight Start: 03-14-2024 See Instructions , qs 1 month supply. Test once daily. Dx e11.9, # 1 EA, 11 Refill(s), Pharmacy: [facility]/pharmacy #[id number], 160, cm, 02/04/22 13:23:00 EST, Height, 98.2 Start: 02-04-2022 See Instructions , 1 bottle of 100, # 1 EA, 11 Refill(s), Pharmacy: [facility]/pharmacy #[id number], 161, cm, 06/13/24 9:33:00 EDT, Height, 83.9, kg, 06/13/24 9:33:00 EDT, Dosing Weight Start: 06-13-2024 See Instructions , 1 bottle of 100. Test once daily. Dx E11.9, # 1 EA, 0 Refill(s), Pharmacy: [facility]/pharmacy #[id number], 161, cm, 03/14/24 9:31:00 EST, Height, 86, kg, 03/14/24 9:31:00 EST, Dosing Weight Start: 03-14-2024 See Instructions , qs 1 month supply. Test once daily. Dx e11.9, # 1 EA, 11 Refill(s), Pharmacy: [facility]/pharmacy #[id number], 160, cm, 02/04/22 13:23:00 EST, Height, 98.2 Start: 02-04-2022 See Instructions , 1 bottle of 100, # 1 EA, 11 Refill(s), [id number] 161, cm, 06/13/24 9:33:00 EDT, Height, 83.9, kg, 06/13/24 9:33:00 EDT, Dosing Weight Start: 06-13-2024 See Instructions , 1 bottle of 100. Test once daily. Dx E11.9, # 1 EA, 0 Refill(s), Pharmacy: [facility]/pharmacy #4605, 161, cm, 03/14/24 9:31:00 EST, Height, 86, kg, 03/14/24 9:31:00 EST, Dosing Weight Start: 03-14-2024 See Instructions , qs 1 month supply. Test once daily. Dx e11.9, # 1 EA, 11 Refill(s), Pharmacy: [facility]/pharmacy #4605, 160, cm, 02/04/22 13:23:00 EST, Height, 98.2 Start: 02-04-2022 See Instructions , 1 bottle of 100, # 1 EA, 11 Refill(s), Pharmacy: [facility]/pharmacy #4605, 161, cm, 06/13/24 9:33:00 EDT, Height, 83.9, kg, 06/13/24 9:33:00 EDT, Dosing Weight Start: 06-13-2024 See Instructions , 1 bottle of 100. Test once daily. Dx E11.9, # 1 EA, 0 Refill(s), Pharmacy: [id number], 161, cm, 03/14/24 9:31:00 EST, Height, 86, kg, 03/14/24 9:31:00 EST, Dosing Weight Start: 03-14-2024 See Instructions , qs 1 month supply. Test once daily. Dx e11.9, # 1 EA, 11 Refill(s), Pharmacy: [id number], 160, cm, 02/04/22 13:23:00 EST, Height, 98.2 Start: 02-04-2022 Goals Date Patient Goal Desired Activity /State Mental Status Date Assessment Result Facility 09-30-2024 Cognitive function Level Of Cons ciousness Follows Commands;Drowsy [facility] Work Phone: Clinical Notes 05-03-2021 to 10-17-2024 Note Date & Type Note Facility 10-17-2024 Progress note [facility] 09-30-2024 Consult note [facility] 09-30-2024 Procedure note [facility] 09-30-2024 Discharge summary [facility] 09-30-2024 History and physi shashi note [facility] 09-30-2024 Note [facility] Medical Records Department [address] [place] [address] History Physical Exam 09/30/24 0723 MR#: [id number] Acct: [id number] Name: YENNYVANE BOATENG Rep #: [id number] : 1965 59 From: Addis Foss DO PCP: JOAQUIN Solorzano Status: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 Is patient in pain?: No Allergies No Known Allergies Allergy (Verified 09/14/24 09:52) Medications ???Medication ???Instructions ???Recorded ???Confirmed ???Type multivitamin 1 tab PO DAILY 08/23/21 09/14/24 History cholecalciferol (vitamin D3) 50 50 mcg PO DAILY 08/28/22 09/14/24 History mcg (2,000 unit) capsule levothyroxine 88 mcg tablet 75 mcg PO DAILY 08/28/22 09/14/24 History (Synthroid) magnesium oxide 250 mg PO DAILY 08/28/22 09/14/24 History calcium carbonate 600 mg PO QDAY 08/31/24 09/14/24 History coenzyme Q10 10 mg capsule (Co 10 mg PO ONCE 08/31/24 09/14/24 History Q-10) lisinopril 5 mg tablet 2.5 mg PO DAILY 08/31/24 09/14/24 History rosuvastatin 20 mg tablet (Crestor) 10 mg PO DAILY 08/31/24 09/14/24 History sertraline 25 mg tablet (Zoloft) 50 mg PO .every other day 08/31/24 09/14/24 Histor y tirzepatide 7.5 mg/0.5 mL 7.5 mg subcut QWEEK 08/31/24 09/14/24 History subcutaneous pen injector (Mounjaro) Post menopausal: No Patient : No : No PFSH Medical History Aburto's cyst Abnormal Pap smear of cervix Surgical History S/P left knee surgery S/P correction of deviated nasal septum S/P adenoidectomy Family History Grandfather Diabetes c0[place] Diabetes Multiple myeloma Bone cancerMother Elevated WBCs Hypertension DiabetesBrother Elevated WBCs Hypertension DiabetesOther Myocardial infarction Social History number of children: [...] Single HPI Discuss D C Details: VANE RAMONURGER is a 59 year old who presents [...] procedure. plan for hysteroscopy dilation and curettage. 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 Addis Foss, Signed [facility] 09-30-2024 Consult note [facility] 08-31-2024 Evaluation note Diagnosis Onset Date Resolution Postmenopausal bleeding acute J joan 2024 10:57am Encounter for routine gynecological examination noneactive August 31, 2024 10:57am [facility] Work Phone: 1(725) 518-187607-09-2025 Evaluation note* Diagnosis Onset Date Resolution Status Admit Date Postmenopausal bleeding acute J joan 2024 10:57am Encounter for routine gynecological examination noneactive August 312024 10:57am Postmenopausal bleeding acute J joan 2024 8:29am [facility] Work Phone: 1(376) 475-909207-09-2025 Evaluation note* Diagnosis Onset Date Resolution Status Admit Date Postmenopausal bleeding acute J joan 2024 10:57am Encounter for routine gynecological examination noneactive August 312024 10:57am Postmenopausal bleeding acute J joan 2024 8:29am Endometrial thickening on ultrasound acute September 14, 2024 9:39am Postmenopausal bleeding acute J joan 2024 9:39am Endometrial thickening on ultrasound acute September 30, 2024 5:57am Postmenopausal bleeding acute A ugust 2024 5:57am [facility] Work Phone: 1(675) 505-228107-09-2025 Evaluation note* Diagnosis Onset Date Resolution Status Admit Date Postmenopausal bleeding acute J joan 2024 10:57am Encounter for routine gynecological examination noneactive August 312024 10:57am Postmenopausal bleeding acute J joan 2024 8:29am Endometrial thickening on ultrasound acute September 14, 2024 9:39am Postmenopausal bleeding acute J joan 2024 9:39am Endometrial thickening on ultrasound acute September 30, 2024 5:57am Postmenopausal bleeding acute A ugust 2024 5:57am Endometrial thickening on ultrasound acute October 17 10:47am Postmenopausal bleeding acute A ugust 2024 10:47am [facility] Work Phone: 1(603) 843-915806-30-2025 Hospital Discharge instructions Patient Education 08/22/2024 13:17:12 [...] before eating solid foods. General instructions Take pxea-gmd-djwamiq and prescription medicines only as told by [...] 06/01/2016 Document Revised: 05/10/2018 Document Reviewed: 06/01/2016 [employer] Patient Education 2020 [employer] App. 08/22/2024 13:17:09 Colonoscopy, Adult, Care After, Bsbk-uk-Glgg Colonoscopy, Adult, Care After This sheet gives [...] are soft and easy to digest. Take mllr-fsl-vnrjvjt or prescription medicines only as told by [...] 03/14/2011 Document Revised: 12/10/2017 Document Reviewed: 11/03/2016 [employer] Patient Education 2020 [employer] App. Follow Up Care 08/18/2024 10:52:26 With:RYANN TRAN DO, Clinical Gastroenterology Address: [address] [facility] [place] [address] [phone] When:Within 8 Year(s) With:BERTHA RIVAS Address: [address] [place] [address] [phone] When: [facility] 06-30-2025 Note Discharge Instructions Thank you for allowing [place] to assist you with your healthcare needs. The following is importantdischarge information regarding your hospital visit. Your Care Team BERTHA RIVAS Dr. What to do next Instructions From Your Doctor Screening colonoscopy 8 to 10 years Scheduled Follow-Up Appointments Appointment Type When With Where Contact Information StatusPC Nurse Lab 09/12/2024 08:15 AM EDT [facility] Confirmed PC OV 09/19/2024 09:30 AM EDT BERTHA RIVAS [place] [facility] Confirmed Follow Up Appointments Follow Up with RYANN TRAN DO, Clinical Gastroenterology When:In 8 years Where:[address] [facility] [place] [address]- [phone] Follow Up with BERTHA RIVAS Where:[address] [place] [address]- [phone] The Following Activity and Diet Have Been [...] as provided by your GI provider at [place]. Unchanged rosuvastatin (rosuvastatin 10 mg oral tablet) [...] before eating solid foods. General instructions Take fjlw-guh-kqajoph and prescription medicines only as told by [...] 06/01/2016 Document Revised: 05/10/2018 Document Reviewed: 06/01/2016 [employer] Patient Education 2020 Pictrition App. Colonoscopy, Adult, Care After This sheet gives [...] are soft and easy to digest. Take smlg-uip-hnkovxf or prescription medicines only as told by [...] 03/14/2011 Document Revised: 12/10/2017 Document Reviewed: 11/03/2016 [employer] Patient Education 2020 Pictrition App. Additional Information VACCINATE! IT SAVES LIVES! Members of the community who have not yet received the COVID-19 vaccine and would like to receive it can visit one of [facility] vaccine clinics. There are many vaccine clinic locations within the [facility]. For locations and available times, please visit [email or web address] It is important to note that some COVID mobile vaccine clinics are held outdoors and may be canceled in rainy or stormy conditions. To learn more about pediatric vaccinations (ages 5-11), we invite you to visit the [facility] webpage. [email or web address] learn more about the COVID-19 vaccine, we invite you to visit the CDC website for a list of frequently asked questions.https://www.cdc.gov/coronavirus/2019-ncov/vaccines/faq.html [facility] Patient Portal Access Instructions: Stay connected with your healthcare team and access your personal medical information anytime with the [facility] Patient Portal. Please follow the directions below to create your [facility] account: 1.Access the email account you provided upon registration to the hospital/physician office.2.Look for an invitation email from [facility].3.Open the email and access the invitation link: AcceptInvitation to City [facility].4.Fill in the required gould to create your account. To access your account, visit [email or web address]. Click the blue button labeled Access Patient Portal and then log in with the username and password that you created in the steps above. You will be able to view your test results, lab results, a summary of your visits, upcoming appointments and more. There is also a convenient messaging option where you can send secure messages to your p rovider. In addition, you will have the ability to download any documents or summaries to your computer and/or send the information securely to a physician. Remember that your healthcare information is confidential, so carefully consider who you will allowto register on the [place] [employer] Patient Portal for access to your information. You can also access the [place] [facility]ie[facility] Patient Portal on the [place] [employer] kady. Simply click on Patient Portal and then log into your account. If you would like to receive a full copy of your medical records, please contact the [facility] Medical Records Department by calling [phone], Thursday through Thursday between 8 a.m. and [...] Call your local pharmacy or go to [email or web address] to find one close to you.3.Make use of household items: Use cat litter or old coffee grounds to dispose medications if other options arenot available. Mix your drugs with these household products, seal them in an airtight container andthrow it into the garbage. Call [facility]: [phone] to be sure your drugs can be [...] Care, Care After Colonoscopy, Adult, Care After, Nsnw-cn-Bgid Medication Leaflets My discharge plan and instructions have been reviewed and explained to me and ICANELO RACHEL L understand my current condition and have read and understand these discharge instructions. I have received a written copy of the plan/instructions. If I have questions, I am aware that I should contact my doctor. 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06-30-2025 Note Indication for Surgery Colorectal cancer screening Preoperative Diagnosis Colorectal cancer screening Postoperative Diagnosis Left colonic diverticulosis Operation Colonoscopy Surgeon(s) Ryann Tran D.O. Anesthesia MAC Estimated Blood Loss None [...] to 10 years Digitally Signed by RYANN TRAN DO on 08/22/2024 02:[address] [facility]06-30-2025 Anesthesiology Consult note Patient: VANE LEMOS Age: 59 years Sex: Female : 1965 Associated Diagnoses: None Author: JAYLA MCGEE APRN-TAR HEATER Assessment Postanesthesia assessment Vitals: Vital signs from [...] by JAYLA MCGEE on 08/22/2024 02:[address] [facility]06-30-2025 Anesthesiology Consult note Patient: VANE LEMOS Age: [...] as provided by your GI provider at [place]., 1 EA, 0 Refill(s) Synthroid 75 mcg [...] Medical Obesity (BMI 30-39.9) / SNOMED CT 194380599 / Confirmed BMI 37.0-37.9, adult / SNOMED CT 409996352 / Confirmed Leg cramps / SNOMED CT 6422356783 / Confirmed Internal derangement of left knee / SNOMED CT 4349181715 / Confirmed Fatigue / SNOMED CT 329939204 / Confirmed Hypothyroidism / SNOMED CT 69370054 / Confirmed Urine frequency / SNOMED CT 397102578 / Confirmed Type 2 diabetes mellitus, with long-term current use of insulin / SNOMED CT 8889836771 / Confirmed Major depressive disorder / SNOMED CT 7269827225 / Confirmed Mixed hyperlipidemia / SNOMED CT 881157023 / Confirmed Measles, mumps, rubella (MMR) vaccination status unknown / SNOMED CT 079058853 / Confirmed Myalgia / SNOMED CT 276520802 / Confirmed Obstructive sleep apnea / SNOMED CT 285901047 / Confirmed Screening for breast cancer / SNOMED CT 606216833 / Confirmed Well adult exam / SNOMED CT 375905031 / Confirmed Screen for colon cancer / SNOMED CT 258033885 / Confirmed Nasal cavity polyp / SNOMED CT 2396640845 / Confirmed Postmenopausal bleeding / SNOMED CT 687078771 / Confirmed Snoring / SNOMED CT 092216338 / Confirmed Type 2 diabetes mellitus, without long-term current use of insulin / SNOMED CT 045130591 / Confirmed Vitamin D deficiency / SNOMED CT 49799447 / Confirmed, Active Problems (23) Arthritis of [...] Medical History: Resolved Type 2 diabetes mellitus (372388890): Resolved. Strep pharyngitis (32321086): Resolved. Vulvovaginal itching (409560702): Resolved. Need for hepatitis C screening test (506053879): Resolved. Morbid obesity with BMI of 40.0-44.9, adult (5420159502): Resolved. Family History: Diabetes mellitus Father Brother Mother Grandparent Multiple myeloma Father Myocardial infarction Grandparent Glaucoma Grandparent HTN - Hypertension Mother Brother Procedure history: Arthroscopy of knee (725860394) on 12/07/2018 at 53 Years. Comments: 12/07/2018 15:34 EDT - Laverne Yoo RN LEFT Excision of Aburto's cyst of knee (821319231). Comments: 11/25/2018 15:38 EDT - Yadira Kwong RN Left, x2 Adenoidectomy (652453375). Nasal septoplasty (63432688). Extraction of wisdom tooth (005571096). 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 Nutrition/Health 08/22/2024 Caffeine intake amount: 3 [...] Signs (last 24 hrs) Last Charted Temp Qrjrsihv62.6 DegC (AUG 22 13:02) Heart Rate Sanvyc23 bpm (AUG 22 13:02) MWM238 mmHg (AUG 22 13:02) DBP74 mmHg (AUG 22 13:02) Measurements from flowsheet : Measurements 08/22/2024 13:02 EDT Height 160.02 cm Admission Weight 84.09 kg [place] Body Weight 52.40 kg Admission Body Mass Index 32.84 m2 08/22/2024 12:56 EDT Height 161 cm [place] Body Weight 53.29 kg Pain assessment: Pain [...] Surgeon SN - CAt - Role Performed Crm Campaign Manager 1 SN - CAt - Role Performed Med Spec SN - CAt - Role Performed TAR HEATER 08/22/2024 13:15 EDT Lactated Ringers Injection Begin [...] Height 160.02 cm Admission Weight 84.09 kg [place] Body Weight 52.40 kg Admission Body Mass [...] Bowel Sounds All Quadrants Present Skin Description [place], Normal for ethnicity, Dry Skin Temperature Warm [...] Privacy Restrictions Requested None Height 161 cm [place] Body Weight 53.29 kg Temperature Tympanic 36.6 [...] evident Teaching Method Explanation Preferred Spoken Language Korean Preferred Written Language Korean Patient's Current Physicians Patient's Current Physicians Discharge To, Anticipated Home independently Prev Test Positive/Diagnosis w/COVID-19 No Current Quarantine/Isolated any Illness No Any Contact with Sick Animals/Birds No Traveled Anywhere in Last 30 Days No No Personal Devices, Patient Valuables None Admission Note-Nursing Procedure/Therapy Intake 08/22/2024 12:52 EDT IV Present Present Allergies Yes Anesthesia Extension Set Applied Yes Manager Of Pmo On Yes Colon Prep Results Good Consent [...] Last Food Intake 08/20/2024 2:00 08/22/2024 12:01 [facility] History and Physical . Assessment and Plan [place] [employer] Anesthesiologists (ASA) physical status classification: Class II. Anesthetic Preoperative Plan Informed consent: signed by patient. Digitally Signed by JAYLA MCGEE on 08/22/2024 02:[address] [facility]06-30-2025 Evaluation + Plan noteExtracted from: Title:Clinical Document Author:RYANN TRAN ate:08/22/24 [place] ADMISSION HISTORY AN D PHYSICIAL CHIEF COMPLAINT: Colorectal cancer screening HISTORY OF PRESENT ILLNESS: Colorectal cancer screening REVIEW OF SYSTEMS: Constitutional: denies weight loss Cardiovascular:denies chest pain, palpitations Respiratory:denies shortness of breath Gastrointestinal:no abd pain Musculoskeletal: no arthralgias Skin: no rashes ACTIVE PROBLEMS: (23) Arthritis of knee, left (7047377170) BMI 37.0-37.9, adult (255220783) Depression (63840349) Fatigue (144170113) Hypothyroidism (47122314) Internal derangement of left knee (4822916833) Leg cramps (0390483624) Major depressive disorder (7063406206) Measles, mumps, rubella (MMR) vaccination status unknown (596823251) Mixed hyperlipidemia (462966724) Myalgia (572113181) Nasal cavity polyp (7906396924) Obesity (BMI 30-39.9) (810577074) Obstructive sleep apnea (026103236) Postmenopausal bleeding (544169939) Screen for colon cancer (941104320) Screening for breast cancer (946179333) Snoring (680664428) Type 2 diabetes mellitus, with long-term current use of insulin (9448010286) Type 2 diabetes mellitus, without long-term current use of insulin (488492812) Urine frequency (527321399) Vitamin D deficiency (58410140) Well adult exam (556876813) MEDICATIONS: Active Inpt Meds: None Active PRN [...] Appointments Appointment Date:09/12/2024 08:15:00 AM Scheduled Provider: Location:[facility] Appointment Type:PC Nurse Lab Appointment Date:09/19/2024 09:30:00 AM Scheduled Provider:BERTHA RIVAS Location:[facility] Appointment Type:PC OV Future Scheduled Tests Laboratory* Urinalysis w/ C&S if Indicated 12/14/[address] [facility] 06-30-2025 Note [place] ADMISSION HISTORY AND PHYSICIAL CHIEF COMPLAINT: Colorectal cancer screening HISTORY OF PRESENT ILLNESS: Colorectal cancer screening REVIEW OF SYSTEMS: Constitutional: denies weight loss Cardiovascular:denies chest pain, palpitations Respiratory:denies shortness of breath Gastrointestinal:no abd pain Musculoskeletal: no arthralgias Skin: no rashes ACTIVE PROBLEMS: (23) Arthritis of knee, left (9449453965) BMI 37.0-37.9, adult (737376286) Depression (68702612) Fatigue (381315884) Hypothyroidism (46048081) Internal derangement of left knee (5014150644) Leg cramps (6726863960) Major depressive disorder (0404167342) Measles, mumps, rubella (MMR) vaccination status unknown (490388414) Mixed hyperlipidemia (179088732) Myalgia (393532113) Nasal cavity polyp (2872606925) Obesity (BMI 30-39.9) (309971109) Obstructive sleep apnea (514390368) Postmenopausal bleeding (843159767) Screen for colon cancer (780311177) Screening for breast cancer (076737658) Snoring (279320229) Type 2 diabetes mellitus, with long-term current use of insulin (9300863179) Type 2 diabetes mellitus, without long-term current use of insulin (203956027) Urine frequency (419790171) Vitamin D deficiency (72692765) Well adult exam (015803432) MEDICATIONS: Active Inpt Meds: None Active PRN [...] in the office Digitally Signed by RYANN TRAN DO on 08/22/2024 12:[address] [facility]03-11-2022 Evaluation + Plan note Future Scheduled Tests Laboratory* Thyroid Stimulating Hormone 05/03/21 * Free T4 05/03/21 * Complete Blood Count 05/03/21 * Lipid Profile 05/03/21 * Vitamin D Level 05/03/21 * Complete Metabolic Panel 05/03/[address] [facility] Consult note Author Tejas Hayden [facility] Note Date/Time September 30, 2024 7:[address] [place] [address] Medical Records Department [address] [place] [address] Pre-Anesthesia Evaluation 09/30/24 0704 MR#: [id number] Acct: [id number] Name: YENNYVANE BOATENG Rep #:[id number] : 1965 59 From: Tejas Hayden MD PCP: JOAQUIN Solorzano Status:REG S DC Y Race: C Location: [place] [address] ASA Classification* ASA Classification ASA Classification: 2 Assessment & Plan Anesthesia* Anesthesia Assessment Anesthesia Assessment: Discussed sedation and/or anesthesia options, risks, benefits, and alternatives with patient/parents/legal guardian/POA. Questions invited. The patient/parents/legal guardian/POA seems to understand and agrees to proceedwith anesthesia plan. Reviewed the physical assessment, medical history, allergy history and patient home medications list prior to surgery/procedure/anesthetic and documented any changes. Performed airway and anesthesia risk assessments. Anesthesia Type Anesthesia Type: MAC History Source History Obtained from:: Patient and Chart Anesthesia Focused Assessment* Temperature: 97.6 F Pulse Rate: 66 Blood Pressure: 117/67 Respiratory Rate: 18 Pulse Ox: 97 Oxygen Delivery Method: Room Air Airway Assessment Mouth opens: >3 cm Mallampati Score: IV Teeth Condition: Missing (Missing tooth #11. Rest are tight.) Neck Range of motion (ROM): Full ROM Labs Anesthesia Preop lab: CBC WBC 7.1 K/mm3 (4.4-11.0) 09/26/24 10:12 09/26/24 RBC 4.39 M/mm3 (4.2-5.4) 09/26/24 10:12 09/26/24 Hgb 13.4 g/dL (12.0-15.0) 09/26/24 10:12 09/26/24 Hct 39.5 % (37-47) 09/26/24 10:12 09/26/24 Plt Count 315 K/mm3 (150-450) 09/26/24 10:12 09/26/24 CHEMISTRY COAG Urine Test Negative Negative 09/30/24 06:10 09/30/24 Pre-Assessment Diagnosis/Proposed Procedure Planned Operative Procedure(s): Hysteroscopy,Dilation and Curettage Anesthesia History Anesthesia History - student financial services counselor: Anesthesia History - student financial services counselor Hx Hospitalization No 09/26/24 08:28 Any Problems With Anesthesia No 09/26/24 08:28 Cholinesterase deficiency No 09/26/24 08:28 You/Your Family Experience No 09/26/24 08:28 fever (hyperthermia) with Relationship Recent Exposure to Contagious No 09/30/24 06:29 Disease Does patient have nerve No 09/26/24 08:28 stimulator Patient instructed to have device shut off --Does patient have Pacemaker No 09/30/24 06:29 or ICD? When Was Last Pacemaker Check QUESTION #4 FULL TEXT: You/Your Family Experience fever (hyperthermia) with Anesthesia Last Oral Intake Last Oral intake: Last Oral Intake NPO since 21:30 09/30/24 06:29 Meds taken in AM with sips of No 09/30/24 06:29 water? Meds patient instructed to take am of surgery PONV PONV - student financial services counselor: PONV - student financial services counselor Female Yes 09/26/24 08:28 HX of Motion Sickness No 09/26/24 08:28 HX of N/V After Surgery No 09/26/24 08:28 Non-Smoker Yes 09/26/24 08:28 Duration of Surgery greater No 09/26/24 08:28 than 60 minutes Number of Risk Factors 2 09/26/24 08:28 PONV Score Moderate Risk 09/26/24 08:28 Height & Weight Height & Weight: Anesthesia: Height & Weight Height 5 ft 3 in 09/30/24 06:29 Weight: 85 kg 09/30/24 06:29 Body Mass Index (BMI) 33.2 09/30/24 06:29 Respiratory Assessment Respiratory Assessment - student financial services counselor: Respiratory Tract Infection Hx - student financial services counselor Hx Respiratory Tract Infection No 09/26/24 08:28 STOP Sleep Apnea STOP Sleep Apnea - student financial services counselor: STOP Sleep Apnea - student financial services counselor Hx Hypertension Yes: PER PT, CONTROLLED ON 09/26/24 08:28 MEDS Hx Sleep Apnea Yes 09/26/24 08:28 CPAP No 09/26/24 08:28 BIPAP No 09/26/24 08:28 Do you snore loudly (louder than talking or can be heard Do you often feel tired/ fatigued/ sleepy during daytime? Has anyone observed you stop breathing during sleep? STOP Results Positive 09/26/24 08:28 QUESTION #5 FULL TEXT : Do you snore loudly (louder than talking or can be heard through closed doors)? 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 Specify any problems Hx of Preganancy in last 3 No 09/26/24 08:28 Months Nurse Filling Out Transfusion MGRIGREG 09/26/24 08:28 & Questions: Date: 09/26/24 09/26/24 08:28 Time: 08:31 09/26/24 08:28 Patient unable to answer at this time (ie. confused, unrespo /Reproduction History /Reproductive History - student financial services counselor: /Reproductive Hx- student financial services counselor Hx Now No 09/26/24 08:28 Gestational Age (in weeks): EDC: Hx Hx Para Hx Section SAB No 09/26/24 08:28 Active Medications Active Medications: Current Medications Generic Name Dose Route Start Last Admin Trade Name Freq PRN Reason Stop Dose Admin Lactated Ringer's 1,000 mls @ 15 mls/hr 09/30/24 06:15 09/30/24 06:42 IV 15 mls/hr .Q48H ADELFO Administration PFSH Medical History Wears glasses Depression Diabetes Thyroid disease High cholesterol Sleep apnea Non-smoker Leg cramps Hypertension Aburto's cyst Abnormal Pap smear of cervix Home Medications ?Medication ?Instructions ?Recorded ?Last Taken ?Type multivitamin 1 tab PO DAILY 08/23/2109/16 History cholecalciferol (vitamin D3) 50 50 mcg PO DAILY 09/28/24 History mcg (2,000 unit) capsule levothyroxine 88 mcg tablet 75 mcg PO DAILY 08/28/22 0 09/29/24 History (Synthroid) magnesium oxide 250 mg PO DAILY 08/28/2208/17 History calcium carbonate 600 mg PO QDAY 08/31/2408/17 History coenzyme Q10 10 mg capsule (Co 10 mg PO DAILY 08/31/24 09/29/24 History Q-10) lisinopril 5 mg tablet 2.5 mg PO DAILY 08/31/2408/17 History rosuvastatin 20 mg tablet (Crestor) 10 mg PO DAILY 11/1709/28/24 History sertraline 25 mg tablet (Zoloft) 50 mg PO DAILY 09/29/24 History tirzepatide 7.5 mg/0.5 mL 7.5 mg subcut REEDER 08/31/24 History subcutaneous pen injector (Mounjaro) Allergy/AdvReac Type Severity Reaction Status Date / Time No Known Allergies Allergy Verified 09/30/24 06:26 Family History Grandfather Diabetes x2 Father Diabetes Multiple myeloma Bone cancer Mother Elevated WBCs Hypertension Diabetes Brother Elevated WBCs Hypertension Diabetes Other Myocardial infarction Surgical History History of colonoscopy S/P left knee surgery S/P correction of deviated nasal septum S/P adenoidectomy Social History number of children: 0 current occupational status: retired Smoking Status: Current every day smoker alcohol intake: never substance use type: does not use caffeine: Yes what type of physical activity do you participate in: walking frequency: 3-4 times per week seatbelt use: always do you feel safe at home: Yes additional social history: Single Review of Systems (Anesthesia) ROS Narrative System reviewed and no additional complaints, except as documented. 09/30/24 0710 <Electronically signed by Tejas delgado MD> Date _ Tejas Hayden MD Cosigner Signature: Date CC: ~ Signed [facility] Work Phone: Consult note Author Naty Rabago [facility] Note Date/Time September 30, 2024 8:1 4am [facility] Medical Records Department [address] [place] [address] Anesthesia Postop Eval I 09/30/24 0813 MR#: [id number] Acct: [id number] Name: VANE LEMOS Rep #:[id number] : 1965 59 From: Naty Rabago CRNA PCP: JOAQUIN Solorzano Status:REG S DC Y Race: C Location: [place] [address] Anesthesia: Postop Eval I Current Vital Signs Temperature: 97.5 F Pulse Rate: 74 Blood Pressure: 108/57 Respiratory Rate: 16 Pulse Ox: 97 Oxygen Delivery Method: Room Air Assessment Airway patent: Yes Spontaneous unlabored respirations: Yes Mental status: Awake and Calm nausea: No Vomiting: No Anesthesia Complication: No Fluid Hydration Crystalloid volume administer (ml): 800 Total IV fluid infused: 800 Progress Note Anesthesia document: Postop Eval 1 completed: Yes 09/30/24813 <Electronically signed by Naty lombardo CRNA> Date _ Naty Rabago TAR HEATER Cosigner Signature: Date CC: ~ Signed [facility] Work Phone: Discharge summary Author Addis Claudio [facility] Note Date/Time September 30, 2024 7:2 5am [facility] Medical Records Department [address] [place] [address] Instructions for Home/Discharge Instructions 09/30/24 0724 MR#: [id number] Acct: [id number] Name: VANE LEMOSA Rep #:[id number] : 1965 59 From: Addis Foss DO PCP: JOAQUIN Solorzano Status:REG S DC Discharge Instructions DC O2, CPAP, BIPAP needs Home O2 Discharge instructions: No Dressing / Incision Discharge Activity: Return to Normal Activity, May Shower and May Take a Tub Bath (after 1 week) May resume sexual activity in: 1-2 weeks Weight Bearing Status: Weight bearing as tolerated Lifting Restrictions: none Dressing / Incision Call your doctor if you observe: Fever of 101 or Higher, Using more than 1 pad per hour, Shortness of breath, Uncontrolled pain and - (take 800mg of over the counter ibuprofen every 8 hours with food as needed for pain) Follow Up Care Please Follow Up With: Addis Foss DO When: Call [phone] to schedule appointment. Test Results: Test results from this visit will be discussed in further detail at your follow- up appointment, if applicable. Discharge Plan Admission Primary Reason for Your Visit: dilation and curettage Attending Provider: Addis Foss Primary Care Provider: Bertha Rivas NP Instructions Print Language: Korean Discharge Orders/Prescriptions Prescriptions: No Action multivitamin Tablet 1 tab PO DAILY levothyroxine [Synthroid] 88 mcg tablet 75 mcg PO DAILY sertraline [Zoloft] 25 mg tablet 50 mg PO DAILY magnesium oxide 250 mg magnesium tablet 250 mg PO DAILY cholecalciferol (vitamin D3) 50 mcg (2,000 unit) capsule 50 mcg PO DAILY lisinopril 5 mg tablet 2.5 mg PO DAILY rosuvastatin [Crestor] 20 mg tablet 10 mg PO DAILY Mounjaro 7.5 mg/0.5 mL pen injector 7.5 mg subcut REEDER Patient Comments: LAST DOSE 09/18/24 FOR SURGERY ON 09/30/24 coenzyme Q10 [Co Q-10] 10 mg capsule 10 mg PO DAILY calcium carbonate 600 mg calcium (1,500 mg) tablet 600 mg PO QDAY Referrals / Follow Up: Bertha Rivas NP, [facility] [Primary Care Provider] - Disposition Disposition (needs filled in before D/C Order can be placed): Home, Self Care 09/30/24 0725<Electronically signed by Addis Foss DO>Addis Foss DO CC: JOAQUIN Rivas ~ Signed [facility] Work Phone: Evaluation + Plan note Future Appointments Appointment Date:02/12/2022 09:00:00 AM Scheduled Provider:BERTHA RIVAS APRN-IT CONSULTANT Location:[facility] Appointment Type:PC OV [facility] Evaluation + Plan note Future Appointments Appointment Date:03/26/2022 07:00:00 AM Scheduled Provider:BERTHA RIVAS Location:[facility] Appointment Type:PC OV Appointment Date:05/14/2022 07:00:00 AM Scheduled Provider:BERTHA RIVAS Location:[facility] Appointment Type:PC OV Appointment Date:06/05/2022 08:30:00 AM Scheduled Provider:ALEX BULL MD Location:[facility] Appointment Type:PC Wellness Annual Future Scheduled Tests Laboratory* A1C Hemoglobin 05/13/22 * Lipid Profile 05/13/22 * Vitamin D Level 05/13/22 * Complete Metabolic Panel 05/13/22 [facility] Evaluation + Plan note Future Appointments Appointment Date:05/14/2022 07:00:00 AM Scheduled Provider:BERTHA RIVAS Location:[facility] Appointment Type:PC OV Appointment Date:06/05/2022 08:30:00 AM Scheduled Provider:ALEX BULL MD Location:[facility] Appointment Type: Wellness Annual Future Scheduled Tests Laboratory* A1C Hemoglobin 05/24/22 * Lipid Profile 05/24/22 * Vitamin D Level 05/24/22 * Complete Metabolic Panel 05/24/[address] [facility] Evaluation + Plan note Future Appointments Appointment Date:08/18/2022 09:00:00 AM Scheduled Provider:BERTHA RIVAS Location:[facility] Appointment Type:PC OV Future Scheduled Tests Laboratory* Thyroid Stimulating Hormone 05/14/22 * Free T4 05/14/22 * A1C Hemoglobin 08/14/22 * A1C Hemoglobin 05/24/22 * Lipid Profile 08/14/22 * Lipid Profile 05/24/22 * Albumin/Creatinine Ratio, Random Urine 08/14/22 * Vitamin D Level 08/14/22 * Vitamin D Level 05/24/22 * Complete Metabolic Panel 08/14/22 * Complete Metabolic Panel 05/24/[address] [facility] Evaluation + Plan note Future Appointments Appointment Date:08/18/2022 09:00:00 AM Scheduled Provider:BERTHA RIVAS Location:[facility] Appointment Type:PC OV Future Scheduled Tests Laboratory* Thyroid Stimulating Hormone 05/14/22 * Free T4 05/14/22 * A1C Hemoglobin 05/24/22 * Lipid Profile 05/24/22 * Vitamin D Level 05/24/22 * Complete Metabolic Panel 05/24/[address] [facility] Evaluation + Plan note Future Appointments Appointment Date:11/10/2022 08:00:00 AM Scheduled Provider: Location:[facility] Appointment Type:PC Nurse Lab Appointment Date:11/17/2022 07:00:00 AM Scheduled Provider:BERTHA RIVAS Location:[facility] Appointment Type: OV Future Scheduled Tests Laboratory* Thyroid Stimulating Hormone 11/18/22 * Thyroid Stimulating Hormone 05/14/22 * Free T4 11/18/22 * Free T4 05/14/22 * A1C Hemoglobin 11/18/22 * A1C Hemoglobin 05/24/22 * Lipid Profile 11/18/22 * Lipid Profile 05/24/22 * Vitamin D Level 11/18/22 * Vitamin D Level 05/24/22 * Complete Metabolic Panel 11/18/22 * Complete Metabolic Panel 05/24/[address] [facility] Evaluation + Plan note Future Appointments Appointment Date:11/17/2022 07:00:00 AM Scheduled Provider:BERTHA RIVAS Location:[facility] Appointment Type:PC OV [facility] Evaluation + Plan note Future Appointments Appointment Date:06/15/2023 07:30:00 AM Scheduled Provider:BERTHA RIVAS Location:[facility] Appointment Type: OV Future Scheduled Tests Laboratory* Hepatitis C Antibody IgG 06/08/23 * Albumin/Creatinine Ratio, Random Urine 06/22/[address] [facility] Evaluation + Plan note Future Appointments Appointment Date:09/14/2023 11:00:00 AM Scheduled Provider:BERTHA RIVAS Location:[facility] Appointment Type:PC OV Lab Check Future Scheduled Tests Laboratory* Hepatitis C Antibody IgG 06/08/[address] [facility] Evaluation + Plan note Future Appointments Appointment Date:03/14/2024 09:30:00 AM Scheduled Provider:BERTHA RIVAS Location:[facility] Appointment Type:PC OV Future Scheduled Tests Laboratory* Urinalysis w/ C&S if Indicated 12/14/[address] [facility] Evshiraation + Plan note Future Appointments Appointment Date:08/01/2024 04:30:00 PM Scheduled Provider: Location:[facility] Appointment Type:US Pelvis Non-OB Limited Appointment Date:08/03/2024 09:00:00 AM Scheduled Provider: Location:[facility] Appointment Type:Telehealth Appointment Date:09/12/2024 08:15:00 AM Scheduled Provider: Location:[facility] Appointment Type:PC Nurse Lab Appointment Date:09/19/2024 09:30:00 AM Scheduled Provider:BERTHA RIVAS Location:[facility] Appointment Type:PC OV Future Scheduled Tests Laboratory* Urinalysis w/ C&S if Indicated 12/14/23 Radiology* US Pelvis Non-OB Limited 08/01/[address] [facility] Evshiraation + Plan note Future Appointments Appointment Date:08/03/2024 09:00:00 AM Scheduled Provider: Location:[facility] Appointment Type:Telehealth Appointment Date:09/12/2024 08:15:00 AM Scheduled Provider: Location:[facility] Appointment Type:PC Nurse Lab Appointment Date:09/19/2024 09:30:00 AM Scheduled Provider:BERTHA RIVAS Location:[facility] Appointment Type:PC OV Future Scheduled Tests Laboratory* Urinalysis w/ C&S if Indicated 12/14/[address] [facility] Evaluation + Plan note Future Appointments Appointment Date:03/06/2025 08:00:00 AM Scheduled Provider: Location:[facility] Appointment Type:PC Nurse Lab Appointment Date:03/13/2025 11:00:00 AM Scheduled Provider:BERTHA RIVAS Location:[facility] Appointment Type: OV Lab Check Future Scheduled Tests Laboratory* Urinalysis w/ C&S if Indicated 12/14/23 * Thyroid Stimulating Hormone 03/23/25 * Free T4 03/23/25 * A1C Hemoglobin 03/23/25 * Lipid Profile 03/23/25 * Vitamin D Level 03/23/25 * Complete Metabolic Panel 03/23/[address] [facility] Evaluation note* Diagnosis Onset Date Resolution Status Encounter for routine gynecological examination noneactive [facility] Work Phone: Evaluation note* Diagnosis Onset Date Resolution Status Admit Date Encounter for routine gynecological examination noneactive August 312024 10:57am [facility] Work Phone: History and physical note Author Addis Claudio [facility] Note Date/Time September 30, 2024 7:2 4am [facility] Medical Records Department [address] [place] [address] History & Physical Exam 09/30/24 0723 MR#: [id number] Acct: [id number] Name: VANE LEMOS Rep #:[id number] : 1965 59 From: Addis Foss DO PCP: JOAQUIN Solorzano Status:REG S CO Location: [place] [address] History and Physical Date of Admission: 09/30/24 H&P Intake Vital Signs 09/09/2507:31 09/14/2508:52 09/14/2508:54 Height 5 ft 3 in 5 ft 3 in 5 ft 3 in Weight: 188 lb 2 oz BMI 33.3 BP 99/66 Intake Visit Reasons: Discuss D&C Doubler Operator Required: No Is patient in pain?: No Allergies No Known Allergies Allergy (Verified 09/14/24 09:52) Medications ?Medication ?Instructions ?Recorded ?Confirmed ?Type multivitamin 1 tab PO DAILY 08/23/21 09/14/24 History cholecalciferol (vitamin D3) 50 50 mcg PO DAILY 08/28/22 09/14/24 Histor y mcg (2,000 unit) capsule levothyroxine 88 mcg tablet 75 mcg PO DAILY 08/28/22 09/14/24 Histor y (Synthroid) magnesium oxide 250 mg PO DAILY 08/28/22 09/14/24 Histor y calcium carbonate 600 mg PO QDAY 08/31/24 09/14/24 History coenzyme Q10 10 mg capsule (Co 10 mg PO ONCE 08/31/24 09/14/24 History Q-10) lisinopril 5 mg tablet 2.5 mg PO DAILY 08/31/24 09/14/24 Histor y rosuvastatin 20 mg tablet (Crestor) 10 mg PO DAILY 08/31/24 09/14/24 History sertraline 25 mg tablet (Zoloft) 50 mg PO .every other day 08/31/2409/14 History tirzepatide 7.5 mg/0.5 mL 7.5 mg subcut QWEEK 08/31/24 09/14/24 [employer] subcutaneous pen injector (Jono) Post menopausal: No Patient : No : No PFSH Medical History Aburto's cyst Abnormal Pap smear of cervix Surgical History S/P left knee surgery S/P correction of deviated nasal septum S/P adenoidectomy Family History Grandfather Diabetes l1Ybslof Diabetes Multiple myeloma Bone cancerMother Elevated WBCs Hypertension DiabetesBrother Elevated WBCs Hypertension DiabetesOther Myocardial infarction Social History number of children: 0 current occupational status: retired Smoking Status: Current every day smoker alcohol intake: never substance use type: does not use caffeine: Yes what type of physical activity do you participate in: walking frequency: 3-4 times per week seatbelt use: always do you feel safe at home: Yes additional social history: Single HPI Discuss D&C Details: VANE LEMOS is a 59 year old who presents for discussion about thickened endometrium and scant tissue that was returned with the EMB. THe pathologist reported benign tissue but due to scant amount of tissue we can not 100% rely onthese results. The recommendation is for a dilation and curettage procedure. History 0 Elective abortions Hx Para Spontaneous abortions Hx # Term Pregnancies Ectopic pregnancies Hx # Pregnancies Multiple births # of living children ROS Const ROS Unobtainable: All systems reviewed & are unremarkable except as noted in H Resp Resp: Reports system reviewed and no additional complaints, except as documented; Denies cough GI GI: Reports as per HPI Psych Psych: Reports system reviewed and no additional complaints, except as documented Exam Const General: cooperative, healthy appearing, comfortable and no acute distress Resp Effort & Inspection: normal respiratory effort Skin General: no [...] of the procedure which include but are notlimited to risks of anesthesia, bleeding, infection, possible damage to bowel, bladder, or surrounding vasculature which could lead to additional surgery to evaluate any complications. Patient agrees to procedure and wishes to proceed. ACOG/uptodate references given for additional information regarding procedure. plan for hysteroscopy dilation and curettage. 09/30/24 0724 <Electronically signed by Addis Foss DO> Cosigner Signature (if applicable): CC: JOAQUIN Rivas; Dr. Addis Foss DO~ Signed [facility] Work Phone: Hospital course Narrative No data available for this section [facility] Hospital Discharge instructions No data available for this section [facility] Progress note No data available for this section [facility] Progress note Author Addis Claudio [facility] Note Date/Time October 17, 2024 11 :18am [facility] [address], [address] [place] [address] OFFICE VISIT Date of Service: 10/17/24 MR#: [id number] Acct: [id number] Name: VANE LEMOS Rep #: [id number] : 1965 Provider: Dr. Johanne Foss DO Age/Sex: 59/F Location: [facility] Status: Signed Intake Vital Signs 09/14/24 09:54 09/30/24 06:29 10/17/24 11:00 10/17/24 11:02 Height 5 ft 3 in 5 ft 3 in 5 ft 3 in 5 ft 3 in Weight: 184 lb 7 oz BMI 32.6 BP 118/76 Intake Visit Reasons: 2 wk D&C Doubler Operator Required: No Is patient in pain?: No Allergies No Known Allergies Allergy (Verified 10/17/24 10:59) Medications ?Medication ?Instructions ?Recorded ?Confirmed ?Type multivitamin 1 tab PO DAILY 08/23/2109/24 History cholecalciferol (vitamin D3) 50 50 mcg PO DAILY 10/17/24 History mcg (2,000 unit) capsule levothyroxine 88 mcg tablet 75 mcg PO DAILY 08/28/22 0 10/17/24 History (Synthroid) magnesium oxide 250 mg PO DAILY 08/28/22 History calcium carbonate 600 mg PO QDAY 08/31/2409/24 History coenzyme Q10 10 mg capsule (Co 10 mg PO DAILY 08/31/24 10/17/24 History Q-10) lisinopril 5 mg tablet 2.5 mg PO DAILY 08/31/24 History rosuvastatin 20 mg tablet (Crestor) 10 mg PO DAILY 11/1710/17/24 History sertraline 25 mg tablet (Zoloft) 50 mg PO DAILY 10/17/24 History tirzepatide 7.5 mg/0.5 mL 7.5 mg subcut REEDER 08/31/24 History subcutaneous pen injector (Mounjaro) Post menopausal: No Patient : No : No [facility] Medical History Wears glasses Depression Diabetes Thyroid disease High cholesterol Sleep apnea Non-smoker Leg cramps Hypertension Aburto's cyst Abnormal Pap smear of cervix Surgical History S/P dilatation and curettage History of colonoscopy S/P left knee surgery S/P correction of [...] home: Yes additional social history: Single HPI 2 wk D&C Details: VANE LEMOS is a 59 year old who presents for 2 weeks post op D&C. The pathology showed endometrial poly. She had gone almost 2 years without a period until she bled this episode. History 0 Elective abortions Hx Para Spontaneous abortions Hx # Term Pregnancies Ectopic pregnancies Hx # Pregnancies Multiple births # of living children ROS ENT ENT: Reports system reviewed and no additional complaints, except as documented Cardio Card: Reports system reviewed and no additional complaints, except as documented Resp Resp: Denies cough, dyspnea or dyspnea on exertion GI GI: Denies abdominal pain, bloating or change in bowel habits : Denies vaginal odor or vaginal pruritus Musc Musc: Reports system reviewed and no additional complaints, except as documented Exam Const General: cooperative, healthy appearing and comfortable Resp Effort & Inspection: normal respiratory effort GI Palpation: soft and nontender Rectal Exam: other Extrem General: no edema Coding Level of Care Code Off vis,est,level 3 Diagnoses Endometrial thickening on ultrasound R93.89 Postmenopausal bleeding N95.0 Assessment and Plan Assessment and Plan (1) Endometrial thickening on ultrasound: Status: Acute (2) Postmenopausal bleeding: Status: Acute Comment: emb needed Orders: Orders Estradiol Today N95.0 - Postmenopausal bleeding FSH and LH Today N95.0 - Postmenopausal bleeding Antimullerian Hormone, Serum Today N95.0 - Postmenopausal bleeding Plan plan to check hormone levels. if consistent with menopause, due to the proliferative tissue on D&C, will recommend 2.5 mg medroxyprogesterone daily forsuppression of endometrium due to risk of hyperplasia and ca in the future basedon newer research. 10/17/24 1118 <Electronically signed by Addis Tang DO> Date _ Addis Foss DO Cosigner Signature: Date (if applicable) CC: ~ [facility] Work Phone: Reason for referral (narrative)No reason for referral information availableHighland Springs Surgical Center Work Phone: Summary Purpose Family History [...] Unknown Advance Directives No Advanced Directives Records Found Advance Directive Response Recorded Date/ Time Do you have a Healthcare Power of Tester Sound? 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) DINING WITH DIABETES Reason for Visit Encounter for routin e gynecological examination Chief Complaint Admit Date 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) August 31, 2024 10:57 am Reason for Visit Admit Date Encounter for routine gynecological exam ination August 31, 2024 10:57am Chief Complaint Admit Date 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) August 31, 2024 10:57 am EMB *per [...] 2024 8:29am Chief Complaint Admit Date 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) August 31, 2024 10:57 am EMB *per JV September 08, 2024 8:29 am Discuss D&C September 14, 2024 9:39 am Chief Complaint Admit Date 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) August 31, 2024 10:57 am EMB *per JV September 08, 2024 8:29 am Discuss D&C September 14, 2024 9:39 am Hysteroscopy,Dilation and Curettage Augu 2024 5:57am Hysteroscopy,Dilation and Curettage Augu 2024 7:23am Reason for Visit Admit Date Postmenopausal bleeding August 31, 2024 1 0:57am Encounter for routine gynecological exam ination August 31, 2024 10:57am Postmenopausal bleeding September 08, 2024 8:29am Endometrial thickening on ultrasound Aug 9:39am Postmenopausal bleeding September 14, 2024 9:39am Endometrial thickening on ultrasound Sep 5:57am Postmenopausal bleeding September 30, 2024 5:57am Chief Complaint Admit Date 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) August 31, 2024 10:57 am EMB *per JV September 08, 2024 8:29 am Discuss D&C September 14, 2024 9:39 am Hysteroscopy,Dilation and Curettage Augu 2024 5:57am Hysteroscopy,Dilation and Curettage Augu st 2024 7:23am 2 wk D&C October 17, 2024 10 :47am Reason for Visit Admit Date Postmenopausal bleeding August 31, 2024 1 0:57am Encounter for routine gynecological exam ination August 31, 2024 10:57am Postmenopausal bleeding September 08, 2024 8:29am Endometrial thickening on ultrasound Aug 9:39am Postmenopausal bleeding September 14, 2024 9:39am Endometrial thickening on ultrasound Sep ust 2024 5:57am Postmenopausal bleeding September 30, 2024 5:57am Endometrial thickening on ultrasound Sep ust 2024 10:47am Postmenopausal bleeding October 17 10:47am Additional Source Comments INFORMATION SOURCE (unrecogn ized section and content) DATE CREATED AUTHOR 08/14/2017 [facility] DATE CREATED AUTHOR AUTHOR'S ORGANIZ ATION 06/22/2023 [facility] ([place]) DATE CREATED AUTHOR AUTHOR'S ORGANIZ ATION 10/04/2024 [facility] DATE CREATED AUTHOR AUTHOR'S ORGANIZ ATION 11/01/2024 [facility] Goals (unrecognized section and content) Goals may be documented in a n alternate section Care Team (unrecognized sect ion and content) Care Team Personnel Name: Amarjit Bermudezranival Parekh PT 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 Role: Other Name: ALEX BULL MD Position: P4 Physician - Primary Care Member Role: Primary Care Physician Address: Address: [address] [place] [address]- Care Team Related Persons Name: Migel LEMOS Care Team Personnel Name: Amarjit Bermudez 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 Alex Bull MD Referring Provider Active Dr. Addis Foss DO Attending Provider Activ dakota Rivas NP, [employer]OND [employer]-C Primary Care Provider Active Team Status: Inactive Member Role Status Dates Self Referred Attending Provider Active Bertha Rivas NP, [employer]-C Primary Care Provider Active Team Status: Active Member Role/Relationship Status Dates Bertha Rivas NP, [employer]-C Primary Care Provider Active Team Status: Inactive Member Role/Relationship Status Dates Bertha Rivas DIAMOND DIE MAKER, [employer]KER-C Primary Care Provider Active Start: August 31, 2024 End: August 31, 2024 Bertha Rivas DIAMOND DIE MAKER, [employer]KER-C Referring Provider Active Start: August 31, 2024 End: August 31, 2024 Dr. Addis Foss , DO Attending Provider Activ e Start: August 31, 2024 End: August 31, 2024 Team Status: Inactive Member Role/Relationship Status Dates Bertha Rivas DIAMOND DIE MAKER, [employer]KER-C Primary Care Provider Active Start: September 08, 2024 End: September 08, 2024 Bertha Rivas DIAMOND DIE MAKER, [employer]KER-C Referring Provider Active Start: September 08, 2024 End: September 08, 2024 Dr. Addis Foss , DO Attending Provider Activ e Start: September 08, 2024 End: September 08, 2024 Team Status: Inactive Member Role/Relationship Status Dates Bertha Rivas DIAMOND DIE MAKER, [employer]KER-C Primary Care Provider Active Start: September 08, 2024 End: September 08, 2024 Dr. Addis Foss , Attending Provider Activ e Start: September 08, 2024 End: September 08, 2024 Team Status: Inactive Member Role/Relationship Status Dates Bertha Rivas DIAMOND DIE MAKER, [employer]KER-C Primary Care Provider Active Start: September 14, 2024 End: September 14, 2024 Bertha Rivas DIAMOND DIE MAKER, [employer] MAKER-C Referring Provider Active Start: September 14, 2024 End: September 14, 2024 Dr. Addis Foss DO Attending Provider Activ e Start: September 14, 2024 End: September 14, 2024 Team Status: Inactive Member Role/Relationship Status Dates Bertha Rivas DIAMOND DIE MAKER, [employer]KER-C Primary Care Provider Active Start: September 30, 2024 End: September 30, 2024 Dr. Addis Foss , Attending Provider Activ e Start: September 30, 2024 End: September 30, 2024 Dr. Addis Foss DO Referring Provider Activ e Start: September 30, 2024 End: September 30, 2024 Team Status: Active Member Role/Relationship Status Dates Bertha Rivas DIAMOND DIE MAKER, DI[employer] MAKER-C Primary Care Provider Active Start: September 30, 2024 Dr. Addis Foss DO Attending Provider Activ e Start: September 30, 2024 Dr. Addis Foss DO Referring Provider Activ e Start: September 30, 2024 Dr. Addis Foss DO Other Provider Active Start: September 30, 2024 Team Status: Inactive Member Role/Relationship Status Dates Bertha Rivas DIAMOND DIE MAKER, [employer] MAKER-C Primary Care Provider Active Start: October 17, 2024 End: October 17, 2024 Bertha Rivas NP, [employer]ER-C Referring Provider Active Start: October 17, 2024 End: October 17, 2024 Dr. Addis Foss DO Attending Provider Activ e Start: October 17, 2024 End: October 17, 2024 Team Status: Active Member Role/Relationship Status Dates Bertha Rivas NP, DIAMOND [employer] MAKER-C Primary Care Provider Active Start: October 17, 2024 Dr. Addis Foss DO Attending Provider Activ e Start: October 17, 2024 Dr. Addis Foss DO Referring Provider Activ e Start: October 17, 2024 Team Status: Inactive Member Role/Relationship Status Dates Bertha Rivas NP, DIAMOND D[employer] MAKER-C Primary Care Provider Active Start: October 17, 2024 End: October 17, 2024 Dr. Addis Foss DO Attending Provider Activ e Start: October 17, 2024 End: October 17, 2024 Dr. Addis Foss DO Referring Provider Activ e Start: October 17, 2024 End: October 17, 2024 FOR RECORDS PERTAINING TO PATIENTS WHO [...] BE BASED ON THE PRIMARY CLINICAL RECORDS. [employer] provides no warranty or guarantee of the accuracy or completeness of information in this document.
== END | disposition home or self-care (01) ==
PROVIDERS: PCP Nurse Practitioner Family; Referring Provider Nurse Practitioner Family; Visit Provider Nurse Practitioner Family
DX: Z78.0 Asymptomatic menopausal state (principal)
CPT/HCPCS: 77080